=== PATIENT | female | born 1955 | race Caucasian/White ===

== ENCOUNTER 2019-11-06 05:40 | Day surgery (SDC) | payer MEDICARE ==
[2019-11-06] MEDS ORDERED: Midazolam 1 MG/ML 2 ML SDV IV ONE ×7 (05:41→06:53)
[2019-11-06] MEDS ORDERED: fentaNYL 100 MCG/2 ML SDV IV ONE ×3 (05:41→06:40)
[2019-11-06] MEDS ORDERED: Sodium Chloride 0.9% 10 ML Syringe FLUSH PRN (06:00)
[2019-11-06] MEDS ORDERED: fentaNYL 100 MCG/2 ML SDV ONE (06:15)
[2019-11-06] MEDS ORDERED: Midazolam 1 MG/ML 2 ML SDV ONE (06:15)
[2019-11-06] MEDS ORDERED: Dextrose 5%-0.45% NaCl 1,000 ML IV SCH (07:00)
--- NOTE | 2019-11-06 07:33 | OR ---
DATE: 11/06/2019 PROCEDURES: Total colonoscopy, narrow-band imaging, and cold snare polypectomy. INSTRUMENT USED: PCF-H190DL Olympus video colonoscope. PREMEDICATIONS: Fentanyl 100 mcg intravenous, Versed 4 mg intravenous, nasal O2 cannula. The procedure was done under pulse oximetry, BP recording, and radiographer cardiac catheterization. INDICATION: The patient with rectal bleeding. Colonoscopic examination is done for detection of any polypoid lesions and removal, endoscopic hemostasis therapy if needed. DESCRIPTION OF PROCEDURE: Initial rectal exam showed external hemorrhoidal tags. Rigid anoscopy showed small internal hemorrhoids without bleeding from them. The colonoscope was passed with ease. Numerous scattered diverticula were noted, more so in the distal left colon along with deformity. The scope was passed with ease up to the ileocecal area. Photographs were taken of the normal-appearing cecum, identified by landmarks of appendiceal orifice and double-bulged ileocecal folds. There was significant amount of fecal material that had to be aspirated, [place] scale 2 in all the areas. No stricture. No vascular ectasia. No large isolated ulcerations seen. No evidence of diffuse inflammatory bowel disease in the form of friability, contact bleeding, or ulcerations. Probing the proximal sides of folds and flexures using adequate distention and clearing up the stool material, withdrawal of the scope was made. In the mid descending colon, diminutive benign-appearing polyp was noted, NBI views were obtained, photographs were taken, cold snare polypectomy was done, the tissue was retrieved and sent for histopathology. No bleeding was noted from any of the visualized areas at the completion of examination. IMPRESSION: 1. External and internal hemorrhoids. 2. Diverticulosis. 3. Descending colon polyp. The patient tolerated the procedure well. [facility] /[id number]
== END 2019-11-06 09:12 | disposition home or self-care (01) ==
LOC: DL.ENDO 05:40 → EDSEX 06:30 → DL.ENDO 09:12
PROVIDERS: ATTEND Internal Medicine Gastroenterology
DX: D12.4 Benign neoplasm of descending colon (principal); K64.8 Other hemorrhoids; K64.4 Residual hemorrhoidal skin tags; K57.30 Diverticulosis of large intestine without perforation or abscess without bleeding; I10 Essential (primary) hypertension; E78.5 Hyperlipidemia, unspecified; E11.9 Type 2 diabetes mellitus without complications; F32.9 Major depressive disorder, single episode, unspecified; M54.5 Low back pain; M19.90 Unspecified osteoarthritis, unspecified site; E66.09 Other obesity due to excess calories; Z68.39 Body mass index [BMI] 39.0-39.9, adult; Z88.1 Allergy status to other antibiotic agents; Z88.6 Allergy status to analgesic agent; Z88.2 Allergy status to sulfonamides; Z88.8 Allergy status to other drugs, medicaments and biological substances; Z90.49 Acquired absence of other specified parts of digestive tract; Z90.710 Acquired absence of both cervix and uterus; Z98.890 Other specified postprocedural states
CPT/HCPCS: 45385; J2250; J3010; J7042

== ENCOUNTER 2019-12-26 13:50 | Inpatient (IN) | payer MEDICARE, OTHER ==
[2019-12-26 16:04] LABS: ANION GAP 13.9
--- NOTE | 2019-12-26 17:25 | EDM.PDOC ---
Scribed by Breana Castro 12/26/19 [id number] for Donna Iyer PA-C ED HPI GENERAL MEDICAL PROBLEM - General Chief Complaint: Trauma Stated Complaint: FEEL SATURDAY AND LAST NIGHT Time Seen by Provider: 12/26/19 15:41 Source of Information: Reports: Patient, Family, RN, RN Notes Reviewed History Limitations: Reports: No Limitations - History of Present Illness INITIAL COMMENTS - FREE TEXT/NARRATIVE: Patient presents to ER stating she had a fall at home x2. She laid on floor for 24 hours. She was assisted up by her son. She then fell again latera. She bent over her walker and went forward. No loss of consciousness. She hit her left forehead and unable to get up off the floor by self. She has had no meds for the last 36 hours. Her left lower leg is red and swollen but better than prior. She has left hip pain but has been bearing weight. She voided a large amount. No chest pain or shortness of breath. She has usual weakness. reports swelling to lower extremities, Redness to left though is better than prior to fall. States has fallen before, Lives alone , son comes to check on her, Does not have life line. Onset: Gradual Duration: Getting Worse Location: Reports: Generalized Quality: Reports: Ache Severity: Moderate Improves with: Reports: None Worsens with: Reports: None Associated Symptoms: Reports: No Other Symptoms - Related Data Allergies Allergy/AdvReac Type Severity Reaction Status Date / Time daptomycin Allergy Cannot Verified 12/26/19 15:24 Remember [id number] Reductase Allergy Cannot Verified 12/26/19 15:24 Inhibitor Remember Sulfa (Sulfonamide Allergy Cannot Verified 12/26/19 15:24 Antibiotics) Remember Home Meds: Home Meds Amitriptyline [Elavil] 50 mg PO BEDTIME 12/26/19 [History] Baclofen 10 mg PO TID 12/26/19 [History] Calcium Carbonate [Calcium] 500 mg PO DAILY 12/26/19 [History] Fish Oil/[place]-3 Fatty Acids [Fish Oil 1,000 MG] 1 cap PO DAILY 12/26/19 [ History] Gabapentin [Neurontin] 800 mg PO QID 12/26/19 [History] Ibuprofen 600 mg PO TID 12/26/19 [History] Loratadine [Claritin] 10 mg PO DAILY 12/26/19 [History] Losartan [Cozaar] 100 mg PO DAILY 12/26/19 [History] Magnesium Oxide [Magnesium] 400 mg PO DAILY 12/26/19 [History] Metoprolol Tartrate 100 mg PO DAILY 12/26/19 [History] Multivit,Calc,Mins/Iron/Folic [Thera-M] 1 tab TID 12/26/19 [History] Naproxen Na-Diphenhydramin HCl [Aleve Pm Caplet] 1 each PO BEDTIME 12/26/19 [ History] Omeprazole 20 mg PO ACBREAKFAST 12/26/19 [History] Vitamin E (dl, acetate) [Vitamin E] 400 units PO DAILY 12/26/19 [History] Past Medical History HEENT History: Reports: None, Impaired Vision Cardiovascular History: Reports: High Cholesterol, Hypertension Respiratory History: Reports: None Gastrointestinal History: Reports: GERD, Other (See Below) Other Gastrointestinal History: ESOPHAGITIS Genitourinary History: Reports: Chronic Renal Insuffiency 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: Musculoskeletal History: Reports: Arthritis, Back Pain, Chronic, Osteoporosis Neurological History: Reports: Neuropathy, Peripheral, Other (See Below) Other Neuro History: NEUROMUSCULAR DISORDER Psychiatric History: Reports: Depression Endocrine/Metabolic History: Reports: Diabetes, Type II Hematologic History: Reports: None Immunologic History: Reports: None Oncologic (Cancer) History: Reports: None Dermatologic History: Reports: None - Infectious Disease History Infectious Disease History: Reports: Chicken Pox, Measles, Mumps - Past Surgical History Head Surgeries/Procedures: Reports: None HEENT Surgical History: Reports: None Cardiovascular Surgical History: Reports: None Respiratory Surgical History: Reports: None GI Surgical History: Reports: Cholecystectomy, Colonoscopy Female Surgical History: Reports: Hysterectomy, Tubal Ligation, Other (See Below) Other Female Surgeries/Procedures: ME. LIGATE FALLOPIAN TUBE Musculoskeletal Surgical History: Reports: Arthroscopic Knee, Other (See Below) Other Musculoskeletal Surgeries/Procedures:: HX OF LUMBAR SURGERY. RIGHT KENEE ARTHROSCOPY Social & Family History - Family History Family Medical History: Noncontributory - Tobacco Use Smoking Status *Q: Never Smoker Second Hand Smoke Exposure: No - Caffeine Use Caffeine Use: Reports: Coffee, Soda, Tea Caffeine Use Comment: 12 oz daily - Recreational Drug Use Recreational Drug Use: No Review of Systems - Review of Systems Review Of Systems: Comprehensive ROS is negative, except as noted in HPI. ED EXAM, GENERAL - Physical Exam Exam: See Below Exam Limited By: No Limitations General Appearance: Alert, WD/WN, No Apparent Distress Eye Exam: Bilateral Eye: EOMI, PERRL Ears: Normal External Exam, Normal Canal, Hearing Grossly Normal, Normal TMs Nose: Normal Inspection, Normal Mucosa, No Blood. No: Nasal Drainage Throat/Mouth: Normal Inspection, Normal Lips, Normal Teeth, Normal Gums, Normal Oropharynx, Normal Voice, No Airway Compromise Head: Atraumatic, Normocephalic, Facial Swelling (left upper orbit, foerhead, cheek tender) Neck: Normal Inspection, Supple, Non-Tender, Full Range of Motion Respiratory/Chest: No Respiratory Distress, Lungs Clear, Normal Breath Sounds, No Accessory Muscle Use, Chest Non-Tender Cardiovascular: Normal Peripheral Pulses, Regular Rate, Rhythm, No Edema, No Gallop, No JVD, No Murmur, No Rub GI/Abdominal: Normal Bowel Sounds, Soft, Non-Tender, Other (normal bowel sounds x4. ) (Female) Exam: Deferred Rectal (Female) Exam: Deferred Back Exam: Normal Inspection Extremities: Normal Inspection, Normal Range of Motion, Non-Tender, Normal Capillary Refill, No Pedal Edema Neurological: Alert, Oriented, CN II-XII Intact, Normal Cognition, Normal Gait, Normal Reflexes, No Motor/Sensory Deficits Psychiatric: Normal Affect, Normal Mood Skin Exam: Warm, Dry, Other (bruise right and left upper arm. Bruise left upper elbow. Left ahumada open sores, red and warm. ) Course - Vital Signs Last Recorded V/S: Last Vital Signs Temp 97.7 F 12/26/19 15:27 Pulse 85 12/26/19 15:27 Resp 16 12/26/19 15:27 BP 107/91 H 12/26/19 15:27 Pulse Ox 98 12/26/19 15:27 - Orders/Labs/Meds Orders: Active Orders 24 hr Category Date Time Status Admission Diagnosis [ADT] Stat ADT 12/26/19 17:18 Ordered Admission Status [Patient Status] [ADT] Routine ADT 12/26/19 17:18 Ordered EKG 12 Lead [EKG Documentation Completion] [RC] URGENT Care 12/26/19 17:04 Active Head wo Cont [CT] Urgent Exams 12/26/19 15:32 Taken Max Facial Sinus w wo Cont [CT] Urgent Exams 12/26/19 15:35 Taken Pelvis wo Cont [MR] Urgent Exams 12/26/19 15:48 Ordered CULTURE BLOOD [BC] Stat Lab 12/26/19 16:33 Received UA RFX DEBORAH AND CULT IF INDIC [URIN] Urgent Lab 12/26/19 15:32 Ordered Blood Culture x2 Reflex Set [OM.PC] Stat Oth 12/26/19 16:04 Ordered Labs: Laboratory Tests 12/26/19 12/26/19 12/26/19 Range/Units 15:42 15:42 15:42 WBC 7.1 (5.0-10.0) 10^3/uL RBC 3.74 L (4.2-5.4) 10^6/uL Hgb 11.6 L (12.0-16.0) g/dL Hct 33.6 L (37.0-47.0) % MCV 89.8 (80-100) fL MCH 31.0 (27.0-34.0) pg MCHC 34.5 (33.0-35.0) g/dL Plt Count 146 L (150-450) 10^3/uL Neut % (Auto) 61.9 (42.2-75.2) % Lymph % (Auto) 21.4 (20.5-50.1) % Cameron % (Auto) 11.4 H (2-8) % Eos % (Auto) 4.9 H (1.0-3.0) % Baso % (Auto) 0.4 (0.0-1.0) % PT 10.9 (9.0-12.0) SEC INR 1.1 (0.9-1.2) Sodium 137 (135-145) mmol/L Potassium 3.9 (3.6-5.0) mmol/L Chloride 103 (101-111) mmol/L Carbon Dioxide 24.0 (21.0-31.0) mmol/L Anion Gap 13.9 BUN 43 H (7-18) mg/dL Creatinine 1.4 H (0.6-1.3) mg/dL Est Cr Clr Drug Dosing 37.49 mL/min Estimated GFR (MDRD) 38 BUN/Creatinine Ratio 30.71 Glucose 219 H (74-105) mg/dL Lactic Acid (0.5-2.0) mmol/L Calcium 9.0 (8.4-10.2) mg/dl Total Bilirubin 1.1 H (0.2-1.0) mg/dL AST 83 H (10-42) IU/L ALT 49 (10-60) IU/L Alkaline Phosphatase 121 (42-121) IU/L Creatine Kinase 1048 H (26-174) IU/L Troponin I (0.00-0.02) ng/ml B-Natriuretic Peptide (0-100) pg/ml Total Protein 7.8 (6.7-8.2) g/dl Albumin 3.4 (3.2-5.5) g/dl Globulin 4.4 Albumin/Globulin Ratio 0.77 Amylase 28 (28-100) U/L Lipase 26 (22-51) U/L 12/26/19 12/26/19 Range/Units 15:42 16:33 WBC (5.0-10.0) 10^3/uL RBC (4.2-5.4) 10^6/uL Hgb (12.0-16.0) g/dL Hct (37.0-47.0) % MCV (80-100) fL MCH (27.0-34.0) pg MCHC (33.0-35.0) g/dL Plt Count (150-450) 10^3/uL Neut % (Auto) (42.2-75.2) % Lymph % (Auto) (20.5-50.1) % Cameron % (Auto) (2-8) % Eos % (Auto) (1.0-3.0) % Baso % (Auto) (0.0-1.0) % PT (9.0-12.0) SEC INR (0.9-1.2) Sodium (135-145) mmol/L Potassium (3.6-5.0) mmol/L Chloride (101-111) mmol/L Carbon Dioxide (21.0-31.0) mmol/L Anion Gap BUN (7-18) mg/dL Creatinine (0.6-1.3) mg/dL Est Cr Clr Drug Dosing mL/min Estimated GFR (MDRD) BUN/Creatinine Ratio Glucose (74-105) mg/dL Lactic Acid 1.3 (0.5-2.0) mmol/L Calcium (8.4-10.2) mg/dl Total Bilirubin (0.2-1.0) mg/dL AST (10-42) IU/L ALT (10-60) IU/L Alkaline Phosphatase (42-121) IU/L Creatine Kinase (26-174) IU/L Troponin I < 0.02 (0.00-0.02) ng/ml B-Natriuretic Peptide 170 H (0-100) pg/ml Total Protein (6.7-8.2) g/dl Albumin (3.2-5.5) g/dl Globulin Albumin/Globulin Ratio Amylase (28-100) U/L Lipase (22-51) U/L - Radiology Interpretation Free Text/Narrative:: CT head: Soft tissue injury around the left orbit. No acute intracranial process. See rad report. CT maxillofacial sinuses: Soft tissue swelling without acute bony abnormality. See rad report. CT Pelvis: No acute abnormality. See rad report. - Re-Assessments/Exams Free Text/Narrative Re-Assessment/Exam: 12/26/19 17:22 Dr Johnson, accepting patient for Observation admission. Departure - Departure Time of Disposition: 17:23 Disposition: Refer to Observation Condition: Good Clinical Impression: Fall at home Qualifiers: Encounter type: initial encounter Qualified Code(s): W19.XXXA - Unspecified fall, initial encounter; Y92.009 - Unspecified place in unspecified non- institutional (private) residence as the place of occurrence of the external cause Facial contusion Qualifiers: Encounter type: initial encounter Qualified Code(s): S00.83XA - Contusion of other part of head, initial encounter Edema Qualifiers: Edema type: unspecified Qualified Code(s): R60.9 - Edema, unspecified Rhabdomyolysis Qualifiers: Rhabdomyolysis type: traumatic Encounter type: initial encounter Qualified Code (s): T79.6XXA - Traumatic ischemia of muscle, initial encounter - Discharge Information *PRESCRIPTION DRUG MONITORING PROGRAM REVIEWED*: No *COPY OF PRESCRIPTION DRUG MONITORING REPORT IN PATIENT SHARON: No Forms: ED Department Discharge Sepsis Event Note - Evaluation Sepsis Screening Result: No Definite Risk - Focused Exam Vital Signs: Vital Signs Temp Pulse Resp BP Pulse Ox 12/26/19 15:27 97.7 F 85 16 107/91 H 98 Date Exam was Performed: 12/26/19 Time Exam was Performed: 17:24 - My Orders Last 24 Hours: My Active Orders 12/26/19 15:32 Head wo Cont [CT] Urgent UA RFX DEBORAH AND CULT IF INDIC [URIN] Urgent 12/26/19 15:35 Max Facial Sinus w wo Cont [CT] Urgent 12/26/19 15:48 Pelvis wo Cont [MR] Urgent 12/26/19 16:04 Blood Culture x2 Reflex Set [OM.PC] Stat 12/26/19 16:33 CULTURE BLOOD [BC] Stat 12/26/19 17:04 EKG 12 Lead [EKG Documentation Completion] [RC] URGENT 12/26/19 17:18 Admission Diagnosis [ADT] Stat Admission Status [Patient Status] [ADT] Routine - Assessment/Plan Last 24 Hours: My Active Orders 12/26/19 15:32 Head wo Cont [CT] Urgent UA RFX DEBORAH AND CULT IF INDIC [URIN] Urgent 12/26/19 15:35 Max Facial Sinus w wo Cont [CT] Urgent 12/26/19 15:48 Pelvis wo Cont [MR] Urgent 12/26/19 16:04 Blood Culture x2 Reflex Set [OM.PC] Stat 12/26/19 16:33 CULTURE BLOOD [BC] Stat 12/26/19 17:04 EKG 12 Lead [EKG Documentation Completion] [RC] URGENT 12/26/19 17:18 Admission Diagnosis [ADT] Stat Admission Status [Patient Status] [ADT] Routine I have read and agree with the documentation that has been completed regarding this visit. By signing this record, I attest that the documentation was completed in my physical presence and is an accurate record of the encounter.
[2019-12-26] MEDS ORDERED: Ondansetron 4 MG/2 ML SDV IV PRN (18:48)
[2019-12-26] MEDS ORDERED: Acetaminophen 325 MG Tab PO PRN (18:48)
[2019-12-26] MEDS ORDERED: Sodium Chloride 0.9% 10 ML Syringe FLUSH PRN (18:49)
[2019-12-26] MEDS ORDERED: Baclofen 10 MG Tab PO PRN (18:52)
[2019-12-26] MEDS ORDERED: fentaNYL 100 MCG/2 ML SDV IVPUSH PRN (19:44)
[2019-12-26] MEDS: Sodium Chloride 0.9% 1,000 ML IV SCH (19:48)
--- NOTE | 2019-12-26 19:51 | PCM.HP ---
H&P History of Present Illness - General Date of Service: 12/26/19 Admit Problem/Dx: Admission Diagnosis/Problem Admission Diagnosis/Problem Rhabdomyolysis Source of Information: Patient History Limitations: Reports: No Limitations - History of Present Illness Initial Comments - Free Text/Narative: 64 yo with PMH of HTN, DM2 on insulin, chronic back pain s/p lumbar surgery with complications, ambulatory dysfunction, mostly wheelchair bound, GERD, osteomyelitis s/p treatment, HLD, obesity, CKD, hepatic steatosis (HUMPHRIES), who presents to the ED after a fall from her wheelchair. She lives alone at home but has family members who check on her regularly. She had lumbar surgery for sciatica in 2017 which was complicated with infection and she has had ambulatory dysfunction since, being bound to wheelchair. Wheelchair however is dysfunctional and tends to topple over and leave her on the floor. She is able to pick herself up sometime if she is near an object like an ottoman. However in the last two days, she has had two falls from the wheelchair and has been unable to get herself back up. She was on the floor for almost 24 hours the first time when her son was able to come in and help her up last night. She then was able to get dinner and slept overnight in her bed. She subsequently fell again during the day today and was on the floor again for some hours before the son came in and brought her to the ED. She had no LOC, no urinary or fecal incontinence, no chest pain, no SOB, no abd pain, no urinary symptoms. She does have a left ahumada redness, pain and swelling that started two days ago. There is seropurulent discharge from small wounds on the left ahumada. No fever, no chills, no rigors. She also has left eye swelling from the fall. In the ER, she was cleared by ER provider from a trauma standpoint. CT head negative for bleed, fracture. CPK was elevated > 1000. Admission requested by ED provider. left leg Pain Score (Numeric/FACES): 7 - Related Data Allergies/Adverse Reactions: Allergies Allergy/AdvReac Type Severity Reaction Status Date / Time daptomycin Allergy Cannot Verified 12/26/19 17:43 Remember Hddzvim-Xnx-Slj Reductase Allergy Cannot Verified 12/26/19 17:43 Inhibitor Remember Sulfa (Sulfonamide Allergy Cannot Verified 12/26/19 17:43 Antibiotics) Remember Home Medications: Home Meds Amitriptyline [Elavil] 50 mg PO BEDTIME 12/26/19 [History] Baclofen 10 mg PO TID 12/26/19 [History] Calcium Carbonate [Calcium] 500 mg PO DAILY 12/26/19 [History] Fish Oil/[place]-3 Fatty Acids [Fish Oil 1,000 MG] 1 cap PO DAILY 12/26/19 [ History] Gabapentin [Neurontin] 800 mg PO QID 12/26/19 [History] Ibuprofen 600 mg PO TID 12/26/19 [History] Insulin Degludec [Tresiba] 20 units SQ DAILY 12/26/19 [History] Loratadine [Claritin] 10 mg PO DAILY 12/26/19 [History] Losartan [Cozaar] 100 mg PO DAILY 12/26/19 [History] Magnesium Oxide [Magnesium] 400 mg PO DAILY 12/26/19 [History] Metoprolol Tartrate 100 mg PO DAILY 12/26/19 [History] Multivit,Calc,Mins/Iron/Folic [Thera-M] 1 tab TID 12/26/19 [History] Naproxen Na-Diphenhydramin HCl [Aleve Pm Caplet] 1 each PO BEDTIME 12/26/19 [ History] Omeprazole 20 mg PO ACBREAKFAST 12/26/19 [History] Vitamin E (dl, acetate) [Vitamin E] 400 units PO DAILY 12/26/19 [History] Past Medical History HEENT History: Reports: None, Impaired Vision Cardiovascular History: Reports: High Cholesterol, Hypertension Respiratory History: Reports: None Gastrointestinal History: Reports: GERD, Other (See Below) Other Gastrointestinal History: ESOPHAGITIS Genitourinary History: Reports: Chronic Renal Insuffiency DEVICE ENGINEER History: Reports: Musculoskeletal History: Reports: Arthritis, Back Pain, Chronic, Osteoporosis Neurological History: Reports: Neuropathy, Peripheral, Other (See Below) Other Neuro History: NEUROMUSCULAR DISORDER Psychiatric History: Reports: Depression Endocrine/Metabolic History: Reports: Diabetes, Type II Hematologic History: Reports: None Immunologic History: Reports: None Oncologic (Cancer) History: Reports: None Dermatologic History: Reports: None - Infectious Disease History Infectious Disease History: Reports: Chicken Pox, Measles, Mumps - Past Surgical History Head Surgeries/Procedures: Reports: None HEENT Surgical History: Reports: None Cardiovascular Surgical History: Reports: None Respiratory Surgical History: Reports: None GI Surgical History: Reports: Cholecystectomy, Colonoscopy Female Surgical History: Reports: Hysterectomy, Tubal Ligation, Other (See Below) Other Female Surgeries/Procedures: DE. LIGATE FALLOPIAN TUBE Musculoskeletal Surgical History: Reports: Arthroscopic Knee, Other (See Below) Other Musculoskeletal Surgeries/Procedures:: HX OF LUMBAR SURGERY. RIGHT KENEE ARTHROSCOPY Social & Family History - Family History Family Medical History: Noncontributory - Tobacco Use Smoking Status *Q: Never Smoker Second Hand Smoke Exposure: No - Caffeine Use Caffeine Use: Reports: Coffee, Soda, Tea Caffeine Use Comment: 12 oz daily - Recreational Drug Use Recreational Drug Use: No H&P Review of Systems - Review of Systems: Review Of Systems: See Below General: Denies: Fever, Chills HEENT: Reports: No Symptoms Pulmonary: Reports: No Symptoms Cardiovascular: Reports: No Symptoms Gastrointestinal: Reports: No Symptoms Genitourinary: Reports: No Symptoms Musculoskeletal: Reports: Other (Fall) Skin: Reports: Wound, Change in Color Psychiatric: Reports: No Symptoms Neurological: Reports: Gait Disturbance Exam - Exam Exam: See Below - Vital Signs Vital Signs: Last Vital Signs Temp 36.1 C 12/26/19 17:42 Pulse 88 12/26/19 17:42 Resp 20 12/26/19 17:42 BP 150/75 H 12/26/19 17:42 Pulse Ox 100 12/26/19 17:42 Weight: 109.225 kg - Exam General: Alert, Oriented HEENT: Conjunctiva Clear, EOMI, Hearing Intact Neck: Supple, Trachea Midline Lungs: Clear to Auscultation, Normal Respiratory Effort Cardiovascular: Regular Rate, Regular Rhythm GI/Abdominal Exam: Normal Bowel Sounds, Soft, Non-Tender Extremities: Pedal Edema (left leg swelling, tenderness, redness), Redness - Patient Data Lab Results Last 24 hrs: Laboratory Results - last 24 hr 12/26/19 12/26/19 12/26/19 Range/Units 15:42 15:42 15:42 WBC 7.1 (5.0-10.0) 10^3/uL RBC 3.74 L (4.2-5.4) 10^6/uL Hgb 11.6 L (12.0-16.0) g/dL Hct 33.6 L (37.0-47.0) % MCV 89.8 (80-100) fL MCH 31.0 (27.0-34.0) pg MCHC 34.5 (33.0-35.0) g/dL Plt Count 146 L (150-450) 10^3/uL Neut % (Auto) 61.9 (42.2-75.2) % Lymph % (Auto) 21.4 (20.5-50.1) % [place] % (Auto) 11.4 H (2-8) % Eos % (Auto) 4.9 H (1.0-3.0) % Baso % (Auto) 0.4 (0.0-1.0) % PT 10.9 (9.0-12.0) SEC INR 1.1 (0.9-1.2) Sodium 137 (135-145) mmol/L Potassium 3.9 (3.6-5.0) mmol/L Chloride 103 (101-111) mmol/L Carbon Dioxide 24.0 (21.0-31.0) mmol/L Anion Gap 13.9 BUN 43 H (7-18) mg/dL Creatinine 1.4 H (0.6-1.3) mg/dL Est Cr Clr Drug Dosing 37.49 mL/min Estimated GFR (MDRD) 38 BUN/Creatinine Ratio 30.71 Glucose 219 H (74-105) mg/dL Lactic Acid (0.5-2.0) mmol/L Calcium 9.0 (8.4-10.2) mg/dl Total Bilirubin 1.1 H (0.2-1.0) mg/dL AST 83 H (10-42) IU/L ALT 49 (10-60) IU/L Alkaline Phosphatase 121 (42-121) IU/L Creatine Kinase 1048 H (26-174) IU/L Troponin I (0.00-0.02) ng/ml B-Natriuretic Peptide (0-100) pg/ml Total Protein 7.8 (6.7-8.2) g/dl Albumin 3.4 (3.2-5.5) g/dl Globulin 4.4 Albumin/Globulin Ratio 0.77 Amylase 28 (28-100) U/L Lipase 26 (22-51) U/L 12/26/19 12/26/19 Range/Units 15:42 16:33 WBC (5.0-10.0) 10^3/uL RBC (4.2-5.4) 10^6/uL Hgb (12.0-16.0) g/dL Hct (37.0-47.0) % MCV (80-100) fL MCH (27.0-34.0) pg MCHC (33.0-35.0) g/dL Plt Count (150-450) 10^3/uL Neut % (Auto) (42.2-75.2) % Lymph % (Auto) (20.5-50.1) % [place] % (Auto) (2-8) % Eos % (Auto) (1.0-3.0) % Baso % (Auto) (0.0-1.0) % PT (9.0-12.0) SEC INR (0.9-1.2) Sodium (135-145) mmol/L Potassium (3.6-5.0) mmol/L Chloride (101-111) mmol/L Carbon Dioxide (21.0-31.0) mmol/L Anion Gap BUN (7-18) mg/dL Creatinine (0.6-1.3) mg/dL Est Cr Clr Drug Dosing mL/min Estimated GFR (MDRD) BUN/Creatinine Ratio Glucose (74-105) mg/dL Lactic Acid 1.3 (0.5-2.0) mmol/L Calcium (8.4-10.2) mg/dl Total Bilirubin (0.2-1.0) mg/dL AST (10-42) IU/L ALT (10-60) IU/L Alkaline Phosphatase (42-121) IU/L Creatine Kinase (26-174) IU/L Troponin I < 0.02 (0.00-0.02) ng/ml B-Natriuretic Peptide 170 H (0-100) pg/ml Total Protein (6.7-8.2) g/dl Albumin (3.2-5.5) g/dl Globulin Albumin/Globulin Ratio Amylase (28-100) U/L Lipase (22-51) U/L Result Diagrams: 12/26/19 15:42 12/26/19 15:42 Problem List Initiated/Reviewed/Updated: Yes Orders Last 24hrs: Active Orders 24 hr Category Date Time Status Admission Diagnosis [ADT] Stat ADT 12/26/19 17:18 Ordered Patient Status [ADT] Routine ADT 12/26/19 18:49 Active Accu Check [Blood Glucose Check, Bedside] [RC] Care 12/26/19 18:49 Active QIDACANDBED Ambulate [RC] ASDIRECTED Care 12/26/19 18:49 Active EKG 12 Lead [EKG Documentation Completion] [RC] URGENT Care 12/26/19 17:04 Active Height and Weight [RC] DAILY Care 12/26/19 18:49 Active Oxygen Therapy [RC] PRN Care 12/26/19 18:49 Active Peripheral IV Care [RC] . DIRECTED Care 12/26/19 18:49 Active Up With Assistance [RC] ASDIRECTED Care 12/26/19 18:49 Active VTE/DVT Education [RC] PER UNIT ROUTINE Care 12/26/19 18:49 Active Vital Signs [RC] Q4H Care 12/26/19 18:49 Active OT Evaluation and Treatment [CONS] Routine Cons 12/26/19 18:49 Active PT Evaluation and Treatment [CONS] Routine Cons 12/26/19 18:49 Active Regular Diet [DIET] Diet 12/26/19 Dinner Active Pelvis wo Cont [MR] Urgent Exams 12/26/19 15:48 Ordered BASIC METABOLIC PANEL,BMP [CHEM] AM Lab 12/27/19 05:11 Ordered BASIC METABOLIC PANEL,BMP [CHEM] AM Lab 12/28/19 05:11 Ordered BASIC METABOLIC PANEL,BMP [CHEM] AM Lab 12/29/19 05:11 Ordered CBC W/O DIFF,HEMOGRAM [HEME] AM Lab 12/27/19 05:11 Ordered CBC W/O DIFF,HEMOGRAM [HEME] AM Lab 12/28/19 05:11 Ordered CBC W/O DIFF,HEMOGRAM [HEME] AM Lab 12/29/19 05:11 Ordered CREATINE KINASE,CK [CHEM] AM Lab 12/27/19 05:11 Ordered CULTURE BLOOD [BC] Stat Lab 12/26/19 16:33 Received CULTURE WOUND [RM] Routine Lab 12/26/19 17:45 Received MAGNESIUM [CHEM] AM Lab 12/27/19 05:11 Ordered MAGNESIUM [CHEM] AM Lab 12/28/19 05:11 Ordered MAGNESIUM [CHEM] AM Lab 12/29/19 05:11 Ordered PHOSPHORUS [CHEM] AM Lab 12/27/19 05:11 Ordered PHOSPHORUS [CHEM] AM Lab 12/28/19 05:11 Ordered PHOSPHORUS [CHEM] AM Lab 12/29/19 05:11 Ordered UA RFX DEBORAH AND CULT IF INDIC [URIN] Urgent Lab 12/26/19 15:32 Ordered Acetaminophen [Tylenol] Med 12/26/19 18:48 Active 650 mg PO Q4H PRN Amitriptyline [Elavil] Med 12/26/19 21:00 Ordered 50 mg PO BEDTIME Baclofen [Lioresal] Med 12/26/19 18:52 Ordered 10 mg PO TID PRN Calcium Carbonate [Calcium] Med 12/27/19 09:00 Ordered 500 mg PO DAILY Fish Oil/[place]-3 Fatty Acids [Fish Oil 1,000 MG] Med 12/27/19 09:00 Ordered 1 cap PO DAILY Insulin Degludec [Tresiba] Med 12/27/19 09:00 Ordered 20 units SQ DAILY Insulin Lispro [HumaLOG] Med 12/26/19 21:00 Active See Protocol SUBCUT QIDACANDBED Losartan [Cozaar] Med 12/27/19 09:00 Ordered 100 mg PO DAILY Magnesium Oxide [Magnesium] Med 12/27/19 09:00 Ordered 400 mg PO DAILY Metoprolol Tartrate Med 12/27/19 09:00 Ordered 100 mg PO DAILY Multivit,Calc,Mins/Iron/Folic [Thera-M] Med 12/26/19 21:00 Ordered 1 tab PO TID Omeprazole Med 12/27/19 06:00 Ordered 20 mg PO ACBREAKFAST Ondansetron [Zofran] Med 12/26/19 18:48 Active 4 mg IV Q4H PRN Pharmacy to Dose - Vancomycin Med 12/26/19 19:45 Ordered 1 dose .XX ASDIRECTED Sodium Chloride 0.9% [Normal Saline] 1,000 ml Med 12/26/19 19:00 Active IV ASDIRECTED Sodium Chloride 0.9% [Saline Flush] Med 12/26/19 18:49 Active 10 ml FLUSH ASDIRECTED PRN Sodium Chloride 0.9% [Saline Flush] Med 12/26/19 18:49 Active 10 ml FLUSH ASDIRECTED PRN Vitamin E (dl, acetate) [Vitamin E] Med 12/27/19 09:00 Ordered 400 units PO DAILY fentaNYL [Sublimaze] Med 12/26/19 19:44 Ordered 25 mcg IVPUSH Q1H PRN oxyCODONE Med 12/26/19 19:43 Ordered 5 mg PO Q4H PRN Blood Culture x2 Reflex Set [OM.PC] Stat Oth 12/26/19 16:04 Ordered Peripheral IV Insertion Adult [OM.PC] Routine Oth 12/26/19 18:49 Ordered Saline Lock Insert [OM.PC] Routine Oth 12/26/19 18:49 Ordered Resuscitation Status Routine Resus Stat 12/26/19 18:49 Ordered Medication Orders Acetaminophen (Tylenol) 650 mg PO Q4H PRN PRN Reason: Pain/Fever Amitriptyline HCl (Elavil) 50 mg PO BEDTIME [facility] Baclofen (Lioresal) 10 mg PO TID PRN PRN Reason: Spasms Fentanyl (Sublimaze) 25 mcg IVPUSH Q1H PRN PRN Reason: Pain (severe 7-10) Sodium Chloride (Normal Saline) 1,000 mls @ 150 mls/hr IV ASDIRECTED [facility] Insulin Human Lispro (Humalog) 0 unit SUBCUT QIDACANDBED [facility]; Protocol Non-Formulary Medication (Multivit,Calc,Mins/Iron/Folic [Thera-M]) 1 tab PO TID [facility] Non-Formulary Medication (Calcium Carbonate [Calcium]) 500 mg PO DAILY [facility] Non-Formulary Medication (Fish Oil/[place]-3 Fatty Acids [Fish Oil 1,000 Mg]) 1 cap PO DAILY [facility] Non-Formulary Medication (Insulin Degludec [Tresiba]) 20 units SQ DAILY [facility] Non-Formulary Medication (Losartan [Cozaar]) 100 mg PO DAILY [facility] Non-Formulary Medication (Metoprolol Tartrate) 100 mg PO DAILY [facility] Non-Formulary Medication (Magnesium Oxide [Magnesium]) 400 mg PO DAILY [facility] Omeprazole (Omeprazole) 20 mg PO ACBREAKFAST [facility] Ondansetron HCl (Zofran) 4 mg IV Q4H PRN PRN Reason: Nausea/Vomiting Sodium Chloride (Saline Flush) 10 ml FLUSH ASDIRECTED PRN PRN Reason: Keep Vein Open Sodium Chloride (Saline Flush) 10 ml FLUSH ASDIRECTED PRN PRN Reason: Keep Vein Open Vitamin E (Vitamin E) 400 units PO DAILY [facility] Assessment/Plan Comment:: #Falls out of wheelchair No LOC/syncope Needs to get wheelchair changed Will reduce dose of gabapentin and make baclofen PRN in case these meds are making her loopy predisposing to the falls. PT/OT eval #Left lower ext cellulitis IV vanc f/u blood cx #Rhabdomyolysis IV fluid hydration recheck CPK tomorrow morning #DM2 Accuchecks, ISS resume home meds carb controlled diet #CKD stable renally dose meds #DVT ppx SC heparin #Code status FC
[2019-12-26] MEDS: oxyCODONE 5 MG Tab PO PRN (20:22)
[2019-12-26] MEDS ORDERED: Amitriptyline 25 MG Tab PO SCH (21:00)
[2019-12-26] MEDS: Multivitamins, Therapeutic with Minerals Tab PO SCH (21:06)
[2019-12-26] MEDS: AMITRIPTYLINE 50 MG PO SCH (21:39)
[2019-12-26] MEDS: Insulin Lispro 100 Units/ML 3 ML Vial SUBCUT SCH (21:47)
[2019-12-27] MEDS: oxyCODONE 5 MG Tab PO PRN ×3 (03:58→19:42)
[2019-12-27] MEDS: Sodium Chloride 0.9% 1,000 ML IV SCH ×3 (05:07→19:40)
[2019-12-27] MEDS: Omeprazole 20 MG Cap.CR PO SCH (05:40)
[2019-12-27 07:01] LABS: ANION GAP 13.4
[2019-12-27] MEDS: Calcium Carbonate 500 MG Tab.Chew PO SCH (08:04)
[2019-12-27] MEDS: Vitamin E (dl-alpha-tocopherol acetate) 400 Unit Cap PO SCH (08:05)
[2019-12-27] MEDS: Multivitamins, Therapeutic with Minerals Tab PO SCH ×4 (08:05→21:52)
[2019-12-27] MEDS: Insulin Lispro 100 Units/ML 3 ML Vial SUBCUT SCH ×4 (08:35→21:41)
[2019-12-27] MEDS: Insulin Glarg,Human.Rec.Analog 100 Unit/ML SUBCUT SCH (08:36)
[2019-12-27] MEDS ORDERED: Potassium Chloride 10 MEQ Tab.ER PO ONE (09:28)
[2019-12-27] MEDS: LOSARTAN 100 MG PO SCH (10:26)
[2019-12-27] MEDS: METOPROLOL TARTRATE 100 MG PO SCH (10:27)
[2019-12-27] MEDS: Enoxaparin 40 MG/0.4 ML Syringe SUBCUT SCH (10:29)
[2019-12-27] MEDS: Psyllium 0.52 GM Cap PO SCH (10:30)
[2019-12-27] MEDS: Polyethylene Glycol 3350 Powder 17 GM Packet PO SCH (10:31)
--- NOTE | 2019-12-27 10:47 | PCM.PN ---
- General Info Date of Service: 12/27/19 Admission Dx/Problem (Free Text): Admission Diagnosis/Problem Admission Diagnosis/Problem Rhabdomyolysis Subjective Update: Patient seen and examined Complains of left knee pain, moderate to severe, worse with movement. Left knee is warm, painful, swollen No chest pain, no SOB, no abd pain, no nausea/vomiting - Review of Systems General: Reports: No Symptoms HEENT: Reports: No Symptoms Pulmonary: Reports: No Symptoms Cardiovascular: Reports: No Symptoms Gastrointestinal: Reports: No Symptoms Genitourinary: Reports: No Symptoms Musculoskeletal: Reports: Back Pain, Joint Pain, Joint Swelling Neurological: Reports: No Symptoms Psychiatric: Reports: No Symptoms - Patient Data Vitals - Most Recent: Last Vital Signs Temp 37.4 C 12/27/19 07:40 Pulse 96 12/27/19 09:45 Resp 20 12/27/19 07:40 BP 116/62 12/27/19 09:45 Pulse Ox 96 12/27/19 07:40 Weight - Most Recent: 109.134 kg I&O - Last 24 Hours: Intake & Output 12/26/19 12/27/19 12/27/19 21:59 06:59 14:59 Intake Total 360 Output Total Balance 360 Lab Results Last 24 Hours: Laboratory Results - last 24 hr 12/26/19 12/26/19 12/26/19 Range/Units 15:42 15:42 15:42 WBC 7.1 (5.0-10.0) 10^3/uL RBC 3.74 L (4.2-5.4) 10^6/uL Hgb 11.6 L (12.0-16.0) g/dL Hct 33.6 L (37.0-47.0) % MCV 89.8 (80-100) fL MCH 31.0 (27.0-34.0) pg MCHC 34.5 (33.0-35.0) g/dL Plt Count 146 L (150-450) 10^3/uL Neut % (Auto) 61.9 (42.2-75.2) % Lymph % (Auto) 21.4 (20.5-50.1) % [place] % (Auto) 11.4 H (2-8) % Eos % (Auto) 4.9 H (1.0-3.0) % Baso % (Auto) 0.4 (0.0-1.0) % PT 10.9 (9.0-12.0) SEC INR 1.1 (0.9-1.2) Sodium 137 (135-145) mmol/L Potassium 3.9 (3.6-5.0) mmol/L Chloride 103 (101-111) mmol/L Carbon Dioxide 24.0 (21.0-31.0) mmol/L Anion Gap 13.9 BUN 43 H (7-18) mg/dL Creatinine 1.4 H (0.6-1.3) mg/dL Est Cr Clr Drug Dosing 37.49 mL/min Estimated GFR (MDRD) 38 BUN/Creatinine Ratio 30.71 Glucose 219 H (74-105) mg/dL POC Glucose (70-105) mg/dl Lactic Acid (0.5-2.0) mmol/L Calcium 9.0 (8.4-10.2) mg/dl Phosphorus (2.5-4.6) mg/dL Magnesium (1.8-2.5) mg/dL Total Bilirubin 1.1 H (0.2-1.0) mg/dL AST 83 H (10-42) IU/L ALT 49 (10-60) IU/L Alkaline Phosphatase 121 (42-121) IU/L Creatine Kinase 1048 H (26-174) IU/L Troponin I (0.00-0.02) ng/ml B-Natriuretic Peptide (0-100) pg/ml Total Protein 7.8 (6.7-8.2) g/dl Albumin 3.4 (3.2-5.5) g/dl Globulin 4.4 Albumin/Globulin Ratio 0.77 Amylase 28 (28-100) U/L Lipase 26 (22-51) U/L Urine Color (YELLOW) Urine Appearance (CLEAR) Urine pH (5.0-9.0) Ur Specific [place] (1.005-1.030) Urine Protein (NEGATIVE) Urine Glucose (UA) (NEGATIVE) Urine Ketones (NEGATIVE) Urine Occult Blood (NEGATIVE) Urine Nitrite (NEGATIVE) Urine Bilirubin (NEGATIVE) Urine Urobilinogen (0.2-1.0) mg/dL Ur Leukocyte Esterase (NEGATIVE) Urine RBC /HPF Urine WBC (0-5/HPF) /HPF Ur Epithelial Cells (NOT SEEN) /HPF Urine Bacteria (0-FEW/HPF) /HPF 12/26/19 12/26/19 12/26/19 Range/Units 15:42 16:33 20:44 WBC (5.0-10.0) 10^3/uL RBC (4.2-5.4) 10^6/uL Hgb (12.0-16.0) g/dL Hct (37.0-47.0) % MCV (80-100) fL MCH (27.0-34.0) pg MCHC (33.0-35.0) g/dL Plt Count (150-450) 10^3/uL Neut % (Auto) (42.2-75.2) % Lymph % (Auto) (20.5-50.1) % [place] % (Auto) (2-8) % Eos % (Auto) (1.0-3.0) % Baso % (Auto) (0.0-1.0) % PT (9.0-12.0) SEC INR (0.9-1.2) Sodium (135-145) mmol/L Potassium (3.6-5.0) mmol/L Chloride (101-111) mmol/L Carbon Dioxide (21.0-31.0) mmol/L Anion Gap BUN (7-18) mg/dL Creatinine (0.6-1.3) mg/dL Est Cr Clr Drug Dosing mL/min Estimated GFR (MDRD) BUN/Creatinine Ratio Glucose (74-105) mg/dL POC Glucose 238 H (70-105) mg/dl Lactic Acid 1.3 (0.5-2.0) mmol/L Calcium (8.4-10.2) mg/dl Phosphorus (2.5-4.6) mg/dL Magnesium (1.8-2.5) mg/dL Total Bilirubin (0.2-1.0) mg/dL AST (10-42) IU/L ALT (10-60) IU/L Alkaline Phosphatase (42-121) IU/L Creatine Kinase (26-174) IU/L Troponin I < 0.02 (0.00-0.02) ng/ml B-Natriuretic Peptide 170 H (0-100) pg/ml Total Protein (6.7-8.2) g/dl Albumin (3.2-5.5) g/dl Globulin Albumin/Globulin Ratio Amylase (28-100) U/L Lipase (22-51) U/L Urine Color (YELLOW) Urine Appearance (CLEAR) Urine pH (5.0-9.0) Ur Specific [place] (1.005-1.030) Urine Protein (NEGATIVE) Urine Glucose (UA) (NEGATIVE) Urine Ketones (NEGATIVE) Urine Occult Blood (NEGATIVE) Urine Nitrite (NEGATIVE) Urine Bilirubin (NEGATIVE) Urine Urobilinogen (0.2-1.0) mg/dL Ur Leukocyte Esterase (NEGATIVE) Urine RBC /HPF Urine WBC (0-5/HPF) /HPF Ur Epithelial Cells (NOT SEEN) /HPF Urine Bacteria (0-FEW/HPF) /HPF 12/27/19 12/27/19 12/27/19 Range/Units 05:15 06:00 06:00 WBC 5.7 (5.0-10.0) 10^3/uL RBC 3.52 L (4.2-5.4) 10^6/uL Hgb 10.9 L (12.0-16.0) g/dL Hct 31.2 L (37.0-47.0) % MCV 88.6 (80-100) fL MCH 31.0 (27.0-34.0) pg MCHC 34.9 (33.0-35.0) g/dL Plt Count 98 L (150-450) 10^3/uL Neut % (Auto) (42.2-75.2) % Lymph % (Auto) (20.5-50.1) % [place] % (Auto) (2-8) % Eos % (Auto) (1.0-3.0) % Baso % (Auto) (0.0-1.0) % PT (9.0-12.0) SEC INR (0.9-1.2) Sodium 139 (135-145) mmol/L Potassium 3.4 L (3.6-5.0) mmol/L Chloride 106 (101-111) mmol/L Carbon Dioxide 23.0 (21.0-31.0) mmol/L Anion Gap 13.4 BUN 27 H (7-18) mg/dL Creatinine 1.0 (0.6-1.3) mg/dL Est Cr Clr Drug Dosing 54.60 mL/min Estimated GFR (MDRD) 56 BUN/Creatinine Ratio Glucose 168 H (74-105) mg/dL POC Glucose (70-105) mg/dl Lactic Acid (0.5-2.0) mmol/L Calcium 7.9 L (8.4-10.2) mg/dl Phosphorus 2.6 (2.5-4.6) mg/dL Magnesium 1.7 L (1.8-2.5) mg/dL Total Bilirubin (0.2-1.0) mg/dL AST (10-42) IU/L ALT (10-60) IU/L Alkaline Phosphatase (42-121) IU/L Creatine Kinase 556 H (26-174) IU/L Troponin I (0.00-0.02) ng/ml B-Natriuretic Peptide (0-100) pg/ml Total Protein (6.7-8.2) g/dl Albumin (3.2-5.5) g/dl Globulin Albumin/Globulin Ratio Amylase (28-100) U/L Lipase (22-51) U/L Urine Color Yellow (YELLOW) Urine Appearance Slightly cloudy (CLEAR) Urine pH 5.0 (5.0-9.0) Ur Specific [place] 1.020 (1.005-1.030) Urine Protein Negative (NEGATIVE) Urine Glucose (UA) Negative (NEGATIVE) Urine Ketones Negative (NEGATIVE) Urine Occult Blood Negative (NEGATIVE) Urine Nitrite Negative (NEGATIVE) Urine Bilirubin Negative (NEGATIVE) Urine Urobilinogen 0.2 (0.2-1.0) mg/dL Ur Leukocyte Esterase Small H (NEGATIVE) Urine RBC 0-5 /HPF Urine WBC 10-20 H (0-5/HPF) /HPF Ur Epithelial Cells Few (NOT SEEN) /HPF Urine Bacteria Moderate H (0-FEW/HPF) /HPF 03/08/20 Range/Units 06:46 WBC (5.0-10.0) 10^3/uL RBC (4.2-5.4) 10^6/uL Hgb (12.0-16.0) g/dL Hct (37.0-47.0) % MCV (80-100) fL MCH (27.0-34.0) pg MCHC (33.0-35.0) g/dL Plt Count (150-450) 10^3/uL Neut % (Auto) (42.2-75.2) % Lymph % (Auto) (20.5-50.1) % [place] % (Auto) (2-8) % Eos % (Auto) (1.0-3.0) % Baso % (Auto) (0.0-1.0) % PT (9.0-12.0) SEC INR (0.9-1.2) Sodium (135-145) mmol/L Potassium (3.6-5.0) mmol/L Chloride (101-111) mmol/L Carbon Dioxide (21.0-31.0) mmol/L Anion Gap BUN (7-18) mg/dL Creatinine (0.6-1.3) mg/dL Est Cr Clr Drug Dosing mL/min Estimated GFR (MDRD) BUN/Creatinine Ratio Glucose (74-105) mg/dL POC Glucose 154 H (70-105) mg/dl Lactic Acid (0.5-2.0) mmol/L Calcium (8.4-10.2) mg/dl Phosphorus (2.5-4.6) mg/dL Magnesium (1.8-2.5) mg/dL Total Bilirubin (0.2-1.0) mg/dL AST (10-42) IU/L ALT (10-60) IU/L Alkaline Phosphatase (42-121) IU/L Creatine Kinase (26-174) IU/L Troponin I (0.00-0.02) ng/ml B-Natriuretic Peptide (0-100) pg/ml Total Protein (6.7-8.2) g/dl Albumin (3.2-5.5) g/dl Globulin Albumin/Globulin Ratio Amylase (28-100) U/L Lipase (22-51) U/L Urine Color (YELLOW) Urine Appearance (CLEAR) Urine pH (5.0-9.0) Ur Specific [place] (1.005-1.030) Urine Protein (NEGATIVE) Urine Glucose (UA) (NEGATIVE) Urine Ketones (NEGATIVE) Urine Occult Blood (NEGATIVE) Urine Nitrite (NEGATIVE) Urine Bilirubin (NEGATIVE) Urine Urobilinogen (0.2-1.0) mg/dL Ur Leukocyte Esterase (NEGATIVE) Urine RBC /HPF Urine WBC (0-5/HPF) /HPF Ur Epithelial Cells (NOT SEEN) /HPF Urine Bacteria (0-FEW/HPF) /HPF Med Orders - Current: Current Medications Acetaminophen (Tylenol) 650 mg PO Q4H PRN PRN Reason: Pain/Fever Baclofen (Lioresal) 10 mg PO TID PRN PRN Reason: Spasms Calcium Carbonate/Glycine (Tums) 500 mg PO DAILY [facility] Last Admin: 12/27/19 08:04 Dose: 500 mg Enoxaparin Sodium (Lovenox) 40 mg SUBCUT DAILY [facility] Last Admin: 12/27/19 10:29 Dose: 40 mg Fentanyl (Sublimaze) 25 mcg IVPUSH Q1H PRN PRN Reason: Pain (severe 7-10) Gabapentin (Neurontin) 300 mg PO TID [facility] Sodium Chloride (Normal Saline) 1,000 mls @ 150 mls/hr IV ASDIRECTED [facility] Last Admin: 12/27/19 05:07 Dose: 150 mls/hr Vancomycin HCl 1.25 gm/ Sodium (Chloride) 250 mls @ 166.667 mls/hr IV Q24H [facility] Last Admin: 12/26/19 20:18 Dose: 166.667 mls/hr Insulin Glargine (Lantus) 20 unit SUBCUT DAILY [facility] Last Admin: 12/27/19 08:36 Dose: 20 units Insulin Human Lispro (Humalog) 0 unit SUBCUT QIDACANDBED [facility]; Protocol Last Admin: 12/27/19 08:35 Dose: 2 units Magnesium Oxide (Magnesium Oxide) 500 mg PO DAILY [facility] Last Admin: 12/27/19 08:02 Dose: 500 mg Multivitamins/Minerals (Vitamins And Minerals) 1 tab PO TID [facility] Last Admin: 12/27/19 08:05 Dose: 1 tab Non-Formulary Medication (Fish Oil/[place]-3 Fatty Acids [Fish Oil 1,000 Mg]) 1 cap PO DAILY [facility] Losartan 100mg (Own Med ) 0 each PO DAILY [facility] Last Admin: 12/27/19 10:26 Dose: 1 each Metoprolol 100mg (Own Med ) 0 each PO DAILY [facility] Last Admin: 12/27/19 10:27 Dose: 1 each Amitriptyline 50mg (Tab Own Med ) 0 each PO BEDTIME [facility] Last Admin: 12/26/19 21:39 Dose: Not Given Omeprazole (Omeprazole) 20 mg PO ACBREAKFAST [facility] Last Admin: 12/27/19 05:40 Dose: 20 mg Ondansetron HCl (Zofran) 4 mg IV Q4H PRN PRN Reason: Nausea/Vomiting Oxycodone HCl (Oxycodone) 5 mg PO Q4H PRN PRN Reason: Pain (moderate 4-6) Last Admin: 12/27/19 10:31 Dose: 5 mg Polyethylene Glycol (Miralax) 17 gm PO DAILY [facility] Last Admin: 12/27/19 10:31 Dose: Not Given Psyllium Hydrophilic Mucilloid (Metamucil) 1.04 gm PO DAILY [facility] Last Admin: 12/27/19 10:30 Dose: 1.04 gm Senna/Docusate Sodium (Senna Plus) 1 tab PO BID [facility] Sodium Chloride (Saline Flush) 10 ml FLUSH ASDIRECTED PRN PRN Reason: Keep Vein Open Vancomycin HCl (Pharmacy To Dose - Vancomycin) 1 dose .XX ASDIRECTED [facility] Vitamin E (Vitamin E) 400 units PO DAILY [facility] Last Admin: 12/27/19 08:05 Dose: 400 units Discontinued Medications Amitriptyline HCl (Elavil) 50 mg PO BEDTIME [facility] Last Admin: 12/26/19 21:07 Dose: 50 mg Magnesium Sulfate/Dextrose 1 (gm/ Premix) 100 mls @ 100 mls/hr IV ONETIME ONE Stop: 12/27/19 10:27 Last Admin: 12/27/19 10:29 Dose: 100 mls/hr Potassium Chloride (Klor-Con 10) 40 meq PO ONETIME ONE Stop: 12/27/19 09:29 Last Admin: 12/27/19 10:28 Dose: 40 meq Sodium Chloride (Saline Flush) 10 ml FLUSH ASDIRECTED PRN PRN Reason: Keep Vein Open - Exam General: Alert, Oriented HEENT: Pupils Equal, Pupils Reactive Neck: Supple Lungs: Clear to Auscultation, Normal Respiratory Effort Cardiovascular: Regular Rate, Regular Rhythm GI/Abdominal Exam: Normal Bowel Sounds, Soft, Non-Tender Extremities: Pedal Edema Skin: Rash Sepsis Event Note - Evaluation Sepsis Screening Result: No Definite Risk - Focused Exam Vital Signs: Vital Signs Temp Pulse Resp BP Pulse Ox 12/27/19 09:45 96 116/62 12/27/19 07:40 37.4 C 83 20 84/49 L 96 12/26/19 23:51 36.9 C 96 20 116/60 97 Date Exam was Performed: 12/27/19 Time Exam was Performed: 10:42 - Problem List Review Problem List Initiated/Reviewed/Updated: Yes - My Orders Last 24 Hours: My Active Orders 12/26/19 18:48 Acetaminophen [Tylenol] 650 mg PO Q4H PRN Ondansetron [Zofran] 4 mg IV Q4H PRN 12/26/19 18:49 Patient Status [ADT] Routine Accu Check [Blood Glucose Check, Bedside] [RC] QIDACANDBED Ambulate [RC] ASDIRECTED Height and Weight [RC] 0600 Oxygen Therapy [RC] PRN Peripheral IV Care [RC] Up With Assistance [RC] ASDIRECTED VTE/DVT Education [RC] PER UNIT ROUTINE Vital Signs [RC] 04,08,12,16,20,00 OT Evaluation and Treatment [CONS] Routine PT Evaluation and Treatment [CONS] Routine Sodium Chloride 0.9% [Saline Flush] 10 ml FLUSH ASDIRECTED PRN Peripheral IV Insertion Adult [OM.PC] Routine Saline Lock Insert [OM.PC] Routine Resuscitation Status Routine 12/26/19 18:52 Baclofen [Lioresal] 10 mg PO TID PRN 12/26/19 19:00 Sodium Chloride 0.9% [Normal Saline] 1,000 ml IV ASDIRECTED 12/26/19 19:43 oxyCODONE 5 mg PO Q4H PRN 12/26/19 19:44 fentaNYL [Sublimaze] 25 mcg IVPUSH Q1H PRN 12/26/19 19:45 Pharmacy to Dose - Vancomycin 1 dose .XX ASDIRECTED 12/26/19 20:00 Vancomycin 1.25 gm Sodium Chloride 0.9% [Normal Saline (AdvBag)] 250 ml IV Q24H 12/26/19 21:00 Insulin Lispro [HumaLOG] See Protocol SUBCUT QIDACANDBED Multivitamins/Minerals [Vitamins and Minerals] 1 tab PO TID 12/26/19 21:30 Non-Formulary Medication [NF Drug] 0 each PO BEDTIME 12/26/19 Dinner Regular Diet [DIET] 12/27/19 06:00 Omeprazole 20 mg PO ACBREAKFAST 12/27/19 09:00 Calcium Carbonate [Tums] 500 mg PO DAILY Fish Oil/[place]-3 Fatty Acids [Fish Oil 1,000 MG] 1 cap PO DAILY Insulin Glarg,Human.Rec.Analog [LantUS] 20 unit SUBCUT DAILY Magnesium Oxide 500 mg PO DAILY Non-Formulary Medication [NF Drug] 0 each PO DAILY Non-Formulary Medication [NF Drug] 0 each PO DAILY Vitamin E (dl, acetate) [Vitamin E] 400 units PO DAILY 12/27/19 09:45 Enoxaparin [Lovenox] 40 mg SUBCUT DAILY Psyllium [Metamucil] 1.04 gm PO DAILY polyethylene glycoL 3350 [MiraLAX] 17 gm PO DAILY 12/27/19 10:19 Venous Doppler Lwr Ext Lt [US] Stat 12/27/19 10:20 Knee 3V Lt [CR] Routine 12/27/19 10:45 Docusate Sodium/Sennosides [Senna Plus] 1 tab PO BID 12/27/19 14:00 Gabapentin [Neurontin] 300 mg PO TID 12/28/19 05:11 BASIC METABOLIC PANEL,BMP [CHEM] AM CBC W/O DIFF,HEMOGRAM [HEME] AM MAGNESIUM [CHEM] AM PHOSPHORUS [CHEM] AM 12/29/19 05:11 BASIC METABOLIC PANEL,BMP [CHEM] AM CBC W/O DIFF,HEMOGRAM [HEME] AM MAGNESIUM [CHEM] AM PHOSPHORUS [CHEM] AM - Plan Plan:: #Left knee swelling, tenderness #Likely osteoarthritis Left knee XR Pain mgt #Falls out of wheelchair No LOC/syncope Needs to get wheelchair changed Will reduce dose of gabapentin and make baclofen PRN in case these meds are making her loopy predisposing to the falls. PT/OT eval #Left lower ext cellulitis IV vanc f/u blood cx check LE USS #Rhabdomyolysis IV fluid hydration CPK below 1000 this morning #DM2 Accuchecks, ISS resume home meds carb controlled diet #CKD stable renally dose meds #DVT ppx SC heparin #Code status
[2019-12-27] MEDS: Gabapentin 300 MG Cap PO SCH ×2 (15:06→21:40)
[2019-12-27] MEDS: AMITRIPTYLINE 50 MG PO SCH (21:51)
[2019-12-28] MEDS: Sodium Chloride 0.9% 1,000 ML IV SCH (03:48)
[2019-12-28] MEDS: Omeprazole 20 MG Cap.CR PO SCH (05:57)
[2019-12-28] MEDS: oxyCODONE 5 MG Tab PO PRN ×2 (06:25→21:23)
[2019-12-28 06:40] LABS: ANION GAP 11.5; CHLORIDE,CL 108 mmol/L (101-111); SODIUM,NA 139 mmol/L (135-145)
[2019-12-28] MEDS: Gabapentin 300 MG Cap PO SCH ×3 (08:13→20:31)
[2019-12-28] MEDS: Multivitamins, Therapeutic with Minerals Tab PO SCH (08:13)
[2019-12-28] MEDS: Vitamin E (dl-alpha-tocopherol acetate) 400 Unit Cap PO SCH (08:13)
[2019-12-28] MEDS: Calcium Carbonate 500 MG Tab.Chew PO SCH (08:14)
[2019-12-28] MEDS: Polyethylene Glycol 3350 Powder 17 GM Packet PO SCH (08:16)
[2019-12-28] MEDS: LOSARTAN 100 MG PO SCH (08:19)
[2019-12-28] MEDS: Enoxaparin 40 MG/0.4 ML Syringe SUBCUT SCH (08:20)
[2019-12-28] MEDS: Insulin Lispro 100 Units/ML 3 ML Vial SUBCUT SCH ×4 (08:23→21:27)
[2019-12-28] MEDS ORDERED: Potassium Chloride 10 MEQ Tab.ER PO ONE (09:00)
[2019-12-28] MEDS: Psyllium 0.52 GM Cap PO SCH (10:10)
[2019-12-28] MEDS: Insulin Glarg,Human.Rec.Analog 100 Unit/ML SUBCUT SCH (10:31)
--- NOTE | 2019-12-28 10:38 | PCM.PN ---
- General Info Date of Service: 12/28/19 Admission Dx/Problem (Free Text): Admission Diagnosis/Problem Admission Diagnosis/Problem Rhabdomyolysis Subjective Update: Patient seen and examined Left knee pain is improved today Left ahumada cellulitis is also improving No chest pain, no SOB, no abd pain, no nausea/vomiting Functional Status: Reports: Pain Controlled - Review of Systems General: Reports: No Symptoms HEENT: Reports: No Symptoms Pulmonary: Reports: No Symptoms Cardiovascular: Reports: No Symptoms Gastrointestinal: Reports: No Symptoms Genitourinary: Reports: No Symptoms Musculoskeletal: Reports: Joint Pain Skin: Reports: Rash Neurological: Reports: No Symptoms Psychiatric: Reports: No Symptoms - Patient Data Vitals - Most Recent: Last Vital Signs Temp 37.3 C 12/28/19 07:23 Pulse 90 12/28/19 07:23 Resp 18 12/28/19 07:23 BP 133/65 12/28/19 07:23 Pulse Ox 95 12/28/19 07:23 Weight - Most Recent: 113.398 kg I&O - Last 24 Hours: Intake & Output 12/27/19 12/28/19 12/28/19 22:59 06:59 14:59 Intake Total 2558 1539 Output Total 300 Balance 2558 1239 Lab Results Last 24 Hours: Laboratory Results - last 24 hr 12/27/19 12/27/19 12/27/19 Range/Units 12:02 16:37 20:32 WBC (5.0-10.0) 10^3/uL RBC (4.2-5.4) 10^6/uL Hgb (12.0-16.0) g/dL Hct (37.0-47.0) % MCV (80-100) fL MCH (27.0-34.0) pg MCHC (33.0-35.0) g/dL Plt Count (150-450) 10^3/uL Sodium (135-145) mmol/L Potassium (3.6-5.0) mmol/L Chloride (101-111) mmol/L Carbon Dioxide (21.0-31.0) mmol/L Anion Gap BUN (7-18) mg/dL Creatinine (0.6-1.3) mg/dL Est Cr Clr Drug Dosing mL/min Estimated GFR (MDRD) Glucose (74-105) mg/dL POC Glucose 252 H 214 H 163 H (70-105) mg/dl Calcium (8.4-10.2) mg/dl Phosphorus (2.5-4.6) mg/dL Magnesium (1.8-2.5) mg/dL 12/28/19 12/28/19 12/28/19 Range/Units 05:35 05:35 07:57 WBC 4.2 L (5.0-10.0) 10^3/uL RBC 3.34 L (4.2-5.4) 10^6/uL Hgb 10.4 L (12.0-16.0) g/dL Hct 29.9 L (37.0-47.0) % MCV 89.5 (80-100) fL MCH 31.1 (27.0-34.0) pg MCHC 34.8 (33.0-35.0) g/dL Plt Count 109 L (150-450) 10^3/uL Sodium 139 (135-145) mmol/L Potassium 3.5 L (3.6-5.0) mmol/L Chloride 108 (101-111) mmol/L Carbon Dioxide 23.0 (21.0-31.0) mmol/L Anion Gap 11.5 BUN 14 (7-18) mg/dL Creatinine 0.8 (0.6-1.3) mg/dL Est Cr Clr Drug Dosing 68.26 mL/min Estimated GFR (MDRD) > 60 Glucose 134 H (74-105) mg/dL POC Glucose 146 H (70-105) mg/dl Calcium 7.6 L (8.4-10.2) mg/dl Phosphorus 1.7 L (2.5-4.6) mg/dL Magnesium 1.6 L (1.8-2.5) mg/dL [place] Results Last 24 Hours: Microbiology 12/26/19 17:45 Wound Culture - Preliminary Leg, Unspecified 12/27/19 05:15 Urine Culture - Preliminary Urine, Clean Catch NO GROWTH AFTER 1 DAY 12/26/19 16:33 Aerobic Blood Culture - Preliminary Blood - Venous NO GROWTH AFTER 1 DAY Anaerobic Blood Culture - Preliminary NO GROWTH AFTER 1 DAY Med Orders - Current: Current Medications Acetaminophen (Tylenol) 650 mg PO Q4H PRN PRN Reason: Pain/Fever Baclofen (Lioresal) 10 mg PO TID PRN PRN Reason: Spasms Calcium Carbonate/Glycine (Tums) 500 mg PO DAILY [facility] Last Admin: 12/28/19 08:14 Dose: 500 mg Enoxaparin Sodium (Lovenox) 40 mg SUBCUT DAILY [facility] Last Admin: 12/28/19 08:20 Dose: Not Given Fentanyl (Sublimaze) 25 mcg IVPUSH Q1H PRN PRN Reason: Pain (severe 7-10) Gabapentin (Neurontin) 300 mg PO TID [facility] Last Admin: 12/28/19 08:13 Dose: 300 mg Sodium Chloride (Normal Saline) 1,000 mls @ 150 mls/hr IV ASDIRECTED [facility] Last Admin: 12/28/19 03:48 Dose: 150 mls/hr Vancomycin HCl 1.25 gm/ Sodium (Chloride) 250 mls @ 166.667 mls/hr IV Q24H [facility] Last Infusion: 12/27/19 21:26 Dose: Infused Insulin Human Lispro (Humalog) 0 unit SUBCUT QIDACANDBED [facility]; Protocol Last Admin: 12/28/19 08:23 Dose: Not Given Magnesium Oxide (Magnesium Oxide) 500 mg PO DAILY [facility] Last Admin: 12/28/19 08:13 Dose: 500 mg Multivitamins/Minerals (Vitamins And Minerals) 1 tab PO TID [facility] Last Admin: 12/28/19 08:13 Dose: 1 tab Non-Formulary Medication (Fish Oil/[place]-3 Fatty Acids [Fish Oil 1,000 Mg]) 1 cap PO DAILY [facility] Losartan 100mg (Own Med ) 0 each PO DAILY [facility] Last Admin: 12/28/19 08:19 Dose: 1 each Metoprolol Tartrate (100mg Own Med ) 0 each PO DAILY [facility] Last Admin: 12/27/19 10:27 Dose: 1 each Amitriptyline 50mg (Tab Own Med ) 0 each PO BEDTIME [facility] Last Admin: 12/27/19 21:51 Dose: 1 each Omeprazole (Omeprazole) 20 mg PO ACBREAKFAST [facility] Last Admin: 12/28/19 05:57 Dose: 20 mg Ondansetron HCl (Zofran) 4 mg IV Q4H PRN PRN Reason: Nausea/Vomiting Oxycodone HCl (Oxycodone) 5 mg PO Q4H PRN PRN Reason: Pain (moderate 4-6) Last Admin: 12/28/19 06:25 Dose: 5 mg Tresiba Felx Touch (100 Units/Ml) 0 each SUBCUT BEDTIME [facility] Polyethylene Glycol (Miralax) 17 gm PO DAILY [facility] Last Admin: 12/28/19 08:16 Dose: Not Given Psyllium Hydrophilic Mucilloid (Metamucil) 1.04 gm PO DAILY [facility] Last Admin: 12/28/19 10:10 Dose: Not Given Senna/Docusate Sodium (Senna Plus) 1 tab PO BID [facility] Last Admin: 12/28/19 08:13 Dose: 1 tab Sodium Chloride (Saline Flush) 10 ml FLUSH ASDIRECTED PRN PRN Reason: Keep Vein Open Vancomycin HCl (Pharmacy To Dose - Vancomycin) 1 dose .XX ASDIRECTED [facility] Vitamin E (Vitamin E) 400 units PO DAILY [facility] Last Admin: 12/28/19 08:13 Dose: 400 units Discontinued Medications Amitriptyline HCl (Elavil) 50 mg PO BEDTIME [facility] Last Admin: 12/26/19 21:07 Dose: 50 mg Magnesium Sulfate/Dextrose 1 (gm/ Premix) 100 mls @ 100 mls/hr IV ONETIME ONE Stop: 12/27/19 10:27 Last Admin: 12/27/19 10:29 Dose: 100 mls/hr Magnesium Sulfate/Dextrose 1 (gm/ Premix) 100 mls @ 100 mls/hr IV ONETIME ONE Stop: 12/28/19 09:59 Insulin Glargine (Lantus) 20 unit SUBCUT DAILY [facility] Last Admin: 12/28/19 10:31 Dose: Not Given Potassium Chloride (Klor-Con 10) 40 meq PO ONETIME ONE Stop: 12/27/19 09:29 Last Admin: 12/27/19 10:28 Dose: 40 meq Potassium Chloride (Klor-Con 10) 40 meq PO ONETIME ONE Stop: 12/28/19 09:01 Last Admin: 12/28/19 10:10 Dose: 40 meq Sodium Chloride (Saline Flush) 10 ml FLUSH ASDIRECTED PRN PRN Reason: Keep Vein Open - Exam General: Alert, Oriented HEENT: Pupils Equal, Pupils Reactive Neck: Supple Lungs: Clear to Auscultation, Normal Respiratory Effort Cardiovascular: Regular Rate, Regular Rhythm GI/Abdominal Exam: Normal Bowel Sounds, Soft, Non-Tender Extremities: Redness Skin: Rash Sepsis Event Note - Evaluation Sepsis Screening Result: No Definite Risk - Focused Exam Vital Signs: Vital Signs Temp Pulse Resp BP Pulse Ox 12/28/19 07:23 37.3 C 90 18 133/65 95 12/28/19 04:00 37.2 C 83 20 136/64 98 12/27/19 23:00 37.2 C 84 20 112/58 L 96 Date Exam was Performed: 12/28/19 Time Exam was Performed: 10:35 - Problem List Review Problem List Initiated/Reviewed/Updated: Yes - My Orders Last 24 Hours: My Active Orders 12/27/19 09:45 Enoxaparin [Lovenox] 40 mg SUBCUT DAILY Psyllium [Metamucil] 1.04 gm PO DAILY polyethylene glycoL 3350 [MiraLAX] 17 gm PO DAILY 12/27/19 10:19 Venous Doppler Lwr Ext Lt [US] Stat 12/27/19 10:20 Knee 1V or 2V Lt [CR] Routine 12/27/19 10:45 Docusate Sodium/Sennosides [Senna Plus] 1 tab PO BID 12/27/19 14:00 Gabapentin [Neurontin] 300 mg PO TID 12/28/19 21:00 Patient's Own Medication [Ptom] 0 each SUBCUT BEDTIME 12/29/19 05:11 BASIC METABOLIC PANEL,BMP [CHEM] AM CBC W/O DIFF,HEMOGRAM [HEME] AM MAGNESIUM [CHEM] AM PHOSPHORUS [CHEM] AM - Plan Plan:: #Left knee swelling, tenderness #Osteoarthritis Left knee XR: features in keeping with OA Pain mgt #Falls out of wheelchair No LOC/syncope Will reduce dose of gabapentin and make baclofen PRN in case these meds are making her loopy predisposing to the falls. PT/OT eval #Left lower ext cellulitis IV vanc f/u blood cx check LE USS: negative for DVT #Rhabdomyolysis, resolved Stop IV fluids #DM2 Accuchecks, ISS resume home meds carb controlled diet #CKD stable renally dose meds #DVT ppx SC heparin #Code status FC
[2019-12-28] MEDS: METOPROLOL TARTRATE 100 MG PO SCH (10:58)
[2019-12-28] MEDS: Sodium Chloride 0.9% 10 ML Syringe FLUSH PRN (10:59)
[2019-12-28] MEDS: Non-Formulary Medication 1 Each (Fish Oil/Omega-3 Fatty Acids [Fish Oil 1,000 Mg] 1 CAP) PO SCH (12:36)
[2019-12-28] MEDS: Ibuprofen 400 MG Tab PO PRN (13:48)
[2019-12-28] MEDS: AMITRIPTYLINE 50 MG PO SCH (20:31)
[2019-12-28] MEDS: INSULIN DEGLUDEC 100 UNIT/ML SUBCUT SCH (20:33)
[2019-12-29] MEDS: Ibuprofen 400 MG Tab PO PRN ×3 (00:22→19:06)
[2019-12-29] MEDS: Omeprazole 20 MG Cap.CR PO SCH (06:01)
[2019-12-29 06:55] LABS: ANION GAP 12.8 mEq/L (7-13)
[2019-12-29] MEDS: Insulin Lispro 100 Units/ML 3 ML Vial SUBCUT SCH ×4 (07:43→21:47)
[2019-12-29] MEDS: Sodium Chloride 0.9% 10 ML Syringe FLUSH PRN ×2 (08:38→20:08)
[2019-12-29] MEDS: Calcium Carbonate 500 MG Tab.Chew PO SCH (08:40)
[2019-12-29] MEDS: Vitamin E (dl-alpha-tocopherol acetate) 400 Unit Cap PO SCH (08:41)
[2019-12-29] MEDS: Multivitamins, Therapeutic with Minerals Tab PO SCH (08:41)
[2019-12-29] MEDS: Enoxaparin 40 MG/0.4 ML Syringe SUBCUT SCH (08:42)
[2019-12-29] MEDS: Gabapentin 300 MG Cap PO SCH ×3 (08:42→21:45)
[2019-12-29] MEDS: METOPROLOL TARTRATE 100 MG PO SCH (08:43)
[2019-12-29] MEDS: LOSARTAN 100 MG PO SCH (08:43)
[2019-12-29] MEDS: Polyethylene Glycol 3350 Powder 17 GM Packet PO SCH (08:44)
[2019-12-29] MEDS: Psyllium 0.52 GM Cap PO SCH (08:44)
--- NOTE | 2019-12-29 09:58 | PN ---
DATE: 12/29/2019 SUBJECTIVE: The patient is a 64-year-old lady with multiple medical problems including hypertension; type 2 diabetes mellitus, on insulin; chronic back pain; history of lumbar surgery; ambulatory dysfunction, mostly wheelchair-bound; gastroesophageal reflux; obesity. She was admitted after a fall from her wheelchair and was noted to have rhabdomyolysis and this was managed by IV fluids and CPK has been slowly improving and she is also currently being treated for left lower extremity cellulitis and currently on IV vancomycin. She had some left knee swelling with pain and x-ray showed osteoarthritis. The patient overall is doing fairly well. Still has the redness and swelling on the left leg, but she denies any fever, chills, chest pain, shortness of breath, nor any other complaints. OBJECTIVE: Vital Signs: Blood pressure is 128/70, pulse is 84, respirations of 18, temperature of 97.9, saturation is 96%. Heart: Regular rate and rhythm. Normal S1 and S2. No gallops. No rubs. Lungs: Equal bilaterally. No crackles. No wheezing. Abdomen: Obese, soft, nontender. Extremities: Remarkable for the swelling and erythema and some scabs on the left lower extremity. LABORATORY DATA: Lab workup today, WBC 6.7, hemoglobin is 11.6, hematocrit is 34.1. Chem-6; glucose is 151, calcium of 8. The rest of the panel unremarkable. Magnesium level is 1.7. MEDICATIONS: Reviewed. We will continue with her IV antibiotic that is vancomycin. We will continue with Lovenox for deep vein thrombosis prophylaxis. We will continue the rest of her management and continue with PT and OT. [facility] /[id number]
[2019-12-29] MEDS: oxyCODONE 5 MG Tab PO PRN (12:15)
[2019-12-29] MEDS: AMITRIPTYLINE 50 MG PO SCH (21:45)
[2019-12-29] MEDS: INSULIN DEGLUDEC 100 UNIT/ML SUBCUT SCH (21:48)
[2019-12-30] MEDS: oxyCODONE 5 MG Tab PO PRN (00:08)
[2019-12-30] MEDS: Ibuprofen 400 MG Tab PO PRN (05:44)
[2019-12-30] MEDS: Omeprazole 20 MG Cap.CR PO SCH (05:45)
[2019-12-30] MEDS: Insulin Lispro 100 Units/ML 3 ML Vial SUBCUT SCH (08:03)
[2019-12-30] MEDS: Multivitamins, Therapeutic with Minerals Tab PO SCH (09:10)
[2019-12-30] MEDS: Gabapentin 300 MG Cap PO SCH (09:10)
[2019-12-30] MEDS: Calcium Carbonate 500 MG Tab.Chew PO SCH (09:10)
[2019-12-30] MEDS: Enoxaparin 40 MG/0.4 ML Syringe SUBCUT SCH (09:10)
--- NOTE | 2019-12-30 09:10 | PN ---
DATE: 12/30/2019 SUBJECTIVE: The patient this morning is doing well. The patient denies any significant ongoing complaints. She denies any chest pain, fever, chills, shortness of breath, abdominal pain, or any other significant complaints. Left leg still has some mild redness but continues to improve. Official report of the wound culture showed Streptococcus agalactiae, which is susceptible to ampicillin. OBJECTIVE: Vital Signs: Blood pressure is 137/75, pulse of 95, respirations 20, saturation is 95% on room air, and temperature is 98.3. Heart: Regular rate and rhythm. Normal S1 and S2. No gallops. No rubs. Lungs: Equal bilaterally. No crackles. No wheezing. Abdomen: Obese, soft, nontender. Bowel sounds positive. Extremities: Remarkable for some mild swelling and redness and scabs on the left lower leg (improving). MEDICATIONS: Reviewed. PLAN: We will discharge the patient home today. We will have her follow up with Gordo Agustin in 7 to 10 days with a recheck of CBC, comp panel, and CPK. We will continue with the rest of her current regimen. [facility] /[id number]
[2019-12-30] MEDS: Psyllium 0.52 GM Cap PO SCH (09:11)
[2019-12-30] MEDS: Vitamin E (dl-alpha-tocopherol acetate) 400 Unit Cap PO SCH (09:11)
[2019-12-30] MEDS: Polyethylene Glycol 3350 Powder 17 GM Packet PO SCH (09:11)
[2019-12-30] MEDS: LOSARTAN 100 MG PO SCH (09:12)
[2019-12-30] MEDS: METOPROLOL TARTRATE 100 MG PO SCH (09:12)
--- NOTE | 2019-12-31 00:35 | DISCH ---
FINAL DIAGNOSES: 1. History of fall with rhabdomyolysis. 2. Left lower leg cellulitis. 3. Type 2 diabetes mellitus. 4. Chronic kidney disease. 5. Chronic low back pain, status post lumbar surgery. 6. Obesity. BRIEF HISTORY OF PRESENT ILLNESS: The patient is a 64-year-old lady with past medical history of hypertension, type 2 diabetes mellitus on insulin, chronic back pain status post lumbar surgery, ambulatory dysfunction, who was admitted after a fall from her wheelchair, and her CPK was elevated on admission and was treated for rhabdomyolysis with IV fluids, and her CPK subsequently was improving. Because of her left lower leg cellulitis, she was started on IV vancomycin. Cultures of the wound showed Streptococcus agalactiae and this was susceptible to amoxicillin. She was also complaining of left knee pain and x- ray of the left knee did not show any fracture and it showed osteoarthritis. She had a CAT scan of the pelvis which did not show acute abnormality. She had a CAT scan of the head on admission and this showed soft tissue injury around the left orbit, otherwise no acute intracranial processes. She also had an ultrasound of the left lower extremity and this did not show any DVT. The patient was seen with by PT and OT for evaluation and management. Hospital course was basically uncomplicated and she did well and she was subsequently discharged. CONDITION ON DISCHARGE: Improved. DISCHARGE INSTRUCTION: Written. Again, follow up with Gordo Agustin in 7 to 10 days at [facility]. [facility] /[id number]
== END 2019-12-30 11:15 | disposition home or self-care (01) | DRG 565 ==
LOC: DL.ED 13:50 → DL.MS 17:18 → DL.ED 17:35 → OBSVTOIN 12-28 11:44
PROVIDERS: ADMIT Hospitalist; ATTEND Internal Medicine
DX: T79.6XXA Traumatic ischemia of muscle, initial encounter (principal); M86.9 Osteomyelitis, unspecified; R60.9 Edema, unspecified; L03.116 Cellulitis of left lower limb; G89.29 Other chronic pain; Z91.81 History of falling; K21.9 Gastro-esophageal reflux disease without esophagitis; E78.5 Hyperlipidemia, unspecified; E66.9 Obesity, unspecified; I12.9 Hypertensive chronic kidney disease with stage 1 through stage 4 chronic kidney disease, or unspecified chronic kidney disease; E11.22 Type 2 diabetes mellitus with diabetic chronic kidney disease; H54.7 Unspecified visual loss; E11.40 Type 2 diabetes mellitus with diabetic neuropathy, unspecified; W05.0XXA Fall from non-moving wheelchair, initial encounter; S00.83XA Contusion of other part of head, initial encounter; E78.00 Pure hypercholesterolemia, unspecified; M19.90 Unspecified osteoarthritis, unspecified site; M17.12 Unilateral primary osteoarthritis, left knee; M54.9 Dorsalgia, unspecified; M81.0 Age-related osteoporosis without current pathological fracture; E11.42 Type 2 diabetes mellitus with diabetic polyneuropathy; M54.5 Low back pain; F32.9 Major depressive disorder, single episode, unspecified; Z88.1 Allergy status to other antibiotic agents; N18.9 Chronic kidney disease, unspecified; Z88.2 Allergy status to sulfonamides; Z88.8 Allergy status to other drugs, medicaments and biological substances; Z79.899 Other long term (current) drug therapy; Z90.49 Acquired absence of other specified parts of digestive tract; Z90.710 Acquired absence of both cervix and uterus; Z98.51 Tubal ligation status; Z98.890 Other specified postprocedural states; Y92.009 Unspecified place in unspecified non-institutional (private) residence as the place of occurrence of the external cause; Z79.4 Long term (current) use of insulin; Z99.3 Dependence on wheelchair; Y93.89 Activity, other specified; Z68.39 Body mass index [BMI] 39.0-39.9, adult
CPT/HCPCS: 36415 ×3; 70450; 70488; 73560; 80048 ×2; 80053; 81001; 82150; 82550 ×2; 82962 ×6; 83605; 83690; 83735 ×2; 83880; 84100 ×2; 84484; 85025; 85027 ×2; 85610; 87040; 87070; 87077 ×2; 87086; 87186 ×2; 93005; 93971; 99283; 99285; A9270 ×31; J1650; J1815 ×2; J3370 ×2; J3475 ×2; J7030 ×5; J7050 ×2; 96361; 96365; 96366; 96367; 96372; 96376; G0378

== ENCOUNTER 2020-09-19 12:55 | Emergency (ER) | payer MEDICARE ==
[~2020-09-19 12:55] MED LIST: HYDROmorphone 1 MG/ML Syringe IVPUSH ONE; methylPREDNISolone Sodium Succinate 125 MG/2 ML SDV IVPUSH ONE
--- NOTE | 2020-09-19 14:03 | CT ---
EXAMINATION: Lumbar Spine wo Cont SEX: Female AGE: 65 years CLINICAL HISTORY: 65 year-old 225 pound female with LOW BACK PAIN (significant past history of "failed back surgery" 2016, [place]). No recent trauma. No comparison exams immediately available. Scan technique: Volume acquisition of data unenhanced CT scan of the lumbar spine obtained with patient lying supine on the Siemens multislice scanner [place], [place]. All data archived in the PACS system for storage, reformatting axial/sagittal/coronal planes and study. Interpretation: Markedly ABNORMAL. 1. The adjacent endplates of L4 and L5 vertebral bodies are destroyed with absence of over 50% of the respective vertebra and approximately 8 mm diastases (diagonal, irregular adjacent sclerotic margins). 2. Some fragmentation and marginal spondylosis suggesting older "burst" fracture (clinical?) but, of more concern, is associated canal soft tissue swelling lower lumbar spine with apparent gas. Chronic infection? 3. Generalized osteopenia but no proximal lumbar fracture or spondylolisthesis. 4. No abnormal intervertebral disc space proximally or at the lowest L5-S1 interspace. 5. No sign of pathologic skeletal lesion during SI joints. Lower 2 thoracic vertebra unremarkable. Note: Strongly advise additional clinical information and obtaining previous images for comparison. Fever? WBC? ESR? Probable previous surgery. Possible chronic infection.
[2020-09-19 14:31] LABS: ANION GAP 13.6 mEq/L (7-13); CHLORIDE,CL 105 mmol/L (98-107); SODIUM,NA 140 mmol/L (136-145)
--- NOTE | 2020-09-19 15:16 | EDM.PDOC ---
ED HPI GENERAL MEDICAL PROBLEM - General Chief Complaint: Back Pain or Injury Stated Complaint: AMBULANCE Time Seen by Provider: 09/19/20 13:00 Source of Information: Reports: Patient History Limitations: Reports: No Limitations - History of Present Illness INITIAL COMMENTS - FREE TEXT/NARRATIVE: This 65 yo female patient reports to the ED with a 3 day history of increased lower back pain. The patient reports she did have back surgery in 2017 on L4-L5 due to low back pain. The patient reports she never felt normal since the surgery. The patient reports she also had a history of an infection in her lower back. The patient reports she did take an Oxycodone while at home (0600 today), but has had no symptom relief. EMS gave the patient 100 mcg of Fentanyl during transport. Upon arrival in the ED, the patient was still reporting pain at an 8- 9/10 with movement. Onset Date: 09/17/20 Duration: Constant, Getting Worse Location: Reports: Back (low) Quality: Reports: Ache, Sharp, Stabbing Severity: Severe Improves with: Reports: None Worsens with: Reports: None Context: Reports: Other Associated Symptoms: Reports: No Other Symptoms Lower Back Pain Score (Numeric/FACES): 9 - Related Data Allergies Allergy/AdvReac Type Severity Reaction Status Date / Time daptomycin Allergy Cannot Verified 12/26/19 17:43 Remember Vmicctz-Xgt-Ars Reductase Allergy Cannot Verified 12/26/19 17:43 Inhibitor Remember Sulfa (Sulfonamide Allergy Cannot Verified 12/26/19 17:43 Antibiotics) Remember Home Meds: Home Meds Amitriptyline [Elavil] 50 mg PO BEDTIME 12/26/19 [History] Baclofen 10 mg PO TID 12/26/19 [History] Calcium Carbonate [Calcium] 500 mg PO DAILY 12/26/19 [History] Dulaglutide [Trulicity] 1.5 mg SQ WEEKLY 12/26/19 [History] Famotidine 20 mg PO BID 12/26/19 [History] Ibuprofen 600 mg PO TID 12/26/19 [History] Insulin Degludec [Tresiba] 20 units SQ DAILY 12/26/19 [History] Loratadine [Claritin] 10 mg PO DAILY 12/26/19 [History] Losartan [Cozaar] 100 mg PO DAILY 12/26/19 [History] Magnesium Oxide [Magnesium] 250 mg PO DAILY 12/26/19 [History] Metoprolol Tartrate 100 mg PO DAILY 12/26/19 [History] Multivit,Calc,Mins/Iron/Folic [Thera-M] 1 tab PO DAILY 12/26/19 [History] Omeprazole 20 mg PO ACBREAKFAST 12/26/19 [History] Vitamin E (dl, acetate) [Vitamin E] 400 units PO DAILY 12/26/19 [History] amLODIPine Besylate [Norvasc] 10 mg PO DAILY 12/26/19 [History] oxyCODONE HCl [Oxycodone HCL] 5 mg PO BID 12/26/19 [History] Amoxicillin/Clavulanate K [Augmentin 875-125 MG] 1 tab PO BID 7 Days #14 tablet 12/30/19 [Rx] Gabapentin [Neurontin] 300 mg PO TID 30 Days #90 cap 12/30/19 [Rx] Past Medical History HEENT History: Reports: None, Impaired Vision Cardiovascular History: Reports: High Cholesterol, Hypertension Respiratory History: Reports: None Gastrointestinal History: Reports: GERD, Other (See Below) Other Gastrointestinal History: ESOPHAGITIS Genitourinary History: Reports: Chronic Renal Insuffiency PURSE SEINER History: Reports: Musculoskeletal History: Reports: Arthritis, Back Pain, Chronic, Osteoporosis Neurological History: Reports: Neuropathy, Peripheral, Other (See Below) Other Neuro History: NEUROMUSCULAR DISORDER Psychiatric History: Reports: Depression Endocrine/Metabolic History: Reports: Diabetes, Type II Hematologic History: Reports: None Immunologic History: Reports: None Oncologic (Cancer) History: Reports: None Dermatologic History: Reports: None - Infectious Disease History Infectious Disease History: Reports: Chicken Pox, Measles, Mumps - Past Surgical History Head Surgeries/Procedures: Reports: None HEENT Surgical History: Reports: None Cardiovascular Surgical History: Reports: None Respiratory Surgical History: Reports: None GI Surgical History: Reports: Cholecystectomy, Colonoscopy Female Surgical History: Reports: Hysterectomy, Tubal Ligation, Other (See Below) Other Female Surgeries/Procedures: DC. LIGATE FALLOPIAN TUBE Musculoskeletal Surgical History: Reports: Arthroscopic Knee, Other (See Below) Other Musculoskeletal Surgeries/Procedures:: HX OF LUMBAR SURGERY. RIGHT KENEE ARTHROSCOPY Social & Family History - Family History Family Medical History: No Pertinent Family History - Caffeine Use Caffeine Use: Reports: Coffee, Soda, Tea Caffeine Use Comment: 12 oz daily ED ROS GENERAL - Review of Systems Review Of Systems: Comprehensive ROS is negative, except as noted in HPI. ED EXAM,LOWER BACK PAIN/INJURY - Physical Exam Exam: See Below Exam Limited By: No Limitations General Appearance: Alert, WD/WN, Moderate Distress, Obese Eye Exam: Bilateral Eye: EOMI, Normal Inspection, PERRL Ears: Normal External Exam, Normal Canal, Hearing Grossly Normal, Normal TMs Nose: Normal Inspection, Normal Mucosa, No Blood Throat/Mouth: Normal Inspection, Normal Lips, Normal Teeth, Normal Gums, Normal Oropharynx, Normal Voice, No Airway Compromise Head: Atraumatic, Normocephalic Neck: Normal Inspection, Supple, Non-Tender, Full Range of Motion Respiratory/Chest: No Respiratory Distress, Lungs Clear, Normal Breath Sounds, No Accessory Muscle Use, Chest Non-Tender Cardiovascular: Normal Peripheral Pulses, Regular Rate, Rhythm, No Edema, No Gallop, No JVD, No Murmur, No Rub GI/Abdominal: Normal Bowel Sounds, Soft, Non-Tender, No Organomegaly, No Distention, No Abnormal Bruit, No Mass, Other (obese) (Female) Exam: Deferred Rectal (Female) Exam: Deferred Back Exam: Vertebral Tenderness Extremities: Normal Inspection, Normal Range of Motion, Non-Tender, No Pedal Edema, Normal Capillary Refill Neurological: Alert, Normal Mood/Affect, Normal Dorsiflexion, CN II-XII Intact, Normal Plantar Flexion, Normal Gait, Normal Reflexes, No Motor/Sensory Deficits, Oriented x 3 Psychiatric: Normal Affect, Normal Mood Skin Exam: Warm, Dry, Intact, Normal Color, No Rash Lymphatic: No Adenopathy Course - Vital Signs Last Recorded V/S: Last Vital Signs Temp 36.7 C 09/19/20 12:34 Pulse 77 09/19/20 12:34 Resp 18 09/19/20 12:34 BP 111/52 L 09/19/20 12:34 Pulse Ox 99 09/19/20 12:34 - Orders/Labs/Meds Orders: Active Orders 24 hr Category Date Time Status CORONAVIRUS COVID-19 HAZEL [MOLEC] Stat Lab 09/19/20 14:40 Ordered CULTURE BLOOD [BC] Stat Lab 09/19/20 13:57 Received CULTURE BLOOD [BC] Stat Lab 09/19/20 14:03 Results REFLEX LACTIC ACID YES OR NO [CHEM] Routine Lab 09/19/20 14:38 Received HYDROmorphone [Dilaudid] Med 09/19/20 15:55 Once 0.5 mg IVPUSH ONETIME ONE Piperacillin/Tazobactam [Zosyn] 3.375 gm Med 09/19/20 15:42 Ordered Sodium Chloride 0.9% [Normal Saline] 100 ml IV ONETIME Vancomycin 1.75 gm Med 09/19/20 15:42 Ordered Sodium Chloride 0.9% [Normal Saline] 500 ml IV ONETIME Blood Culture x2 Reflex Set [OM.PC] Stat Oth 09/19/20 13:45 Ordered Medication Orders Piperacillin Sod/Tazobactam (Sod 3.375 gm/ Sodium Chloride) 100 mls @ 200 mls/hr IV ONETIME ONE Stop: 09/19/20 16:11 Vancomycin HCl 1.75 gm/ Sodium (Chloride) 500 mls @ 334 mls/hr IV ONETIME ONE Stop: 09/19/20 17:11 Labs: Laboratory Tests 09/19/20 09/19/20 09/19/20 Range/Units 13:57 13:57 13:57 WBC 10.9 H (5.0-10.0) 10^3/uL RBC 3.59 L (4.2-5.4) 10^6/uL Hgb 11.4 L (12.0-16.0) g/dL Hct 32.5 L (37.0-47.0) % MCV 90.5 (80-100) fL MCH 31.8 (27.0-34.0) pg MCHC 35.1 H (33.0-35.0) g/dL Plt Count 69 L D (150-450) 10^3/uL Neut % (Auto) 76.3 H (42.2-75.2) % Lymph % (Auto) 10.4 L (20.5-50.1) % [place] % (Auto) 12.6 H (2-8) % Eos % (Auto) 0.5 L (1.0-3.0) % Baso % (Auto) 0.2 (0.0-1.0) % ESR 51 H (0-20) mm/hr Sodium 140 (136-145) mmol/L Potassium 4.6 (3.5-5.1) mmol/L Chloride 105 (98-107) mmol/L Carbon Dioxide 26 (21-32) mmol/L Anion Gap 13.6 H (7-13) mEq/L BUN 29 H (7-18) mg/dL Creatinine 1.87 H (0.55-1.02) mg/dL Est Cr Clr Drug Dosing TNP Estimated GFR (MDRD) 27 BUN/Creatinine Ratio 15.5 (No establ ref range) Glucose 177 H (74-99) mg/dL Lactic Acid 2.8 H* (0.4-2.0) mmol/L Calcium 9.0 (8.5-10.1) mg/dL Total Bilirubin 1.0 (0.2-1.0) mg/dL AST 40 H (15-37) U/L ALT 35 (14-59) U/L Alkaline Phosphatase 131 H (46-116) U/L Total Protein 6.6 (6.4-8.2) g/dL Albumin 2.9 L (3.4-5.0) g/dL Globulin 3.7 Albumin/Globulin Ratio 0.78 Meds: Medications Generic Name Dose Route Start Last Admin Trade Name Freq PRN Reason Stop Dose Admin Piperacillin Sod/Tazobactam 100 mls @ 200 mls/hr 09/19/20 15:42 Sod 3.375 gm/ Sodium Chloride IV 09/19/20 16:11 ONETIME ONE Vancomycin HCl 1.75 gm/ Sodium 500 mls @ 334 mls/hr 09/19/20 15:42 Chloride IV 09/19/20 17:11 ONETIME ONE Discontinued Medications Generic Name Dose Route Start Last Admin Trade Name Freq PRN Reason Stop Dose Admin Hydromorphone HCl 1 mg 09/19/20 12:42 09/19/20 13:40 Dilaudid IVPUSH 09/19/20 12:43 1 mg ONETIME ONE Administration Methylprednisolone Sodium Succinate 125 mg 09/19/20 12:42 09/19/20 13:41 Solu-Medrol IVPUSH 09/19/20 12:43 125 mg ONETIME ONE Administration - Re-Assessments/Exams Free Text/Narrative Re-Assessment/Exam: 09/19/20 15:56 The patient was advised of the transfer arrangements. After the arrangements were made, the patient reports she has not urinated in 2 days. The patient's bladder was scanned and a catheter was placed. Departure - Departure Time of Disposition: 15:57 Disposition: DC/Tfer to Acute Hospital 02 Condition: Poor Clinical Impression: Osteomyelitis Qualifiers: Osteomyelitis type: unspecified type Osteomyelitis location: unspecified site Qualified Code(s): M86.9 - Osteomyelitis, unspecified - Discharge Information *PRESCRIPTION DRUG MONITORING PROGRAM REVIEWED*: Not Applicable *COPY OF PRESCRIPTION DRUG MONITORING REPORT IN PATIENT SHARON: Not Applicable Care Plan Goals: Discussed the patient's history, examination, lab and CT results with Dr. Howard. Dr. Howard accepted the patient for continued evaluation and management as an inpatient at [facility] in [place]. The patient will be transpo rted by [facility]. Sepsis Event Note (ED) - Evaluation Sepsis Screening Result: No Definite Risk - Focused Exam Vital Signs: Vital Signs Temp Pulse Resp BP Pulse Ox 09/19/20 12:34 36.7 C 77 18 111/52 L 99 - My Orders Last 24 Hours: My Active Orders 09/19/20 13:45 Blood Culture x2 Reflex Set [OM.PC] Stat 09/19/20 13:57 CULTURE BLOOD [BC] Stat 09/19/20 14:03 CULTURE BLOOD [BC] Stat 09/19/20 14:38 REFLEX LACTIC ACID YES OR NO [CHEM] Routine 09/19/20 14:40 CORONAVIRUS COVID-19 HAZEL [MOLEC] Stat 09/19/20 15:42 Piperacillin/Tazobactam [Zosyn] 3.375 gm Sodium Chloride 0.9% [Normal Saline] 100 ml IV ONETIME Vancomycin 1.75 gm Sodium Chloride 0.9% [Normal Saline] 500 ml IV ONETIME 09/19/20 15:55 HYDROmorphone [Dilaudid] 0.5 mg IVPUSH ONETIME ONE - Assessment/Plan Last 24 Hours: My Active Orders 09/19/20 13:45 Blood Culture x2 Reflex Set [OM.PC] Stat 09/19/20 13:57 CULTURE BLOOD [BC] Stat 09/19/20 14:03 CULTURE BLOOD [BC] Stat 09/19/20 14:38 REFLEX LACTIC ACID YES OR NO [CHEM] Routine 09/19/20 14:40 CORONAVIRUS COVID-19 HAZEL [MOLEC] Stat 09/19/20 15:42 Piperacillin/Tazobactam [Zosyn] 3.375 gm Sodium Chloride 0.9% [Normal Saline] 100 ml IV ONETIME Vancomycin 1.75 gm Sodium Chloride 0.9% [Normal Saline] 500 ml IV ONETIME 09/19/20 15:55 HYDROmorphone [Dilaudid] 0.5 mg IVPUSH ONETIME ONE
[2020-09-19] MEDS ORDERED: Piperacillin/Tazobactam 3.375 GM in Sodium Chloride 0.9% 100 ML IV ONE (15:42)
[2020-09-19] MEDS ORDERED: Vancomycin 1.75 GM in Sodium Chloride 0.9% 500 ML IV ONE (15:42)
[2020-09-19] MEDS ORDERED: HYDROmorphone 0.5 MG/0.5 ML Syringe IVPUSH ONE (15:55)
== END 2020-09-19 16:40 ==
LOC: DL.ED 12:55
DX: M86.9 Osteomyelitis, unspecified (principal); K21.9 Gastro-esophageal reflux disease without esophagitis; I12.9 Hypertensive chronic kidney disease with stage 1 through stage 4 chronic kidney disease, or unspecified chronic kidney disease; E11.22 Type 2 diabetes mellitus with diabetic chronic kidney disease; N18.9 Chronic kidney disease, unspecified; E11.42 Type 2 diabetes mellitus with diabetic polyneuropathy; F32.9 Major depressive disorder, single episode, unspecified; E66.9 Obesity, unspecified; Z68.39 Body mass index [BMI] 39.0-39.9, adult; Z88.1 Allergy status to other antibiotic agents; Z88.2 Allergy status to sulfonamides; Z88.8 Allergy status to other drugs, medicaments and biological substances; Z79.4 Long term (current) use of insulin; Z79.899 Other long term (current) drug therapy; Z20.828 Contact with and (suspected) exposure to other viral communicable diseases
CPT/HCPCS: 36415; 51702; 72131; 80053; 83605; 85025; 85651; 87040; 87077; 87186; 96365; 96368; 96375; 96376; 99285; J1170; J2543; J2930; J3370; J7040; J7050; U0002; 99284

== ENCOUNTER 2020-09-28 11:19 | Inpatient (IN) | payer MEDICARE, OTHER ==
[2020-09-28] MEDS ORDERED: Ondansetron 4 MG Tab.DIS PO PRN (15:09)
--- NOTE | 2020-09-28 16:18 | CR ---
EXAMINATION: Chest 1V Frontal SEX: Female AGE: 65 years CLINICAL HISTORY: 65-year-old female for right upper extremity (RUE) PICC line placement. Interpretation: Long-arm PIC catheter follows the expected course of the veins, right upper extremity, medially, beneath the ipsilateral clavicle and down toward the mediastinum with tip located paratracheally on the right between the posterior fourth and fifth ribs (upright AP portable chest) presumably in the superior vena cava. Subtle asymmetric elevation right hemidiaphragm. No sign of pneumothorax or pleural effusion. Normal cardiac silhouette and mediastinal width. No lobar consolidation (infiltrate or atelectasis)
[2020-09-28] MEDS: Sodium Chloride 0.9% 10 ML Syringe FLUSH PRN (17:43)
[2020-09-28] MEDS: Naproxen 250 MG Tab PO SCH (17:44)
[2020-09-28] MEDS: Morphine 2 MG/ML SYRINGE IVPUSH PRN (19:23)
[2020-09-28] MEDS: Baclofen 10 MG Tab PO SCH (20:36)
[2020-09-28] MEDS: Famotidine 20 MG Tab PO SCH (20:36)
[2020-09-28] MEDS: Docusate Sodium 100 MG Cap PO SCH (20:40)
[2020-09-28] MEDS: Amitriptyline 25 MG Tab PO SCH (20:40)
[2020-09-28] MEDS: Gabapentin 300 MG Cap PO SCH (20:41)
[2020-09-28] MEDS: oxyCODONE 5 MG Tab PO SCH (20:42)
--- NOTE | 2020-09-28 21:07 | HP ---
HISTORY OF PRESENT ILLNESS: The patient is a 65-year-old female with a past medical history of hypertension, lumbar surgery in [place] in 2017, type 2 diabetes mellitus, gastroesophageal reflux, hyperlipidemia, history of lower GI bleeding, diverticulosis, depression, chronic pain syndrome, streptococcal cellulitis of the left leg with rhabdomyolysis, obesity, and chronic bilateral lower back pain, who presented in the emergency room in [facility] with a complaint of progressive worsening of low back pain that started on 09/17/2020, and was transferred to [facility] for further management, and she was found to have vertebral osteomyelitis. The patient's blood culture grew MRSA, and the patient had a TTE, which showed a mobile echodensity in the aortic valve, most likely representing aortic valve sclerosis and calcification, and there was no active vegetation seen. MRI of the LS spine showed a fluid collection within the disk space, endplates, and epidural space, facets of L4 and L5, with surrounding inflammatory changes, and the patient was evaluated by Neurosurgery, and she got an L4-L5 redo laminectomy with washout of epidural abscess and disk space. She was transferred to [facility] here for continued IV antibiotic and pain management and PT and OT. PAST MEDICAL HISTORY: As in HPI. FAMILY HISTORY: Noncontributory. SOCIAL HISTORY: The patient is a nonsmoker and non-alcohol drinker. MEDICATIONS ON DISCHARGE FROM [facility]: Ceftaroline 600 mg IV b.i.d. for 28 days, vancomycin 1 g IV every 18 hours for 28 days, Aleve 220 mg p.r.n., amitriptyline 50 mg q.h.s., baclofen 10 mg 3 times a day, docusate daily, dulaglutide 1.5 mg subcu weekly, famotidine 10 mg, fish oil, gabapentin 300 mg 3 times a day, Tresiba 20 units at h.s., Claritin p.r.n., magnesium, oxycodone 5 mg b.i.d., KCl 20 mEq daily, and vitamin E. REVIEW OF SYSTEMS: As in HPI. The patient denies any chest pain, headache, shortness of breath, fever, chills, or abdominal pain. PHYSICAL EXAMINATION: General: The patient is alert, oriented, and not in any acute distress. Vital Signs: Blood pressure is 144/72, pulse 79, respirations of 18, temperature of 98.7, and saturation is 97% on room air. SHEENT: Normocephalic. There are pink palpebral conjunctivae. Sclerae are anicteric. Neck: No JVD. No lymphadenopathy. Heart: Regular rate and rhythm. Normal S1 and S2. No gallops. No rubs. Lungs: Equal bilaterally. No crackles. No wheezing. Abdomen: Soft and nontender. Bowel sounds are positive. Extremities: Negative for any pedal edema. No calf tenderness. ADMITTING DIAGNOSES: 1. Vertebral osteomyelitis, is status post redo laminectomy with washout of epidural abscess and disk space. 2. Type 2 diabetes mellitus. 3. Hypertension. 4. Gastroesophageal reflux. 5. Obesity. TREATMENT PLAN: The patient is going to be admitted to swing bed. She will be continued on her IV antibiotics and pain medication, and PT and OT will be consulted, and we will continue with the rest of her other management. The patient is a DNI and DNR as per her wishes. [facility] /[id number]
[2020-09-29 07:01] LABS: ANION GAP 11.2 mEq/L (7-13)
[2020-09-29] MEDS ORDERED: Potassium Chloride 10 MEQ Tab.ER PO SCH (08:00)
[2020-09-29] MEDS: Sodium Chloride 0.9% 10 ML Syringe FLUSH PRN ×2 (09:13→12:36)
[2020-09-29] MEDS: Lactulose Soln 10 GM/15 ML 30 ML UD Cup PO SCH ×2 (09:15→21:13)
[2020-09-29] MEDS: Famotidine 20 MG Tab PO SCH ×2 (09:16→21:02)
[2020-09-29] MEDS: Baclofen 10 MG Tab PO SCH ×3 (09:17→21:03)
[2020-09-29] MEDS: oxyCODONE 5 MG Tab PO SCH ×2 (09:17→21:02)
[2020-09-29] MEDS: Gabapentin 300 MG Cap PO SCH ×3 (09:18→21:03)
[2020-09-29] MEDS: Naproxen 250 MG Tab PO SCH ×2 (09:18→17:29)
[2020-09-29] MEDS: Loratadine 10 MG Tab PO SCH (09:18)
[2020-09-29] MEDS: Docusate Sodium 100 MG Cap PO SCH ×2 (09:18→21:03)
[2020-09-29] MEDS: Multivitamins,Therapeutic Tab PO SCH (09:19)
[2020-09-29] MEDS: Vitamin E (dl-alpha-tocopherol acetate) 400 Unit Cap PO SCH (09:19)
[2020-09-29] MEDS: Calcium Carbonate 500 MG Tab.Chew PO SCH (09:19)
[2020-09-29] MEDS: Lidocaine 5% 700 MG Patch TOP SCH (09:20)
[2020-09-29] MEDS: DULAGLUTIDE 1.5 MG/0.5 ML SQ SCH (09:24)
[2020-09-29] MEDS: Morphine 2 MG/ML SYRINGE IVPUSH PRN (12:40)
[2020-09-29] MEDS ORDERED: Glucagon,Human Recombinant 1 MG Vial IM PRN (18:41)
[2020-09-29] MEDS ORDERED: 50% Dextrose in Water 50 ML Syringe IV PRN (18:41)
[2020-09-29] MEDS: Amitriptyline 25 MG Tab PO SCH (21:02)
[2020-09-29] MEDS: Insulin Lispro 100 Units/ML 3 ML Vial SUBCUT SCH (21:17)
[2020-09-30 07:08] LABS: ANION GAP 10.4 mEq/L (7-13)
[2020-09-30] MEDS: Insulin Lispro 100 Units/ML 3 ML Vial SUBCUT SCH ×4 (08:10→21:50)
[2020-09-30] MEDS: Lidocaine 5% 700 MG Patch TOP SCH (09:57)
[2020-09-30] MEDS: Lactulose Soln 10 GM/15 ML 30 ML UD Cup PO SCH ×2 (09:59→21:47)
[2020-09-30] MEDS: Loratadine 10 MG Tab PO SCH (10:00)
[2020-09-30] MEDS: Baclofen 10 MG Tab PO SCH ×3 (10:00→21:42)
[2020-09-30] MEDS: Naproxen 250 MG Tab PO SCH ×2 (10:00→17:26)
[2020-09-30] MEDS: oxyCODONE 5 MG Tab PO SCH ×3 (10:00→21:43)
[2020-09-30] MEDS: Famotidine 20 MG Tab PO SCH ×2 (10:00→21:43)
[2020-09-30] MEDS: Docusate Sodium 100 MG Cap PO SCH ×2 (10:00→21:44)
[2020-09-30] MEDS: Multivitamins,Therapeutic Tab PO SCH (10:00)
[2020-09-30] MEDS: Gabapentin 300 MG Cap PO SCH ×3 (10:02→21:43)
[2020-09-30] MEDS: Vitamin E (dl-alpha-tocopherol acetate) 400 Unit Cap PO SCH (10:02)
[2020-09-30] MEDS: Calcium Carbonate 500 MG Tab.Chew PO SCH (10:02)
[2020-09-30] MEDS: Morphine 2 MG/ML SYRINGE IVPUSH PRN (12:13)
[2020-09-30] MEDS ORDERED: Nystatin Topical Powder 30 GM Bottle TOP PRN (12:35)
[2020-09-30] MEDS: Amitriptyline 25 MG Tab PO SCH (21:42)
[2020-10-01] MEDS: Insulin Lispro 100 Units/ML 3 ML Vial SUBCUT SCH ×4 (09:10→20:37)
[2020-10-01] MEDS: Baclofen 10 MG Tab PO SCH ×3 (09:31→20:38)
[2020-10-01] MEDS: Naproxen 250 MG Tab PO SCH ×2 (09:31→18:03)
[2020-10-01] MEDS: Docusate Sodium 100 MG Cap PO SCH ×2 (09:31→20:37)
[2020-10-01] MEDS: Loratadine 10 MG Tab PO SCH (09:31)
[2020-10-01] MEDS: Famotidine 20 MG Tab PO SCH ×2 (09:31→20:39)
[2020-10-01] MEDS: Multivitamins,Therapeutic Tab PO SCH (09:31)
[2020-10-01] MEDS: Vitamin E (dl-alpha-tocopherol acetate) 400 Unit Cap PO SCH (09:31)
[2020-10-01] MEDS: oxyCODONE 5 MG Tab PO SCH ×3 (09:35→20:36)
[2020-10-01] MEDS: Gabapentin 300 MG Cap PO SCH ×3 (09:35→20:38)
[2020-10-01] MEDS: Calcium Carbonate 500 MG Tab.Chew PO SCH (09:36)
[2020-10-01] MEDS: Lidocaine 5% 700 MG Patch TOP SCH (09:36)
[2020-10-01] MEDS: Lactulose Soln 10 GM/15 ML 30 ML UD Cup PO SCH ×2 (09:36→20:36)
[2020-10-01] MEDS: Sodium Chloride 0.9% 10 ML Syringe FLUSH PRN (13:52)
[2020-10-01] MEDS: Amitriptyline 25 MG Tab PO SCH (20:37)
[2020-10-02] MEDS: Insulin Lispro 100 Units/ML 3 ML Vial SUBCUT SCH ×4 (09:53→20:49)
[2020-10-02] MEDS: oxyCODONE 5 MG Tab PO SCH ×3 (09:54→20:49)
[2020-10-02] MEDS: Gabapentin 300 MG Cap PO SCH ×3 (09:54→20:47)
[2020-10-02] MEDS: Multivitamins,Therapeutic Tab PO SCH (09:55)
[2020-10-02] MEDS: Loratadine 10 MG Tab PO SCH (09:55)
[2020-10-02] MEDS: Famotidine 20 MG Tab PO SCH ×2 (09:55→20:47)
[2020-10-02] MEDS: Vitamin E (dl-alpha-tocopherol acetate) 400 Unit Cap PO SCH (09:56)
[2020-10-02] MEDS: Baclofen 10 MG Tab PO SCH ×3 (09:56→20:49)
[2020-10-02] MEDS: Naproxen 250 MG Tab PO SCH ×2 (09:57→17:38)
[2020-10-02] MEDS: Calcium Carbonate 500 MG Tab.Chew PO SCH (09:57)
[2020-10-02] MEDS: Sodium Chloride 0.9% 10 ML Syringe FLUSH PRN ×3 (10:01→20:47)
[2020-10-02] MEDS: Lactulose Soln 10 GM/15 ML 30 ML UD Cup PO SCH ×2 (10:06→20:49)
[2020-10-02] MEDS: Lidocaine 5% 700 MG Patch TOP SCH (10:06)
[2020-10-02] MEDS: Docusate Sodium 100 MG Cap PO SCH ×2 (10:06→20:47)
[2020-10-02] MEDS: Amitriptyline 25 MG Tab PO SCH (20:49)
[2020-10-03] MEDS: Insulin Lispro 100 Units/ML 3 ML Vial SUBCUT SCH ×4 (08:00→21:23)
[2020-10-03] MEDS: Loratadine 10 MG Tab PO SCH (08:31)
[2020-10-03] MEDS: Famotidine 20 MG Tab PO SCH ×2 (08:31→21:24)
[2020-10-03] MEDS: Docusate Sodium 100 MG Cap PO SCH ×2 (08:31→21:22)
[2020-10-03] MEDS: Naproxen 250 MG Tab PO SCH ×2 (08:32→17:33)
[2020-10-03] MEDS: Vitamin E (dl-alpha-tocopherol acetate) 400 Unit Cap PO SCH (08:32)
[2020-10-03] MEDS: Calcium Carbonate 500 MG Tab.Chew PO SCH (08:32)
[2020-10-03] MEDS: Gabapentin 300 MG Cap PO SCH ×3 (08:32→21:24)
[2020-10-03] MEDS: oxyCODONE 5 MG Tab PO SCH ×3 (08:32→21:24)
[2020-10-03] MEDS: Baclofen 10 MG Tab PO SCH ×3 (08:32→21:23)
[2020-10-03] MEDS: Multivitamins,Therapeutic Tab PO SCH (08:32)
[2020-10-03] MEDS: Lactulose Soln 10 GM/15 ML 30 ML UD Cup PO SCH ×2 (08:36→21:21)
[2020-10-03] MEDS: Lidocaine 5% 700 MG Patch TOP SCH (08:36)
[2020-10-03] MEDS: Losartan 50 MG Tab PO SCH (11:01)
--- NOTE | 2020-10-03 13:11 | PN ---
DATE: 10/03/2020 SUBJECTIVE: The patient is doing fairly well, and she denies any significant low back pain, but she thinks she might have some urinary tract infection. She denies any chest pain, shortness of breath, fever, chills, nor any other complaints. OBJECTIVE: Vital Signs: Blood pressure is 157/71, pulse of 79, respiration 18, temperature of 98.2, saturation is 97%. Heart: Regular rate and rhythm. Normal S1 and S2. No gallops. No rubs. Lungs: Equal bilaterally. No crackles, no wheezing. Abdomen: Obese, soft, nontender. Bowel sounds positive. Extremities: Negative for any pedal edema. No calf tenderness. MEDICATIONS: Reviewed. PLAN: We will continue with her present management. I am going to check for urinalysis and we will also check her ammonia level as patient does not want to take anymore of the lactulose. I am also going to start her losartan 50 mg a day as her blood pressure is slowly creeping up, and we will continue with PT and OT. [facility] /[id number]
[2020-10-03] MEDS: Amitriptyline 25 MG Tab PO SCH (21:22)
[2020-10-03] MEDS: Sodium Chloride 0.9% 10 ML Syringe FLUSH PRN (21:33)
[2020-10-04 07:12] LABS: ANION GAP 12.3 mEq/L (7-13)
[2020-10-04] MEDS: Docusate Sodium 100 MG Cap PO SCH ×2 (08:53→22:58)
[2020-10-04] MEDS: Gabapentin 300 MG Cap PO SCH ×3 (08:54→23:00)
[2020-10-04] MEDS: Multivitamins,Therapeutic Tab PO SCH (08:54)
[2020-10-04] MEDS: Baclofen 10 MG Tab PO SCH ×3 (08:54→22:58)
[2020-10-04] MEDS: Calcium Carbonate 500 MG Tab.Chew PO SCH (08:54)
[2020-10-04] MEDS: Famotidine 20 MG Tab PO SCH ×2 (08:55→22:58)
[2020-10-04] MEDS: Loratadine 10 MG Tab PO SCH (08:55)
[2020-10-04] MEDS: Naproxen 250 MG Tab PO SCH ×2 (08:55→18:08)
[2020-10-04] MEDS: oxyCODONE 5 MG Tab PO SCH ×3 (08:56→23:00)
[2020-10-04] MEDS: Vitamin E (dl-alpha-tocopherol acetate) 400 Unit Cap PO SCH (08:56)
[2020-10-04] MEDS: Losartan 50 MG Tab PO SCH (08:56)
[2020-10-04] MEDS: Sodium Chloride 0.9% 10 ML Syringe FLUSH PRN ×6 (08:58→22:49)
[2020-10-04] MEDS: Lidocaine 5% 700 MG Patch TOP SCH (08:59)
[2020-10-04] MEDS: Insulin Lispro 100 Units/ML 3 ML Vial SUBCUT SCH ×4 (09:00→23:07)
[2020-10-04] MEDS: Lactulose Soln 10 GM/15 ML 30 ML UD Cup PO SCH ×2 (09:00→23:06)
[2020-10-04] MEDS: Amitriptyline 25 MG Tab PO SCH (23:00)
[2020-10-05] MEDS: Sodium Chloride 0.9% 10 ML Syringe FLUSH PRN ×2 (00:02→09:06)
[2020-10-05 07:19] LABS: ANION GAP 9.9 mEq/L (7-13)
[2020-10-05] MEDS: Gabapentin 300 MG Cap PO SCH ×3 (09:06→20:32)
[2020-10-05] MEDS: Vitamin E (dl-alpha-tocopherol acetate) 400 Unit Cap PO SCH (09:06)
[2020-10-05] MEDS: Lidocaine 5% 700 MG Patch TOP SCH (09:06)
[2020-10-05] MEDS: Calcium Carbonate 500 MG Tab.Chew PO SCH (09:06)
[2020-10-05] MEDS: Lactulose Soln 10 GM/15 ML 30 ML UD Cup PO SCH ×2 (09:06→20:34)
[2020-10-05] MEDS: Loratadine 10 MG Tab PO SCH (09:06)
[2020-10-05] MEDS: Docusate Sodium 100 MG Cap PO SCH ×2 (09:07→20:34)
[2020-10-05] MEDS: Naproxen 250 MG Tab PO SCH ×2 (09:07→18:06)
[2020-10-05] MEDS: Baclofen 10 MG Tab PO SCH ×3 (09:07→20:33)
[2020-10-05] MEDS: Multivitamins,Therapeutic Tab PO SCH (09:08)
[2020-10-05] MEDS: oxyCODONE 5 MG Tab PO SCH ×3 (09:08→20:33)
[2020-10-05] MEDS: Losartan 50 MG Tab PO SCH (09:08)
[2020-10-05] MEDS: Famotidine 20 MG Tab PO SCH ×2 (09:08→20:32)
[2020-10-05] MEDS: Insulin Lispro 100 Units/ML 3 ML Vial SUBCUT SCH ×4 (09:11→22:10)
[2020-10-05] MEDS: Amitriptyline 25 MG Tab PO SCH (20:32)
[2020-10-06] MEDS: DULAGLUTIDE 1.5 MG/0.5 ML SQ SCH (09:40)
[2020-10-06] MEDS: Lidocaine 5% 700 MG Patch TOP SCH (09:42)
[2020-10-06] MEDS: Losartan 50 MG Tab PO SCH (09:44)
[2020-10-06] MEDS: oxyCODONE 5 MG Tab PO SCH ×3 (09:45→20:48)
[2020-10-06] MEDS: Calcium Carbonate 500 MG Tab.Chew PO SCH (09:45)
[2020-10-06] MEDS: Gabapentin 300 MG Cap PO SCH ×3 (09:45→20:47)
[2020-10-06] MEDS: Naproxen 250 MG Tab PO SCH ×2 (09:46→17:30)
[2020-10-06] MEDS: Famotidine 20 MG Tab PO SCH ×2 (09:46→20:47)
[2020-10-06] MEDS: Multivitamins,Therapeutic Tab PO SCH (09:46)
[2020-10-06] MEDS: Baclofen 10 MG Tab PO SCH ×3 (09:47→20:49)
[2020-10-06] MEDS: Docusate Sodium 100 MG Cap PO SCH ×2 (09:47→20:48)
[2020-10-06] MEDS: Vitamin E (dl-alpha-tocopherol acetate) 400 Unit Cap PO SCH (09:47)
[2020-10-06] MEDS: Loratadine 10 MG Tab PO SCH (09:47)
[2020-10-06] MEDS: Insulin Lispro 100 Units/ML 3 ML Vial SUBCUT SCH ×4 (09:48→21:36)
[2020-10-06] MEDS: Lactulose Soln 10 GM/15 ML 30 ML UD Cup PO SCH ×2 (09:48→20:49)
[2020-10-06] MEDS: Sodium Chloride 0.9% 10 ML Syringe FLUSH PRN ×2 (10:18→15:01)
[2020-10-06] MEDS: Amitriptyline 25 MG Tab PO SCH (20:47)
[2020-10-07] MEDS: Insulin Lispro 100 Units/ML 3 ML Vial SUBCUT SCH ×4 (08:27→21:31)
[2020-10-07] MEDS: Lidocaine 5% 700 MG Patch TOP SCH (08:41)
[2020-10-07] MEDS: oxyCODONE 5 MG Tab PO SCH ×3 (08:42→21:29)
[2020-10-07] MEDS: Calcium Carbonate 500 MG Tab.Chew PO SCH (08:42)
[2020-10-07] MEDS: Famotidine 20 MG Tab PO SCH ×2 (08:42→21:30)
[2020-10-07] MEDS: Baclofen 10 MG Tab PO SCH ×3 (08:44→21:27)
[2020-10-07] MEDS: Losartan 50 MG Tab PO SCH (08:44)
[2020-10-07] MEDS: Naproxen 250 MG Tab PO SCH ×2 (08:44→17:23)
[2020-10-07] MEDS: Gabapentin 300 MG Cap PO SCH ×3 (08:44→21:27)
[2020-10-07] MEDS: Loratadine 10 MG Tab PO SCH (08:44)
[2020-10-07] MEDS: Docusate Sodium 100 MG Cap PO SCH ×2 (08:44→21:27)
[2020-10-07] MEDS: Vitamin E (dl-alpha-tocopherol acetate) 400 Unit Cap PO SCH (08:45)
[2020-10-07] MEDS: Multivitamins,Therapeutic Tab PO SCH (08:45)
[2020-10-07] MEDS: Lactulose Soln 10 GM/15 ML 30 ML UD Cup PO SCH ×2 (08:46→21:21)
[2020-10-07] MEDS: Sodium Chloride 0.9% 10 ML Syringe FLUSH PRN ×2 (08:46→21:34)
--- NOTE | 2020-10-07 16:38 | CT ---
PROCEDURE INFORMATION: Exam: CT Head Without Contrast Exam date and time: 10/07/2020 3:57 PM Age: 65 years old Clinical indication: Altered mental status/memory loss TECHNIQUE: Imaging protocol: Computed tomography of the head without contrast. Radiation optimization: All CT scans at this facility use at least one of these dose optimization techniques: automated exposure control; mA and/or kV adjustment per patient size (includes targeted exams where dose is matched to clinical indication); or iterative reconstruction. COMPARISON: CT Head wo Cont 12/26/2019 3:52 PM FINDINGS: Brain: No mass effect or midline shift. No abnormal densities are seen intracranially; no sign of acute intracranial hemorrhage or cerebral edema. Cerebral ventricles: No ventriculomegaly. Bones/joints: Skull base and overlying calvarium are intact. No lytic or osteosclerotic lesions. Paranasal sinuses: Small amount of fluid layering in the right maxillary sinus. Mastoid air cells: Visualized mastoid air cells are well aerated. Soft tissues: Unremarkable. IMPRESSION: 1. No acute intracranial abnormality. 2. Small amount of fluid layering in the right maxillary sinus. This could indicate either retained secretions or acute sinusitis. 3. Appearance of the brain not changed significantly.
[2020-10-07] MEDS: Amitriptyline 25 MG Tab PO SCH (21:29)
[2020-10-08] MEDS: oxyCODONE 5 MG Tab PO SCH ×4 (03:05→21:16)
[2020-10-08 06:59] LABS: ANION GAP 14.2 mEq/L (7-13)
[2020-10-08] MEDS: Insulin Lispro 100 Units/ML 3 ML Vial SUBCUT SCH ×4 (08:20→21:17)
[2020-10-08] MEDS: Calcium Carbonate 500 MG Tab.Chew PO SCH (08:35)
[2020-10-08] MEDS: Losartan 50 MG Tab PO SCH (08:36)
[2020-10-08] MEDS: Famotidine 20 MG Tab PO SCH ×2 (08:36→21:19)
[2020-10-08] MEDS: Docusate Sodium 100 MG Cap PO SCH ×2 (08:36→21:16)
[2020-10-08] MEDS: Naproxen 250 MG Tab PO SCH (08:37)
[2020-10-08] MEDS: Vitamin E (dl-alpha-tocopherol acetate) 400 Unit Cap PO SCH (08:37)
[2020-10-08] MEDS: Gabapentin 300 MG Cap PO SCH (08:37)
[2020-10-08] MEDS: Baclofen 10 MG Tab PO SCH ×3 (08:37→21:19)
[2020-10-08] MEDS: Lactulose Soln 10 GM/15 ML 30 ML UD Cup PO SCH ×2 (08:38→21:16)
[2020-10-08] MEDS: Multivitamins,Therapeutic Tab PO SCH (08:38)
[2020-10-08] MEDS: Loratadine 10 MG Tab PO SCH (08:38)
[2020-10-08] MEDS: Lidocaine 5% 700 MG Patch TOP SCH (08:38)
[2020-10-08] MEDS: Sodium Chloride 0.9% 1,000 ML IV SCH ×2 (11:05→23:55)
--- NOTE | 2020-10-08 11:05 | PCM.PN ---
- General Info Date of Service: 10/08/20 Subjective Update: Patient has been intermittently disoriented She has been unsteady on her feet. Has been having intermittent tremors Renal function worsened the patient became pancytopenic. - Review of Systems General: Reports: Weakness, Fatigue HEENT: Reports: No Symptoms Pulmonary: Reports: No Symptoms Cardiovascular: Reports: No Symptoms Gastrointestinal: Reports: No Symptoms Skin: Reports: No Symptoms - Patient Data Vitals - Most Recent: Last Vital Signs Temp 36.9 C 10/08/20 08:00 Pulse 95 10/08/20 08:00 Resp 16 10/08/20 08:00 BP 160/99 H 10/08/20 08:36 Pulse Ox 98 10/08/20 08:00 Weight - Most Recent: 110.268 kg I&O - Last 24 Hours: Intake & Output 10/07/20 10/08/20 10/08/20 22:59 06:59 14:59 Intake Total 790 100 Output Total 1000 Balance -210 100 Lab Results Last 24 Hours: Laboratory Results - last 24 hr 10/06/20 10/07/20 10/07/20 Range/Units 06:35 12:05 16:48 WBC (5.0-10.0) 10^3/uL RBC (4.2-5.4) 10^6/uL Hgb (12.0-16.0) g/dL Hct (37.0-47.0) % MCV (80-100) fL MCH (27.0-34.0) pg MCHC (33.0-35.0) g/dL Plt Count (150-450) 10^3/uL Sodium (136-145) mmol/L Potassium (3.5-5.1) mmol/L Chloride (98-107) mmol/L Carbon Dioxide (21-32) mmol/L Anion Gap (7-13) mEq/L BUN (7-18) mg/dL Creatinine (0.55-1.02) mg/dL Est Cr Clr Drug Dosing mL/min Estimated GFR (MDRD) Glucose (74-99) mg/dL POC Glucose 173 H 98 (70-105) mg/dl Calcium (8.5-10.1) mg/dL Creatine Kinase (16-191) U/L Ur Eosinophil Smear Eos absent (Eos Absent) % EOS 1210/08/20 10/08/20 Range/Units 21:00 06:25 06:25 WBC 2.0 L (5.0-10.0) 10^3/uL RBC 2.53 L (4.2-5.4) 10^6/uL Hgb 7.9 L (12.0-16.0) g/dL Hct 23.4 L (37.0-47.0) % MCV 92.5 (80-100) fL MCH 31.2 (27.0-34.0) pg MCHC 33.8 (33.0-35.0) g/dL Plt Count 109 L (150-450) 10^3/uL Sodium 140 (136-145) mmol/L Potassium 4.2 (3.5-5.1) mmol/L Chloride 104 (98-107) mmol/L Carbon Dioxide 26 (21-32) mmol/L Anion Gap 14.2 H (7-13) mEq/L BUN 40 H (7-18) mg/dL Creatinine 2.60 H (0.55-1.02) mg/dL Est Cr Clr Drug Dosing 20.73 mL/min Estimated GFR (MDRD) 19 Glucose 119 H (74-99) mg/dL POC Glucose 201 H (70-105) mg/dl Calcium 8.6 (8.5-10.1) mg/dL Creatine Kinase (16-191) U/L Ur Eosinophil Smear (Eos Absent) % EOS 10/08/20 10/08/20 Range/Units 06:25 08:06 WBC (5.0-10.0) 10^3/uL RBC (4.2-5.4) 10^6/uL Hgb (12.0-16.0) g/dL Hct (37.0-47.0) % MCV (80-100) fL MCH (27.0-34.0) pg MCHC (33.0-35.0) g/dL Plt Count (150-450) 10^3/uL Sodium (136-145) mmol/L Potassium (3.5-5.1) mmol/L Chloride (98-107) mmol/L Carbon Dioxide (21-32) mmol/L Anion Gap (7-13) mEq/L BUN (7-18) mg/dL Creatinine (0.55-1.02) mg/dL Est Cr Clr Drug Dosing mL/min Estimated GFR (MDRD) Glucose (74-99) mg/dL POC Glucose 105 (70-105) mg/dl Calcium (8.5-10.1) mg/dL Creatine Kinase 168 (16-191) U/L Ur Eosinophil Smear (Eos Absent) % EOS Med Orders - Current: Current Medications Acetaminophen (Tylenol) 650 mg PO Q4H PRN PRN Reason: Pain (Mild 1-3)/fever Amitriptyline HCl (Elavil) 50 mg PO BEDTIME [facility] Last Admin: 10/07/20 21:29 Dose: 50 mg Documented by: Baclofen (Lioresal) 10 mg PO TID [facility] Last Admin: 10/08/20 08:37 Dose: 10 mg Documented by: Calcium Carbonate/Glycine (Tums) 500 mg PO DAILY [facility] Last Admin: 10/08/20 08:35 Dose: 500 mg Documented by: Dextrose/Water (Dextrose 50% In Water) 50 ml IV ASDIRECTED PRN PRN Reason: Hypoglycemia Docusate Sodium (Colace) 100 mg PO BID [facility] Last Admin: 10/08/20 08:36 Dose: 100 mg Documented by: Famotidine (Pepcid) 10 mg PO BID [facility] Last Admin: 10/08/20 08:36 Dose: 10 mg Documented by: Gabapentin (Neurontin) 100 mg PO TID [facility] Glucagon (Glucagen) 1 mg IM ASDIRECTED PRN PRN Reason: Hypoglycemia Sodium Chloride (Normal Saline) 1,000 mls @ 125 mls/hr IV ASDIRECTED [facility] Ceftaroline Fosamil 600 mg/ (Sodium Chloride) 100 mls @ 100 mls/hr IV Q12HR [facility] Insulin Human Lispro (Humalog) 0 unit SUBCUT WITHMEALSANDBED [facility]; Protocol Last Admin: 10/08/20 08:20 Dose: Not Given Documented by: Lactulose (Cephulac) 20 gm PO BID [facility] Last Admin: 10/08/20 08:38 Dose: 20 gm Documented by: Lidocaine (Lidoderm 5%) 700 mg TOP DAILY [facility] Last Admin: 10/08/20 08:38 Dose: 700 mg Documented by: Loratadine (Claritin) 10 mg PO DAILY [facility] Last Admin: 10/08/20 08:38 Dose: 10 mg Documented by: Magnesium Oxide (Magnesium Oxide) 250 mg PO DAILY [facility] Last Admin: 12/19/20 08:38 Dose: 250 mg Documented by: Miscellaneous Information (Remove Patch) 1 ea TRDERM BEDTIME [facility] Last Admin: 10/07/20 21:37 Dose: 1 ea Documented by: Morphine Sulfate (Morphine) 2 mg IVPUSH Q2H PRN PRN Reason: Pain (severe 7-10) Last Admin: 09/30/20 12:13 Dose: 2 mg Documented by: Multivitamins (Thera) 1 each PO DAILY [facility] Last Admin: 10/08/20 08:38 Dose: 1 each Documented by: Dulaglutide [ Trulicity] 1.5 Mg/0. 5 Ml Inj *Own Med* 1.5 mg SQ Th@0900 [facility] Last Admin: 10/06/20 09:40 Dose: 1.5 mg Documented by: Insulin Degludec [ Tresiba] 100 Units/Ml Pen *Own Med* 20 units SQ BEDTIME [facility] Last Admin: 10/07/20 21:56 Dose: 20 units Documented by: Nystatin (Nystop) 0 gm TOP BID PRN PRN Reason: Rash Ondansetron HCl (Zofran Odt) 4 mg PO Q4H PRN PRN Reason: nausea, able to take PO Oxycodone HCl (Oxycodone) 5 mg PO TID [facility] Last Admin: 10/08/20 08:37 Dose: 5 mg Documented by: Sodium Chloride (Saline Flush) 10 ml FLUSH ASDIRECTED PRN PRN Reason: Keep Vein Open Last Admin: 10/07/20 21:34 Dose: 10 ml Documented by: Vancomycin HCl (Pharmacy To Dose - Vancomycin) 0 dose .XX ASDIRECTED [facility] Vitamin E (Vitamin E) 400 units PO DAILY [facility] Last Admin: 10/08/20 08:37 Dose: 400 units Documented by: Discontinued Medications Gabapentin (Neurontin) 300 mg PO TID [facility] Last Admin: 10/08/20 08:37 Dose: 300 mg Documented by: Vancomycin HCl 1 gm/ Sodium (Chloride) 250 mls @ 167 mls/hr IV Q18H [facility] Last Admin: 09/30/20 07:29 Dose: Not Given Documented by: Ceftaroline Fosamil 600 mg/ (Sodium Chloride) 250 mls @ 250 mls/hr IV Q12HR [facility] Stop: 09/28/20 21:59 Last Admin: 09/28/20 20:34 Dose: 250 mls/hr Documented by: Ceftaroline Fosamil 600 mg/ (Sodium Chloride) 250 mls @ 250 mls/hr IV Q12HR [facility] Last Admin: 10/03/20 09:27 Dose: 250 mls/hr Documented by: Ceftaroline Fosamil 600 mg/ (Sodium Chloride) 250 mls @ 250 mls/hr IV Q12HR [facility] Stop: 09/29/20 21:59 Last Admin: 09/29/20 21:05 Dose: 250 mls/hr Documented by: Vancomycin HCl 1 gm/ Sodium (Chloride) 250 mls @ 167 mls/hr IV Q24H [facility] Last Admin: 10/03/20 13:50 Dose: Not Given Documented by: Ceftaroline Fosamil 300 mg/ (Sodium Chloride) 250 mls @ 250 mls/hr IV Q12HR [facility] Last Admin: 10/06/20 10:19 Dose: 250 mls/hr Documented by: Vancomycin HCl 1 gm/ Sodium (Chloride) 250 mls @ 166.667 mls/hr IV ONETIME ONE Stop: 10/04/20 16:29 Last Admin: 10/04/20 14:37 Dose: 166.667 mls/hr Documented by: Vancomycin HCl 1 gm/ Sodium (Chloride) 250 mls @ 166.667 mls/hr IV Q48H [facility] Last Admin: 10/06/20 15:01 Dose: 166.667 mls/hr Documented by: Losartan Potassium (Cozaar) 50 mg PO DAILY [facility] Last Admin: 10/08/20 08:36 Dose: 50 mg Documented by: Naproxen (Naprosyn) 250 mg PO BIDMEALS [facility] Last Admin: 10/08/20 08:37 Dose: 250 mg Documented by: Oxycodone HCl (Oxycodone) 5 mg PO BID [facility] Last Admin: 09/30/20 10:00 Dose: 5 mg Documented by: Potassium Chloride (Klor-Con 10) 20 meq PO DAILY@0800 [facility] - Exam General: Alert, Oriented, Cooperative Neck: Supple Lungs: Clear to Auscultation, Normal Respiratory Effort Cardiovascular: Regular Rate, Regular Rhythm GI/Abdominal Exam: Normal Bowel Sounds, Soft, Non-Tender, No Organomegaly, No Distention, No Abnormal Bruit, No Mass, Pelvis Stable Extremities: Normal Inspection, Normal Range of Motion, Non-Tender, No Pedal Edema, Normal Capillary Refill Sepsis Event Note - Evaluation Sepsis Screening Result: No Definite Risk - Focused Exam Vital Signs: Vital Signs Temp Pulse Resp BP BP Pulse Ox 10/08/20 08:36 160/99 H 10/08/20 08:00 36.9 C 95 16 160/99 H 98 - Problem List Review Problem List Initiated/Reviewed/Updated: Yes - My Orders Last 24 Hours: My Active Orders 10/08/20 09:15 Sodium Chloride 0.9% [Normal Saline] 1,000 ml IV ASDIRECTED 10/08/20 09:16 CREATININE,URINE RAND [URCHEM] Urgent SODIUM,URINE RANDOM [URCHEM] Urgent 10/08/20 09:34 Retroperitoneal Comp [US] Routine 10/08/20 14:00 Gabapentin [Neurontin] 100 mg PO TID 10/08/20 21:00 Ceftaroline Fosamil [Teflaro] 600 mg Sodium Chloride 0.9% [Normal Saline] 100 ml IV Q12HR 10/09/20 05:11 BASIC METABOLIC PANEL,BMP [CHEM] AM CBC W/O DIFF,HEMOGRAM [HEME] AM - Plan Plan:: #. Acute kidney injury This is probably due to acute tubular necrosis Patient has been on vancomycin. Has also been on scheduled naproxen and losartan. #. Pancytopenia Likely due to medicationmay be vancomycin- #. 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 Pancytopenia Probably due to medications #. Osteomyelitis of the lumbar spine, patient underwent L4-L5 redo laminectomy with washout of epidural abscess. #. Unsteady gait/tremors Likely due to toxicity from gabapentin in the face of acute kidney injury. Plan: Start patient on intravenous normal saline I consulted with infectious disease Discontinue vancomycin. Start patient on ceftaroline Reduce gabapentin to 100 mg 3 times a day. Obtain ultrasound of the kidneys to rule out obstructive uropathy Obtain repeat complete blood count. Discussed with Dr. Ray
--- NOTE | 2020-10-08 13:41 | US ---
PROCEDURE INFORMATION: Exam: US Retroperitoneal Limited, Kidneys Exam date and time: 10/08/2020 12:40 PM Age: 65 years old Clinical indication: Abnormal findings; Abnormal lab test; Abnormal kidney function lab tests; Additional info: Luke TECHNIQUE: Imaging protocol: Real-time ultrasound of the retroperitoneum with image documentation. Examination was focused on the kidneys. COMPARISON: No relevant prior studies available. FINDINGS: Right kidney: Limited imaging due to body habitus. Right kidney measures 10.57 x 6.19 by 5.63 cm. No hydronephrosis or nephrolithiasis. Left kidney: No stones. No hydronephrosis. Left kidney measures 8.66 x 6.16 x 5.25 . No obstructing calculi. Limited imaged due to body habitus. cm. IMPRESSION: Limited study due to body habitus. No definite sonographic abnormalities identified.
[2020-10-08] MEDS: Gabapentin 100 MG Cap PO SCH ×2 (13:47→21:16)
[2020-10-08] MEDS ORDERED: SODIUM CHLORIDE 0.9% IV SCH (21:00)
[2020-10-08] MEDS ORDERED: CEFTAROLINE FOSAMIL IV SCH (21:00)
[2020-10-08] MEDS: Amitriptyline 25 MG Tab PO SCH (21:18)
[2020-10-08] MEDS: amLODIPine 5 MG Tab PO SCH (21:18)
[2020-10-08] MEDS: CEFTAROLINE FOSAMIL IV SCH (21:42)
[2020-10-08] MEDS: SODIUM CHLORIDE 0.9% IV SCH (21:42)
[2020-10-09 06:56] LABS: ANION GAP 11.1 mEq/L (7-13)
[2020-10-09] MEDS: Insulin Lispro 100 Units/ML 3 ML Vial SUBCUT SCH ×4 (08:00→21:15)
[2020-10-09] MEDS: Famotidine 20 MG Tab PO SCH ×2 (09:12→21:00)
[2020-10-09] MEDS: Multivitamins,Therapeutic Tab PO SCH (09:12)
[2020-10-09] MEDS: oxyCODONE 5 MG Tab PO SCH ×3 (09:12→21:02)
[2020-10-09] MEDS: amLODIPine 5 MG Tab PO SCH (09:13)
[2020-10-09] MEDS: Gabapentin 100 MG Cap PO SCH ×3 (09:13→21:00)
[2020-10-09] MEDS: Calcium Carbonate 500 MG Tab.Chew PO SCH (09:13)
[2020-10-09] MEDS: Vitamin E (dl-alpha-tocopherol acetate) 400 Unit Cap PO SCH (09:13)
[2020-10-09] MEDS: Loratadine 10 MG Tab PO SCH (09:13)
[2020-10-09] MEDS: Docusate Sodium 100 MG Cap PO SCH ×2 (09:14→21:00)
[2020-10-09] MEDS: Baclofen 10 MG Tab PO SCH ×3 (09:14→21:00)
[2020-10-09] MEDS: Lidocaine 5% 700 MG Patch TOP SCH (09:17)
[2020-10-09] MEDS: Lactulose Soln 10 GM/15 ML 30 ML UD Cup PO SCH ×2 (09:17→21:05)
[2020-10-09] MEDS: Sodium Chloride 0.9% 1,000 ML IV SCH ×2 (09:18→17:29)
[2020-10-09] MEDS: SODIUM CHLORIDE 0.9% IV SCH ×2 (09:19→20:56)
[2020-10-09] MEDS: CEFTAROLINE FOSAMIL IV SCH ×2 (09:19→20:56)
[2020-10-09] MEDS: Carvedilol 6.25 MG Tab PO SCH ×2 (09:51→17:05)
[2020-10-09] MEDS: Amitriptyline 25 MG Tab PO SCH (21:00)
[2020-10-10] MEDS: Sodium Chloride 0.9% 1,000 ML IV SCH ×2 (02:02→19:39)
[2020-10-10] MEDS: Baclofen 10 MG Tab PO SCH ×3 (09:17→21:57)
[2020-10-10] MEDS: Loratadine 10 MG Tab PO SCH (09:17)
[2020-10-10] MEDS: Calcium Carbonate 500 MG Tab.Chew PO SCH (09:17)
[2020-10-10] MEDS: Docusate Sodium 100 MG Cap PO SCH ×2 (09:18→21:57)
[2020-10-10] MEDS: Famotidine 20 MG Tab PO SCH ×2 (09:18→22:10)
[2020-10-10] MEDS: Vitamin E (dl-alpha-tocopherol acetate) 400 Unit Cap PO SCH (09:18)
[2020-10-10] MEDS: Multivitamins,Therapeutic Tab PO SCH (09:19)
[2020-10-10] MEDS: Carvedilol 6.25 MG Tab PO SCH ×2 (09:19→17:31)
[2020-10-10] MEDS: oxyCODONE 5 MG Tab PO PRN ×3 (09:20→22:36)
[2020-10-10] MEDS: Lactulose Soln 10 GM/15 ML 30 ML UD Cup PO SCH ×2 (09:20→21:57)
[2020-10-10] MEDS: amLODIPine 5 MG Tab PO SCH (09:20)
[2020-10-10] MEDS: Insulin Lispro 100 Units/ML 3 ML Vial SUBCUT SCH ×3 (09:21→22:21)
[2020-10-10] MEDS: Lidocaine 5% 700 MG Patch TOP SCH (09:23)
--- NOTE | 2020-10-10 10:29 | PCM.PN ---
- General Info Date of Service: 10/10/20 Subjective Update: Patient still feeling weak. Stated intermittently disoriented. Her PICC line got dislodged. No fever no chills No nausea no vomiting. Does not complain of severe back pain. - Review of Systems General: Reports: No Symptoms Pulmonary: Reports: No Symptoms Cardiovascular: Reports: No Symptoms Gastrointestinal: Reports: No Symptoms Musculoskeletal: Reports: No Symptoms - Patient Data Vitals - Most Recent: Last Vital Signs Temp 36.5 C 10/10/20 09:00 Pulse 72 10/10/20 09:19 Resp 20 10/10/20 09:00 BP 168/72 H 10/10/20 09:20 Pulse Ox 95 10/10/20 09:00 Weight - Most Recent: 110.268 kg I&O - Last 24 Hours: Intake & Output 10/09/20 10/10/20 10/10/20 22:59 06:59 14:59 Intake Total 940 1000 Output Total 8268 310 1895 Balance -560 450 -1500 Lab Results Last 24 Hours: Laboratory Results - last 24 hr 10/09/20 10/09/20 10/09/20 Range/Units 11:47 16:45 21:11 WBC (5.0-10.0) 10^3/uL RBC (4.2-5.4) 10^6/uL Hgb (12.0-16.0) g/dL Hct (37.0-47.0) % MCV (80-100) fL MCH (27.0-34.0) pg MCHC (33.0-35.0) g/dL Plt Count (150-450) 10^3/uL ESR (0-20) mm/hr Sodium (136-145) mmol/L Potassium (3.5-5.1) mmol/L Chloride (98-107) mmol/L Carbon Dioxide (21-32) mmol/L Anion Gap (7-13) mEq/L BUN (7-18) mg/dL Creatinine (0.55-1.02) mg/dL Est Cr Clr Drug Dosing mL/min Estimated GFR (MDRD) BUN/Creatinine Ratio (No establ ref range) Glucose (74-99) mg/dL POC Glucose 147 H 180 H 163 H (70-105) mg/dl Calcium (8.5-10.1) mg/dL Total Bilirubin (0.2-1.0) mg/dL AST (15-37) U/L ALT (14-59) U/L Alkaline Phosphatase (46-116) U/L C-Reactive Protein (0.0-0.9) mg/dL Total Protein (6.4-8.2) g/dL Albumin (3.4-5.0) g/dL Globulin Albumin/Globulin Ratio 10/10/20 10/10/20 10/10/20 Range/Units 06:21 06:21 06:21 WBC (5.0-10.0) 10^3/uL RBC (4.2-5.4) 10^6/uL Hgb (12.0-16.0) g/dL Hct (37.0-47.0) % MCV (80-100) fL MCH (27.0-34.0) pg MCHC (33.0-35.0) g/dL Plt Count (150-450) 10^3/uL ESR 113 H (0-20) mm/hr Sodium 137 (136-145) mmol/L Potassium 4.0 (3.5-5.1) mmol/L Chloride 104 (98-107) mmol/L Carbon Dioxide 25 (21-32) mmol/L Anion Gap 12.0 (7-13) mEq/L BUN 32 H (7-18) mg/dL Creatinine 2.23 H (0.55-1.02) mg/dL Est Cr Clr Drug Dosing 24.17 mL/min Estimated GFR (MDRD) 22 BUN/Creatinine Ratio 14.3 (No establ ref range) Glucose 118 H (74-99) mg/dL POC Glucose (70-105) mg/dl Calcium 8.6 (8.5-10.1) mg/dL Total Bilirubin 0.5 (0.2-1.0) mg/dL AST 37 (15-37) U/L ALT 22 (14-59) U/L Alkaline Phosphatase 157 H (46-116) U/L C-Reactive Protein 5.8 H (0.0-0.9) mg/dL Total Protein 8.7 H (6.4-8.2) g/dL Albumin 2.2 L (3.4-5.0) g/dL Globulin 6.5 Albumin/Globulin Ratio 0.34 10/10/20 10/10/20 Range/Units 06:21 07:51 WBC 2.6 L (5.0-10.0) 10^3/uL RBC 2.75 L (4.2-5.4) 10^6/uL Hgb 8.5 L (12.0-16.0) g/dL Hct 25.2 L (37.0-47.0) % MCV 91.6 (80-100) fL MCH 30.9 (27.0-34.0) pg MCHC 33.7 (33.0-35.0) g/dL Plt Count 114 L (150-450) 10^3/uL ESR (0-20) mm/hr Sodium (136-145) mmol/L Potassium (3.5-5.1) mmol/L Chloride (98-107) mmol/L Carbon Dioxide (21-32) mmol/L Anion Gap (7-13) mEq/L BUN (7-18) mg/dL Creatinine (0.55-1.02) mg/dL Est Cr Clr Drug Dosing mL/min Estimated GFR (MDRD) BUN/Creatinine Ratio (No establ ref range) Glucose (74-99) mg/dL POC Glucose 110 H (70-105) mg/dl Calcium (8.5-10.1) mg/dL Total Bilirubin (0.2-1.0) mg/dL AST (15-37) U/L ALT (14-59) U/L Alkaline Phosphatase (46-116) U/L C-Reactive Protein (0.0-0.9) mg/dL Total Protein (6.4-8.2) g/dL Albumin (3.4-5.0) g/dL Globulin Albumin/Globulin Ratio Med Orders - Current: Current Medications Acetaminophen (Tylenol) 650 mg PO Q4H PRN PRN Reason: Pain (Mild 1-3)/fever Amitriptyline HCl (Elavil) 50 mg PO BEDTIME [facility] Last Admin: 10/09/20 21:00 Dose: 50 mg Documented by: Amlodipine Besylate (Norvasc) 5 mg PO DAILY [facility] Last Admin: 10/10/20 09:20 Dose: 5 mg Documented by: Baclofen (Lioresal) 10 mg PO TID [facility] Last Admin: 10/10/20 09:17 Dose: 10 mg Documented by: Calcium Carbonate/Glycine (Tums) 500 mg PO DAILY [facility] Last Admin: 10/10/20 09:17 Dose: 500 mg Documented by: Carvedilol (Coreg) 6.25 mg PO BIDMEALS [facility] Last Admin: 10/10/20 09:19 Dose: 6.25 mg Documented by: Dextrose/Water (Dextrose 50% In Water) 50 ml IV ASDIRECTED PRN PRN Reason: Hypoglycemia Docusate Sodium (Colace) 100 mg PO BID [facility] Last Admin: 10/10/20 09:18 Dose: 100 mg Documented by: Famotidine (Pepcid) 10 mg PO BID [facility] Last Admin: 10/10/20 09:18 Dose: 10 mg Documented by: Glucagon (Glucagen) 1 mg IM ASDIRECTED PRN PRN Reason: Hypoglycemia Sodium Chloride (Normal Saline) 1,000 mls @ 125 mls/hr IV ASDIRECTED [facility] Last Admin: 10/10/20 02:02 Dose: 125 mls/hr Documented by: Ceftaroline Fosamil 300 mg/ (Sodium Chloride) 100 mls @ 100 mls/hr IV Q12HR [facility] Last Admin: 10/09/20 20:56 Dose: 100 mls/hr Documented by: Insulin Human Lispro (Humalog) 0 unit SUBCUT WITHMEALSANDBED [facility]; Protocol Last Admin: 10/10/20 09:21 Dose: Not Given Documented by: Lactulose (Cephulac) 20 gm PO BID [facility] Last Admin: 10/10/20 09:20 Dose: 20 gm Documented by: Lidocaine (Lidoderm 5%) 700 mg TOP DAILY [facility] Last Admin: 10/10/20 09:23 Dose: 700 mg Documented by: Loratadine (Claritin) 10 mg PO DAILY [facility] Last Admin: 10/10/20 09:17 Dose: 10 mg Documented by: Magnesium Oxide (Magnesium Oxide) 250 mg PO DAILY [facility] Last Admin: 10/10/20 09:17 Dose: 250 mg Documented by: Miscellaneous Information (Remove Patch) 1 ea TRDERM BEDTIME [facility] Last Admin: 10/09/20 21:06 Dose: 1 ea Documented by: Multivitamins (Thera) 1 each PO DAILY [facility] Last Admin: 10/10/20 09:19 Dose: 1 each Documented by: Dulaglutide [ Trulicity] 1.5 Mg/0. 5 Ml Inj *Own Med* 1.5 mg SQ Th@0900 [facility] Last Admin: 10/06/20 09:40 Dose: 1.5 mg Documented by: Insulin Degludec [ Tresiba] 100 Units/Ml Pen *Own Med* 20 units SQ BEDTIME [facility] Last Admin: 10/09/20 21:16 Dose: 20 units Documented by: Nystatin (Nystop) 0 gm TOP BID PRN PRN Reason: Rash Ondansetron HCl (Zofran Odt) 4 mg PO Q4H PRN PRN Reason: nausea, able to take PO Oxycodone HCl (Oxycodone) 5 mg PO TID PRN PRN Reason: back pain Last Admin: 10/10/20 09:20 Dose: 5 mg Documented by: Sodium Chloride (Saline Flush) 10 ml FLUSH ASDIRECTED PRN PRN Reason: Keep Vein Open Last Admin: 10/07/20 21:34 Dose: 10 ml Documented by: Vitamin E (Vitamin E) 400 units PO DAILY [facility] Last Admin: 10/10/20 09:18 Dose: 400 units Documented by: Discontinued Medications Gabapentin (Neurontin) 300 mg PO TID [facility] Last Admin: 10/08/20 08:37 Dose: 300 mg Documented by: Gabapentin (Neurontin) 100 mg PO TID [facility] Last Admin: 10/09/20 21:00 Dose: 100 mg Documented by: Vancomycin HCl 1 gm/ Sodium (Chloride) 250 mls @ 167 mls/hr IV Q18H [facility] Last Admin: 09/30/20 07:29 Dose: Not Given Documented by: Ceftaroline Fosamil 600 mg/ (Sodium Chloride) 250 mls @ 250 mls/hr IV Q12HR [facility] Stop: 09/28/20 21:59 Last Admin: 09/28/20 20:34 Dose: 250 mls/hr Documented by: Ceftaroline Fosamil 600 mg/ (Sodium Chloride) 250 mls @ 250 mls/hr IV Q12HR [facility] Last Admin: 10/03/20 09:27 Dose: 250 mls/hr Documented by: Ceftaroline Fosamil 600 mg/ (Sodium Chloride) 250 mls @ 250 mls/hr IV Q12HR [facility] Stop: 09/29/20 21:59 Last Admin: 09/29/20 21:05 Dose: 250 mls/hr Documented by: Vancomycin HCl 1 gm/ Sodium (Chloride) 250 mls @ 167 mls/hr IV Q24H [facility] Last Admin: 10/03/20 13:50 Dose: Not Given Documented by: Ceftaroline Fosamil 300 mg/ (Sodium Chloride) 250 mls @ 250 mls/hr IV Q12HR [facility] Last Admin: 10/06/20 10:19 Dose: 250 mls/hr Documented by: Vancomycin HCl 1 gm/ Sodium (Chloride) 250 mls @ 166.667 mls/hr IV ONETIME ONE Stop: 10/04/20 16:29 Last Admin: 10/04/20 14:37 Dose: 166.667 mls/hr Documented by: Vancomycin HCl 1 gm/ Sodium (Chloride) 250 mls @ 166.667 mls/hr IV Q48H [facility] Last Admin: 10/06/20 15:01 Dose: 166.667 mls/hr Documented by: Ceftaroline Fosamil 600 mg/ (Sodium Chloride) 100 mls @ 100 mls/hr IV Q12HR [facility] Losartan Potassium (Cozaar) 50 mg PO DAILY [facility] Last Admin: 10/08/20 08:36 Dose: 50 mg Documented by: Morphine Sulfate (Morphine) 2 mg IVPUSH Q2H PRN PRN Reason: Pain (severe 7-10) Last Admin: 09/30/20 12:13 Dose: 2 mg Documented by: Naproxen (Naprosyn) 250 mg PO BIDMEALS [facility] Last Admin: 10/08/20 08:37 Dose: 250 mg Documented by: Oxycodone HCl (Oxycodone) 5 mg PO BID [facility] Last Admin: 09/30/20 10:00 Dose: 5 mg Documented by: Oxycodone HCl (Oxycodone) 5 mg PO TID [facility] Last Admin: 10/09/20 21:02 Dose: 5 mg Documented by: Potassium Chloride (Klor-Con 10) 20 meq PO DAILY@0800 [facility] Vancomycin HCl (Pharmacy To Dose - Vancomycin) 0 dose .XX ASDIRECTED [facility] - Exam General: Alert, Oriented, Cooperative HEENT: Pupils Equal, Pupils Reactive, EOMI, Mucous Membr. Moist/[place] Neck: Supple Lungs: Clear to Auscultation, Normal Respiratory Effort Cardiovascular: Regular Rate, Regular Rhythm Extremities: Normal Inspection, Normal Range of Motion, Non-Tender, No Pedal Edema, Normal Capillary Refill Sepsis Event Note - Evaluation Sepsis Screening Result: No Definite Risk - Focused Exam Vital Signs: Vital Signs Temp Pulse Pulse Resp BP BP Pulse Ox 10/10/20 09:20 168/72 H 10/10/20 09:19 72 168/79 H 10/10/20 09:00 36.5 C 91 20 162/84 H 95 - Problem List Review Problem List Initiated/Reviewed/Updated: Yes - My Orders Last 24 Hours: My Active Orders 10/10/20 08:50 oxyCODONE 5 mg PO TID PRN 10/10/20 09:13 Chest 1V Frontal [CR] Routine - Plan Plan:: #. Acute kidney injury This is probably due to acute tubular necrosis Patient was on vancomycin. Has also been on scheduled naproxen and losartan. These were discontinued because of acute kidney injury #. Pancytopenia Likely due to medicationmay be vancomycin- #. 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 Pancytopenia Probably due to medications #. Osteomyelitis of the lumbar spine, patient underwent L4-L5 redo laminectomy with washout of epidural abscess. #. Unsteady gait/tremors Likely due to toxicity from gabapentin in the face of acute kidney injury. Plan: Replace PICC line Continue ceftaroline Discontinue gabapentin Continue physical and occupational therapy
--- NOTE | 2020-10-10 10:54 | CR ---
PROCEDURE INFORMATION: Exam: XR Chest, 1 View Exam date and time: 10/10/2020 10:38 AM Age: 65 years old Clinical indication: Device placement; Patient HX: Patient pulled on picc line. ; Additional info: Picc placement TECHNIQUE: Imaging protocol: XR of the chest Views: 1 view. COMPARISON: CR Chest 1V Frontal 09/28/2020 4:03 PM FINDINGS: Tubes, catheters and devices: Right long arm PICC catheter has been withdrawn from the superior vena cava. The tip is localized at the lateral chest wall next to right lateral 2nd rib. Lungs: There are no acute infiltrates. Pleural space: Unremarkable. No pleural effusion. No pneumothorax. Heart/Mediastinum: Unremarkable. No cardiomegaly. Bones/joints: Unremarkable. IMPRESSION: 1. Right PICC catheter withdrawn from the superior vena cava. Catheter tip lateral to the chest wall. 2. No acute cardiac or pulmonary findings.
--- NOTE | 2020-10-10 11:50 | PCM.CONSN ---
- General Info Date of Service: 10/10/20 Functional Status: Reports: Pain Controlled - Review of Systems General: Reports: Fatigue (Consulted for PICC assessment. Upon entering room, pt is awake, calm and pleasant. Doesn't appear in any distress. PICC line is in right brachial area/vein, covered with multiple tegaderms. CXRay indicates PICC no longer in SVC. Goal is to convert it to a Midline. Tegaderm was removed. Area was thoroughly cleaned using chlorhexidine. PICC was pulled out to approximately 20. Unsure if tip was cut on insertion. Appears intact. Flushes without difficulty and excellent blood return. Covered with tegaderm x2 and tip was taped up. Report from nurse states pt was confused and pulled on tegaderm and possibly cath. Pt appears alert but fell asleep several times during this procedure. Pt was snoring. Goal is to obtain another xray and d etermine location. Will use catheter as a midline for antibiotics. Nursing staff is aware. Will continue to monitor the line and assess as necessary.) - Patient Data Vitals - Most Recent: Last Vital Signs Temp 36.5 C 10/10/20 09:00 Pulse 72 10/10/20 09:19 Resp 20 10/10/20 09:00 BP 168/72 H 10/10/20 09:20 Pulse Ox 95 10/10/20 09:00 Weight - Most Recent: 110.268 kg I&O - Last 24 Hours: Intake & Output 10/09/20 10/10/20 10/10/20 22:59 06:59 14:59 Intake Total 940 1000 Output Total 3947 009 9672 Balance -560 450 -1500 Lab Results Last 24 Hours: Laboratory Results - last 24 hr 10/09/20 10/09/20 10/09/20 Range/Units 11:47 16:45 21:11 WBC (5.0-10.0) 10^3/uL RBC (4.2-5.4) 10^6/uL Hgb (12.0-16.0) g/dL Hct (37.0-47.0) % MCV (80-100) fL MCH (27.0-34.0) pg MCHC (33.0-35.0) g/dL Plt Count (150-450) 10^3/uL ESR (0-20) mm/hr Sodium (136-145) mmol/L Potassium (3.5-5.1) mmol/L Chloride (98-107) mmol/L Carbon Dioxide (21-32) mmol/L Anion Gap (7-13) mEq/L BUN (7-18) mg/dL Creatinine (0.55-1.02) mg/dL Est Cr Clr Drug Dosing mL/min Estimated GFR (MDRD) BUN/Creatinine Ratio (No establ ref range) Glucose (74-99) mg/dL POC Glucose 147 H 180 H 163 H (70-105) mg/dl Calcium (8.5-10.1) mg/dL Total Bilirubin (0.2-1.0) mg/dL AST (15-37) U/L ALT (14-59) U/L Alkaline Phosphatase (46-116) U/L C-Reactive Protein (0.0-0.9) mg/dL Total Protein (6.4-8.2) g/dL Albumin (3.4-5.0) g/dL Globulin Albumin/Globulin Ratio 10/10/20 10/10/20 10/10/20 Range/Units 06:21 06:21 06:21 WBC (5.0-10.0) 10^3/uL RBC (4.2-5.4) 10^6/uL Hgb (12.0-16.0) g/dL Hct (37.0-47.0) % MCV (80-100) fL MCH (27.0-34.0) pg MCHC (33.0-35.0) g/dL Plt Count (150-450) 10^3/uL ESR 113 H (0-20) mm/hr Sodium 137 (136-145) mmol/L Potassium 4.0 (3.5-5.1) mmol/L Chloride 104 (98-107) mmol/L Carbon Dioxide 25 (21-32) mmol/L Anion Gap 12.0 (7-13) mEq/L BUN 32 H (7-18) mg/dL Creatinine 2.23 H (0.55-1.02) mg/dL Est Cr Clr Drug Dosing 24.17 mL/min Estimated GFR (MDRD) 22 BUN/Creatinine Ratio 14.3 (No establ ref range) Glucose 118 H (74-99) mg/dL POC Glucose (70-105) mg/dl Calcium 8.6 (8.5-10.1) mg/dL Total Bilirubin 0.5 (0.2-1.0) mg/dL AST 37 (15-37) U/L ALT 22 (14-59) U/L Alkaline Phosphatase 157 H (46-116) U/L C-Reactive Protein 5.8 H (0.0-0.9) mg/dL Total Protein 8.7 H (6.4-8.2) g/dL Albumin 2.2 L (3.4-5.0) g/dL Globulin 6.5 Albumin/Globulin Ratio 0.34 10/10/20 10/10/20 10/10/20 Range/Units 06:21 07:51 11:37 WBC 2.6 L (5.0-10.0) 10^3/uL RBC 2.75 L (4.2-5.4) 10^6/uL Hgb 8.5 L (12.0-16.0) g/dL Hct 25.2 L (37.0-47.0) % MCV 91.6 (80-100) fL MCH 30.9 (27.0-34.0) pg MCHC 33.7 (33.0-35.0) g/dL Plt Count 114 L (150-450) 10^3/uL ESR (0-20) mm/hr Sodium (136-145) mmol/L Potassium (3.5-5.1) mmol/L Chloride (98-107) mmol/L Carbon Dioxide (21-32) mmol/L Anion Gap (7-13) mEq/L BUN (7-18) mg/dL Creatinine (0.55-1.02) mg/dL Est Cr Clr Drug Dosing mL/min Estimated GFR (MDRD) BUN/Creatinine Ratio (No establ ref range) Glucose (74-99) mg/dL POC Glucose 110 H 151 H (70-105) mg/dl Calcium (8.5-10.1) mg/dL Total Bilirubin (0.2-1.0) mg/dL AST (15-37) U/L ALT (14-59) U/L Alkaline Phosphatase (46-116) U/L C-Reactive Protein (0.0-0.9) mg/dL Total Protein (6.4-8.2) g/dL Albumin (3.4-5.0) g/dL Globulin Albumin/Globulin Ratio Med Orders - Current: Current Medications Acetaminophen (Tylenol) 650 mg PO Q4H PRN PRN Reason: Pain (Mild 1-3)/fever Amitriptyline HCl (Elavil) 50 mg PO BEDTIME [facility] Last Admin: 10/09/20 21:00 Dose: 50 mg Documented by: Amlodipine Besylate (Norvasc) 5 mg PO DAILY [facility] Last Admin: 10/10/20 09:20 Dose: 5 mg Documented by: Baclofen (Lioresal) 10 mg PO TID [facility] Last Admin: 10/10/20 09:17 Dose: 10 mg Documented by: Calcium Carbonate/Glycine (Tums) 500 mg PO DAILY [facility] Last Admin: 10/10/20 09:17 Dose: 500 mg Documented by: Carvedilol (Coreg) 6.25 mg PO BIDMEALS [facility] Last Admin: 10/10/20 09:19 Dose: 6.25 mg Documented by: Dextrose/Water (Dextrose 50% In Water) 50 ml IV ASDIRECTED PRN PRN Reason: Hypoglycemia Docusate Sodium (Colace) 100 mg PO BID [facility] Last Admin: 10/10/20 09:18 Dose: 100 mg Documented by: Famotidine (Pepcid) 10 mg PO BID [facility] Last Admin: 10/10/20 09:18 Dose: 10 mg Documented by: Glucagon (Glucagen) 1 mg IM ASDIRECTED PRN PRN Reason: Hypoglycemia Sodium Chloride (Normal Saline) 1,000 mls @ 125 mls/hr IV ASDIRECTED [facility] Last Admin: 10/10/20 02:02 Dose: 125 mls/hr Documented by: Ceftaroline Fosamil 300 mg/ (Sodium Chloride) 100 mls @ 100 mls/hr IV Q12HR [facility] Last Admin: 10/09/20 20:56 Dose: 100 mls/hr Documented by: Insulin Human Lispro (Humalog) 0 unit SUBCUT WITHMEALSANDBED [facility]; Protocol Last Admin: 10/10/20 09:21 Dose: Not Given Documented by: Lactulose (Cephulac) 20 gm PO BID [facility] Last Admin: 10/10/20 09:20 Dose: 20 gm Documented by: Lidocaine (Lidoderm 5%) 700 mg TOP DAILY [facility] Last Admin: 10/10/20 09:23 Dose: 700 mg Documented by: Loratadine (Claritin) 10 mg PO DAILY [facility] Last Admin: 10/10/20 09:17 Dose: 10 mg Documented by: Magnesium Oxide (Magnesium Oxide) 250 mg PO DAILY [facility] Last Admin: 10/10/20 09:17 Dose: 250 mg Documented by: Miscellaneous Information (Remove Patch) 1 ea TRDERM BEDTIME [facility] Last Admin: 10/09/20 21:06 Dose: 1 ea Documented by: Multivitamins (Thera) 1 each PO DAILY [facility] Last Admin: 10/10/20 09:19 Dose: 1 each Documented by: Dulaglutide [ Trulicity] 1.5 Mg/0. 5 Ml Inj *Own Med* 1.5 mg SQ Th@0900 [facility] Last Admin: 10/06/20 09:40 Dose: 1.5 mg Documented by: Insulin Degludec [ Tresiba] 100 Units/Ml Pen *Own Med* 20 units SQ BEDTIME [facility] Last Admin: 10/09/20 21:16 Dose: 20 units Documented by: Nystatin (Nystop) 0 gm TOP BID PRN PRN Reason: Rash Ondansetron HCl (Zofran Odt) 4 mg PO Q4H PRN PRN Reason: nausea, able to take PO Oxycodone HCl (Oxycodone) 5 mg PO TID PRN PRN Reason: back pain Last Admin: 10/10/20 09:20 Dose: 5 mg Documented by: Sodium Chloride (Saline Flush) 10 ml FLUSH ASDIRECTED PRN PRN Reason: Keep Vein Open Last Admin: 10/07/20 21:34 Dose: 10 ml Documented by: Vitamin E (Vitamin E) 400 units PO DAILY [facility] Last Admin: 10/10/20 09:18 Dose: 400 units Documented by: Discontinued Medications Gabapentin (Neurontin) 300 mg PO TID [facility] Last Admin: 10/08/20 08:37 Dose: 300 mg Documented by: Gabapentin (Neurontin) 100 mg PO TID [facility] Last Admin: 10/09/20 21:00 Dose: 100 mg Documented by: Vancomycin HCl 1 gm/ Sodium (Chloride) 250 mls @ 167 mls/hr IV Q18H [facility] Last Admin: 09/30/20 07:29 Dose: Not Given Documented by: Ceftaroline Fosamil 600 mg/ (Sodium Chloride) 250 mls @ 250 mls/hr IV Q12HR [facility] Stop: 09/28/20 21:59 Last Admin: 09/28/20 20:34 Dose: 250 mls/hr Documented by: Ceftaroline Fosamil 600 mg/ (Sodium Chloride) 250 mls @ 250 mls/hr IV Q12HR [facility] Last Admin: 10/03/20 09:27 Dose: 250 mls/hr Documented by: Ceftaroline Fosamil 600 mg/ (Sodium Chloride) 250 mls @ 250 mls/hr IV Q12HR [facility] Stop: 09/29/20 21:59 Last Admin: 09/29/20 21:05 Dose: 250 mls/hr Documented by: Vancomycin HCl 1 gm/ Sodium (Chloride) 250 mls @ 167 mls/hr IV Q24H [facility] Last Admin: 10/03/20 13:50 Dose: Not Given Documented by: Ceftaroline Fosamil 300 mg/ (Sodium Chloride) 250 mls @ 250 mls/hr IV Q12HR [facility] Last Admin: 10/06/20 10:19 Dose: 250 mls/hr Documented by: Vancomycin HCl 1 gm/ Sodium (Chloride) 250 mls @ 166.667 mls/hr IV ONETIME ONE Stop: 10/04/20 16:29 Last Admin: 10/04/20 14:37 Dose: 166.667 mls/hr Documented by: Vancomycin HCl 1 gm/ Sodium (Chloride) 250 mls @ 166.667 mls/hr IV Q48H [facility] Last Admin: 10/06/20 15:01 Dose: 166.667 mls/hr Documented by: Ceftaroline Fosamil 600 mg/ (Sodium Chloride) 100 mls @ 100 mls/hr IV Q12HR [facility] Losartan Potassium (Cozaar) 50 mg PO DAILY [facility] Last Admin: 10/08/20 08:36 Dose: 50 mg Documented by: Morphine Sulfate (Morphine) 2 mg IVPUSH Q2H PRN PRN Reason: Pain (severe 7-10) Last Admin: 09/30/20 12:13 Dose: 2 mg Documented by: Naproxen (Naprosyn) 250 mg PO BIDMEALS [facility] Last Admin: 10/08/20 08:37 Dose: 250 mg Documented by: Oxycodone HCl (Oxycodone) 5 mg PO BID [facility] Last Admin: 09/30/20 10:00 Dose: 5 mg Documented by: Oxycodone HCl (Oxycodone) 5 mg PO TID [facility] Last Admin: 10/09/20 21:02 Dose: 5 mg Documented by: Potassium Chloride (Klor-Con 10) 20 meq PO DAILY@0800 [facility] Vancomycin HCl (Pharmacy To Dose - Vancomycin) 0 dose .XX ASDIRECTED [facility] Sepsis Event Note - Evaluation Sepsis Screening Result: No Definite Risk - Focused Exam Vital Signs: Vital Signs Temp Pulse Pulse Resp BP BP Pulse Ox 10/10/20 09:20 168/72 H 10/10/20 09:19 72 168/79 H 10/10/20 09:00 36.5 C 91 20 162/84 H 95 Consult PN Assessment/Plan Procedures: Procedures ASSAY OF AMYLASE (12/28/19) ASSAY OF CK (CPK) (12/28/19) ASSAY OF LACTIC ACID (09/19/20) ASSAY OF LIPASE (12/28/19) ASSAY OF MAGNESIUM (12/28/19) ASSAY OF NATRIURETIC PEPTIDE (12/28/19) ASSAY OF PHOSPHORUS (12/28/19) ASSAY OF TROPONIN QUANT (12/28/19) BLOOD CULTURE FOR BACTERIA (09/19/20) COLONOSCOPY W/LESION REMOVAL (11/06/19) COMPLETE CBC AUTOMATED (12/28/19) COMPLETE CBC W/AUTO DIFF WBC (09/19/20) COMPREHEN METABOLIC PANEL (09/19/20) CT HEAD/BRAIN W/O DYE (12/28/19) CT LUMBAR SPINE W/O DYE (09/19/20) CT MAXILLOFACIAL W/O & W/DYE (12/28/19) CULTURE AEROBIC IDENTIFY (09/19/20) CULTURE OTHR SPECIMN AEROBIC (12/28/19) ELECTROCARDIOGRAM TRACING (12/28/19) EMERGENCY DEPT VISIT (09/19/20) EMERGENCY DEPT VISIT (09/19/20) EMERGENCY DEPT VISIT (12/28/19) EMERGENCY DEPT VISIT (12/28/19) EXTREMITY STUDY (12/28/19) GLUCOSE BLOOD TEST (12/28/19) HYDRATE IV INFUSION ADD-ON (12/28/19) INITIAL OBSERVATION CARE (12/28/19) INSERT TEMP BLADDER CATH (09/19/20) METABOLIC PANEL TOTAL CA (12/28/19) MICROBE SUSCEPTIBLE DEBORAH (09/19/20) PROTHROMBIN TIME (12/28/19) RBC SED RATE NONAUTOMATED (09/19/20) ROUTINE VENIPUNCTURE (09/19/20) SUBSEQUENT OBSERVATION CARE (12/28/19) THER/DIAG CONCURRENT INF (09/19/20) THER/PROPH/DIAG INJ SC/IM (12/28/19) THER/PROPH/DIAG IV INF ADDON (12/28/19) THER/PROPH/DIAG IV INF INIT (09/19/20) TX/PRO/DX INJ NEW DRUG ADDON (09/19/20) TX/PRO/DX INJ SAME DRUG [employer] (09/19/20) TX/PROPH/DG ADDL SEQ IV INF (12/28/19) URINALYSIS AUTO W/SCOPE (12/28/19) URINE CULTURE/COLONY COUNT (12/28/19) X-RAY EXAM OF KNEE 1 OR 2 (12/28/19) Line assPICCessment Problem List Initiated/Reviewed/Updated: No My Orders Last 24 Hours: see note Plan: see note
[2020-10-10] MEDS: CEFTAROLINE FOSAMIL IV SCH ×3 (12:17→21:54)
[2020-10-10] MEDS: SODIUM CHLORIDE 0.9% IV SCH ×3 (12:17→21:54)
--- NOTE | 2020-10-10 13:43 | CR ---
EXAMINATION: Chest 1V Frontal SEX: Female AGE: 65 years CLINICAL HISTORY: 55-year-old female evaluated for Central (PICC) Line placement. INTERPRETATION: 1. Tip of the long-arm right central venous line identified axillary vein (right shoulder). 2. Normal cardiac silhouette and mediastinal width. 3. No pneumothorax or pneumomediastinum. Normal midline tracheal bronchial airway. 4. No new signs of heart failure, lung mass or focal lobar consolidation (compared to earlier film, 1038hr).
[2020-10-10] MEDS: Amitriptyline 25 MG Tab PO SCH (22:09)
[2020-10-11] MEDS: Acetaminophen 325 MG Tab PO PRN (01:05)
[2020-10-11] MEDS: Sodium Chloride 0.9% 1,000 ML IV SCH (05:27)
[2020-10-11 06:09] LABS: ANION GAP 12.5 mEq/L (7-13)
[2020-10-11] MEDS: Insulin Lispro 100 Units/ML 3 ML Vial SUBCUT SCH ×5 (08:55→20:38)
[2020-10-11] MEDS: Calcium Carbonate 500 MG Tab.Chew PO SCH (08:56)
[2020-10-11] MEDS: Vitamin E (dl-alpha-tocopherol acetate) 400 Unit Cap PO SCH (08:57)
[2020-10-11] MEDS: Famotidine 20 MG Tab PO SCH ×2 (08:57→20:28)
[2020-10-11] MEDS: Carvedilol 6.25 MG Tab PO SCH ×2 (08:58→17:24)
[2020-10-11] MEDS: Loratadine 10 MG Tab PO SCH (08:58)
[2020-10-11] MEDS: amLODIPine 5 MG Tab PO SCH (08:58)
[2020-10-11] MEDS: Multivitamins,Therapeutic Tab PO SCH (08:59)
[2020-10-11] MEDS: Baclofen 10 MG Tab PO SCH ×3 (08:59→20:27)
[2020-10-11] MEDS: Lactulose Soln 10 GM/15 ML 30 ML UD Cup PO SCH (08:59)
[2020-10-11] MEDS: Docusate Sodium 100 MG Cap PO SCH ×2 (08:59→20:27)
[2020-10-11] MEDS: Lidocaine 5% 700 MG Patch TOP SCH (09:00)
[2020-10-11] MEDS: SODIUM CHLORIDE 0.9% IV SCH ×2 (09:01→20:21)
[2020-10-11] MEDS: CEFTAROLINE FOSAMIL IV SCH ×2 (09:01→20:21)
[2020-10-11] MEDS: oxyCODONE 5 MG Tab PO PRN ×2 (10:42→16:26)
[2020-10-11] MEDS: Sodium Chloride 0.9% 10 ML Syringe FLUSH PRN (20:20)
[2020-10-11] MEDS: Amitriptyline 25 MG Tab PO SCH (20:27)
[2020-10-12] MEDS: Acetaminophen 325 MG Tab PO PRN ×2 (04:48→12:50)
[2020-10-12 06:52] LABS: ANION GAP 13.4 mEq/L (7-13)
[2020-10-12] MEDS: Baclofen 10 MG Tab PO SCH ×3 (08:32→21:06)
[2020-10-12] MEDS: Lidocaine 5% 700 MG Patch TOP SCH (08:32)
[2020-10-12] MEDS: Famotidine 20 MG Tab PO SCH ×2 (08:32→21:14)
[2020-10-12] MEDS: Loratadine 10 MG Tab PO SCH (08:32)
[2020-10-12] MEDS: Docusate Sodium 100 MG Cap PO SCH ×2 (08:33→21:13)
[2020-10-12] MEDS: amLODIPine 5 MG Tab PO SCH (08:33)
[2020-10-12] MEDS: Vitamin E (dl-alpha-tocopherol acetate) 400 Unit Cap PO SCH (08:33)
[2020-10-12] MEDS: Carvedilol 6.25 MG Tab PO SCH ×2 (08:33→17:42)
[2020-10-12] MEDS: oxyCODONE 5 MG Tab PO PRN ×2 (08:34→14:38)
[2020-10-12] MEDS: Multivitamins,Therapeutic Tab PO SCH (08:35)
[2020-10-12] MEDS: Calcium Carbonate 500 MG Tab.Chew PO SCH (08:35)
[2020-10-12] MEDS: Insulin Lispro 100 Units/ML 3 ML Vial SUBCUT SCH ×4 (08:39→21:22)
[2020-10-12] MEDS: Lactulose Soln 10 GM/15 ML 30 ML UD Cup PO SCH (08:40)
[2020-10-12] MEDS ORDERED: CEFTAROLINE FOSAMIL IV SCH (10:00)
[2020-10-12] MEDS ORDERED: SODIUM CHLORIDE 0.9% IV SCH (10:00)
[2020-10-12] MEDS ORDERED: Water For Injection, Sterile 20 ML ONE (16:01)
[2020-10-12] MEDS: SODIUM CHLORIDE 0.9% IV SCH ×2 (16:08→22:29)
[2020-10-12] MEDS: CEFTAROLINE FOSAMIL IV SCH ×2 (16:08→22:29)
[2020-10-12] MEDS: Amitriptyline 25 MG Tab PO SCH (21:12)
[2020-10-12] MEDS: Gabapentin 100 MG Cap PO SCH (21:16)
[2020-10-13] MEDS ORDERED: Water For Injection, Sterile 20 ML ONE (05:49)
[2020-10-13] MEDS: CEFTAROLINE FOSAMIL IV SCH ×3 (06:05→21:10)
[2020-10-13] MEDS: SODIUM CHLORIDE 0.9% IV SCH ×3 (06:05→21:10)
[2020-10-13] MEDS: oxyCODONE 5 MG Tab PO PRN ×3 (06:09→17:50)
[2020-10-13] MEDS: Sodium Chloride 0.9% 10 ML Syringe FLUSH PRN (07:25)
[2020-10-13] MEDS: Insulin Lispro 100 Units/ML 3 ML Vial SUBCUT SCH ×4 (08:44→20:48)
[2020-10-13] MEDS: DULAGLUTIDE 1.5 MG/0.5 ML SQ SCH (09:19)
[2020-10-13] MEDS: Lactulose Soln 10 GM/15 ML 30 ML UD Cup PO SCH (09:22)
[2020-10-13] MEDS: Calcium Carbonate 500 MG Tab.Chew PO SCH (09:22)
[2020-10-13] MEDS: Gabapentin 100 MG Cap PO SCH ×3 (09:23→20:47)
[2020-10-13] MEDS: Carvedilol 6.25 MG Tab PO SCH ×2 (09:23→17:50)
[2020-10-13] MEDS: Multivitamins,Therapeutic Tab PO SCH (09:24)
[2020-10-13] MEDS: Loratadine 10 MG Tab PO SCH (09:24)
[2020-10-13] MEDS: amLODIPine 5 MG Tab PO SCH (09:24)
[2020-10-13] MEDS: Lidocaine 5% 700 MG Patch TOP SCH (09:25)
[2020-10-13] MEDS: Baclofen 10 MG Tab PO SCH ×3 (09:25→20:48)
[2020-10-13] MEDS: Docusate Sodium 100 MG Cap PO SCH ×2 (09:25→20:47)
[2020-10-13] MEDS: Vitamin E (dl-alpha-tocopherol acetate) 400 Unit Cap PO SCH (09:26)
[2020-10-13] MEDS: Famotidine 20 MG Tab PO SCH ×2 (09:26→20:47)
[2020-10-13] MEDS: Acetaminophen 325 MG Tab PO PRN (16:35)
[2020-10-13] MEDS: Amitriptyline 25 MG Tab PO SCH (20:48)
[2020-10-14] MEDS: oxyCODONE 5 MG Tab PO PRN ×3 (01:30→13:37)
[2020-10-14] MEDS: Sodium Chloride 0.9% 10 ML Syringe FLUSH PRN ×2 (05:46→21:48)
[2020-10-14] MEDS: SODIUM CHLORIDE 0.9% IV SCH ×3 (05:46→21:47)
[2020-10-14] MEDS: CEFTAROLINE FOSAMIL IV SCH ×3 (05:46→21:47)
[2020-10-14] MEDS: Loratadine 10 MG Tab PO SCH (08:28)
[2020-10-14] MEDS: Docusate Sodium 100 MG Cap PO SCH ×2 (08:28→20:52)
[2020-10-14] MEDS: Vitamin E (dl-alpha-tocopherol acetate) 400 Unit Cap PO SCH (08:28)
[2020-10-14] MEDS: Gabapentin 100 MG Cap PO SCH ×3 (08:28→20:52)
[2020-10-14] MEDS: Baclofen 10 MG Tab PO SCH ×3 (08:28→20:52)
[2020-10-14] MEDS: Carvedilol 6.25 MG Tab PO SCH ×2 (08:29→17:03)
[2020-10-14] MEDS: Multivitamins,Therapeutic Tab PO SCH (08:29)
[2020-10-14] MEDS: Acetaminophen 325 MG Tab PO PRN ×2 (08:30→20:53)
[2020-10-14] MEDS: amLODIPine 5 MG Tab PO SCH (08:30)
[2020-10-14] MEDS: Famotidine 20 MG Tab PO SCH ×2 (08:32→20:52)
[2020-10-14] MEDS: Calcium Carbonate 500 MG Tab.Chew PO SCH (08:33)
[2020-10-14] MEDS: Lidocaine 5% 700 MG Patch TOP SCH (08:34)
[2020-10-14] MEDS: Insulin Lispro 100 Units/ML 3 ML Vial SUBCUT SCH ×4 (08:34→21:01)
[2020-10-14] MEDS: Lactulose Soln 10 GM/15 ML 30 ML UD Cup PO SCH (08:35)
[2020-10-14] MEDS: Amitriptyline 25 MG Tab PO SCH (20:52)
[2020-10-15] MEDS: oxyCODONE 5 MG Tab PO PRN ×3 (02:31→20:18)
[2020-10-15] MEDS: SODIUM CHLORIDE 0.9% IV SCH ×3 (05:11→22:11)
[2020-10-15] MEDS: CEFTAROLINE FOSAMIL IV SCH ×3 (05:11→22:11)
[2020-10-15] MEDS: Lidocaine 5% 700 MG Patch TOP SCH (08:35)
[2020-10-15] MEDS: Multivitamins,Therapeutic Tab PO SCH (08:35)
[2020-10-15] MEDS: Gabapentin 100 MG Cap PO SCH ×3 (08:35→20:18)
[2020-10-15] MEDS: Carvedilol 6.25 MG Tab PO SCH ×2 (08:35→17:02)
[2020-10-15] MEDS: Docusate Sodium 100 MG Cap PO SCH ×2 (08:35→20:17)
[2020-10-15] MEDS: Baclofen 10 MG Tab PO SCH ×3 (08:35→20:18)
[2020-10-15] MEDS: Calcium Carbonate 500 MG Tab.Chew PO SCH (08:36)
[2020-10-15] MEDS: amLODIPine 5 MG Tab PO SCH (08:36)
[2020-10-15] MEDS: Acetaminophen 325 MG Tab PO PRN ×3 (08:37→18:06)
[2020-10-15] MEDS: Loratadine 10 MG Tab PO SCH (08:37)
[2020-10-15] MEDS: Famotidine 20 MG Tab PO SCH ×2 (08:37→20:17)
[2020-10-15] MEDS: Insulin Lispro 100 Units/ML 3 ML Vial SUBCUT SCH ×4 (08:38→21:13)
[2020-10-15] MEDS: Lactulose Soln 10 GM/15 ML 30 ML UD Cup PO SCH (08:38)
[2020-10-15] MEDS: Vitamin E (dl-alpha-tocopherol acetate) 400 Unit Cap PO SCH (08:38)
[2020-10-15] MEDS: Sodium Chloride 0.9% 10 ML Syringe FLUSH PRN ×2 (08:41→13:29)
[2020-10-15] MEDS: Amitriptyline 25 MG Tab PO SCH (20:18)
[2020-10-16] MEDS: SODIUM CHLORIDE 0.9% IV SCH ×3 (05:02→21:36)
[2020-10-16] MEDS: CEFTAROLINE FOSAMIL IV SCH ×3 (05:02→21:36)
[2020-10-16] MEDS: oxyCODONE 5 MG Tab PO PRN ×2 (05:59→16:58)
[2020-10-16] MEDS: Insulin Lispro 100 Units/ML 3 ML Vial SUBCUT SCH ×4 (07:54→21:08)
[2020-10-16] MEDS: Baclofen 10 MG Tab PO SCH ×3 (08:31→21:11)
[2020-10-16] MEDS: Docusate Sodium 100 MG Cap PO SCH ×2 (08:31→21:11)
[2020-10-16] MEDS: Famotidine 20 MG Tab PO SCH ×2 (08:31→21:12)
[2020-10-16] MEDS: amLODIPine 5 MG Tab PO SCH (08:32)
[2020-10-16] MEDS: Vitamin E (dl-alpha-tocopherol acetate) 400 Unit Cap PO SCH (08:32)
[2020-10-16] MEDS: Multivitamins,Therapeutic Tab PO SCH (08:33)
[2020-10-16] MEDS: Carvedilol 6.25 MG Tab PO SCH ×2 (08:33→17:54)
[2020-10-16] MEDS: Loratadine 10 MG Tab PO SCH (08:33)
[2020-10-16] MEDS: Gabapentin 100 MG Cap PO SCH ×3 (08:33→21:11)
[2020-10-16] MEDS: Lidocaine 5% 700 MG Patch TOP SCH (08:36)
[2020-10-16] MEDS: Calcium Carbonate 500 MG Tab.Chew PO SCH (08:40)
[2020-10-16] MEDS: Lactulose Soln 10 GM/15 ML 30 ML UD Cup PO SCH (09:44)
[2020-10-16] MEDS: Acetaminophen 325 MG Tab PO PRN (13:13)
[2020-10-16] MEDS ORDERED: oxyCODONE 5 MG Tab PO PRN (18:28)
[2020-10-16] MEDS: Amitriptyline 25 MG Tab PO SCH (21:11)
[2020-10-16] MEDS: Sodium Chloride 0.9% 10 ML Syringe FLUSH PRN (21:36)
[2020-10-17] MEDS: Sodium Chloride 0.9% 10 ML Syringe FLUSH PRN ×4 (05:34→21:25)
[2020-10-17] MEDS: SODIUM CHLORIDE 0.9% IV SCH ×3 (05:35→21:25)
[2020-10-17] MEDS: CEFTAROLINE FOSAMIL IV SCH ×3 (05:35→21:25)
[2020-10-17 06:24] LABS: ANION GAP 12.6 mEq/L (7-13)
[2020-10-17] MEDS: Insulin Lispro 100 Units/ML 3 ML Vial SUBCUT SCH ×4 (07:37→21:15)
[2020-10-17] MEDS: Lidocaine 5% 700 MG Patch TOP SCH (08:14)
[2020-10-17] MEDS: Calcium Carbonate 500 MG Tab.Chew PO SCH (08:15)
[2020-10-17] MEDS: Multivitamins,Therapeutic Tab PO SCH (08:16)
[2020-10-17] MEDS: Loratadine 10 MG Tab PO SCH (08:16)
[2020-10-17] MEDS: Docusate Sodium 100 MG Cap PO SCH ×2 (08:16→21:14)
[2020-10-17] MEDS: Gabapentin 100 MG Cap PO SCH ×3 (08:17→21:14)
[2020-10-17] MEDS: Carvedilol 6.25 MG Tab PO SCH ×2 (08:17→18:03)
[2020-10-17] MEDS: Acetaminophen 325 MG Tab PO PRN ×2 (08:20→15:41)
[2020-10-17] MEDS: Famotidine 20 MG Tab PO SCH ×2 (08:21→21:15)
[2020-10-17] MEDS: amLODIPine 5 MG Tab PO SCH (08:21)
[2020-10-17] MEDS: Vitamin E (dl-alpha-tocopherol acetate) 400 Unit Cap PO SCH (08:21)
[2020-10-17] MEDS: Baclofen 10 MG Tab PO SCH ×3 (08:22→21:15)
[2020-10-17] MEDS: Lactulose Soln 10 GM/15 ML 30 ML UD Cup PO SCH (08:22)
[2020-10-17] MEDS: oxyCODONE 5 MG Tab PO PRN ×3 (08:54→23:48)
--- NOTE | 2020-10-17 18:29 | PCM.PN ---
- General Info Date of Service: 10/17/20 Subjective Update: Patient still feeling weak but working well with physical and occupational therapy, getting stronger. The intermittent disorientation has much improved, resolved. Pain management is better with re-institution of pain medications. no associated fever or chills. Today she had a clinic appointment with neurosurgery. No new recommendations. Functional Status: Reports: Pain Controlled, Tolerating Diet - Review of Systems General: Denies: Fever Pulmonary: Denies: Shortness of Breath Cardiovascular: Denies: Chest Pain, Edema Gastrointestinal: Denies: Abdominal Pain Genitourinary: Denies: Dysuria Musculoskeletal: Reports: Back Pain - Patient Data Vitals - Most Recent: Last Vital Signs Temp 98.8 F 10/17/20 17:29 Pulse 68 10/17/20 18:03 Resp 20 10/17/20 17:29 BP 143/68 H 10/17/20 18:03 Pulse Ox 95 10/17/20 17:29 Weight - Most Recent: 227 lb I&O - Last 24 Hours: Intake & Output 10/17/20 10/17/20 10/17/20 06:59 14:59 22:59 Intake Total 200 400 660 Balance 200 400 660 Lab Results Last 24 Hours: Laboratory Results - last 24 hr 10/16/20 10/17/20 10/17/20 Range/Units 20:56 05:30 05:30 WBC 2.8 L (5.0-10.0) 10^3/uL RBC 2.73 L (4.2-5.4) 10^6/uL Hgb 8.4 L (12.0-16.0) g/dL Hct 24.8 L (37.0-47.0) % MCV 90.8 (80-100) fL MCH 30.8 (27.0-34.0) pg MCHC 33.9 (33.0-35.0) g/dL Plt Count 125 L (150-450) 10^3/uL Neut % (Auto) 47.9 (42.2-75.2) % Lymph % (Auto) 31.3 (20.5-50.1) % Rooks % (Auto) 15.5 H (2-8) % Eos % (Auto) 4.6 H (1.0-3.0) % Baso % (Auto) 0.7 (0.0-1.0) % ESR 113 H (0-20) mm/hr Sodium 135 L (136-145) mmol/L Potassium 3.6 (3.5-5.1) mmol/L Chloride 100 (98-107) mmol/L Carbon Dioxide 26 (21-32) mmol/L Anion Gap 12.6 (7-13) mEq/L BUN 26 H (7-18) mg/dL Creatinine 1.87 H (0.55-1.02) mg/dL Est Cr Clr Drug Dosing 28.83 mL/min Estimated GFR (MDRD) 27 BUN/Creatinine Ratio 13.9 (No establ ref range) Glucose 100 H (74-99) mg/dL POC Glucose 171 H (70-105) mg/dl Calcium 8.3 L (8.5-10.1) mg/dL Total Bilirubin 0.4 (0.2-1.0) mg/dL AST 35 (15-37) U/L ALT 17 (14-59) U/L Alkaline Phosphatase 143 H (46-116) U/L C-Reactive Protein 3.6 H (0.0-0.9) mg/dL Total Protein 8.7 H (6.4-8.2) g/dL Albumin 2.0 L (3.4-5.0) g/dL Globulin 6.7 Albumin/Globulin Ratio 0.30 10/17/20 10/17/20 Range/Units 07:31 16:51 WBC (5.0-10.0) 10^3/uL RBC (4.2-5.4) 10^6/uL Hgb (12.0-16.0) g/dL Hct (37.0-47.0) % MCV (80-100) fL MCH (27.0-34.0) pg MCHC (33.0-35.0) g/dL Plt Count (150-450) 10^3/uL Neut % (Auto) (42.2-75.2) % Lymph % (Auto) (20.5-50.1) % Rooks % (Auto) (2-8) % Eos % (Auto) (1.0-3.0) % Baso % (Auto) (0.0-1.0) % ESR (0-20) mm/hr Sodium (136-145) mmol/L Potassium (3.5-5.1) mmol/L Chloride (98-107) mmol/L Carbon Dioxide (21-32) mmol/L Anion Gap (7-13) mEq/L BUN (7-18) mg/dL Creatinine (0.55-1.02) mg/dL Est Cr Clr Drug Dosing mL/min Estimated GFR (MDRD) BUN/Creatinine Ratio (No establ ref range) Glucose (74-99) mg/dL POC Glucose 99 205 H (70-105) mg/dl Calcium (8.5-10.1) mg/dL Total Bilirubin (0.2-1.0) mg/dL AST (15-37) U/L ALT (14-59) U/L Alkaline Phosphatase (46-116) U/L C-Reactive Protein (0.0-0.9) mg/dL Total Protein (6.4-8.2) g/dL Albumin (3.4-5.0) g/dL Globulin Albumin/Globulin Ratio Med Orders - Current: Current Medications Acetaminophen (Tylenol) 650 mg PO Q4H PRN PRN Reason: Pain (Mild 1-3)/fever Last Admin: 10/17/20 15:41 Dose: 650 mg Documented by: Amitriptyline HCl (Elavil) 50 mg PO BEDTIME COUNTS INCLUDE 234 BEDS AT THE [facility] Last Admin: 10/16/20 21:11 Dose: 50 mg Documented by: Amlodipine Besylate (Norvasc) 5 mg PO DAILY COUNTS INCLUDE 234 BEDS AT THE [facility] Last Admin: 10/17/20 08:21 Dose: 5 mg Documented by: Baclofen (Lioresal) 10 mg PO TID COUNTS INCLUDE 234 BEDS AT THE [facility] Last Admin: 10/17/20 15:42 Dose: 10 mg Documented by: Calcium Carbonate/Glycine (Tums) 500 mg PO DAILY COUNTS INCLUDE 234 BEDS AT THE [facility] Last Admin: 10/17/20 08:15 Dose: 500 mg Documented by: Carvedilol (Coreg) 6.25 mg PO BIDMEALS COUNTS INCLUDE 234 BEDS AT THE [facility] Last Admin: 10/17/20 18:03 Dose: 6.25 mg Documented by: Dextrose/Water (Dextrose 50% In Water) 50 ml IV ASDIRECTED PRN PRN Reason: Hypoglycemia Docusate Sodium (Colace) 100 mg PO BID COUNTS INCLUDE 234 BEDS AT THE [facility] Last Admin: 10/17/20 08:16 Dose: 100 mg Documented by: Famotidine (Pepcid) 10 mg PO BID COUNTS INCLUDE 234 BEDS AT [facility] Last Admin: 10/17/20 08:21 Dose: 10 mg Documented by: Gabapentin (Neurontin) 100 mg PO TID COUNTS INCLUDE 234 BEDS AT [facility] Last Admin: 10/17/20 15:42 Dose: 100 mg Documented by: Glucagon (Glucagen) 1 mg IM ASDIRECTED PRN PRN Reason: Hypoglycemia Ceftaroline Fosamil 300 mg/ (Sodium Chloride) 100 mls @ 100 mls/hr IV Q8HR COUNTS INCLUDE 234 BEDS AT THE [facility] Last Admin: 10/17/20 15:42 Dose: 100 mls/hr Documented by: Insulin Human Lispro (Humalog) 0 unit SUBCUT WITHMEALSANDBED COUNTS INCLUDE 234 BEDS AT THE [facility]; Protocol Last Admin: 10/17/20 17:16 Dose: Not Given Documented by: Lactulose (Cephulac) 20 gm PO DAILY COUNTS INCLUDE 234 BEDS AT THE [facility] Last Admin: 10/17/20 08:22 Dose: Not Given Documented by: Lidocaine (Lidoderm 5%) 700 mg TOP DAILY COUNTS INCLUDE 234 BEDS AT THE [facility] Last Admin: 10/17/20 08:14 Dose: 700 mg Documented by: Loratadine (Claritin) 10 mg PO DAILY COUNTS INCLUDE 234 BEDS AT [facility] Last Admin: 10/17/20 08:16 Dose: 10 mg Documented by: Magnesium Oxide (Magnesium Oxide) 250 mg PO DAILY COUNTS INCLUDE 234 BEDS AT [facility] Last Admin: 10/17/20 08:20 Dose: 250 mg Documented by: Miscellaneous Information (Remove Patch) 1 ea TRDERM BEDTIME COUNTS INCLUDE 234 BEDS AT THE [facility] Last Admin: 10/16/20 21:12 Dose: 1 ea Documented by: Multivitamins (Thera) 1 each PO DAILY COUNTS INCLUDE 234 BEDS AT [facility] Last Admin: 10/17/20 08:16 Dose: 1 each Documented by: Dulaglutide [ Trulicity] 1.5 Mg/0. 5 Ml Inj *Own Med* 1.5 mg SQ Th@0900 COUNTS INCLUDE 234 BEDS AT THE [facility] Last Admin: 10/13/20 09:19 Dose: 1.5 mg Documented by: Insulin Degludec [ Tresiba] 100 Units/Ml Pen *Own Med* 20 units SQ BEDTIME COUNTS INCLUDE 234 BEDS AT THE [facility] Last Admin: 10/16/20 21:09 Dose: 20 units Documented by: Nystatin (Nystop) 0 gm TOP BID PRN PRN Reason: Rash Ondansetron HCl (Zofran Odt) 4 mg PO Q4H PRN PRN Reason: nausea, able to take PO Oxycodone HCl (Oxycodone) 5 mg PO QID PRN PRN Reason: back pain Last Admin: 10/17/20 18:03 Dose: 5 mg Documented by: Sodium Chloride (Saline Flush) 10 ml FLUSH ASDIRECTED PRN PRN Reason: Keep Vein Open Last Admin: 10/17/20 15:42 Dose: 10 ml Documented by: Vitamin E (Vitamin E) 400 units PO DAILY COUNTS INCLUDE 234 BEDS AT THE [facility] Last Admin: 10/17/20 08:21 Dose: 400 units Documented by: Discontinued Medications Gabapentin (Neurontin) 300 mg PO TID COUNTS INCLUDE 234 BEDS AT [facility] Last Admin: 10/08/20 08:37 Dose: 300 mg Documented by: Gabapentin (Neurontin) 100 mg PO TID COUNTS INCLUDE 234 BEDS AT [facility] Last Admin: 10/09/20 21:00 Dose: 100 mg Documented by: Vancomycin HCl 1 gm/ Sodium (Chloride) 250 mls @ 167 mls/hr IV Q18H COUNTS INCLUDE 234 BEDS AT THE [facility] Last Admin: 09/30/20 07:29 Dose: Not Given Documented by: Ceftaroline Fosamil 600 mg/ (Sodium Chloride) 250 mls @ 250 mls/hr IV Q12HR COUNTS INCLUDE 234 BEDS AT THE [facility] Stop: 09/28/20 21:59 Last Admin: 09/28/20 20:34 Dose: 250 mls/hr Documented by: Ceftaroline Fosamil 600 mg/ (Sodium Chloride) 250 mls @ 250 mls/hr IV Q12HR COUNTS INCLUDE 234 BEDS AT THE [facility] Last Admin: 10/03/20 09:27 Dose: 250 mls/hr Documented by: Ceftaroline Fosamil 600 mg/ (Sodium Chloride) 250 mls @ 250 mls/hr IV Q12HR COUNTS INCLUDE 234 BEDS AT THE [facility] Stop: 09/29/20 21:59 Last Admin: 09/29/20 21:05 Dose: 250 mls/hr Documented by: Vancomycin HCl 1 gm/ Sodium (Chloride) 250 mls @ 167 mls/hr IV Q24H COUNTS INCLUDE 234 BEDS AT THE [facility] Last Admin: 10/03/20 13:50 Dose: Not Given Documented by: Ceftaroline Fosamil 300 mg/ (Sodium Chloride) 250 mls @ 250 mls/hr IV Q12HR COUNTS INCLUDE 234 BEDS AT THE [facility] Last Admin: 10/06/20 10:19 Dose: 250 mls/hr Documented by: Vancomycin HCl 1 gm/ Sodium (Chloride) 250 mls @ 166.667 mls/hr IV ONETIME ONE Stop: 10/04/20 16:29 Last Admin: 10/04/20 14:37 Dose: 166.667 mls/hr Documented by: Vancomycin HCl 1 gm/ Sodium (Chloride) 250 mls @ 166.667 mls/hr IV Q48H COUNTS INCLUDE 234 BEDS AT THE [facility] Last Admin: 10/06/20 15:01 Dose: 166.667 mls/hr Documented by: Sodium Chloride (Normal Saline) 1,000 mls @ 125 mls/hr IV ASDIRECTED COUNTS INCLUDE 234 BEDS AT THE [facility] Last Admin: 10/11/20 05:27 Dose: 125 mls/hr Documented by: Ceftaroline Fosamil 600 mg/ (Sodium Chloride) 100 mls @ 100 mls/hr IV Q12HR CHANTE Ceftaroline Fosamil 300 mg/ (Sodium Chloride) 100 mls @ 100 mls/hr IV Q12HR COUNTS INCLUDE 234 BEDS AT THE [facility] Last Admin: 10/11/20 20:21 Dose: 100 mls/hr Documented by: Ceftaroline Fosamil 300 mg/ (Sodium Chloride) 100 mls @ 100 mls/hr IV Q12HR COUNTS INCLUDE 234 BEDS AT THE [facility] Last Admin: 10/12/20 09:58 Dose: 100 mls/hr Documented by: Sterile Water (Sterile Water For Injection) Confirm Administered Dose 20 mls @ as directed .ROUTE .STK-MED ONE Stop: 10/12/20 16:02 Last Admin: 10/12/20 17:44 Dose: 1 mls/hr Documented by: Sterile Water (Sterile Water For Injection) Confirm Administered Dose 20 mls @ as directed .ROUTE .STK-MED ONE Stop: 10/13/20 05:50 Last Admin: 10/13/20 06:21 Dose: Not Given Documented by: Lactulose (Cephulac) 20 gm PO BID COUNTS INCLUDE 234 BEDS AT [facility] Last Admin: 10/11/20 08:59 Dose: 20 gm Documented by: Losartan Potassium (Cozaar) 50 mg PO DAILY COUNTS INCLUDE 234 BEDS AT THE [facility] Last Admin: 10/08/20 08:36 Dose: 50 mg Documented by: Morphine Sulfate (Morphine) 2 mg IVPUSH Q2H PRN PRN Reason: Pain (severe 7-10) Last Admin: 09/30/20 12:13 Dose: 2 mg Documented by: Naproxen (Naprosyn) 250 mg PO BIDMEALS COUNTS INCLUDE 234 BEDS AT THE [facility] Last Admin: 10/08/20 08:37 Dose: 250 mg Documented by: Oxycodone HCl (Oxycodone) 5 mg PO BID COUNTS INCLUDE 234 BEDS AT [facility] Last Admin: 09/30/20 10:00 Dose: 5 mg Documented by: Oxycodone HCl (Oxycodone) 5 mg PO TID COUNTS INCLUDE 234 BEDS AT THE [facility] Last Admin: 10/09/20 21:02 Dose: 5 mg Documented by: Oxycodone HCl (Oxycodone) 5 mg PO TID PRN PRN Reason: back pain Last Admin: 10/16/20 16:58 Dose: 5 mg Documented by: Oxycodone HCl (Oxycodone) 5 mg PO QID PRN PRN Reason: back pain Last Admin: 10/16/20 23:00 Dose: 5 mg Documented by: Potassium Chloride (Klor-Con 10) 20 meq PO DAILY@0800 COUNTS INCLUDE 234 BEDS AT THE [facility] Vancomycin HCl (Pharmacy To Dose - Vancomycin) 0 dose .XX ASDIRECTED COUNTS INCLUDE 234 BEDS AT THE [facility] - Exam Quality Assessment: No: Supplemental Oxygen General: Alert, Oriented Neck: Supple Lungs: Clear to Auscultation, Normal Respiratory Effort Cardiovascular: Regular Rate, Regular Rhythm, No Murmurs GI/Abdominal Exam: Normal Bowel Sounds, Soft, Non-Tender, Other (obese) Extremities: No Pedal Edema Psy/Mental Status: Alert, Normal Affect, Normal Mood Sepsis Event Note - Evaluation Sepsis Screening Result: No Definite Risk - Focused Exam Vital Signs: Vital Signs Temp Pulse Pulse Resp BP BP Pulse Ox 10/17/20 18:03 68 143/68 H 10/17/20 17:29 98.8 F 68 20 143/68 H 95 10/17/20 08:26 98.7 F 73 20 163/61 H 96 10/17/20 08:21 163/61 H 10/17/20 08:17 73 163/61 H - Problem List & Annotations (1) Hypertension SNOMED Code(s): 82463384 Code(s): I10 - ESSENTIAL (PRIMARY) HYPERTENSION Status: Acute Current Visit: Yes (2) Back pain SNOMED Code(s): 350069072 Code(s): M54.9 - DORSALGIA, UNSPECIFIED Status: Acute Current Visit: Yes (3) STEPHAN (acute kidney injury) SNOMED Code(s): 03169412, 89098074 Code(s): N17.9 - ACUTE KIDNEY FAILURE, UNSPECIFIED Status: Acute Current Visit: Yes (4) Osteomyelitis SNOMED Code(s): 45877087 Code(s): M86.9 - OSTEOMYELITIS, UNSPECIFIED Status: Acute Current Visit: No Qualifiers: Osteomyelitis type: unspecified type Osteomyelitis location: unspecified site Qualified Code(s): M86.9 - Osteomyelitis, unspecified - Problem List Review Problem List Initiated/Reviewed/Updated: Yes - My Orders Last 24 Hours: My Active Orders 10/17/20 08:46 oxyCODONE 5 mg PO QID PRN - Plan Plan:: #. Acute kidney injury This is probably due to acute tubular necrosis Patient was on vancomycin. Has also been on scheduled naproxen and losartan. These were discontinued because of acute kidney injury creatinine has improved and now stable. #. 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 Pancytopenia Probably due to medications blood counts are stable We'll monitor #. Osteomyelitis of the lumbar spine, patient underwent L4-L5 redo laminectomy with washout of epidural abscess. last evaluation by neurosurgery was done today #. Unsteady gait/tremors Likely due to toxicity from gabapentin in the face of acute kidney injury. resolved Continue physical and occupational therapy #. hypertension treat with Norvasc, Coreg #.Pain control Appears to have a good balance between pain and confusion Continue oxycodone as needed, baclofen #. DVT prophylaxis With mobilization
[2020-10-17] MEDS: Amitriptyline 25 MG Tab PO SCH (21:14)
[2020-10-18] MEDS: SODIUM CHLORIDE 0.9% IV SCH ×3 (05:29→21:00)
[2020-10-18] MEDS: CEFTAROLINE FOSAMIL IV SCH ×3 (05:29→21:00)
[2020-10-18] MEDS: Sodium Chloride 0.9% 10 ML Syringe FLUSH PRN (05:29)
[2020-10-18] MEDS: oxyCODONE 5 MG Tab PO PRN ×4 (05:50→23:57)
[2020-10-18] MEDS: Carvedilol 6.25 MG Tab PO SCH ×2 (07:56→17:57)
[2020-10-18] MEDS: Famotidine 20 MG Tab PO SCH ×2 (07:59→20:37)
[2020-10-18] MEDS: Multivitamins,Therapeutic Tab PO SCH (07:59)
[2020-10-18] MEDS: amLODIPine 5 MG Tab PO SCH (07:59)
[2020-10-18] MEDS: Vitamin E (dl-alpha-tocopherol acetate) 400 Unit Cap PO SCH (08:00)
[2020-10-18] MEDS: Baclofen 10 MG Tab PO SCH ×3 (08:00→20:37)
[2020-10-18] MEDS: Docusate Sodium 100 MG Cap PO SCH ×2 (08:00→20:35)
[2020-10-18] MEDS: Gabapentin 100 MG Cap PO SCH ×3 (08:00→20:37)
[2020-10-18] MEDS: Calcium Carbonate 500 MG Tab.Chew PO SCH (08:01)
[2020-10-18] MEDS: Loratadine 10 MG Tab PO SCH (08:02)
[2020-10-18] MEDS: Insulin Lispro 100 Units/ML 3 ML Vial SUBCUT SCH ×4 (09:50→20:36)
[2020-10-18] MEDS: Lactulose Soln 10 GM/15 ML 30 ML UD Cup PO SCH (09:51)
[2020-10-18] MEDS: Lidocaine 5% 700 MG Patch TOP SCH (10:38)
[2020-10-18] MEDS: Amitriptyline 25 MG Tab PO SCH (20:36)
[2020-10-18] MEDS: Acetaminophen 325 MG Tab PO PRN (20:55)
[2020-10-19] MEDS: SODIUM CHLORIDE 0.9% IV SCH ×3 (05:49→21:05)
[2020-10-19] MEDS: CEFTAROLINE FOSAMIL IV SCH ×3 (05:49→21:05)
[2020-10-19] MEDS: oxyCODONE 5 MG Tab PO PRN ×4 (05:50→23:59)
[2020-10-19] MEDS: Docusate Sodium 100 MG Cap PO SCH ×2 (08:15→21:04)
[2020-10-19] MEDS: Multivitamins,Therapeutic Tab PO SCH (08:16)
[2020-10-19] MEDS: Baclofen 10 MG Tab PO SCH ×3 (08:16→21:04)
[2020-10-19] MEDS: Famotidine 20 MG Tab PO SCH ×2 (08:16→21:04)
[2020-10-19] MEDS: Calcium Carbonate 500 MG Tab.Chew PO SCH (08:16)
[2020-10-19] MEDS: amLODIPine 5 MG Tab PO SCH (08:16)
[2020-10-19] MEDS: Gabapentin 100 MG Cap PO SCH ×3 (08:16→21:04)
[2020-10-19] MEDS: Insulin Lispro 100 Units/ML 3 ML Vial SUBCUT SCH ×4 (08:17→21:04)
[2020-10-19] MEDS: Carvedilol 6.25 MG Tab PO SCH ×2 (08:17→17:51)
[2020-10-19] MEDS: Vitamin E (dl-alpha-tocopherol acetate) 400 Unit Cap PO SCH (08:17)
[2020-10-19] MEDS: Loratadine 10 MG Tab PO SCH (08:17)
[2020-10-19] MEDS: Lidocaine 5% 700 MG Patch TOP SCH (08:21)
[2020-10-19] MEDS: Lactulose Soln 10 GM/15 ML 30 ML UD Cup PO SCH (10:39)
[2020-10-19] MEDS: Sodium Chloride 0.9% 10 ML Syringe FLUSH PRN ×2 (14:52→15:48)
[2020-10-19] MEDS: Amitriptyline 25 MG Tab PO SCH (21:04)
[2020-10-20] MEDS: CEFTAROLINE FOSAMIL IV SCH ×3 (05:21→22:31)
[2020-10-20] MEDS: SODIUM CHLORIDE 0.9% IV SCH ×3 (05:21→22:31)
[2020-10-20] MEDS: oxyCODONE 5 MG Tab PO PRN ×3 (05:58→19:34)
[2020-10-20 07:55] LABS: ANION GAP 10.9 mEq/L (7-13)
[2020-10-20] MEDS: Famotidine 20 MG Tab PO SCH ×2 (08:28→22:26)
[2020-10-20] MEDS: Docusate Sodium 100 MG Cap PO SCH ×2 (08:28→22:25)
[2020-10-20] MEDS: Gabapentin 100 MG Cap PO SCH (08:28)
[2020-10-20] MEDS: Vitamin E (dl-alpha-tocopherol acetate) 400 Unit Cap PO SCH (08:28)
[2020-10-20] MEDS: Multivitamins,Therapeutic Tab PO SCH (08:28)
[2020-10-20] MEDS: Loratadine 10 MG Tab PO SCH (08:28)
[2020-10-20] MEDS: Baclofen 10 MG Tab PO SCH ×3 (08:29→22:26)
[2020-10-20] MEDS: Calcium Carbonate 500 MG Tab.Chew PO SCH (08:29)
[2020-10-20] MEDS: Carvedilol 6.25 MG Tab PO SCH ×2 (08:30→17:15)
[2020-10-20] MEDS: amLODIPine 5 MG Tab PO SCH (08:30)
[2020-10-20] MEDS: Lidocaine 5% 700 MG Patch TOP SCH (08:32)
[2020-10-20] MEDS: Insulin Lispro 100 Units/ML 3 ML Vial SUBCUT SCH ×4 (08:32→22:30)
[2020-10-20] MEDS: DULAGLUTIDE 1.5 MG/0.5 ML SQ SCH (08:35)
[2020-10-20] MEDS: Lactulose Soln 10 GM/15 ML 30 ML UD Cup PO SCH (10:08)
[2020-10-20] MEDS: Gabapentin 300 MG Cap PO SCH ×2 (14:24→22:26)
[2020-10-20] MEDS: Amitriptyline 25 MG Tab PO SCH (22:25)
[2020-10-20] MEDS: Sodium Chloride 0.9% 10 ML Syringe FLUSH PRN (22:31)
[2020-10-21] MEDS: oxyCODONE 5 MG Tab PO PRN ×4 (00:48→19:57)
[2020-10-21] MEDS: CEFTAROLINE FOSAMIL IV SCH ×3 (05:24→22:21)
[2020-10-21] MEDS: SODIUM CHLORIDE 0.9% IV SCH ×3 (05:24→22:21)
[2020-10-21] MEDS: Sodium Chloride 0.9% 10 ML Syringe FLUSH PRN ×2 (05:24→22:21)
[2020-10-21] MEDS: Baclofen 10 MG Tab PO SCH ×3 (09:17→22:15)
[2020-10-21] MEDS: Docusate Sodium 100 MG Cap PO SCH ×2 (09:17→22:16)
[2020-10-21] MEDS: Vitamin E (dl-alpha-tocopherol acetate) 400 Unit Cap PO SCH (09:17)
[2020-10-21] MEDS: Calcium Carbonate 500 MG Tab.Chew PO SCH (09:18)
[2020-10-21] MEDS: Famotidine 20 MG Tab PO SCH ×2 (09:18→22:16)
[2020-10-21] MEDS: amLODIPine 5 MG Tab PO SCH (09:19)
[2020-10-21] MEDS: Lactulose Soln 10 GM/15 ML 30 ML UD Cup PO SCH (09:19)
[2020-10-21] MEDS: Loratadine 10 MG Tab PO SCH (09:19)
[2020-10-21] MEDS: Multivitamins,Therapeutic Tab PO SCH (09:19)
[2020-10-21] MEDS: Gabapentin 300 MG Cap PO SCH ×3 (09:20→22:15)
[2020-10-21] MEDS: Carvedilol 6.25 MG Tab PO SCH ×2 (09:20→18:00)
[2020-10-21] MEDS: Insulin Lispro 100 Units/ML 3 ML Vial SUBCUT SCH ×4 (09:21→22:16)
[2020-10-21] MEDS: Lidocaine 5% 700 MG Patch TOP SCH (09:21)
[2020-10-21] MEDS: Amitriptyline 25 MG Tab PO SCH (22:15)
[2020-10-22] MEDS: oxyCODONE 5 MG Tab PO PRN ×4 (01:17→19:20)
[2020-10-22] MEDS: Sodium Chloride 0.9% 10 ML Syringe FLUSH PRN (05:21)
[2020-10-22] MEDS: SODIUM CHLORIDE 0.9% IV SCH ×3 (05:21→21:32)
[2020-10-22] MEDS: CEFTAROLINE FOSAMIL IV SCH ×3 (05:21→21:32)
[2020-10-22] MEDS: Insulin Lispro 100 Units/ML 3 ML Vial SUBCUT SCH ×4 (07:52→21:35)
[2020-10-22] MEDS: Famotidine 20 MG Tab PO SCH ×2 (08:01→21:35)
[2020-10-22] MEDS: Loratadine 10 MG Tab PO SCH (08:01)
[2020-10-22] MEDS: amLODIPine 5 MG Tab PO SCH (08:01)
[2020-10-22] MEDS: Baclofen 10 MG Tab PO SCH ×3 (08:01→21:35)
[2020-10-22] MEDS: Multivitamins,Therapeutic Tab PO SCH (08:01)
[2020-10-22] MEDS: Calcium Carbonate 500 MG Tab.Chew PO SCH (08:01)
[2020-10-22] MEDS: Docusate Sodium 100 MG Cap PO SCH ×2 (08:01→21:35)
[2020-10-22] MEDS: Lidocaine 5% 700 MG Patch TOP SCH (08:01)
[2020-10-22] MEDS: Carvedilol 6.25 MG Tab PO SCH ×2 (08:02→18:11)
[2020-10-22] MEDS: Gabapentin 300 MG Cap PO SCH ×3 (08:02→21:35)
[2020-10-22] MEDS: Vitamin E (dl-alpha-tocopherol acetate) 400 Unit Cap PO SCH (08:02)
[2020-10-22] MEDS: Lactulose Soln 10 GM/15 ML 30 ML UD Cup PO SCH (08:02)
[2020-10-22] MEDS: Amitriptyline 25 MG Tab PO SCH (21:34)
[2020-10-23] MEDS: oxyCODONE 5 MG Tab PO PRN ×4 (01:35→20:11)
[2020-10-23] MEDS: CEFTAROLINE FOSAMIL IV SCH ×3 (06:05→22:29)
[2020-10-23] MEDS: SODIUM CHLORIDE 0.9% IV SCH ×3 (06:05→22:29)
[2020-10-23] MEDS: Sodium Chloride 0.9% 10 ML Syringe FLUSH PRN ×3 (06:06→23:38)
[2020-10-23] MEDS: Lactulose Soln 10 GM/15 ML 30 ML UD Cup PO SCH (08:05)
[2020-10-23] MEDS: Docusate Sodium 100 MG Cap PO SCH ×2 (08:06→20:09)
[2020-10-23] MEDS: Lidocaine 5% 700 MG Patch TOP SCH (08:06)
[2020-10-23] MEDS: Baclofen 10 MG Tab PO SCH ×3 (08:06→20:10)
[2020-10-23] MEDS: Loratadine 10 MG Tab PO SCH (08:06)
[2020-10-23] MEDS: Gabapentin 300 MG Cap PO SCH ×3 (08:07→20:09)
[2020-10-23] MEDS: Famotidine 20 MG Tab PO SCH ×2 (08:08→20:10)
[2020-10-23] MEDS: Multivitamins,Therapeutic Tab PO SCH (08:09)
[2020-10-23] MEDS: Calcium Carbonate 500 MG Tab.Chew PO SCH (08:09)
[2020-10-23] MEDS: Vitamin E (dl-alpha-tocopherol acetate) 400 Unit Cap PO SCH (08:09)
[2020-10-23] MEDS: amLODIPine 5 MG Tab PO SCH (08:13)
[2020-10-23] MEDS: Carvedilol 6.25 MG Tab PO SCH ×2 (08:13→17:09)
[2020-10-23] MEDS: Insulin Lispro 100 Units/ML 3 ML Vial SUBCUT SCH ×4 (08:14→20:21)
[2020-10-23] MEDS: Amitriptyline 25 MG Tab PO SCH (20:09)
[2020-10-24] MEDS: oxyCODONE 5 MG Tab PO PRN ×4 (01:43→21:18)
[2020-10-24] MEDS: Sodium Chloride 0.9% 10 ML Syringe FLUSH PRN ×2 (06:22→22:15)
[2020-10-24] MEDS: CEFTAROLINE FOSAMIL IV SCH ×3 (06:23→22:16)
[2020-10-24] MEDS: SODIUM CHLORIDE 0.9% IV SCH ×3 (06:23→22:16)
[2020-10-24] MEDS: Carvedilol 6.25 MG Tab PO SCH ×2 (07:57→18:14)
[2020-10-24] MEDS: Insulin Lispro 100 Units/ML 3 ML Vial SUBCUT SCH ×4 (07:57→21:03)
[2020-10-24] MEDS: Gabapentin 300 MG Cap PO SCH ×3 (08:00→21:00)
[2020-10-24] MEDS: Docusate Sodium 100 MG Cap PO SCH ×2 (08:00→21:00)
[2020-10-24] MEDS: Loratadine 10 MG Tab PO SCH (08:00)
[2020-10-24] MEDS: Baclofen 10 MG Tab PO SCH ×3 (08:00→21:00)
[2020-10-24] MEDS: amLODIPine 5 MG Tab PO SCH (08:00)
[2020-10-24] MEDS: Vitamin E (dl-alpha-tocopherol acetate) 400 Unit Cap PO SCH (08:01)
[2020-10-24] MEDS: Multivitamins,Therapeutic Tab PO SCH (08:01)
[2020-10-24] MEDS: Calcium Carbonate 500 MG Tab.Chew PO SCH (08:01)
[2020-10-24] MEDS: Famotidine 20 MG Tab PO SCH ×2 (08:01→21:00)
[2020-10-24] MEDS: Lactulose Soln 10 GM/15 ML 30 ML UD Cup PO SCH (08:04)
[2020-10-24] MEDS: Lidocaine 5% 700 MG Patch TOP SCH (08:05)
--- NOTE | 2020-10-24 12:32 | PN ---
DATE: 10/24/2020 SUBJECTIVE: The patient continues to do well and denies any fever, chills, chest pain, or shortness of breath. LABORATORY DATA: Lab workup this morning, CBC; WBC 3.6, hemoglobin is 9.3, hematocrit is 27.9, platelet is 127. Comp panel; BUN is 32, creatinine is 1.6, glucose is 105. C-reactive protein is 2.6, alkaline phosphatase is 165, albumin is 2.3. The rest of the panel unremarkable. OBJECTIVE: Vital Signs: Blood pressure is 125/74, pulse 71, respirations 20, temperature of 98.4, saturation is 98% on room air. Heart: Regular rate and rhythm. Normal S1 and S2. No gallops. No rubs. Lungs: Equal bilaterally. No crackles. No wheezing. Abdomen is soft, nontender. Bowel sounds positive. Extremities: Negative for any significant pedal edema. No calf tenderness. MEDICATIONS: Reviewed. PLAN: We will continue with her present management. She also has a followup appointment with Neurosurgery as well as with Infectious Disease. [facility] /[id number]
[2020-10-24] MEDS: Acetaminophen 325 MG Tab PO PRN (12:41)
[2020-10-24] MEDS: Amitriptyline 25 MG Tab PO SCH (21:00)
[2020-10-25] MEDS: oxyCODONE 5 MG Tab PO PRN ×4 (01:54→21:10)
[2020-10-25] MEDS: CEFTAROLINE FOSAMIL IV SCH ×3 (05:27→22:37)
[2020-10-25] MEDS: Sodium Chloride 0.9% 10 ML Syringe FLUSH PRN (05:27)
[2020-10-25] MEDS: SODIUM CHLORIDE 0.9% IV SCH ×3 (05:27→22:37)
[2020-10-25] MEDS: Carvedilol 6.25 MG Tab PO SCH ×2 (08:44→18:22)
[2020-10-25] MEDS: Lactulose Soln 10 GM/15 ML 30 ML UD Cup PO SCH (08:45)
[2020-10-25] MEDS: Insulin Lispro 100 Units/ML 3 ML Vial SUBCUT SCH ×4 (08:45→21:13)
[2020-10-25] MEDS: Loratadine 10 MG Tab PO SCH (08:45)
[2020-10-25] MEDS: Lidocaine 5% 700 MG Patch TOP SCH ×2 (08:46→19:01)
[2020-10-25] MEDS: Baclofen 10 MG Tab PO SCH ×3 (08:46→21:10)
[2020-10-25] MEDS: Docusate Sodium 100 MG Cap PO SCH ×2 (08:46→21:10)
[2020-10-25] MEDS: Gabapentin 300 MG Cap PO SCH ×3 (08:47→21:10)
[2020-10-25] MEDS: Famotidine 20 MG Tab PO SCH ×2 (08:47→21:12)
[2020-10-25] MEDS: Vitamin E (dl-alpha-tocopherol acetate) 400 Unit Cap PO SCH (08:48)
[2020-10-25] MEDS: Calcium Carbonate 500 MG Tab.Chew PO SCH (08:48)
[2020-10-25] MEDS: Multivitamins,Therapeutic Tab PO SCH (08:48)
[2020-10-25] MEDS: amLODIPine 5 MG Tab PO SCH (08:52)
[2020-10-25] MEDS: Amitriptyline 25 MG Tab PO SCH (21:10)
[2020-10-26] MEDS: oxyCODONE 5 MG Tab PO PRN ×4 (03:17→20:57)
[2020-10-26] MEDS: SODIUM CHLORIDE 0.9% IV SCH ×3 (05:21→21:58)
[2020-10-26] MEDS: CEFTAROLINE FOSAMIL IV SCH ×3 (05:21→21:58)
[2020-10-26] MEDS ORDERED: Sodium Chloride 0.9% 500 ML IV SCH ×2 (06:45→09:00)
[2020-10-26] MEDS: Insulin Lispro 100 Units/ML 3 ML Vial SUBCUT SCH ×4 (07:34→21:03)
[2020-10-26] MEDS: Famotidine 20 MG Tab PO SCH ×2 (09:00→20:58)
[2020-10-26] MEDS: Baclofen 10 MG Tab PO SCH ×3 (09:00→20:57)
[2020-10-26] MEDS: Loratadine 10 MG Tab PO SCH (09:00)
[2020-10-26] MEDS: Docusate Sodium 100 MG Cap PO SCH ×2 (09:00→20:57)
[2020-10-26] MEDS: Carvedilol 6.25 MG Tab PO SCH ×2 (09:01→18:06)
[2020-10-26] MEDS: Vitamin E (dl-alpha-tocopherol acetate) 400 Unit Cap PO SCH (09:02)
[2020-10-26] MEDS: Lidocaine 5% 700 MG Patch TOP SCH (09:02)
[2020-10-26] MEDS: amLODIPine 5 MG Tab PO SCH (09:02)
[2020-10-26] MEDS: Lactulose Soln 10 GM/15 ML 30 ML UD Cup PO SCH (09:02)
[2020-10-26] MEDS: Multivitamins,Therapeutic Tab PO SCH (09:02)
[2020-10-26] MEDS: Gabapentin 300 MG Cap PO SCH ×3 (09:02→20:57)
[2020-10-26] MEDS: Calcium Carbonate 500 MG Tab.Chew PO SCH (09:02)
--- NOTE | 2020-10-26 09:28 | MR ---
PROCEDURE INFORMATION: Exam: MR Lumbar Spine Without Contrast. Exam date and time: 10/26/2020 8:13 AM Age: 65 years old Clinical indication: Low back pain; Prior surgery; Surgery date: 6+ months; Patient HX: Failed 2016; Additional info: Acute osteomyelitis. Gfr 33 TECHNIQUE: Imaging protocol: Multiplanar magnetic resonance images of the lumbar spine without intravenous contrast. COMPARISON: No relevant prior studies available. FINDINGS: Vertebrae: See L4-L5. Spinal cord: Conus terminates at L1 and appears normal in signal intensity without intrinsic or extrinsic lesion. L1-L2: There is no significant disc bulge. There is mild facet degeneration. There is no significant spinal stenosis. There is no significant neural foraminal narrowing. L2-L3: There is mild disc bulge. There is mild facet degeneration. There is no significant spinal stenosis. There is no significant neural foraminal narrowing. L3-L4: There is [id number] disc bulge. There is mild thickening of ligamentum flavum and [id number] facet degeneration. There is no significant spinal stenosis. There is slight medial bilateral neural foraminal narrowing. L4-L5: There is L4-L5 discitis and osteomyelitis. There is extensive endplate erosion with loss L4 and L5 vertebral height. There is fluid collection tracking from the facet regions bilaterally through the L4 and L5 vertebral bodies consistent with abscess. There is retrolisthesis of L4 relative to L5. There is associated abnormal vertebral body marrow signal diffusely and this extends into pedicles and facet regions. There is fluid signal in left facet joint. There is extensive paravertebral phlegmon around the vertebral bodies, adjacent to facet joints, and in paraspinal region with paraspinal edema. This phlegmon involves the spinal canal with severe and high-grade spinal stenosis and essentially obliterated thecal sac. This also extends into bilateral L4 neural foramen completely effacing the foraminal fat. There is small amount of extension into left greater than right superior L5 neural foramen. There is postoperative change in the dorsal soft tissues. L5-S1: There is mild disc bulge. There is moderate facet degeneration. There is no significant spinal stenosis. There is no significant degenerative neural foraminal narrowing. Soft tissues: Unremarkable. IMPRESSION: Findings consistent with discitis and osteomyelitis at L4-L5 with abscess as well as extensive phlegmon causing high-grade spinal stenosis and involving neural foramen as described.
--- NOTE | 2020-10-26 09:29 | MR ---
PROCEDURE INFORMATION: Exam: MR Pelvis Without Contrast, Musculoskeletal Exam date and time: 10/26/2020 7:54 AM Age: 65 years old Clinical indication: Pelvic pain; Additional info: Acute osteomyelitis now with left hip pain. Grf 33 TECHNIQUE: Imaging protocol: Magnetic resonance images of the pelvis without intravenous contrast. Exam focused on the musculoskeletal system. COMPARISON: CT - (Topogram 0.6 T20f, PELVIS, PELVIS BONE) 12/26/2019 4:22:33 PM FINDINGS: Bowel: Multiple colonic diverticula are present without evidence of diverticulitis. Bones/joints: There is limited assessment of possible osteomyelitis and discitis involving L4-L5 where the L5 vertebral body appears fractured. Please see dedicated lumbar spine MRI for more detailed assessment. There is a linear focus of edema involving the lateral left hip acetabulum measuring 0.9 x 0.4 cm (series 501/image 13). The linear focus of abnormal signal rapidly transitions to normal bone marrow signal, making the appearance not typical for an acute fracture. A healing fracture or unusually elongated focus of degenerative subchondral edema is in the differential diagnosis. Mild primary osteoarthritis involves the bilateral hips. Soft tissues: There is global moderate atrophy of the pelvic musculature. Severe edema involves the paraspinous musculature. Moderate edema involves the right iliacus muscle, which is presumed to be inflammatory. IMPRESSION: 1. Possible discitis/osteomyelitis at L4-L5 incompletely imaged. See dedicated lumbar spine MRI report. 2. Linear focus of edema in the lateral left acetabulum with rapid transition to normal bone marrow signal suggestive of a subacute nondisplaced fracture versus unusually elongated focus of degenerative subchondral edema. 3. 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
[2020-10-26] MEDS: Amitriptyline 25 MG Tab PO SCH (20:57)
[2020-10-26] MEDS: Sodium Chloride 0.9% 10 ML Syringe FLUSH PRN (21:58)
[2020-10-27] MEDS ORDERED: Water For Injection, Sterile 20 ML ONE (02:31)
[2020-10-27] MEDS: oxyCODONE 5 MG Tab PO PRN ×4 (03:48→21:48)
[2020-10-27] MEDS: CEFTAROLINE FOSAMIL IV SCH ×3 (05:38→21:54)
[2020-10-27] MEDS: SODIUM CHLORIDE 0.9% IV SCH ×3 (05:38→21:54)
[2020-10-27 06:45] LABS: ANION GAP 11.8 mEq/L (7-13)
[2020-10-27] MEDS: Calcium Carbonate 500 MG Tab.Chew PO SCH (09:46)
[2020-10-27] MEDS: Gabapentin 300 MG Cap PO SCH ×3 (09:46→21:49)
[2020-10-27] MEDS: Docusate Sodium 100 MG Cap PO SCH ×2 (09:47→21:50)
[2020-10-27] MEDS: Loratadine 10 MG Tab PO SCH (09:48)
[2020-10-27] MEDS: amLODIPine 5 MG Tab PO SCH (09:48)
[2020-10-27] MEDS: Famotidine 20 MG Tab PO SCH ×2 (09:49→21:49)
[2020-10-27] MEDS: Carvedilol 6.25 MG Tab PO SCH ×2 (09:49→18:05)
[2020-10-27] MEDS: Multivitamins,Therapeutic Tab PO SCH (09:50)
[2020-10-27] MEDS: Vitamin E (dl-alpha-tocopherol acetate) 400 Unit Cap PO SCH (09:50)
[2020-10-27] MEDS: Baclofen 10 MG Tab PO SCH ×3 (09:50→21:50)
[2020-10-27] MEDS: Lidocaine 5% 700 MG Patch TOP SCH (09:52)
[2020-10-27] MEDS: Lactulose Soln 10 GM/15 ML 30 ML UD Cup PO SCH (09:53)
[2020-10-27] MEDS: Insulin Lispro 100 Units/ML 3 ML Vial SUBCUT SCH ×4 (09:53→21:50)
[2020-10-27] MEDS: DULAGLUTIDE 1.5 MG/0.5 ML SQ SCH (09:54)
[2020-10-27] MEDS: Amitriptyline 25 MG Tab PO SCH (21:50)
[2020-10-28] MEDS: oxyCODONE 5 MG Tab PO PRN ×4 (04:29→22:34)
[2020-10-28] MEDS: CEFTAROLINE FOSAMIL IV SCH ×3 (05:22→22:21)
[2020-10-28] MEDS: SODIUM CHLORIDE 0.9% IV SCH ×3 (05:22→22:21)
[2020-10-28] MEDS: Sodium Chloride 0.9% 10 ML Syringe FLUSH PRN ×3 (05:23→23:59)
[2020-10-28] MEDS: Lidocaine 5% 700 MG Patch TOP SCH (09:11)
[2020-10-28] MEDS: Carvedilol 6.25 MG Tab PO SCH ×2 (09:13→17:23)
[2020-10-28] MEDS: Lactulose Soln 10 GM/15 ML 30 ML UD Cup PO SCH (09:14)
[2020-10-28] MEDS: Insulin Lispro 100 Units/ML 3 ML Vial SUBCUT SCH ×4 (09:14→21:15)
[2020-10-28] MEDS: Docusate Sodium 100 MG Cap PO SCH ×2 (09:15→21:06)
[2020-10-28] MEDS: Baclofen 10 MG Tab PO SCH ×3 (09:15→21:06)
[2020-10-28] MEDS: Loratadine 10 MG Tab PO SCH (09:15)
[2020-10-28] MEDS: Famotidine 20 MG Tab PO SCH ×2 (09:16→21:06)
[2020-10-28] MEDS: amLODIPine 5 MG Tab PO SCH (09:16)
[2020-10-28] MEDS: Gabapentin 300 MG Cap PO SCH ×3 (09:16→21:06)
[2020-10-28] MEDS: Multivitamins,Therapeutic Tab PO SCH (09:17)
[2020-10-28] MEDS: Calcium Carbonate 500 MG Tab.Chew PO SCH (09:17)
[2020-10-28] MEDS: Vitamin E (dl-alpha-tocopherol acetate) 400 Unit Cap PO SCH (09:17)
[2020-10-28] MEDS: Amitriptyline 25 MG Tab PO SCH (21:07)
[2020-10-29] MEDS: oxyCODONE 5 MG Tab PO PRN ×3 (05:16→18:47)
[2020-10-29] MEDS: SODIUM CHLORIDE 0.9% IV SCH ×3 (05:17→22:01)
[2020-10-29] MEDS: CEFTAROLINE FOSAMIL IV SCH ×3 (05:17→22:01)
[2020-10-29] MEDS: Insulin Lispro 100 Units/ML 3 ML Vial SUBCUT SCH ×4 (08:04→20:23)
[2020-10-29] MEDS: Lidocaine 5% 700 MG Patch TOP SCH (09:36)
[2020-10-29] MEDS: Loratadine 10 MG Tab PO SCH (09:37)
[2020-10-29] MEDS: Gabapentin 300 MG Cap PO SCH ×3 (09:37→20:24)
[2020-10-29] MEDS: Vitamin E (dl-alpha-tocopherol acetate) 400 Unit Cap PO SCH (09:37)
[2020-10-29] MEDS: Multivitamins,Therapeutic Tab PO SCH (09:37)
[2020-10-29] MEDS: Docusate Sodium 100 MG Cap PO SCH ×2 (09:38→20:25)
[2020-10-29] MEDS: Baclofen 10 MG Tab PO SCH ×3 (09:38→20:24)
[2020-10-29] MEDS: Famotidine 20 MG Tab PO SCH ×2 (09:38→20:24)
[2020-10-29] MEDS: amLODIPine 5 MG Tab PO SCH (09:38)
[2020-10-29] MEDS: Calcium Carbonate 500 MG Tab.Chew PO SCH (09:40)
[2020-10-29] MEDS: Carvedilol 6.25 MG Tab PO SCH ×2 (09:40→18:48)
[2020-10-29] MEDS: Lactulose Soln 10 GM/15 ML 30 ML UD Cup PO SCH (09:46)
[2020-10-29] MEDS: Amitriptyline 25 MG Tab PO SCH (20:25)
[2020-10-30] MEDS: oxyCODONE 5 MG Tab PO PRN ×4 (01:50→21:59)
[2020-10-30] MEDS: SODIUM CHLORIDE 0.9% IV SCH ×3 (05:29→21:42)
[2020-10-30] MEDS: CEFTAROLINE FOSAMIL IV SCH ×3 (05:29→21:42)
[2020-10-30] MEDS: Acetaminophen 325 MG Tab PO PRN (06:20)
[2020-10-30] MEDS: Vitamin E (dl-alpha-tocopherol acetate) 400 Unit Cap PO SCH (08:19)
[2020-10-30] MEDS: Docusate Sodium 100 MG Cap PO SCH ×2 (08:19→21:51)
[2020-10-30] MEDS: amLODIPine 5 MG Tab PO SCH (08:20)
[2020-10-30] MEDS: Multivitamins,Therapeutic Tab PO SCH (08:20)
[2020-10-30] MEDS: Famotidine 20 MG Tab PO SCH ×2 (08:20→21:51)
[2020-10-30] MEDS: Loratadine 10 MG Tab PO SCH (08:21)
[2020-10-30] MEDS: Baclofen 10 MG Tab PO SCH ×3 (08:21→21:50)
[2020-10-30] MEDS: Gabapentin 300 MG Cap PO SCH ×3 (08:21→21:50)
[2020-10-30] MEDS: Calcium Carbonate 500 MG Tab.Chew PO SCH (08:22)
[2020-10-30] MEDS: Lidocaine 5% 700 MG Patch TOP SCH (08:23)
[2020-10-30] MEDS: Carvedilol 6.25 MG Tab PO SCH ×2 (08:25→17:33)
[2020-10-30] MEDS: Insulin Lispro 100 Units/ML 3 ML Vial SUBCUT SCH ×4 (08:25→21:18)
[2020-10-30] MEDS: Lactulose Soln 10 GM/15 ML 30 ML UD Cup PO SCH (08:50)
[2020-10-30] MEDS: Amitriptyline 25 MG Tab PO SCH (21:50)
[2020-10-31] MEDS: oxyCODONE 5 MG Tab PO PRN ×2 (04:01→11:30)
[2020-10-31] MEDS: CEFTAROLINE FOSAMIL IV SCH (05:43)
[2020-10-31] MEDS: SODIUM CHLORIDE 0.9% IV SCH (05:43)
[2020-10-31] MEDS: Insulin Lispro 100 Units/ML 3 ML Vial SUBCUT SCH ×2 (07:51→11:37)
[2020-10-31] MEDS: Famotidine 20 MG Tab PO SCH (08:08)
[2020-10-31] MEDS: Vitamin E (dl-alpha-tocopherol acetate) 400 Unit Cap PO SCH (08:08)
[2020-10-31] MEDS: Gabapentin 300 MG Cap PO SCH ×2 (08:08→13:33)
[2020-10-31] MEDS: Baclofen 10 MG Tab PO SCH ×2 (08:08→13:33)
[2020-10-31] MEDS: Loratadine 10 MG Tab PO SCH (08:08)
[2020-10-31] MEDS: Docusate Sodium 100 MG Cap PO SCH (08:08)
[2020-10-31] MEDS: amLODIPine 5 MG Tab PO SCH (08:08)
[2020-10-31] MEDS: Carvedilol 6.25 MG Tab PO SCH (08:09)
[2020-10-31] MEDS: Calcium Carbonate 500 MG Tab.Chew PO SCH (08:09)
[2020-10-31] MEDS: Multivitamins,Therapeutic Tab PO SCH (08:09)
[2020-10-31] MEDS: Lidocaine 5% 700 MG Patch TOP SCH (08:09)
[2020-10-31] MEDS: Lactulose Soln 10 GM/15 ML 30 ML UD Cup PO SCH (08:14)
--- NOTE | 2020-10-31 10:10 | PCM.DCSUM1 ---
Discharge Summary - Hospital Course Free Text/Narrative:: Anna is 65 y/o female admitted to our swing bed for IV antibiotic therapy for vertebral osteomyelitis status post redo laminectomy with washout of epidural abscess in this patient. Her stay has been uncomplicated. She did follow-up with ID who advised patient to be discharged home and continue with IV antibiotic. She was safely discharged home with plan to follow-up with PCP and ID. Her midline was leaking so was removed. She will follow-up at [facility] for placement of new PICC line. Diagnosis: Stroke: No - Discharge Data Discharge Date: 10/31/20 Discharge Disposition: Home, Self-Care 01 Condition: Good - Referral to Home Health Primary Care Physician: Gordo Agustin PHARMACEUTICAL SALESPERSON - Patient Summary/Data Consults: Consultations 09/28/20 14:36 Consult to Physical Therapy [PT Evaluation and Treatment] [CONS] Routine 09/28/20 14:37 Consult to Occupational Therapy [OT Evaluation and Treatment] [CONS] Routine - Patient Instructions Diet: Diabetic Diet Activity: As Tolerated Driving: May Drive Today Showering/Bathing: May Shower Notify Provider of: Fever, Increased Pain, Swelling and Redness, Nausea and/or Vomiting - Discharge Plan *PRESCRIPTION DRUG MONITORING PROGRAM REVIEWED*: Not Applicable *COPY OF PRESCRIPTION DRUG MONITORING REPORT IN PATIENT SHARON: Not Applicable Prescriptions/Med Rec: carvediloL [Coreg] 6.25 mg PO BIDMEALS 1 Days #60 tablet amLODIPine [Norvasc] 5 mg PO DAILY #30 tablet Ceftaroline Fosamil [Teflaro] 300 mg IV Q8HR #90 vial Home Medications: Home Meds Baclofen 10 mg PO TID 12/26/19 [History] Dulaglutide [Trulicity] 1.5 mg SQ WEEKLY 12/26/19 [History] Insulin Degludec [Tresiba] 20 units SQ BEDTIME 12/26/19 [History] Loratadine [Claritin] 10 mg PO DAILY 12/26/19 [History] Multivit,Calc,Mins/Iron/Folic [Thera-M] 1 tab PO DAILY 12/26/19 [History] Vitamin E (dl, acetate) [Vitamin E] 400 units PO DAILY 12/26/19 [History] Gabapentin [Neurontin] 300 mg PO TID 30 Days #90 cap 12/30/19 [Rx] Amitriptyline [Elavil] 50 mg PO BEDTIME 09/28/20 [History] Calcium Carbonate [Calcium] 600 mg PO DAILY 09/28/20 [History] Docusate Sodium [Colace] 100 mg PO BID PRN 09/28/20 [History] Famotidine 10 mg PO BID 09/28/20 [History] Lactulose [Cephulac] 30 ml PO BID 09/28/20 [History] Lidocaine [Lidoderm] 1 patch TOP DAILY 09/28/20 [History] Magnesium Oxide [Magnesium] 400 mg PO DAILY 09/28/20 [History] Naproxen Sodium [Aleve] 220 mg PO BID 09/28/20 [History] Potassium Chloride 20 meq PO DAILY 09/28/20 [History] Remove Patch 1 patch TOP BEDTIME 09/28/20 [History] oxyCODONE 5 mg PO BID 09/28/20 [History] Ceftaroline Fosamil [Teflaro] 300 mg IV Q8HR #90 vial 10/31/20 [Rx] amLODIPine [Norvasc] 5 mg PO DAILY #30 tablet 10/31/20 [Rx] carvediloL [Coreg] 6.25 mg PO BIDMEALS 1 Days #60 tablet 10/31/20 [Rx] Patient Handouts: Osteomyelitis, Adult, PICC Insertion, Care After, PICC Home Care Guide, Central Line, Adult, [id number] Referrals: Gordo Agustin, PHARMACEUTICAL SALESPERSON [Primary Care Provider] - - Discharge Summary/Plan Comment DC Time >30 min.: Yes - General Info Date of Service: 10/31/20 Functional Status: Reports: Pain Controlled - Review of Systems General: Reports: No Symptoms HEENT: Reports: No Symptoms Pulmonary: Reports: No Symptoms Cardiovascular: Reports: No Symptoms Gastrointestinal: Reports: No Symptoms Genitourinary: Reports: No Symptoms Musculoskeletal: Reports: No Symptoms Skin: Reports: No Symptoms Neurological: Reports: No Symptoms Psychiatric: Reports: No Symptoms - Patient Data Vitals - Most Recent: Last Vital Signs Temp 97.1 F 10/31/20 08:00 Pulse 72 10/31/20 08:09 Resp 20 10/31/20 08:00 BP 116/59 L 10/31/20 08:09 Pulse Ox 95 10/31/20 08:00 Weight - Most Recent: 217 lb I&O - Last 24 hours: Intake & Output 10/30/20 10/31/20 10/31/20 22:59 06:59 14:59 Intake Total 240 115 Balance 240 115 Lab Results - Last 24 hrs: Laboratory Results - last 24 hr 10/30/20 10/30/20 10/30/20 Range/Units 11:46 16:33 20:39 WBC (5.0-10.0) 10^3/uL RBC (4.2-5.4) 10^6/uL Hgb (12.0-16.0) g/dL Hct (37.0-47.0) % MCV (80-100) fL MCH (27.0-34.0) pg MCHC (33.0-35.0) g/dL Plt Count (150-450) 10^3/uL Neut % (Auto) (42.2-75.2) % Lymph % (Auto) (20.5-50.1) % [place] % (Auto) (2-8) % Eos % (Auto) (1.0-3.0) % Baso % (Auto) (0.0-1.0) % Sodium (136-145) mmol/L Potassium (3.5-5.1) mmol/L Chloride (98-107) mmol/L Carbon Dioxide (21-32) mmol/L Anion Gap (7-13) mEq/L BUN (7-18) mg/dL Creatinine (0.55-1.02) mg/dL Est Cr Clr Drug Dosing mL/min Estimated GFR (MDRD) Glucose (74-99) mg/dL POC Glucose 158 H 131 H 152 H (70-105) mg/dl Calcium (8.5-10.1) mg/dL 10/31/20 10/31/20 10/31/20 Range/Units 06:16 06:16 07:50 WBC 3.1 L (5.0-10.0) 10^3/uL RBC 3.18 L (4.2-5.4) 10^6/uL Hgb 9.6 L (12.0-16.0) g/dL Hct 28.4 L (37.0-47.0) % MCV 89.3 (80-100) fL MCH 30.2 (27.0-34.0) pg MCHC 33.8 (33.0-35.0) g/dL Plt Count 117 L (150-450) 10^3/uL Neut % (Auto) 52.4 (42.2-75.2) % Lymph % (Auto) 28.4 (20.5-50.1) % [place] % (Auto) 14.7 H (2-8) % Eos % (Auto) 4.2 H (1.0-3.0) % Baso % (Auto) 0.3 (0.0-1.0) % Sodium 136 (136-145) mmol/L Potassium 4.0 (3.5-5.1) mmol/L Chloride 100 (98-107) mmol/L Carbon Dioxide 28 (21-32) mmol/L Anion Gap 12.0 (7-13) mEq/L BUN 29 H (7-18) mg/dL Creatinine 1.46 H (0.55-1.02) mg/dL Est Cr Clr Drug Dosing 36.92 mL/min Estimated GFR (MDRD) 36 Glucose 129 H (74-99) mg/dL POC Glucose 115 H (70-105) mg/dl Calcium 8.9 (8.5-10.1) mg/dL Med Orders - Current: Current Medications Acetaminophen (Tylenol) 650 mg PO Q4H PRN PRN Reason: Pain (Mild 1-3)/fever Last Admin: 10/30/20 06:20 Dose: 650 mg Documented by: Amitriptyline HCl (Elavil) 50 mg PO BEDTIME [facility] Last Admin: 10/30/20 21:50 Dose: 50 mg Documented by: Amlodipine Besylate (Norvasc) 5 mg PO DAILY [facility] Last Admin: 10/31/20 08:08 Dose: 5 mg Documented by: Baclofen (Lioresal) 10 mg PO TID [facility] Last Admin: 10/31/20 08:08 Dose: 10 mg Documented by: Calcium Carbonate/Glycine (Tums) 500 mg PO DAILY [facility] Last Admin: 10/31/20 08:09 Dose: 500 mg Documented by: Carvedilol (Coreg) 6.25 mg PO BIDMEALS [facility] Last Admin: 10/31/20 08:09 Dose: 6.25 mg Documented by: Dextrose/Water (Dextrose 50% In Water) 50 ml IV ASDIRECTED PRN PRN Reason: Hypoglycemia Docusate Sodium (Colace) 100 mg PO BID [facility] Last Admin: 10/31/20 08:08 Dose: 100 mg Documented by: Famotidine (Pepcid) 10 mg PO BID [facility] Last Admin: 10/31/20 08:08 Dose: 10 mg Documented by: Gabapentin (Neurontin) 300 mg PO TID [facility] Last Admin: 10/31/20 08:08 Dose: 300 mg Documented by: Glucagon (Glucagen) 1 mg IM ASDIRECTED PRN PRN Reason: Hypoglycemia Ceftaroline Fosamil 300 mg/ (Sodium Chloride) 100 mls @ 100 mls/hr IV ONETIME ONE Stop: 10/31/20 12:59 Insulin Human Lispro (Humalog) 0 unit SUBCUT WITHMEALSANDBED [facility]; Protocol Last Admin: 10/31/20 07:51 Dose: Not Given Documented by: Lactulose (Cephulac) 20 gm PO DAILY [facility] Last Admin: 10/31/20 08:14 Dose: Not Given Documented by: Lidocaine (Lidoderm 5%) 700 mg TOP DAILY [facility] Last Admin: 10/31/20 08:09 Dose: 700 mg Documented by: Loratadine (Claritin) 10 mg PO DAILY [facility] Last Admin: 10/31/20 08:08 Dose: 10 mg Documented by: Magnesium Oxide (Magnesium Oxide) 250 mg PO DAILY [facility] Last Admin: 10/31/20 08:08 Dose: 250 mg Documented by: Miscellaneous Information (Remove Patch) 1 ea TRDERM BEDTIME [facility] Last Admin: 10/30/20 21:53 Dose: 1 ea Documented by: Multivitamins (Thera) 1 each PO DAILY [facility] Last Admin: 10/31/20 08:09 Dose: 1 each Documented by: Dulaglutide [ Trulicity] 1.5 Mg/0. 5 Ml Inj *Own Med* 1.5 mg SQ Th@0900 [facility] Last Admin: 10/27/20 09:54 Dose: 1.5 mg Documented by: Insulin Degludec [ Tresiba] 100 Units/Ml Pen *Own Med* 20 units SQ BEDTIME [facility] Last Admin: 10/30/20 21:36 Dose: 20 units Documented by: Nystatin (Nystop) 0 gm TOP BID PRN PRN Reason: Rash Ondansetron HCl (Zofran Odt) 4 mg PO Q4H PRN PRN Reason: nausea, able to take PO Oxycodone HCl (Oxycodone) 5 mg PO QID PRN PRN Reason: back pain Last Admin: 10/31/20 04:01 Dose: 5 mg Documented by: Sodium Chloride (Saline Flush) 10 ml FLUSH ASDIRECTED PRN PRN Reason: Keep Vein Open Last Admin: 10/28/20 23:59 Dose: 10 ml Documented by: Vitamin E (Vitamin E) 400 units PO DAILY [facility] Last Admin: 10/31/20 08:08 Dose: 400 units Documented by: Discontinued Medications Gabapentin (Neurontin) 300 mg PO TID [facility] Last Admin: 10/08/20 08:37 Dose: 300 mg Documented by: Gabapentin (Neurontin) 100 mg PO TID [facility] Last Admin: 10/09/20 21:00 Dose: 100 mg Documented by: Gabapentin (Neurontin) 100 mg PO TID [facility] Last Admin: 10/20/20 08:28 Dose: 100 mg Documented by: Vancomycin HCl 1 gm/ Sodium (Chloride) 250 mls @ 167 mls/hr IV Q18H [facility] Last Admin: 09/30/20 07:29 Dose: Not Given Documented by: Ceftaroline Fosamil 600 mg/ (Sodium Chloride) 250 mls @ 250 mls/hr IV Q12HR [facility] Stop: 09/28/20 21:59 Last Admin: 09/28/20 20:34 Dose: 250 mls/hr Documented by: Ceftaroline Fosamil 600 mg/ (Sodium Chloride) 250 mls @ 250 mls/hr IV Q12HR [facility] Last Admin: 10/03/20 09:27 Dose: 250 mls/hr Documented by: Ceftaroline Fosamil 600 mg/ (Sodium Chloride) 250 mls @ 250 mls/hr IV Q12HR [facility] Stop: 09/29/20 21:59 Last Admin: 09/29/20 21:05 Dose: 250 mls/hr Documented by: Vancomycin HCl 1 gm/ Sodium (Chloride) 250 mls @ 167 mls/hr IV Q24H [facility] Last Admin: 10/03/20 13:50 Dose: Not Given Documented by: Ceftaroline Fosamil 300 mg/ (Sodium Chloride) 250 mls @ 250 mls/hr IV Q12HR [facility] Last Admin: 10/06/20 10:19 Dose: 250 mls/hr Documented by: Vancomycin HCl 1 gm/ Sodium (Chloride) 250 mls @ 166.667 mls/hr IV ONETIME ONE Stop: 10/04/20 16:29 Last Admin: 10/04/20 14:37 Dose: 166.667 mls/hr Documented by: Vancomycin HCl 1 gm/ Sodium (Chloride) 250 mls @ 166.667 mls/hr IV Q48H [facility] Last Admin: 10/06/20 15:01 Dose: 166.667 mls/hr Documented by: Sodium Chloride (Normal Saline) 1,000 mls @ 125 mls/hr IV ASDIRECTED [facility] Last Admin: 10/11/20 05:27 Dose: 125 mls/hr Documented by: Ceftaroline Fosamil 600 mg/ (Sodium Chloride) 100 mls @ 100 mls/hr IV Q12HR [facility] Ceftaroline Fosamil 300 mg/ (Sodium Chloride) 100 mls @ 100 mls/hr IV Q12HR [facility] Last Admin: 10/11/20 20:21 Dose: 100 mls/hr Documented by: Ceftaroline Fosamil 300 mg/ (Sodium Chloride) 100 mls @ 100 mls/hr IV Q12HR [facility] Last Admin: 10/12/20 09:58 Dose: 100 mls/hr Documented by: Ceftaroline Fosamil 300 mg/ (Sodium Chloride) 100 mls @ 100 mls/hr IV Q8HR [facility] Last Admin: 10/28/20 05:22 Dose: 100 mls/hr Documented by: Sterile Water (Sterile Water For Injection) Confirm Administered Dose 20 mls @ as directed .ROUTE .STK-MED ONE Stop: 10/12/20 16:02 Last Admin: 10/12/20 17:44 Dose: 1 mls/hr Documented by: Sterile Water (Sterile Water For Injection) Confirm Administered Dose 20 mls @ as directed .ROUTE .STK-MED ONE Stop: 10/13/20 05:50 Last Admin: 10/13/20 06:21 Dose: Not Given Documented by: Sodium Chloride (Normal Saline) 500 mls @ 999 mls/hr IV .BOLUS [facility] Stop: 10/26/20 07:45 Last Infusion: 10/26/20 07:44 Dose: Infused Documented by: Sodium Chloride (Normal Saline) 500 mls @ 999 mls/hr IV .BOLUS [facility] Stop: 10/26/20 10:00 Last Infusion: 10/26/20 09:53 Dose: Infused Documented by: Sterile Water (Sterile Water For Injection) Confirm Administered Dose 20 mls @ as directed .ROUTE .STK-MED ONE Stop: 10/27/20 02:32 Last Admin: 10/27/20 02:48 Dose: Not Given Documented by: Ceftaroline Fosamil 300 mg/ (Sodium Chloride) 100 mls @ 100 mls/hr IV Q8HR [facility] Last Admin: 10/31/20 05:43 Dose: 100 mls/hr Documented by: Lactulose (Cephulac) 20 gm PO BID [facility] Last Admin: 10/11/20 08:59 Dose: 20 gm Documented by: Losartan Potassium (Cozaar) 50 mg PO DAILY [facility] Last Admin: 10/08/20 08:36 Dose: 50 mg Documented by: Morphine Sulfate (Morphine) 2 mg IVPUSH Q2H PRN PRN Reason: Pain (severe 7-10) Last Admin: 09/30/20 12:13 Dose: 2 mg Documented by: Naproxen (Naprosyn) 250 mg PO BIDMEALS [facility] Last Admin: 10/08/20 08:37 Dose: 250 mg Documented by: Oxycodone HCl (Oxycodone) 5 mg PO BID [facility] Last Admin: 09/30/20 10:00 Dose: 5 mg Documented by: Oxycodone HCl (Oxycodone) 5 mg PO TID [facility] Last Admin: 10/09/20 21:02 Dose: 5 mg Documented by: Oxycodone HCl (Oxycodone) 5 mg PO TID PRN PRN Reason: back pain Last Admin: 10/16/20 16:58 Dose: 5 mg Documented by: Oxycodone HCl (Oxycodone) 5 mg PO QID PRN PRN Reason: back pain Last Admin: 10/16/20 23:00 Dose: 5 mg Documented by: Potassium Chloride (Klor-Con 10) 20 meq PO DAILY@0800 [facility] Vancomycin HCl (Pharmacy To Dose - Vancomycin) 0 dose .XX ASDIRECTED [facility] - Exam Quality Assessment: Reports: DVT Prophylaxis General: Reports: Alert, Oriented HEENT: Reports: Pupils Equal, Pupils Reactive, EOMI, Mucous Membr. Moist/[place] Neck: Reports: Supple Lungs: Reports: Clear to Auscultation, Normal Respiratory Effort Cardiovascular: Reports: Regular Rate, Regular Rhythm GI/Abdominal Exam: Normal Bowel Sounds, Soft, Non-Tender, No Organomegaly, No Distention, No Abnormal Bruit, No Mass, Pelvis Stable (Female) Exam: Normal External Exam, Normal Speculum Exam, Normal Bimanual Exam Rectal (Female) Exam: Normal Exam, Normal Rectal Tone Back Exam: Reports: Normal Inspection, Full Range of Motion Extremities: Normal Inspection, Normal Range of Motion, Non-Tender, No Pedal Edema, Normal Capillary Refill Skin: Reports: Warm, Dry, Intact Wound/Incisions: Reports: Healing Well Neurological: Reports: No New Focal Deficit Psy/Mental Status: Reports: Alert, Normal Affect, Normal Mood
[2020-10-31] MEDS: Sodium Chloride 0.9% 10 ML Syringe FLUSH PRN (11:32)
[2020-10-31] MEDS ORDERED: SODIUM CHLORIDE 0.9% IV ONE (12:00)
[2020-10-31] MEDS ORDERED: CEFTAROLINE FOSAMIL IV ONE (12:00)
== END 2020-10-31 13:50 | disposition home or self-care (01) | DRG 638 ==
LOC: DL.MS 14:25 → UNDOADMIN 14:25 → DL.MS 15:09 → EEVIPCON 15:09
PROVIDERS: ADMIT Internal Medicine; ATTEND Student in an Organized Health Care Education/Training Program
DX: E11.69 Type 2 diabetes mellitus with other specified complication (principal); M46.20 Osteomyelitis of vertebra, site unspecified; D61.818 Other pancytopenia; N17.9 Acute kidney failure, unspecified; I10 Essential (primary) hypertension; K21.9 Gastro-esophageal reflux disease without esophagitis; E66.9 Obesity, unspecified; E78.5 Hyperlipidemia, unspecified; K57.90 Diverticulosis of intestine, part unspecified, without perforation or abscess without bleeding; F32.9 Major depressive disorder, single episode, unspecified; G89.4 Chronic pain syndrome; M54.5 Low back pain; R26.81 Unsteadiness on feet; Z68.35 Body mass index [BMI] 35.0-35.9, adult; Z79.4 Long term (current) use of insulin; Z79.899 Other long term (current) drug therapy
CPT/HCPCS: 36415; 70450; 71045; 72148; 72195; 76775; 80048; 80053; 80202; 81001; 82140; 82272; 82550; 82565; 82570; 82607; 82746; 82962; 83540; 83550; 84300; 85018; 85025; 85027; 85651; 85999; 86140; 97110-GO; 97110-GP; 97116-GP; 97162-GP; 97166-GO; 97530-GO; 97530-GP; 97535-GO; 99304; 99307; 99309; 99316; A9270-GY; J0712; J2270; J3370; J7030; J7040; J7050

== ENCOUNTER 2020-11-09 22:24 | Observation (INO) | payer MEDICARE, SELFPAY ==
[2020-11-09 22:36] LABS: ANION GAP 10.3 mEq/L (7-13)
--- NOTE | 2020-11-09 22:52 | EDM.PDOC ---
ED HPI GENERAL MEDICAL PROBLEM - General Chief Complaint: General Stated Complaint: GENERAL Time Seen by Provider: 11/09/20 22:25 Source of Information: Reports: Patient, RN History Limitations: Reports: Altered Mental Status - History of Present Illness INITIAL COMMENTS - FREE TEXT/NARRATIVE: ED er w/c with altered mentation. Patient receiving outpatient antibiotic therapy for vertebral osteomyelitis. Tonight seemed more lethargic and disoriented . Reported increased dose of oxycodone yesterday to 5mg every 4 hours. Patient reported her last pain medication was this am. Reported 2 pills today, then 2 pills next admitting unsure how many taken. C/o spasms. States similar when on higher dose of gabapentin but spasms stopped when dose lowered. Denied, fever, chills or cough. No urinary sx. Appetite good. .RX reported BS earlier before snack 120 and 180 after. Patient lives at home alone with family stopping to check on her and bring to appointment. - Related Data Allergies Allergy/AdvReac Type Severity Reaction Status Date / Time daptomycin Allergy Cannot Verified 11/09/20 22:05 Remember [id number]-Vbf Reductase Allergy Cannot Verified 11/09/20 22:05 Inhibitor Remember Sulfa (Sulfonamide Allergy Cannot Verified 11/09/20 22:05 Antibiotics) Remember Home Meds: Home Meds Baclofen 10 mg PO TID 12/26/19 [History] Dulaglutide [Trulicity] 1.5 mg SQ WEEKLY 12/26/19 [History] Insulin Degludec [Tresiba] 20 units SQ BEDTIME 12/26/19 [History] Loratadine [Claritin] 10 mg PO DAILY 12/26/19 [History] Multivit,Calc,Mins/Iron/Folic [Thera-M] 1 tab PO DAILY 12/26/19 [History] Vitamin E (dl, acetate) [Vitamin E] 400 units PO DAILY 12/26/19 [History] Gabapentin [Neurontin] 300 mg PO TID 30 Days #90 cap 12/30/19 [Rx] Amitriptyline [Elavil] 50 mg PO BEDTIME 09/28/20 [History] Calcium Carbonate [Calcium] 600 mg PO DAILY 09/28/20 [History] Docusate Sodium [Colace] 100 mg PO BID PRN 09/28/20 [History] Famotidine 10 mg PO BID 09/28/20 [History] Lactulose [Cephulac] 30 ml PO BID 09/28/20 [History] Lidocaine [Lidoderm] 1 patch TOP DAILY 09/28/20 [History] Magnesium Oxide [Magnesium] 400 mg PO DAILY 09/28/20 [History] Naproxen Sodium [Aleve] 220 mg PO BIDMEALS 09/28/20 [History] Potassium Chloride 20 meq PO DAILY 09/28/20 [History] Remove Patch 1 patch TOP BEDTIME 09/28/20 [History] oxyCODONE 5 mg PO Q4H PRN 09/28/20 [History] amLODIPine [Norvasc] 5 mg PO DAILY #30 tablet 10/31/20 [Rx] carvediloL [Coreg] 6.25 mg PO BIDMEALS 1 Days #60 tablet 10/31/20 [Rx] Ceftaroline Fosamil [Teflaro] 300 mg IV BID 11/09/20 [History] Past Medical History HEENT History: Reports: None, Impaired Vision Cardiovascular History: Reports: High Cholesterol, Hypertension Respiratory History: Reports: Asthma Other Respiratory History: Allergy Gastrointestinal History: Reports: GERD, Other (See Below) Other Gastrointestinal History: ESOPHAGITIS Genitourinary History: Reports: Chronic Renal Insuffiency [employer] History: Reports: Musculoskeletal History: Reports: Arthritis, Back Pain, Chronic, Osteoporosis Neurological History: Reports: Neuropathy, Peripheral, Other (See Below) Other Neuro History: NEUROMUSCULAR DISORDER Psychiatric History: Reports: Depression Endocrine/Metabolic History: Reports: Diabetes, Type II, Obesity/BMI 30+ Hematologic History: Reports: Blood Transfusion(s) Immunologic History: Reports: None Oncologic (Cancer) History: Reports: None Dermatologic History: Reports: Cellulitis - Infectious Disease History Infectious Disease History: Reports: Chicken Pox, Measles, MRSA, Mumps, Rubella - Past Surgical History Head Surgeries/Procedures: Reports: None HEENT Surgical History: Reports: None Cardiovascular Surgical History: Reports: None Respiratory Surgical History: Reports: None GI Surgical History: Reports: Cholecystectomy, Colonoscopy Female Surgical History: Reports: Hysterectomy, Tubal Ligation, Other (See Below) Other Female Surgeries/Procedures: SD. LIGATE FALLOPIAN TUBE Endocrine Surgical History: Reports: None Musculoskeletal Surgical History: Reports: Arthroscopic Knee, Other (See Below) Other Musculoskeletal Surgeries/Procedures:: HX OF LUMBAR SURGERY. Left KNEE ARTHROSCOPY Social & Family History - Family History Family Medical History: No Pertinent Family History - Tobacco Use Tobacco Use Status *Q: Never Tobacco User Second Hand Smoke Exposure: No - Caffeine Use Caffeine Use: Reports: Coffee Caffeine Use Comment: 12 oz daily - Recreational Drug Use Recreational Drug Use: No ED ROS GENERAL - Review of Systems Review Of Systems: Comprehensive ROS is negative, except as noted in HPI. ED EXAM, GENERAL - Physical Exam Exam: See Below Exam Limited By: No Limitations General Appearance: Alert, Mild Distress Eye Exam: Bilateral Eye: EOMI, PERRL Ears: Normal External Exam Nose: Normal Inspection Throat/Mouth: Normal Inspection, Normal Voice, No Airway Compromise Head: Atraumatic, Normocephalic Neck: Normal Inspection Respiratory/Chest: No Respiratory Distress, Lungs Clear, Normal Breath Sounds Cardiovascular: Normal Peripheral Pulses, Regular Rate, Rhythm, No Rub Back Exam: Muscle Spasm, Paraspinal Tenderness, Vertebral Tenderness Neurological: Alert, Slow to Respond, Other (twitching /spasm upper and lower extremities bilateral greater left). No: Disoriented Psychiatric: Normal Affect Skin Exam: Warm, Dry, Intact, Pallor Course - Vital Signs Last Recorded V/S: Last Vital Signs Temp 97.8 F 11/09/20 22:20 Pulse 81 11/09/20 22:20 Resp 18 11/09/20 22:20 BP 170/76 H 11/09/20 22:20 Pulse Ox 95 11/09/20 22:20 - Orders/Labs/Meds Orders: Active Orders 24 hr Category Date Time Status Blood Glucose Check, Bedside [RC] ONETIME Care 11/09/20 21:43 Active CULTURE BLOOD [BC] Stat Lab 11/09/20 21:56 Results CULTURE BLOOD [BC] Stat Lab 11/09/20 22:06 Results CULTURE URINE [RM] Stat Lab 11/09/20 22:25 Received Blood Culture x2 Reflex Set [OM.PC] Stat Oth 11/09/20 21:40 Ordered Labs: Laboratory Tests 11/09/20 11/09/20 11/09/20 Range/Units 21:56 22:00 22:06 WBC 2.2 L (5.0-10.0) 10^3/uL RBC 3.12 L (4.2-5.4) 10^6/uL Hgb 9.3 L (12.0-16.0) g/dL Hct 28.1 L (37.0-47.0) % MCV 90.1 (80-100) fL MCH 29.8 (27.0-34.0) pg MCHC 33.1 (33.0-35.0) g/dL Plt Count 99 L (150-450) 10^3/uL Neut % (Auto) 39.1 L (42.2-75.2) % Lymph % (Auto) 37.4 (20.5-50.1) % [place] % (Auto) 18.9 H (2-8) % Eos % (Auto) 4.1 H (1.0-3.0) % Baso % (Auto) 0.5 (0.0-1.0) % Sodium (136-145) mmol/L Potassium (3.5-5.1) mmol/L Chloride (98-107) mmol/L Carbon Dioxide (21-32) mmol/L Anion Gap (7-13) mEq/L BUN (7-18) mg/dL Creatinine (0.55-1.02) mg/dL Est Cr Clr Drug Dosing mL/min Estimated GFR (MDRD) BUN/Creatinine Ratio (No establ ref range) Glucose (74-99) mg/dL Lactic Acid (0.4-2.0) mmol/L Calcium (8.5-10.1) mg/dL Magnesium (1.8-2.4) mg/dL Total Bilirubin (0.2-1.0) mg/dL AST (15-37) U/L ALT (14-59) U/L Alkaline Phosphatase (46-116) U/L Ammonia 30 (11-32) umol/L Total Protein (6.4-8.2) g/dL Albumin (3.4-5.0) g/dL Globulin Albumin/Globulin Ratio Urine Color (YELLOW) Urine Appearance (CLEAR) Urine pH (5.0-9.0) Ur Specific [place] (1.005-1.030) Urine Protein (NEGATIVE) Urine Glucose (UA) (NEGATIVE) Urine Ketones (NEGATIVE) Urine Occult Blood (NEGATIVE) Urine Nitrite (NEGATIVE) Urine Bilirubin (NEGATIVE) Urine Urobilinogen (0.2-1.0) mg/dL Ur Leukocyte Esterase (NEGATIVE) Urine RBC /HPF Urine WBC (0-5/HPF) /HPF Ur Epithelial Cells (NOT SEEN) /HPF Amorphous Sediment (NOT SEEN) /HPF Urine Bacteria (0-FEW/HPF) /HPF Urine Mucus (NOT SEEN) /LPF Influenza Type A RNA Negative (NEGATIVE) Influenza Type B RNA Negative (NEGATIVE) SARS-CoV-2 RNA (HAZEL) Negative (NEGATIVE) 11/09/20 11/09/20 11/09/20 Range/Units 22:06 22:06 22:25 WBC (5.0-10.0) 10^3/uL RBC (4.2-5.4) 10^6/uL Hgb (12.0-16.0) g/dL Hct (37.0-47.0) % MCV (80-100) fL MCH (27.0-34.0) pg MCHC (33.0-35.0) g/dL Plt Count (150-450) 10^3/uL Neut % (Auto) (42.2-75.2) % Lymph % (Auto) (20.5-50.1) % [place] % (Auto) (2-8) % Eos % (Auto) (1.0-3.0) % Baso % (Auto) (0.0-1.0) % Sodium 136 (136-145) mmol/L Potassium 4.3 (3.5-5.1) mmol/L Chloride 102 (98-107) mmol/L Carbon Dioxide 28 (21-32) mmol/L Anion Gap 10.3 (7-13) mEq/L BUN 22 H (7-18) mg/dL Creatinine 1.68 H (0.55-1.02) mg/dL Est Cr Clr Drug Dosing 32.09 mL/min Estimated GFR (MDRD) 31 BUN/Creatinine Ratio 13.1 (No establ ref range) Glucose 190 H (74-99) mg/dL Lactic Acid 1.3 (0.4-2.0) mmol/L Calcium 8.9 (8.5-10.1) mg/dL Magnesium 1.8 (1.8-2.4) mg/dL Total Bilirubin 0.3 (0.2-1.0) mg/dL AST 49 H (15-37) U/L ALT 34 (14-59) U/L Alkaline Phosphatase 149 H (46-116) U/L Ammonia (11-32) umol/L Total Protein 8.2 (6.4-8.2) g/dL Albumin 2.5 L (3.4-5.0) g/dL Globulin 5.7 Albumin/Globulin Ratio 0.44 Urine Color Yellow (YELLOW) Urine Appearance Clear (CLEAR) Urine pH 7.0 (5.0-9.0) Ur Specific [place] 1.020 (1.005-1.030) Urine Protein Negative (NEGATIVE) Urine Glucose (UA) Negative (NEGATIVE) Urine Ketones Negative (NEGATIVE) Urine Occult Blood Negative (NEGATIVE) Urine Nitrite Negative (NEGATIVE) Urine Bilirubin Negative (NEGATIVE) Urine Urobilinogen 0.2 (0.2-1.0) mg/dL Ur Leukocyte Esterase Trace H (NEGATIVE) Urine RBC Not seen /HPF Urine WBC 5-10 H (0-5/HPF) /HPF Ur Epithelial Cells Few (NOT SEEN) /HPF Amorphous Sediment Rare (NOT SEEN) /HPF Urine Bacteria Rare (0-FEW/HPF) /HPF Urine Mucus Rare (NOT SEEN) /LPF Influenza Type A RNA (NEGATIVE) Influenza Type B RNA (NEGATIVE) SARS-CoV-2 RNA (HAZEL) (NEGATIVE) - Re-Assessments/Exams Free Text/Narrative Re-Assessment/Exam: 11/09/20 23:35 Patient reports son's girlfriend tested positive for COVID yesterday. Son transporting patient to and from OP therapy. TC Dr Tavarez. Patient admit to observation. 11/09/20 23:36 11/09/20 23:43 TC to son Clay with update. Reports COVID exposure date Saturday. Patient usual intake pain medication 2 per day and yesterday 6 or 7 doses. Departure - Departure Time of Disposition: 23:37 Disposition: Refer to Observation Condition: Fair Clinical Impression: Altered mental status, unspecified Qualifiers: Altered mental status type: unspecified Qualified Code(s): R41.82 - Altered mental status, unspecified Chronic pain Qualifiers: Chronic pain type: chronic pain syndrome Qualified Code(s): G89.4 - Chronic pain syndrome Osteomyelitis Qualifiers: Osteomyelitis type: unspecified type Osteomyelitis location: unspecified site Qualified Code(s): M86.9 - Osteomyelitis, unspecified - Discharge Information *PRESCRIPTION DRUG MONITORING PROGRAM REVIEWED*: No *COPY OF PRESCRIPTION DRUG MONITORING REPORT IN PATIENT SHARON: No Sepsis Event Note (ED) - Evaluation Sepsis Screening Result: No Definite Risk - Focused Exam Vital Signs: Vital Signs Temp Pulse Resp BP Pulse Ox 11/09/20 22:20 97.8 F 81 18 170/76 H 95 - My Orders Last 24 Hours: My Active Orders 11/09/20 21:40 Blood Culture x2 Reflex Set [OM.PC] Stat 11/09/20 21:43 Blood Glucose Check, Bedside [RC] ONETIME 11/09/20 21:56 CULTURE BLOOD [BC] Stat 11/09/20 22:06 CULTURE BLOOD [BC] Stat 11/09/20 22:25 CULTURE URINE [RM] Stat - Assessment/Plan Last 24 Hours: My Active Orders 11/09/20 21:40 Blood Culture x2 Reflex Set [OM.PC] Stat 11/09/20 21:43 Blood Glucose Check, Bedside [RC] ONETIME 11/09/20 21:56 CULTURE BLOOD [BC] Stat 11/09/20 22:06 CULTURE BLOOD [BC] Stat 11/09/20 22:25 CULTURE URINE [RM] Stat
--- NOTE | 2020-11-09 23:10 | CT ---
PROCEDURE INFORMATION: Exam: CT Head Without Contrast Exam date and time: 11/09/2020 10:47 PM Age: 65 years old Clinical indication: Altered mental status. TECHNIQUE: Imaging protocol: Computed tomography of the head without contrast. Radiation optimization: All CT scans at this facility use at least one of these dose optimization techniques: automated exposure control; mA and/or kV adjustment per patient size (includes targeted exams where dose is matched to clinical indication); or iterative reconstruction. COMPARISON: CT Head wo Cont 10/07/2020 3:57 PM FINDINGS: Brain: Age-related involutional changes and chronic microvascular ischemic disease. No evidence for acute transcortical infarct. No mass effect or midline shift. No extra-axial collection. No acute intracranial hemorrhage. Basal cisterns are patent. Cerebral ventricles: No ventriculomegaly. Bones/joints: Unremarkable. No acute fracture. Paranasal sinuses: Visualized sinuses are unremarkable. No fluid levels. Mastoid air cells: Visualized mastoid air cells are well aerated. Soft tissues: Unremarkable. IMPRESSION: No evidence for acute transcortical infarct, acute intracranial hemorrhage, or mass effect.
[2020-11-09 23:13] LABS: CORONAVIRUS COVID-19 NAA NEGATIVE (NEGATIVE)
[2020-11-10] MEDS ORDERED: Sodium Chloride 0.9% 10 ML Syringe FLUSH PRN (00:01)
[2020-11-10] MEDS ORDERED: Docusate Sodium 100 MG Cap PO PRN (00:06)
[2020-11-10] MEDS ORDERED: Naproxen 500 MG Tab PO ONE (03:31)
--- NOTE | 2020-11-10 04:20 | HP ---
CHIEF COMPLAINT: Altered mental status. HISTORY OF PRESENT ILLNESS: The patient is a 65-year-old female who was admitted through the emergency room because the patient while receiving outpatient antibiotic therapy for vertebral osteomyelitis seemed to be more lethargic and disoriented. It was reported that her dose of oxycodone was recently increased yesterday to 5 mg every 4 hours. Together with this oxycodone, she is also taking gabapentin. She was evaluated in the emergency room. She had some lab workup done and also a CAT scan of the head and basically lab workup was stable and unchanged from previous and CAT scan of the head is unremarkable. Because of the altered mental state, the patient was admitted for observation. REVIEW OF SYSTEMS: The patient denies any headache, chest pain, shortness of breath, abdominal pain, nausea, vomiting, fever, or chills. PAST MEDICAL HISTORY: Remarkable for this vertebral osteomyelitis and currently undergoing IV antibiotic therapy as an outpatient. She has also history of hypertension, dyslipidemia, asthma, chronic renal insufficiency, diabetes mellitus, obesity. HOME MEDICATIONS: Baclofen, Trulicity, Tresiba, loratadine, multivitamins, vitamin E, gabapentin, amitriptyline, calcium carbonate, famotidine, lactulose, lidocaine/Lidoderm patch, magnesium oxide, naproxen, potassium chloride, oxycodone, amlodipine, Coreg, and ceftaroline IV. FAMILY HISTORY: Noncontributory. SOCIAL HISTORY: The patient lives by herself. Nonsmoker, nonalcohol drinker. PHYSICAL EXAMINATION: General: The patient is alert, not in any acute distress. Vital Signs: Blood pressure is 170/76, pulse of 81, respirations of 18, temperature of 97.8, saturation is 95% on room air. SHEENT: Normocephalic. There are pink palpebral conjunctivae. Sclerae anicteric. Neck: No JVD. No lymphadenopathy. Heart: Regular rate and rhythm. Normal S1 and S2. No gallops. No rubs. Lungs: Equal bilaterally. No crackles. No wheezing. Abdomen: Soft, nontender. Bowel sounds positive. Extremities: Negative for any significant pedal edema. No calf tenderness. Neurologic: The patient is alert, but little bit slow to respond with occasional twitching spasm of the upper and lower extremities, but there are no lateralizing signs. LABORATORY WORKUP: CBC: WBC is 2.2, hemoglobin is 9.3, hematocrit is 28.1, platelets are 99 (stable). Comp panel: Creatinine is 1.68, glucose is 190, AST is 49, alkaline phosphatase is 149, albumin is 2.5. The rest of the panel unremarkable. Urinalysis: 5-10 wbc, otherwise unremarkable. CAT scan of the head is negative for any acute transcortical infarct or acute intracranial hemorrhage or mass effect. ADMITTING DIAGNOSES: 1. Altered mental status most likely secondary to the recent increased dose of oxycodone. 2. Vertebral osteomyelitis. 3. Chronic pain. 4. Type 2 diabetes mellitus. 5. Obesity. 6. Hypertension. PLAN OF TREATMENT: The patient is going to be admitted to observation. I am going to hold her oxycodone for now and we will resume her home medication and the rest of the management as necessary. [facility] /[id number]
[2020-11-10] MEDS: Acetaminophen 325 MG Tab PO PRN ×2 (05:09→08:50)
[2020-11-10] MEDS ORDERED: oxyCODONE 5 MG Tab PO ONE ×2 (06:02→12:45)
[2020-11-10] MEDS ORDERED: Naproxen 250 MG Tab PO SCH (08:00)
[2020-11-10] MEDS ORDERED: Carvedilol 6.25 MG Tab PO SCH (08:00)
[2020-11-10] MEDS: Baclofen 10 MG Tab PO SCH ×2 (08:21→13:52)
[2020-11-10] MEDS: Gabapentin 300 MG Cap PO SCH ×2 (08:22→13:52)
[2020-11-10] MEDS ORDERED: Lidocaine 5% 700 MG Patch TOP SCH (09:00)
[2020-11-10] MEDS ORDERED: Loratadine 10 MG Tab PO SCH (09:00)
[2020-11-10] MEDS ORDERED: amLODIPine 5 MG Tab PO SCH (09:00)
[2020-11-10] MEDS ORDERED: Multivitamins,Therapeutic Tab PO SCH (09:00)
[2020-11-10] MEDS ORDERED: Potassium Chloride 10 MEQ Tab.ER PO SCH (09:00)
[2020-11-10] MEDS ORDERED: Famotidine 20 MG Tab PO SCH (09:00)
[2020-11-10] MEDS ORDERED: Vitamin E (dl-alpha-tocopherol acetate) 400 Unit Cap PO SCH (09:00)
--- NOTE | 2020-11-10 10:33 | PN ---
DATE: 11/10/2020 SUBJECTIVE: The patient is a 65-year-old lady, who was admitted because of altered mental status secondary to overdosage of oxycodone. The patient did well overnight after we held her oxycodone except that she started again complaining of her chronic pain from her hips and low back, but she is much more alert. We did start her on oxycodone together with her gabapentin and baclofen last night, and this morning, she is doing well and she is back to her baseline. She denies any chest pain, shortness of breath, abdominal pain, nor any other complaints. OBJECTIVE: Vital Signs: Blood pressure is 129/95, pulse 76, respirations of 18, temperature of 98.2, saturation is 98% on room air. Heart: Regular rate and rhythm. Normal S1 and S2. No gallops. No rubs. Lungs: Equal bilaterally. No crackles. No wheezing. Abdomen: Moderately obese, soft, nontender. Bowel sounds positive. Extremities: Negative for any pedal edema. No calf tenderness. PLAN: We will discharge the patient home today after she gets her IV ceftaroline, and I am going to have her follow up with Manuel Dukes next week. The patient was also advised that I am going to cut down her oxycodone to 5 mg 4 times a day, the maximum dose for her right now. [facility] /[id number]
[2020-11-10] MEDS: oxyCODONE 5 MG Tab PO ONE ×2 (12:18→12:35)
[2020-11-10] MEDS ORDERED: Acetaminophen/HYDROcodone 325-5 MG Tab PO ONE (12:20)
--- NOTE | 2020-11-10 12:41 | DISCH ---
FINAL DIAGNOSES: 1. Altered mental status secondary to overdosage of oxycodone. 2. Vertebral osteomyelitis. 3. Chronic pain. 4. Type 2 diabetes mellitus. 5. Obesity. 6. Hypertension. BRIEF HISTORY OF PRESENT ILLNESS: The patient is a 65-year-old female who was admitted because of altered mental status secondary to overdosage of her oxycodone. PERTINENT LAB, X-RAY, AND OTHER TESTS: On admission, CBC; WBC is 2.2, hemoglobin is 19.3, hematocrit is 28.1, platelet is 99. Comp panel remarkable for creatinine 1.68, glucose of 190, AST of 49, alkaline phosphatase of 149, albumin is 2.5. Urinalysis has 5 to 10 wbc's, otherwise unremarkable. CAT scan of the head was unremarkable. HOSPITAL COURSE: The patient was admitted to observation. The patient's oxycodone was held during her stay and she was resumed on her home medication and the patient did well. She was feeling much better and much more alert, but she started complaining again of her chronic pain on her low back as well as her hips, so she was given 1 dose of oxycodone 5 mg x1, which helped with the pain but did not affect her mental status. Because of the above, the rest of the hospital course was unremarkable and she was subsequently discharged. She is going to follow up with Manuel Dukes next week and she was resumed on all of her home medication except that we are going to cut down her oxycodone to 5 mg 4 times a day, the maximum dose. [facility] /[id number]
== END 2020-11-10 14:30 | disposition home or self-care (01) ==
LOC: DL.ED 22:24 → DL.MS 23:27
PROVIDERS: ADMIT Internal Medicine; ATTEND Internal Medicine
DX: R41.82 Altered mental status, unspecified (principal); T40.2X1A Poisoning by other opioids, accidental (unintentional), initial encounter; M46.20 Osteomyelitis of vertebra, site unspecified; I12.9 Hypertensive chronic kidney disease with stage 1 through stage 4 chronic kidney disease, or unspecified chronic kidney disease; E11.22 Type 2 diabetes mellitus with diabetic chronic kidney disease; N18.9 Chronic kidney disease, unspecified; E11.42 Type 2 diabetes mellitus with diabetic polyneuropathy; E66.9 Obesity, unspecified; E78.00 Pure hypercholesterolemia, unspecified; J45.909 Unspecified asthma, uncomplicated; Z79.899 Other long term (current) drug therapy; G89.29 Other chronic pain; Z88.8 Allergy status to other drugs, medicaments and biological substances; Z88.2 Allergy status to sulfonamides; Z90.49 Acquired absence of other specified parts of digestive tract; Z20.822 Contact with and (suspected) exposure to COVID-19; Z20.828 Contact with and (suspected) exposure to other viral communicable diseases
CPT/HCPCS: 0240U; 36415; 70450; 80053; 81001; 82140; 82962; 83605; 83735; 85025; 87040; 87086; 87088; 87186; 96374; 99235; 99284; 99285; A9270; G0378; J0712; J7050; 99218

== ENCOUNTER 2021-04-04 08:45 | Inpatient (IN) | payer MEDICARE, OTHER ==
[2021-04-04] MEDS ORDERED: Ondansetron 4 MG Tab.DIS PO PRN (16:01)
[2021-04-04] MEDS ORDERED: 50% Dextrose in Water 50 ML Syringe IVPUSH PRN (16:04)
[2021-04-04] MEDS ORDERED: Glucagon,Human Recombinant 1 MG Vial IM PRN (16:04)
--- NOTE | 2021-04-04 16:10 | PCM.HP ---
H&P History of Present Illness - General Date of Service: 04/04/21 Admit Problem/Dx: Admission Diagnosis/Problem Admission Diagnosis/Problem Weakness Source of Information: Patient - History of Present Illness Initial Comments - Free Text/Narative: The patient is a 66-year-old female who is being admitted to swing bed status on this day of 12/03/2020 after being transferred from [facility] after undergoing L5-S1 anterior lumbar interbody fusion on March 27, 2021 for preoperative diagnosis of: Chronic bilateral low back pain without sciatica Spinal stenosis, lumbar region, with neurogenic claudication Spondylolisthesis of lumbar region Status post lumbar microdiscectomy At the present time the patient complains of 2 out of 10 back pain and 8 out of 10 left hip pain. She complains of paresthesias of bilateral lower extremities. She denies fever, rigors, nausea, vomiting, cough, wheeze, abdominal pain, diarrhea. She states that her last bowel movement was approximately 40 hours pr ior to hospitalization. She states that she has been tolerating p.o. well. She has been participating with physical therapy and Occupational Therapy at outside hospital. She presents for further evaluation - Related Data Allergies/Adverse Reactions: Allergies Allergy/AdvReac Type Severity Reaction Status Date / Time daptomycin Allergy Cannot Verified 04/04/21 12:26 Remember Zktpstj-Vfo-Sep Reductase Allergy Cannot Verified 04/04/21 12:26 Inhibitor Remember Sulfa (Sulfonamide Allergy Cannot Verified 04/04/21 12:26 Antibiotics) Remember vancomycin Allergy Other Verified 04/04/21 12:26 Home Medications: Home Meds Baclofen 10 mg PO TID 12/26/19 [History] Dulaglutide [Trulicity] 1.5 mg SQ WEEKLY 12/26/19 [History] Insulin Degludec [Tresiba] 20 units SQ BEDTIME 12/26/19 [History] Loratadine [Claritin] 10 mg PO DAILY 12/26/19 [History] Multivit,Calc,Mins/Iron/Folic [Thera-M] 1 tab PO DAILY 12/26/19 [History] Vitamin E (dl, acetate) [Vitamin E] 400 units PO DAILY 12/26/19 [History] Gabapentin [Neurontin] 300 mg PO TID 30 Days #90 cap 12/30/19 [Rx] Amitriptyline [Elavil] 50 mg PO BEDTIME 09/28/20 [History] Docusate Sodium [Colace] 100 mg PO BID PRN 09/28/20 [History] Famotidine 10 mg PO BID 09/28/20 [History] Magnesium Oxide [Magnesium] 400 mg PO DAILY 09/28/20 [History] Potassium Chloride 20 meq PO DAILY 09/28/20 [History] amLODIPine [Norvasc] 5 mg PO DAILY #30 tablet 10/31/20 [Rx] carvediloL [Coreg] 6.25 mg PO BIDMEALS 1 Days #60 tablet 10/31/20 [Rx] oxyCODONE 20 mg PO Q4H 11/15/20 [History] Acetaminophen [Tylenol] 650 mg PO Q6HR PRN 04/04/21 [History] Calcium Carbonate/Vitamin D3 [Calcium 600-Vit D3 200 Tablet] 1 tab PO DAILY 04/04/21 [History] Doxycycline [Vibra-Tabs] 100 mg PO BID 04/04/21 [History] diazePAM [Valium] 2 mg PO BID 04/04/21 [History] Past Medical History HEENT History: Reports: None, Impaired Vision Cardiovascular History: Reports: High Cholesterol, Hypertension Respiratory History: Reports: Asthma Other Respiratory History: Allergy Gastrointestinal History: Reports: GERD, Other (See Below) Other Gastrointestinal History: ESOPHAGITIS Genitourinary History: Reports: Chronic Renal Insuffiency FIELD SPECIALIST History: Reports: Musculoskeletal History: Reports: Arthritis, Back Pain, Chronic, Osteoporosis Neurological History: Reports: Neuropathy, Peripheral, Other (See Below) Other Neuro History: NEUROMUSCULAR DISORDER Psychiatric History: Reports: Depression Endocrine/Metabolic History: Reports: Diabetes, Type II, Obesity/BMI 30+ Hematologic History: Reports: Blood Transfusion(s) Immunologic History: Reports: None Oncologic (Cancer) History: Reports: None Dermatologic History: Reports: Cellulitis - Infectious Disease History Infectious Disease History: Reports: Chicken Pox, Measles, MRSA, Mumps, Rubella - Past Surgical History Head Surgeries/Procedures: Reports: None HEENT Surgical History: Reports: None Cardiovascular Surgical History: Reports: None Respiratory Surgical History: Reports: None GI Surgical History: Reports: Cholecystectomy, Colonoscopy Female Surgical History: Reports: Hysterectomy, Tubal Ligation, Other (See Below) Other Female Surgeries/Procedures: DE. LIGATE FALLOPIAN TUBE Endocrine Surgical History: Reports: None Musculoskeletal Surgical History: Reports: Arthroscopic Knee, Other (See Below) Other Musculoskeletal Surgeries/Procedures:: HX OF LUMBAR SURGERY. Left KNEE ARTHROSCOPY Social & Family History - Family History Family Medical History: No Pertinent Family History - Tobacco Use Tobacco Use Status *Q: Former Tobacco User Used Tobacco, but Quit: Yes Month/Year Tobacco Last Used: 2010 Second Hand Smoke Exposure: No - Caffeine Use Caffeine Use: Reports: Coffee, Soda Caffeine Use Comment: 12 oz daily - Recreational Drug Use Recreational Drug Use: No H&P Review of Systems - Review of Systems: Review Of Systems: See Below General: Reports: No Symptoms HEENT: Reports: No Symptoms Pulmonary: Reports: No Symptoms Cardiovascular: Reports: No Symptoms Gastrointestinal: Reports: No Symptoms Genitourinary: Reports: No Symptoms Musculoskeletal: Reports: Back Pain Skin: Reports: No Symptoms Psychiatric: Reports: No Symptoms Neurological: Reports: No Symptoms Hematologic/Lymphatic: Reports: No Symptoms Immunologic: Reports: No Symptoms Exam - Exam Exam: See Below - Vital Signs Vital Signs: Last Vital Signs Temp 97.2 F 04/04/21 15:50 Pulse 92 04/04/21 15:50 Resp 18 04/04/21 15:50 BP 109/89 04/04/21 15:50 Pulse Ox 93 L 04/04/21 15:50 Weight: 228 lb 9.6 oz - Exam General: Alert, Oriented, 4 HEENT: PERRLA, Hearing Intact, Mucosa Moist & Tensed, Nares Patent, Normal Nasal Septum, Posterior Pharynx Clear, Conjunctiva Clear, EOMI, EACs Clear, TMs Clear Neck: Supple, Trachea Midline, 2 Lungs: Clear to Auscultation, Normal Respiratory Effort Cardiovascular: Regular Rate, Regular Rhythm GI/Abdominal Exam: Normal Bowel Sounds, Soft, Non-Tender, No Organomegaly, No Distention, No Abnormal Bruit, No Mass, Pelvis Stable Extremities: Normal Inspection, Normal Range of Motion, Non-Tender, No Pedal Edema, Normal Capillary Refill Skin: Warm, Dry, Intact Neurological: Cranial Nerves Intact, Reflexes Equal Bilateral Neuro Extensive - Mental Status: Alert, Oriented x3, Normal Mood/Affect, Normal Cognition Neuro Extensive - Motor, Sensory, Reflexes: CN II-XII Intact, Normal Gait, Normal Reflexes Psychiatric: Alert (Patient complaining of back pain and left hip pain), Normal Affect, Normal Mood Problem List Initiated/Reviewed/Updated: Yes Orders Last 24hrs: Active Orders 24 hr Category Date Time Status Patient Status [ADT] Routine ADT 04/04/21 16:01 Ordered Antiembolic Devices [RC] PER UNIT ROUTINE Care 04/04/21 16:03 Ordered Blood Glucose Check, Bedside [RC] WITHMEALSANDBED Care 04/04/21 16:01 Ordered Oxygen Therapy [RC] PRN Care 04/04/21 16:01 Ordered Up With Assistance [RC] ASDIRECTED Care 04/04/21 16:01 Ordered Vital Signs [RC] QSHIFT Care 04/04/21 16:01 Ordered OT Evaluation and Treatment [CONS] Routine Cons 04/04/21 16:01 Ordered PT Evaluation and Treatment [CONS] Routine Cons 04/04/21 16:01 Ordered Consistent Carbohydrate Diet [DIET] Diet 04/04/21 Lunch Ordered CBC WITH AUTO DIFF [HEME] Routine Lab 04/04/21 16:03 Ordered CMP [COMPREHENSIVE METABOLIC PN,CMP] [CHEM] Routine Lab 04/04/21 16:03 Ordered INR,PT,PROTHROMBIN TIME [COAG] Routine Lab 04/04/21 16:04 Ordered PTT,PARTIAL THROMBOPLSTIN TIME [COAG] Routine Lab 04/04/21 16:04 Ordered Acetaminophen [TylenoL] Med 04/04/21 16:01 Ordered 650 mg PO Q4H PRN Amitriptyline [Elavil] Med 04/04/21 21:00 Ordered 50 mg PO BEDTIME Baclofen [Lioresal] Med 04/04/21 21:00 Ordered 10 mg PO TID Dextrose 50% in Water Med 04/04/21 16:04 Ordered 50 ml IVPUSH Q15M PRN Docusate Sodium [Colace] Med 04/04/21 15:53 Ordered 100 mg PO BID PRN Doxycycline Med 04/04/21 21:00 Ordered 100 mg PO BID Dulaglutide [Trulicity] Med 04/04/21 16:00 Ordered 1.5 mg SQ WEEKLY Famotidine [Famotidine] Med 04/04/21 21:00 Ordered 10 mg PO BID Gabapentin [Neurontin] Med 04/04/21 21:00 Ordered 300 mg PO TID Glucagon,Human Recombinant [GlucaGen] Med 04/04/21 16:04 Ordered 1 mg IM Q15M PRN Insulin Degludec [Tresiba] Med 04/04/21 21:00 Ordered 20 units SQ BEDTIME Insulin Lispro [HumaLOG] Med 04/04/21 18:00 Ordered See Protocol SUBCUT WITHMEALSANDBED Loratadine [Claritin] Med 04/05/21 09:00 Ordered 10 mg PO DAILY Magnesium Oxide [Magnesium] Med 04/05/21 09:00 Ordered 400 mg PO DAILY Multivitamins/Min/Ca/FA/Iron Med 04/05/21 09:00 Ordered 1 tab PO DAILY Ondansetron [Zofran ODT] Med 04/04/21 16:01 Ordered 4 mg PO Q4H PRN Potassium Chloride [Potassium Chloride] Med 04/05/21 09:00 Ordered 20 meq PO DAILY Vitamin E (dl, acetate) [Vitamin E] Med 04/05/21 09:00 Ordered 400 units PO DAILY amLODIPine [Norvasc] Med 04/05/21 09:00 Ordered 5 mg PO DAILY carvediloL [Coreg] Med 04/04/21 18:00 Ordered 6.25 mg PO BIDMEALS diazePAM [Valium] Med 04/04/21 16:00 Ordered 2 mg PO BID oxyCODONE Med 04/04/21 16:00 Ordered 20 mg PO Q4H Sequential Compression Device [OM.PC] Per Unit Routine Oth 04/04/21 16:02 Ordered Resuscitation Status Routine Resus Stat 04/04/21 16:01 Ordered Medication Orders Acetaminophen (Acetaminophen 325 Mg Tab) 650 mg PO Q4H PRN PRN Reason: Pain (Mild 1-3)/fever Amitriptyline HCl (Amitriptyline 50 Mg Tab) 50 mg PO BEDTIME [facility] Amlodipine Besylate (Amlodipine 5 Mg Tab) 5 mg PO DAILY [facility] Baclofen (Baclofen 10 Mg Tab) 10 mg PO TID [facility] Carvedilol (Carvedilol 6.25 Mg Tab) 6.25 mg PO BIDMEALS [facility] Diazepam (Diazepam 2 Mg Tab) 2 mg PO BID [facility] Docusate Sodium (Docusate Sodium 100 Mg Cap) 100 mg PO BID PRN PRN Reason: Constipation Gabapentin (Gabapentin 300 Mg Cap) 300 mg PO TID [facility] Loratadine (Loratadine 10 Mg Tab) 10 mg PO DAILY [facility] Non-Formulary Medication (Insulin Degludec [Tresiba]) 20 units SQ BEDTIME [facility] Non-Formulary Medication (Magnesium Oxide [Magnesium]) 400 mg PO DAILY [facility] Non-Formulary Medication (Multivitamins/Min/Ca/Fa/Iron) 1 tab PO DAILY [facility] Non-Formulary Medication (Potassium Chloride [Potassium Chloride]) 20 meq PO DAILY [facility] Non-Formulary Medication (Doxycycline) 100 mg PO BID [facility] Non-Formulary Medication (Dulaglutide [Trulicity]) 1.5 mg SQ WEEKLY [facility] Non-Formulary Medication (Famotidine [Famotidine]) 10 mg PO BID [facility] Ondansetron HCl (Ondansetron 4 Mg Tab.Dis) 4 mg PO Q4H PRN PRN Reason: nausea, able to take PO Oxycodone HCl (Oxycodone 5 Mg Tab) 20 mg PO Q4H [facility] Vitamin E (Vitamin E (Qa-Hfxpi-Oefpupbbwz Acetate) 400 Unit Cap) 400 units PO DAILY [facility] Assessment/Plan Comment:: The patient is a 66-year-old female who is being admitted to swing bed status on this day of 12/03/2020 after being transferred from [facility] after undergoing L5-S1 anterior lumbar interbody fusion on March 27, 2021 for preoperative diagnosis of: Chronic bilateral low back pain without sciatica Spinal stenosis, lumbar region, with neurogenic claudication Spondylolisthesis of lumbar region Status post lumbar microdiscectomy Physical therapy. Occupational Therapy. Oxycodone 20 mg p.o. every 4 hours. Doxycycline 1 mg p.o. twice daily with MD to be procured Narcotic dependence. Will monitor the patient closely Seasonal allergies. Claritin 10 mg p.o. daily Neuropathy. Amitriptyline 50 mg p.o. nightly plus gabapentin 300 mg p.o. 3 times daily Muscle spasm. Baclofen 10 mg p.o. 3 times daily Anxiety. Valium 2 mg p.o. twice daily Asthma Chronic pain. Oxycodone 20 mg p.o. every 4 hours History of iron deficiency Diabetes. Will check fasting glucose before every meal and at bedtime and provide insulin sign scale plus Trulicity 1.5 mg subcutaneously weekly plus Tresiba 20 units subcutaneously nightly GERD. Pepcid 10 mg p.o. twice daily Hyperlipidemia Hypertension. Norvasc 5 mg p.o. daily plus Coreg 6.25 mg p.o. twice daily Obesity. Patient be counseled regarding lifestyle agitation History of endocarditis Depression. Amitriptyline 50 mg p.o. nightly Hepatic steatosis Cirrhosis Constipation. Colace 100 mg p.o. twice daily Osteoarthritis Diverticulosis Osteoporosis Degenerative joint disease DVT prophylaxis. Bilateral SCD
[2021-04-04 16:46] LABS: ANION GAP 10.1 mEq/L (7-13)
[2021-04-04] MEDS: oxyCODONE 5 MG Tab PO SCH ×2 (16:49→19:53)
[2021-04-04] MEDS: Insulin Lispro 100 Units/ML 3 ML Vial SUBCUT SCH ×2 (17:18→21:11)
[2021-04-04] MEDS: Carvedilol 6.25 MG Tab PO SCH (18:34)
[2021-04-04] MEDS ORDERED: Insulin Glarg,Human.Rec.Analog 100 Unit/ML SUBCUT SCH (21:00)
[2021-04-04] MEDS: Famotidine 20 MG Tab PO SCH (21:08)
[2021-04-04] MEDS: Gabapentin 300 MG Cap PO SCH (21:08)
[2021-04-04] MEDS: Docusate Sodium 100 MG Cap PO PRN (21:08)
[2021-04-04] MEDS: Doxycycline Monohydrate 100 MG Cap PO SCH (21:08)
[2021-04-04] MEDS: Baclofen 10 MG Tab PO SCH (21:08)
[2021-04-04] MEDS: Acetaminophen 325 MG Tab PO PRN (21:34)
[2021-04-04] MEDS ORDERED: Amitriptyline 25 MG Tab ONE (22:06)
[2021-04-04] MEDS: Amitriptyline 25 MG Tab PO SCH (22:11)
[2021-04-05] MEDS: oxyCODONE 5 MG Tab PO SCH ×6 (00:02→20:56)
[2021-04-05] MEDS ORDERED: Acetaminophen 325 MG Tab PO ONE ×2 (02:05→06:05)
[2021-04-05] MEDS ORDERED: oxyCODONE 5 MG Tab PO ONE (04:00)
[2021-04-05] MEDS: Potassium Chloride 10 MEQ Tab.ER PO SCH (09:02)
[2021-04-05] MEDS: Famotidine 20 MG Tab PO SCH ×2 (09:02→21:03)
[2021-04-05] MEDS: Carvedilol 6.25 MG Tab PO SCH ×3 (09:03→18:09)
[2021-04-05] MEDS: Vitamin E (dl-alpha-tocopherol acetate) 400 Unit Cap PO SCH (09:03)
[2021-04-05] MEDS: Gabapentin 300 MG Cap PO SCH ×3 (09:03→21:02)
[2021-04-05] MEDS: Loratadine 10 MG Tab PO SCH (09:03)
[2021-04-05] MEDS: Multivitamins, Therapeutic with Minerals Tab PO SCH (09:03)
[2021-04-05] MEDS: Baclofen 10 MG Tab PO SCH ×3 (09:03→21:03)
[2021-04-05] MEDS: amLODIPine 5 MG Tab PO SCH (09:05)
[2021-04-05] MEDS: Doxycycline Monohydrate 100 MG Cap PO SCH ×2 (09:05→21:02)
[2021-04-05] MEDS: Insulin Lispro 100 Units/ML 3 ML Vial SUBCUT SCH ×4 (09:08→20:58)
[2021-04-05] MEDS: Diazepam 2 MG Tab PO SCH ×5 (09:31→21:03)
[2021-04-05] MEDS: Acetaminophen 325 MG Tab PO PRN ×4 (10:48→22:07)
[2021-04-05] MEDS: Docusate Sodium 100 MG Cap PO PRN ×2 (16:17→21:02)
[2021-04-05] MEDS: INSULIN DEGLUDEC 100 UNIT/ML SUBCUT SCH (21:00)
[2021-04-05] MEDS: Amitriptyline 25 MG Tab PO SCH (21:03)
[2021-04-06] MEDS: oxyCODONE 5 MG Tab PO SCH ×6 (00:17→20:31)
[2021-04-06] MEDS: Acetaminophen 325 MG Tab PO PRN ×2 (06:47→12:09)
[2021-04-06] MEDS: Doxycycline Monohydrate 100 MG Cap PO SCH ×2 (08:32→20:29)
[2021-04-06] MEDS: amLODIPine 5 MG Tab PO SCH (08:32)
[2021-04-06] MEDS: Multivitamins, Therapeutic with Minerals Tab PO SCH (08:32)
[2021-04-06] MEDS: Potassium Chloride 10 MEQ Tab.ER PO SCH (08:33)
[2021-04-06] MEDS: Diazepam 2 MG Tab PO SCH ×2 (08:33→20:29)
[2021-04-06] MEDS: Loratadine 10 MG Tab PO SCH (08:33)
[2021-04-06] MEDS: Vitamin E (dl-alpha-tocopherol acetate) 400 Unit Cap PO SCH (08:33)
[2021-04-06] MEDS: Baclofen 10 MG Tab PO SCH ×3 (08:34→20:31)
[2021-04-06] MEDS: Famotidine 20 MG Tab PO SCH ×2 (08:34→20:30)
[2021-04-06] MEDS: Gabapentin 300 MG Cap PO SCH ×3 (08:35→20:29)
[2021-04-06] MEDS: Carvedilol 6.25 MG Tab PO SCH ×2 (08:37→17:28)
[2021-04-06] MEDS: Insulin Lispro 100 Units/ML 3 ML Vial SUBCUT SCH ×4 (08:53→20:41)
[2021-04-06] MEDS: Docusate Sodium 100 MG Cap PO PRN ×2 (12:33→20:30)
[2021-04-06] MEDS: Amitriptyline 25 MG Tab PO SCH (20:30)
[2021-04-06] MEDS: INSULIN DEGLUDEC 100 UNIT/ML SUBCUT SCH (20:36)
[2021-04-07] MEDS: oxyCODONE 5 MG Tab PO SCH ×6 (00:05→21:53)
[2021-04-07] MEDS: Insulin Lispro 100 Units/ML 3 ML Vial SUBCUT SCH ×4 (08:30→22:07)
[2021-04-07] MEDS: Docusate Sodium 100 MG Cap PO PRN (08:50)
[2021-04-07] MEDS: Vitamin E (dl-alpha-tocopherol acetate) 400 Unit Cap PO SCH (08:51)
[2021-04-07] MEDS: amLODIPine 5 MG Tab PO SCH (08:51)
[2021-04-07] MEDS: Gabapentin 300 MG Cap PO SCH ×3 (08:51→21:50)
[2021-04-07] MEDS: Baclofen 10 MG Tab PO SCH ×3 (08:51→21:53)
[2021-04-07] MEDS: Loratadine 10 MG Tab PO SCH (08:51)
[2021-04-07] MEDS: Multivitamins, Therapeutic with Minerals Tab PO SCH (08:51)
[2021-04-07] MEDS: Diazepam 2 MG Tab PO SCH ×2 (08:52→21:53)
[2021-04-07] MEDS: Doxycycline Monohydrate 100 MG Cap PO SCH ×2 (08:52→21:50)
[2021-04-07] MEDS: Carvedilol 6.25 MG Tab PO SCH ×2 (08:52→18:32)
[2021-04-07] MEDS: Famotidine 20 MG Tab PO SCH ×2 (08:52→21:51)
[2021-04-07] MEDS: Potassium Chloride 10 MEQ Tab.ER PO SCH (08:52)
[2021-04-07] MEDS: Acetaminophen 325 MG Tab PO PRN (10:37)
[2021-04-07] MEDS: Amitriptyline 25 MG Tab PO SCH (21:51)
[2021-04-07] MEDS: INSULIN DEGLUDEC 100 UNIT/ML SUBCUT SCH (22:09)
[2021-04-08] MEDS: oxyCODONE 5 MG Tab PO SCH ×6 (00:55→20:36)
[2021-04-08] MEDS ORDERED: DULAGLUTIDE 1.5 MG/0.5 ML SUBCUT SCH (09:00)
[2021-04-08] MEDS: Baclofen 10 MG Tab PO SCH ×3 (09:09→20:34)
[2021-04-08] MEDS: Doxycycline Monohydrate 100 MG Cap PO SCH ×2 (09:09→20:34)
[2021-04-08] MEDS: Potassium Chloride 10 MEQ Tab.ER PO SCH (09:09)
[2021-04-08] MEDS: Vitamin E (dl-alpha-tocopherol acetate) 400 Unit Cap PO SCH (09:09)
[2021-04-08] MEDS: Multivitamins, Therapeutic with Minerals Tab PO SCH (09:09)
[2021-04-08] MEDS: Loratadine 10 MG Tab PO SCH (09:10)
[2021-04-08] MEDS: Famotidine 20 MG Tab PO SCH ×2 (09:10→20:35)
[2021-04-08] MEDS: Gabapentin 300 MG Cap PO SCH ×3 (09:11→20:35)
[2021-04-08] MEDS: Diazepam 2 MG Tab PO SCH ×2 (09:11→20:35)
[2021-04-08] MEDS: amLODIPine 5 MG Tab PO SCH (09:12)
[2021-04-08] MEDS: Carvedilol 6.25 MG Tab PO SCH ×2 (09:13→17:36)
[2021-04-08] MEDS: Insulin Lispro 100 Units/ML 3 ML Vial SUBCUT SCH ×4 (09:16→21:03)
[2021-04-08] MEDS: Acetaminophen 325 MG Tab PO PRN (11:44)
[2021-04-08] MEDS: Amitriptyline 25 MG Tab PO SCH (20:35)
[2021-04-08] MEDS: INSULIN DEGLUDEC 100 UNIT/ML SUBCUT SCH (21:05)
[2021-04-09] MEDS: oxyCODONE 5 MG Tab PO SCH ×6 (00:24→20:42)
[2021-04-09] MEDS: Acetaminophen 325 MG Tab PO PRN ×2 (07:52→13:45)
[2021-04-09] MEDS: Insulin Lispro 100 Units/ML 3 ML Vial SUBCUT SCH ×4 (08:07→21:01)
[2021-04-09] MEDS: Potassium Chloride 10 MEQ Tab.ER PO SCH (08:58)
[2021-04-09] MEDS: Vitamin E (dl-alpha-tocopherol acetate) 400 Unit Cap PO SCH (08:58)
[2021-04-09] MEDS: Doxycycline Monohydrate 100 MG Cap PO SCH ×2 (08:59→20:45)
[2021-04-09] MEDS: Loratadine 10 MG Tab PO SCH (08:59)
[2021-04-09] MEDS: Multivitamins, Therapeutic with Minerals Tab PO SCH (08:59)
[2021-04-09] MEDS: Baclofen 10 MG Tab PO SCH ×3 (08:59→20:45)
[2021-04-09] MEDS: Famotidine 20 MG Tab PO SCH ×2 (08:59→20:46)
[2021-04-09] MEDS: Gabapentin 300 MG Cap PO SCH ×3 (09:00→20:45)
[2021-04-09] MEDS: amLODIPine 5 MG Tab PO SCH (09:01)
[2021-04-09] MEDS: Carvedilol 6.25 MG Tab PO SCH ×2 (09:01→17:15)
[2021-04-09] MEDS: Diazepam 2 MG Tab PO SCH ×2 (09:01→20:45)
[2021-04-09] MEDS: Amitriptyline 25 MG Tab PO SCH (20:45)
[2021-04-09] MEDS: INSULIN DEGLUDEC 100 UNIT/ML SUBCUT SCH (21:03)
[2021-04-10] MEDS: oxyCODONE 5 MG Tab PO SCH ×3 (01:09→08:12)
[2021-04-10] MEDS: Insulin Lispro 100 Units/ML 3 ML Vial SUBCUT SCH ×2 (07:58→12:20)
[2021-04-10] MEDS: Potassium Chloride 10 MEQ Tab.ER PO SCH (08:09)
[2021-04-10] MEDS: Diazepam 2 MG Tab PO SCH (08:11)
[2021-04-10] MEDS: Vitamin E (dl-alpha-tocopherol acetate) 400 Unit Cap PO SCH (08:11)
[2021-04-10] MEDS: Loratadine 10 MG Tab PO SCH (08:11)
[2021-04-10] MEDS: amLODIPine 5 MG Tab PO SCH (08:11)
[2021-04-10] MEDS: Gabapentin 300 MG Cap PO SCH ×2 (08:11→14:22)
[2021-04-10] MEDS: Famotidine 20 MG Tab PO SCH (08:11)
[2021-04-10] MEDS: Doxycycline Monohydrate 100 MG Cap PO SCH (08:11)
[2021-04-10] MEDS: Baclofen 10 MG Tab PO SCH ×2 (08:11→14:22)
[2021-04-10] MEDS: Multivitamins, Therapeutic with Minerals Tab PO SCH (08:11)
[2021-04-10] MEDS: Carvedilol 6.25 MG Tab PO SCH (08:12)
--- NOTE | 2021-04-10 08:18 | PCM.PN ---
- General Info Date of Service: 04/10/21 Subjective Update: The patient complains of constipation. She indicates her last bowel movement was approximately 5 days prior to my encounter with her today. She states that she has been eating well. She indicates that she has been working with physical therapy/occupational therapy and is satisfied with her progression. She denies fever, although one was documented overnight. She denies rigors, vomiting, although she admits to an episode of nausea overnight. She denies abdominal pain, chest pain, dyspnea. I explained to the patient her current medical condition and plan of care and I have answered all of her questions - Review of Systems General: Reports: No Symptoms HEENT: Reports: No Symptoms Pulmonary: Reports: No Symptoms Cardiovascular: Reports: No Symptoms Gastrointestinal: Reports: No Symptoms Genitourinary: Reports: No Symptoms Musculoskeletal: Reports: No Symptoms Skin: Reports: No Symptoms Neurological: Reports: No Symptoms Psychiatric: Reports: No Symptoms - Patient Data Vitals - Most Recent: Last Vital Signs Temp 100.2 F 04/10/21 08:00 Pulse 55 L 04/10/21 08:12 Resp 20 04/10/21 08:00 BP 116/44 L 04/10/21 08:12 Pulse Ox 94 L 04/10/21 08:00 Weight - Most Recent: 228 lb 9.6 oz I&O - Last 24 Hours: Intake & Output 04/09/21 04/10/21 04/10/21 22:59 06:59 14:59 Intake Total 440 Balance 440 Lab Results Last 24 Hours: Laboratory Results - last 24 hr 04/09/21 04/09/21 04/09/21 Range/Units 11:40 16:31 20:54 POC Glucose 159 H 182 H 194 H (70-99) mg/dL Med Orders - Current: Current Medications Acetaminophen (Acetaminophen 325 Mg Tab) 650 mg PO Q4H PRN PRN Reason: Pain (Mild 1-3)/fever Last Admin: 04/09/21 13:45 Dose: 650 mg Documented by: Amitriptyline HCl (Amitriptyline 25 Mg Tab) 50 mg PO BEDTIME [facility] Last Admin: 04/09/21 20:45 Dose: 50 mg Documented by: Amlodipine Besylate (Amlodipine 5 Mg Tab) 5 mg PO DAILY [facility] Last Admin: 04/10/21 08:11 Dose: 5 mg Documented by: Baclofen (Baclofen 10 Mg Tab) 10 mg PO TID [facility] Last Admin: 04/10/21 08:11 Dose: 10 mg Documented by: Carvedilol (Carvedilol 6.25 Mg Tab) 6.25 mg PO BIDMEALS [facility] Last Admin: 04/10/21 08:12 Dose: 6.25 mg Documented by: Diazepam (Diazepam 2 Mg Tab) 2 mg PO BID [facility] Stop: 04/17/21 21:01 Last Admin: 04/10/21 08:11 Dose: 2 mg Documented by: Doxycycline Monohydrate (Doxycycline Monohydrate 100 Mg Cap) 100 mg PO BID [facility] Last Admin: 04/10/21 08:11 Dose: 100 mg Documented by: Famotidine (Famotidine 20 Mg Tab) 10 mg PO BID [facility] Last Admin: 04/10/21 08:11 Dose: 10 mg Documented by: Gabapentin (Gabapentin 300 Mg Cap) 300 mg PO TID [facility] Last Admin: 04/10/21 08:11 Dose: 300 mg Documented by: Glucagon (Glucagon,Human Recombinant 1 Mg Vial) 1 mg IM Q15M PRN PRN Reason: Hypoglycemia Insulin Human Lispro (Insulin Lispro 100 Units/Ml 3 Ml Vial) 0 unit SUBCUT WI THMEALSANDBED [facility]; Protocol Last Admin: 04/10/21 07:58 Dose: Not Given Documented by: Loratadine (Loratadine 10 Mg Tab) 10 mg PO DAILY [facility] Last Admin: 04/10/21 08:11 Dose: 10 mg Documented by: Magnesium Oxide (Magnesium Oxide 250 Mg Tab) 500 mg PO DAILY [facility] Last Admin: 04/10/21 08:09 Dose: 500 mg Documented by: Multivitamins/Minerals (Multivitamins, Therapeutic With Minerals Tab) 1 tab PO DAILY [facility] Last Admin: 04/10/21 08:11 Dose: 1 tab Documented by: Ondansetron HCl (Ondansetron 4 Mg Tab.Dis) 4 mg PO Q4H PRN PRN Reason: nausea, able to take PO Oxycodone HCl (Oxycodone 5 Mg Tab) 20 mg PO Q4H [facility] Last Admin: 04/10/21 08:12 Dose: 20 mg Documented by: Dulaglutide [ Trulicity] 1.5 Mg/0. 5 Ml Inj *Own Med* 0 each SUBCUT Sa@0900 [facility] Last Admin: 04/08/21 10:23 Dose: 1 each Documented by: Insulin Degludec [ Tresiba] 100 Units/Ml Inj *Own Med* 0 each SUBCUT BEDTIME [facility] Last Admin: 04/09/21 21:03 Dose: 1 each Documented by: Potassium Chloride (Potassium Chloride 10 Meq Tab.Er) 20 meq PO DAILY [facility] Last Admin: 04/10/21 08:09 Dose: 20 meq Documented by: Senna/Docusate Sodium (Docusate Sodium/Sennosides 50-8.6 Mg Tab) 2 tab PO BID [facility] Last Admin: 04/10/21 08:12 Dose: 2 tab Documented by: Vitamin E (Vitamin E (Xe-Ynxbk-Pllutwdjym Acetate) 400 Unit Cap) 400 units PO DAILY [facility] Last Admin: 04/10/21 08:11 Dose: 400 units Documented by: Discontinued Medications Acetaminophen (Acetaminophen 325 Mg Tab) 650 mg PO .STK-MED ONE Stop: 04/05/21 02:06 Acetaminophen (Acetaminophen 325 Mg Tab) 650 mg PO .STK-MED ONE Stop: 04/05/21 06:06 Amitriptyline HCl (Amitriptyline 50 Mg Tab) 50 mg PO BEDTIME [facility] Last Admin: 04/04/21 21:13 Dose: Not Given Documented by: Amitriptyline HCl (Amitriptyline 25 Mg Tab) Confirm Administered Dose 50 mg .ROUTE .STK-MED ONE Stop: 04/04/21 22:07 Last Admin: 04/04/21 23:15 Dose: Not Given Documented by: Dextrose/Water (50% Dextrose In Water 50 Ml Syringe) 50 ml IVPUSH Q15M PRN PRN Reason: Hypoglycemia Docusate Sodium (Docusate Sodium 100 Mg Cap) 100 mg PO BID PRN PRN Reason: Constipation Last Admin: 04/07/21 08:50 Dose: 100 mg Documented by: Insulin Glargine (Insulin Glarg,Human.Rec.Analog 100 Unit/Ml) 20 unit SUBCUT BEDTIME [facility] Last Admin: 04/04/21 21:10 Dose: 20 units Documented by: Oxycodone HCl (Oxycodone 5 Mg Tab) 20 mg PO .STK-MED ONE Stop: 04/05/21 04:01 - Exam General: Alert, Oriented HEENT: Pupils Equal, Pupils Reactive, EOMI, Mucous Membr. Moist/[place] Neck: Supple Lungs: Clear to Auscultation, Normal Respiratory Effort Cardiovascular: Regular Rate, Regular Rhythm GI/Abdominal Exam: Normal Bowel Sounds, Soft, Non-Tender, No Organomegaly, No Distention, No Abnormal Bruit, No Mass, Pelvis Stable Extremities: Normal Inspection, Normal Range of Motion, Non-Tender, No Pedal Edema, Normal Capillary Refill Skin: Warm, Dry, Intact Wound/Incisions: Healing Well Neurological: No New Focal Deficit Psy/Mental Status: Alert, Normal Affect, Normal Mood - Patient Data Lab Results Last 24 hrs: Laboratory Results - last 24 hr 04/09/21 04/09/21 04/09/21 Range/Units 11:40 16:31 20:54 POC Glucose 159 H 182 H 194 H (70-99) mg/dL Result Diagrams: 04/04/21 16:20 04/04/21 16:20 Sepsis Event Note - Evaluation Sepsis Screening Result: No Definite Risk - Focused Exam Vital Signs: Vital Signs Temp Pulse Pulse Resp BP BP Pulse Ox 04/10/21 08:12 55 L 116/44 L 04/10/21 08:11 116/44 L 04/10/21 08:00 100.2 F 52 L 20 116/44 L 94 L 04/09/21 22:19 98.6 F 82 20 118/61 93 L - Problem List Review Problem List Initiated/Reviewed/Updated: Yes - My Orders Last 24 Hours: My Active Orders 04/10/21 08:15 URINALYSIS W/MICROSCOPIC [UA W/MICROSCOPIC] [URIN] Routine 04/10/21 09:00 Magnesium Hydroxide [Milk of Magnesia] 30 ml PO BID - Plan Plan:: The patient is a 66-year-old female who is being admitted to swing bed status on this day of 12/03/2020 after being transferred from [facility] after undergoing L5-S1 anterior lumbar interbody fusion on March 27, 2021 for preoperative diagnosis of: Chronic bilateral low back pain without sciatica Spinal stenosis, lumbar region, with neurogenic claudication Spondylolisthesis of lumbar region Status post lumbar microdiscectomy Physical therapy. Occupational Therapy. Oxycodone 20 mg p.o. every 4 hours. Doxycycline 1 mg p.o. twice daily with MD to be procured Narcotic seeking behavior Narcotic dependence. Will monitor the patient closely Seasonal allergies. Claritin 10 mg p.o. daily Chronic kidney disease Pancytopenia with borderline iron deficiency. Outpatient follow-up with hematology/oncology upon discharge Neuropathy. Amitriptyline 50 mg p.o. nightly plus gabapentin 300 mg p.o. 3 times daily Muscle spasm. Baclofen 10 mg p.o. 3 times daily Anxiety. Valium 2 mg p.o. twice daily Asthma Chronic pain. Oxycodone 20 mg p.o. every 4 hours History of iron deficiency Diabetes. Will check fasting glucose before every meal and at bedtime and provide insulin sign scale plus Trulicity 1.5 mg subcutaneously weekly plus Tresiba 20 units subcutaneously nightly GERD. Pepcid 10 mg p.o. twice daily Hyperlipidemia Hypertension. Norvasc 5 mg p.o. daily plus Coreg 6.25 mg p.o. twice daily Obesity. Patient be counseled regarding lifestyle agitation History of endocarditis Depression. Amitriptyline 50 mg p.o. nightly Hepatic steatosis Cirrhosis Constipation. Colace/senna: 2 tabs p.o. twice daily plus milk of magnesia 30 mL p.o. twice daily Osteoarthritis Diverticulosis Osteoporosis Degenerative joint disease DVT prophylaxis. Bilateral SCD
[2021-04-10] MEDS ORDERED: Magnesium Hydroxide 400 MG/5 ML Susp 30 ML Cup PO PRN (08:23)
[2021-04-10] MEDS ORDERED: Magnesium Hydroxide 400 MG/5 ML Susp 30 ML Cup PO SCH (09:00)
[2021-04-10] MEDS ORDERED: Piperacillin/Tazobactam 3.375 GM in Sodium Chloride 0.9% 100 ML IV SCH (09:45)
[2021-04-10] MEDS: Acetaminophen 325 MG Tab PO PRN ×2 (10:39→15:44)
[2021-04-10] MEDS ORDERED: Meropenem 1 GM in Sodium Chloride 0.9% 100 ML IV SCH (11:00)
--- NOTE | 2021-04-10 11:55 | CT ---
PROCEDURE INFORMATION: Exam: CT Lumbar Spine Without Contrast Exam date and time: 04/10/2021 10:28 AM Age: 66 years old Clinical indication: Low back pain; Prior surgery TECHNIQUE: Imaging protocol: Computed tomography images of the lumbar spine without contrast. Radiation optimization: All CT scans at this facility use at least one of these dose optimization techniques: automated exposure control; mA and/or kV adjustment per patient size (includes targeted exams where dose is matched to clinical indication); or iterative reconstruction. COMPARISON: MR Lumbar Spine Comp w wo Cont 11/29/2020 11:04 AM FINDINGS: Vertebrae: Since the MRI of 11/29/2020 there is new bone grafting and metallic fixation at the L5-S1 interspace and new posterior adrienne and pedicle screw fixation with bone grafting of L3 through S1. The pedicle screws are bilaterally at L3 and S1 but absent from L4 and L5. There is marked lucency about the right L3 pedicle screw. The left L3 pedicle screw projects through the anterior superior endplate of L3. The bilateral S1 pedicle screws appear in good position without surrounding lucency. Again seen are marked destructive changes about the L4-L5 interspace. Allowing for differences in technique, this appears similar to the MRI of 11/29/2020. There are new laminectomies at L4 and L5. Screw tract in the left superior L4 vertebral body. L1-L2: No significant disc protrusion. No severe spinal canal stenosis. No significant neural foraminal narrowing. L2-L3: Generalized disc bulge. No severe spinal canal stenosis. No significant neural foraminal narrowing. L3-L4: Metallic artifact obscures detail. Tiny pocket of gas projects in the region of the lateral recess on the right. The central canal is difficult to evaluate due to metallic artifact. The neural foramen appear grossly patent. L4-L5: Severe destructive changes about the L4-L5 interspace. Small fragments of ossification project along the posterior aspect of the spinal canal. Evaluation of spinal canal patency is limited due to metallic artifact. There is at least moderate bilateral foraminal narrowing.. L5-S1: New postoperative changes of discectomy with intervertebral bone grafting. Metallic artifact significantly obscures detail.. Gallbladder and bile ducts: Cholecystectomy. Soft tissues: Metallic artifact obscures detail. Fluid in the laminectomy bed and in the subcutaneous fat adjacent to the surgical staple line. IMPRESSION: 1. New postoperative changes of laminectomies L4-L5 and posterior adrienne and pedicle screw fusion L3 through S1 and of L5-S1 discectomy with bone grafting and metallic fixation of L5-S1 2. Marked lucency about the right L3 pedicle screw suspicious for loosening 3. Fluid in the laminectomy bed and extending into the subcutaneous fat adjacent to the surgical skin nidia. 4. Metallic artifact significantly obscures detail 5. Evaluation of patency of the central canal at L3-L4 through L5-S1 is severely limited by metallic artifact
[2021-04-10] MEDS ORDERED: Levofloxacin/Dextrose 5%-Water 500 MG in Premix Bag 1 BAG IV SCH (12:00)
--- NOTE | 2021-04-10 13:31 | PCM.DCSUM1 ---
Discharge Summary - Hospital Course Free Text/Narrative:: START OF DOCTOR MICHELINEMILj DISCHARGE SUMMARY Date of Admission: April 04, 2021 Date of transfer: [facility] 5 PM on April 10, 2021 Primary Diagnosis: Patient status post admission on April 04, 2021 to [facility] bed for rehabilitation after being transferred from [facility] in [place], [place] after undergoing L5-S1 anterior lumbar interbody fusion on March 27, 2021 for postoperative diagnosis of: -Chronic bilateral low back pain without sciatica -Spondylolisthesis of lumbar region -Status post lumbar microdiscectomy The patient is being transferred back to [facility] at [facility] care of Dr. Jacobson, hospitalist for incision site erythema/cellulitis with CT demonstrating the following pertinent findings: -Marked lucency about the right L3 pedicle screw suspicious for loosening -Fluid in the laminectomy bed and extending into the subcutaneous fat adjacent to the surgical skin nidia Secondary Diagnosis: Narcotic dependence Narcotic seeking behavior Chronic pain Seasonal allergies Neuropathy Muscle spasm Anxiety Asthma Diabetes GERD Hyperlipidemia Hypertension Obesity History of endocarditis Depression Hepatic steatosis Cirrhosis Constipation Osteoarthritis Diverticulosis Osteoporosis Chronic kidney disease Pancytopenia with borderline iron deficiency Degenerative joint disease Consultations: None Condition on transfer: Fair the patient will be transferred to [place] Disposition: [facility] in [facility] care of , hospitalist. I discussed the patient with neurosurgery at this facility and it is recommended that they evaluate this patient upon transfer Upon discharge, the patient will require evaluation by hematology/oncology for pancytopenia with borderline iron deficiency Upon discharge, the patient will require referral to rehabilitation for narcotic dependence/narcotic seeking behavior Upon discharge, the patient should be referred to a pain management doctor for her chronic pain Transfer medications: Meropenem 1 g IV every 12 hours started on April 10, 2021 due to concern for lumbar incision site infection Levaquin 500 grams IV daily started on April 10, 2021 due to concern for lumbar site infection Vitamin E 400 units p.o. daily K-Dur 20 M EQ p.o. daily Oxycodone 5 mg p.o. every 6 hours which will need to be tapered Multivitamin 1 tab p.o. daily Magnesium oxide 400 mg p.o. daily Claritin 10 mg p.o. daily Insulin lispro subcutaneously before every meal and at bedtime per sliding scale Tresiba 20 units subcutaneously nightly Gabapentin 300 g p.o. 3 times daily Famotidine 10 mg p.o. twice daily Trulicity 1.5 mg subcutaneously q. Saturday Senna plus: 2 tabs p.o. twice daily Valium 2 mg p.o. twice daily Coreg 6.25 mg p.o. twice daily Baclofen 10 mg p.o. 3 times daily Norvasc 5 mg p.o. daily Amitriptyline 50 mg p.o. nightly Tylenol 650 mg p.o. every 4 hours as needed pain Calcium/vitamin D: 600 mg / 200 IU p.o. daily END OF DOCTOR EMAMIS DISCHARGE SUMMARY - Discharge Data Discharge Date: 04/10/21 Discharge Disposition: DC/Tfer to Acute Hospital 02 Condition: Fair - Referral to Home Health Primary Care Physician: Gordo Agustin NP - Patient Summary/Data Consults: Consultations 04/04/21 16:01 OT Evaluation and Treatment [CONS] Routine PT Evaluation and Treatment [CONS] Routine - Patient Instructions Diet: Heart Healthy Diet, Low Sodium, Diabetic Diet, Renal Diet Activity: Bedrest - Discharge Plan Home Medications: Home Meds Baclofen 10 mg PO TID 12/26/19 [History] Dulaglutide [Trulicity] 1.5 mg SQ SA 12/26/19 [History] Insulin Degludec [Tresiba] 20 units SQ BEDTIME 12/26/19 [History] Loratadine [Claritin] 10 mg PO DAILY 12/26/19 [History] Multivit,Calc,Mins/Iron/Folic [Thera-M] 1 tab PO DAILY 12/26/19 [History] Vitamin E (dl, acetate) [Vitamin E] 400 units PO DAILY 12/26/19 [History] Gabapentin [Neurontin] 300 mg PO TID 30 Days #90 cap 12/30/19 [Rx] Amitriptyline [Elavil] 50 mg PO BEDTIME 09/28/20 [History] Famotidine 10 mg PO BID 09/28/20 [History] Magnesium Oxide [Magnesium] 400 mg PO DAILY 09/28/20 [History] Potassium Chloride 20 meq PO DAILY 09/28/20 [History] amLODIPine [Norvasc] 5 mg PO DAILY #30 tablet 10/31/20 [Rx] carvediloL [Coreg] 6.25 mg PO BIDMEALS 1 Days #60 tablet 10/31/20 [Rx] Calcium Carbonate/Vitamin D3 [Calcium 600-Vit D3 200 Tablet] 1 tab PO DAILY 04/04/21 [History] diazePAM [Valium] 2 mg PO BID 04/04/21 [History] Acetaminophen [Tylenol] 650 mg PO Q4H PRN tablet 04/10/21 [Rx] Docusate Sodium/Sennosides [Senna Plus] 2 tab PO BID tablet 04/10/21 [Rx] Insulin Lispro [HumaLOG] 0 unit SUBCUT WITHMEALSANDBED vial 04/10/21 [Rx] Levofloxacin/Dextrose 5%-Water [Levaquin in D5W 500 MG/100 ML] 500 mg IV Q24H bag 04/10/21 [Rx] Meropenem [Merrem] 1 gm IV Q12HR sdv 04/10/21 [Rx] oxyCODONE 20 mg PO Q6H tablet 04/10/21 [Rx] Referrals: Gordo Agustin NP [Primary Care Provider] - - Discharge Summary/Plan Comment DC Time >30 min.: No - General Info Date of Service: 04/10/21 Functional Status: Reports: Pain Controlled - Review of Systems General: Reports: No Symptoms HEENT: Reports: No Symptoms Pulmonary: Reports: No Symptoms Cardiovascular: Reports: No Symptoms Gastrointestinal: Reports: No Symptoms Genitourinary: Reports: No Symptoms Musculoskeletal: Reports: Back Pain Skin: Reports: Other (Erythema of the lumbar incision site) Neurological: Reports: No Symptoms Psychiatric: Reports: No Symptoms - Patient Data Vitals - Most Recent: Last Vital Signs Temp 100.0 F 04/10/21 12:11 Pulse 55 L 04/10/21 08:12 Resp 20 04/10/21 08:00 BP 116/44 L 04/10/21 08:12 Pulse Ox 94 L 04/10/21 08:00 Weight - Most Recent: 228 lb 9.6 oz I&O - Last 24 hours: Intake & Output 04/09/21 04/10/21 04/10/21 22:59 06:59 14:59 Intake Total 440 240 Output Total 600 Balance 440 -360 Lab Results - Last 24 hrs: Laboratory Results - last 24 hr 04/09/21 04/09/21 04/10/21 Range/Units 16:31 20:54 09:30 WBC (5.0-10.0) 10^3/uL RBC (4.2-5.4) 10^6/uL Hgb (12.0-16.0) g/dL Hct (37.0-47.0) % MCV (80-100) fL MCH (27.0-34.0) pg MCHC (33.0-35.0) g/dL Plt Count (150-450) 10^3/uL Neut % (Auto) (42.2-75.2) % Lymph % (Auto) (20.5-50.1) % [place] % (Auto) (2-8) % Eos % (Auto) (1.0-3.0) % Baso % (Auto) (0.0-1.0) % POC Glucose 182 H 194 H (70-99) mg/dL Urine Color Yellow (YELLOW) Urine Appearance Cloudy (CLEAR) Urine pH 8.5 (5.0-9.0) Ur Specific [place] 1.020 (1.005-1.030) Urine Protein 30 H (NEGATIVE) Urine Glucose (UA) Negative (NEGATIVE) Urine Ketones Negative (NEGATIVE) Urine Occult Blood Small H (NEGATIVE) Urine Nitrite Positive H (NEGATIVE) Urine Bilirubin Negative (NEGATIVE) Urine Urobilinogen 0.2 (0.2-1.0) mg/dL Ur Leukocyte Esterase Large H (NEGATIVE) Urine RBC 0-5 /HPF Urine WBC 10-20 H (0-5/HPF) /HPF Ur Epithelial Cells Rare (NOT SEEN) /HPF Urine Bacteria Many H (0-FEW/HPF) /HPF Urine Mucus Not seen (NOT SEEN) /LPF 04/10/21 04/10/21 Range/Units 10:36 11:32 WBC 10.9 H (5.0-10.0) 10^3/uL RBC 3.39 L (4.2-5.4) 10^6/uL Hgb 10.5 L D (12.0-16.0) g/dL Hct 32.3 L (37.0-47.0) % MCV 95.3 (80-100) fL MCH 31.0 (27.0-34.0) pg MCHC 32.5 L (33.0-35.0) g/dL Plt Count 176 (150-450) 10^3/uL Neut % (Auto) 84.0 H (42.2-75.2) % Lymph % (Auto) 7.0 L (20.5-50.1) % [place] % (Auto) 7.4 (2-8) % Eos % (Auto) 1.3 (1.0-3.0) % Baso % (Auto) 0.3 (0.0-1.0) % POC Glucose 172 H (70-99) mg/dL Urine Color (YELLOW) Urine Appearance (CLEAR) Urine pH (5.0-9.0) Ur Specific [place] (1.005-1.030) Urine Protein (NEGATIVE) Urine Glucose (UA) (NEGATIVE) Urine Ketones (NEGATIVE) Urine Occult Blood (NEGATIVE) Urine Nitrite (NEGATIVE) Urine Bilirubin (NEGATIVE) Urine Urobilinogen (0.2-1.0) mg/dL Ur Leukocyte Esterase (NEGATIVE) Urine RBC /HPF Urine WBC (0-5/HPF) /HPF Ur Epithelial Cells (NOT SEEN) /HPF Urine Bacteria (0-FEW/HPF) /HPF Urine Mucus (NOT SEEN) /LPF DEBORAH Results - Last 24 hrs: Microbiology 04/10/21 10:36 Anaerobic Blood Culture - Final Blood - Arm, Left Med Orders - Current: Current Medications Acetaminophen (Acetaminophen 325 Mg Tab) 650 mg PO Q4H PRN PRN Reason: Pain (Mild 1-3)/fever Last Admin: 04/10/21 10:39 Dose: 650 mg Documented by: Amitriptyline HCl (Amitriptyline 25 Mg Tab) 50 mg PO BEDTIME [facility] Last Admin: 04/09/21 20:45 Dose: 50 mg Documented by: Amlodipine Besylate (Amlodipine 5 Mg Tab) 5 mg PO DAILY [facility] Last Admin: 04/10/21 08:11 Dose: 5 mg Documented by: Baclofen (Baclofen 10 Mg Tab) 10 mg PO TID [facility] Last Admin: 04/10/21 08:11 Dose: 10 mg Documented by: Carvedilol (Carvedilol 6.25 Mg Tab) 6.25 mg PO BIDMEALS [facility] Last Admin: 04/10/21 08:12 Dose: 6.25 mg Documented by: Diazepam (Diazepam 2 Mg Tab) 2 mg PO BID [facility] Stop: 04/17/21 21:01 Last Admin: 04/10/21 08:11 Dose: 2 mg Documented by: Doxycycline Monohydrate (Doxycycline Monohydrate 100 Mg Cap) 100 mg PO BID [facility] Last Admin: 04/10/21 08:11 Dose: 100 mg Documented by: Famotidine (Famotidine 20 Mg Tab) 10 mg PO BID [facility] Last Admin: 04/10/21 08:11 Dose: 10 mg Documented by: Gabapentin (Gabapentin 300 Mg Cap) 300 mg PO TID [facility] Last Admin: 04/10/21 08:11 Dose: 300 mg Documented by: Glucagon (Glucagon,Human Recombinant 1 Mg Vial) 1 mg IM Q15M PRN PRN Reason: Hypoglycemia Meropenem 1 gm/ Sodium (Chloride) 100 mls @ 200 mls/hr IV Q12HR [facility] Last Admin: 04/10/21 10:57 Dose: 200 mls/hr Documented by: Levofloxacin/Dextrose 500 mg/ (Premix) 100 mls @ 100 mls/hr IV Q24H [facility] Last Admin: 04/10/21 12:18 Dose: 100 mls/hr Documented by: Insulin Human Lispro (Insulin Lispro 100 Units/Ml 3 Ml Vial) 0 unit SUBCUT WITHMEALSANDBED [facility]; Protocol Last Admin: 04/10/21 12:20 Dose: 1 unit Documented by: Loratadine (Loratadine 10 Mg Tab) 10 mg PO DAILY [facility] Last Admin: 04/10/21 08:11 Dose: 10 mg Documented by: Magnesium Hydroxide (Magnesium Hydroxide 400 Mg/5 Ml Susp 30 Ml Cup) 30 ml PO Q12H PRN PRN Reason: Constipation Magnesium Oxide (Magnesium Oxide 250 Mg Tab) 500 mg PO DAILY [facility] Last Admin: 04/10/21 08:09 Dose: 500 mg Documented by: Multivitamins/Minerals (Multivitamins, Therapeutic With Minerals Tab) 1 tab PO DAILY [facility] Last Admin: 04/10/21 08:11 Dose: 1 tab Documented by: Ondansetron HCl (Ondansetron 4 Mg Tab.Dis) 4 mg PO Q4H PRN PRN Reason: nausea, able to take PO Oxycodone HCl (Oxycodone 5 Mg Tab) 20 mg PO Q6H [facility] Dulaglutide [ Trulicity] 1.5 Mg/0. 5 Ml Inj *Own Med* 0 each SUBCUT Sa@0900 [facility] Last Admin: 04/08/21 10:23 Dose: 1 each Documented by: Insulin Degludec [ Tresiba] 100 Units/Ml Inj *Own Med* 0 each SUBCUT BEDTIME [facility] Last Admin: 04/09/21 21:03 Dose: 1 each Documented by: Potassium Chloride (Potassium Chloride 10 Meq Tab.Er) 20 meq PO DAILY [facility] Last Admin: 04/10/21 08:09 Dose: 20 meq Documented by: Senna/Docusate Sodium (Docusate Sodium/Sennosides 50-8.6 Mg Tab) 2 tab PO BID [facility] Last Admin: 04/10/21 08:12 Dose: 2 tab Documented by: Vitamin E (Vitamin E (Sb-Gyshw-Hhigysnmqo Acetate) 400 Unit Cap) 400 units PO DAILY [facility] Last Admin: 04/10/21 08:11 Dose: 400 units Documented by: Discontinued Medications Acetaminophen (Acetaminophen 325 Mg Tab) 650 mg PO .STK-MED ONE Stop: 04/05/21 02:06 Acetaminophen (Acetaminophen 325 Mg Tab) 650 mg PO .STK-MED ONE Stop: 04/05/21 06:06 Amitriptyline HCl (Amitriptyline 50 Mg Tab) 50 mg PO BEDTIME [facility] Last Admin: 04/04/21 21:13 Dose: Not Given Documented by: Amitriptyline HCl (Amitriptyline 25 Mg Tab) Confirm Administered Dose 50 mg .ROUTE .STK-MED ONE Stop: 04/04/21 22:07 Last Admin: 04/04/21 23:15 Dose: Not Given Documented by: Dextrose/Water (50% Dextrose In Water 50 Ml Syringe) 50 ml IVPUSH Q15M PRN PRN Reason: Hypoglycemia Docusate Sodium (Docusate Sodium 100 Mg Cap) 100 mg PO BID PRN PRN Reason: Constipation Last Admin: 04/07/21 08:50 Dose: 100 mg Documented by: Insulin Glargine (Insulin Glarg,Human.Rec.Analog 100 Unit/Ml) 20 unit SUBCUT BEDTIME [facility] Last Admin: 04/04/21 21:10 Dose: 20 units Documented by: Magnesium Hydroxide (Magnesium Hydroxide 400 Mg/5 Ml Susp 30 Ml Cup) 30 ml PO BID [facility] Oxycodone HCl (Oxycodone 5 Mg Tab) 20 mg PO Q4H [facility] Last Admin: 04/10/21 08:12 Dose: 20 mg Documented by: Oxycodone HCl (Oxycodone 5 Mg Tab) 20 mg PO .STK-MED ONE Stop: 04/05/21 04:01 - Exam General: Reports: Alert, Oriented HEENT: Reports: Pupils Equal, Pupils Reactive, EOMI, Mucous Membr. Moist/[place] Neck: Reports: Supple Lungs: Reports: Clear to Auscultation, Normal Respiratory Effort Cardiovascular: Reports: Regular Rate, Regular Rhythm GI/Abdominal Exam: Normal Bowel Sounds, Soft, Non-Tender, No Organomegaly, No Distention, No Abnormal Bruit, No Mass, Pelvis Stable Back Exam: Reports: Muscle Spasm, Vertebral Tenderness Extremities: Normal Inspection, Normal Range of Motion, Non-Tender, No Pedal Edema, Normal Capillary Refill Skin: Reports: Rash Wound/Incisions: Reports: Erythema Neurological: Reports: No New Focal Deficit Psy/Mental Status: Reports: Alert, Normal Affect, Normal Mood
[2021-04-10] MEDS ORDERED: oxyCODONE 5 MG Tab PO SCH (14:00)
== END 2021-04-10 17:00 | DRG 948 ==
LOC: EEVIPCON 15:15 → DL.MS 15:15
PROVIDERS: ADMIT Internal Medicine; ATTEND Internal Medicine
DX: R53.1 Weakness (principal); D61.818 Other pancytopenia; M54.5 Low back pain; M43.16 Spondylolisthesis, lumbar region; G89.29 Other chronic pain; F41.9 Anxiety disorder, unspecified; J45.909 Unspecified asthma, uncomplicated; K21.9 Gastro-esophageal reflux disease without esophagitis; E78.5 Hyperlipidemia, unspecified; I10 Essential (primary) hypertension; E66.9 Obesity, unspecified; F32.9 Major depressive disorder, single episode, unspecified; K76.0 Fatty (change of) liver, not elsewhere classified; K74.60 Unspecified cirrhosis of liver; K59.00 Constipation, unspecified; M19.90 Unspecified osteoarthritis, unspecified site; M81.0 Age-related osteoporosis without current pathological fracture; K57.90 Diverticulosis of intestine, part unspecified, without perforation or abscess without bleeding; N18.9 Chronic kidney disease, unspecified; D50.9 Iron deficiency anemia, unspecified; H54.7 Unspecified visual loss; E78.00 Pure hypercholesterolemia, unspecified; Z98.51 Tubal ligation status; Z88.1 Allergy status to other antibiotic agents; Z88.2 Allergy status to sulfonamides; Z98.1 Arthrodesis status; Z88.8 Allergy status to other drugs, medicaments and biological substances; Z79.4 Long term (current) use of insulin; Z79.899 Other long term (current) drug therapy; Z90.49 Acquired absence of other specified parts of digestive tract; Z87.891 Personal history of nicotine dependence; Z76.5 Malingerer [conscious simulation]; Z68.36 Body mass index [BMI] 36.0-36.9, adult
CPT/HCPCS: 36415; 72131; 80053; 81001; 82728; 82947; 83540; 83550; 85025; 85610; 85730; 87040; 87086; 87088; 87186; 97110-GP; 97116-GP; 97161-GP; 97166-GO; 97530-GO; 97535-GO; 99305; 99315; A9270-GY; J1815-GY; J1956; J2185

== ENCOUNTER 2021-05-31 16:35 | Observation (INO) | payer MEDICARE, OTHER ==
[2021-05-31] MEDS ORDERED: Sodium Chloride 0.9% 10 ML Syringe FLUSH PRN ×2 (16:47→20:23)
[2021-05-31 17:34] LABS: ANION GAP 10.8 mEq/L (7-13); CHLORIDE,CL 105 mmol/L (98-107); SODIUM,NA 144 mmol/L (136-145)
[2021-05-31 17:43] LABS: ACETAMINOPHEN 0 ug/mL (10-30 (Therapeutic))
[2021-05-31 17:44] LABS: AMPHETAMINES,URINE NEGATIVE (NEGATIVE); BARBITURATES,URINE NEGATIVE (NEGATIVE); BENZODIAZEPINE,URINE POSITIVE (NEGATIVE); MDMA (ECSTASY), URINE NEGATIVE (NEGATIVE); METHADONE,URINE NEGATIVE (NEGATIVE); METHAMPHETAMINES,URINE NEGATIVE (NEGATIVE); OPIATES,URINE NEGATIVE (NEGATIVE); OXYCODONE,URINE POSITIVE (NEGATIVE); PHENCYCLIDINE,URINE NEGATIVE (NEGATIVE); TCA,URINE POSITIVE (NEGATIVE)
--- NOTE | 2021-05-31 17:49 | CT ---
PROCEDURE INFORMATION: Exam: CT Head Without Contrast Exam date and time: 05/31/2021 5:40 PM Age: 66 years old Clinical indication: Altered mental status/memory loss; Confusion or disorientation TECHNIQUE: Imaging protocol: Computed tomography of the head without contrast. Radiation optimization: All CT scans at this facility use at least one of these dose optimization techniques: automated exposure control; mA and/or kV adjustment per patient size (includes targeted exams where dose is matched to clinical indication); or iterative reconstruction. COMPARISON: CT Head wo Cont 11/09/2020 10:47 PM FINDINGS: Brain: No hemorrhage. Unremarkable white matter. No mass effect. Cerebral ventricles: No ventriculomegaly. Paranasal sinuses: Visualized sinuses are unremarkable. No fluid levels. Mastoid air cells: Unremarkable. Bones/joints: Frontal hyperostosis. No acute fracture. Soft tissues: Unremarkable. IMPRESSION: No acute intracranial abnormality.
--- NOTE | 2021-05-31 19:04 | EDM.PDOC ---
Scribed by Breana Castro 05/31/21 [id number] for Duc Coulter MD ED HPI GENERAL MEDICAL PROBLEM - General Chief Complaint: Neuro Symptoms/Deficits Stated Complaint: AMBULANCE Time Seen by Provider: 05/31/21 16:40 Source of Information: Reports: Patient, EMS, Old Records, RN, RN Notes Reviewed History Limitations: Reports: No Limitations - History of Present Illness INITIAL COMMENTS - FREE TEXT/NARRATIVE: 66 y/o F found to be ams by neighbors. Pt was reportedly in her yard sitting in her wheelchair and slumped out of her chair. Her neighbors came and picked her up and put her back in her chair. Pt is diabetic and her neighbors checked her sugar and it was normal. Per EMS neighbors noticed that pt was not acting right and would not hold a conversation and appeared to have episodes where she would stare off into space. Neighbors called 911. 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 Pt is on OxyContin, amitriptyline, Gabapentin and others. Unknown if over use of medications is occurring. Pt denies over use of meds. Denies fever, cough, chills, drugs, etoh, cp, regan, db, abd pn, pelvic pn, diff voiding, extremity pain. Onset: Today Duration: Hour(s): Location: Reports: Generalized Worsens with: Reports: None - Related Data Allergies Allergy/AdvReac Type Severity Reaction Status Date / Time daptomycin Allergy Cannot Verified 04/04/21 12:26 Remember Lbmbwjg-[id number]-Kkq Reductase Allergy Cannot Verified 04/04/21 12:26 Inhibitor Remember Sulfa (Sulfonamide Allergy Cannot Verified 04/04/21 12:26 Antibiotics) Remember vancomycin Allergy Other Verified 04/04/21 12:26 Home Meds: Home Meds Baclofen 10 mg PO TID 12/26/19 [History] Dulaglutide [Trulicity] 1.5 mg SQ SA 12/26/19 [History] Insulin Degludec [Tresiba] 20 units SQ BEDTIME 12/26/19 [History] Loratadine [Claritin] 10 mg PO DAILY 12/26/19 [History] Multivit,Calc,Mins/Iron/Folic [Thera-M] 1 tab PO DAILY 12/26/19 [History] Vitamin E (dl, acetate) [Vitamin E] 400 units PO DAILY 12/26/19 [History] Gabapentin [Neurontin] 300 mg PO TID 30 Days #90 cap 12/30/19 [Rx] Amitriptyline [Elavil] 50 mg PO BEDTIME 09/28/20 [History] Famotidine 10 mg PO BID 09/28/20 [History] Magnesium Oxide [Magnesium] 400 mg PO DAILY 09/28/20 [History] Potassium Chloride 20 meq PO DAILY 09/28/20 [History] amLODIPine [Norvasc] 5 mg PO DAILY #30 tablet 10/31/20 [Rx] carvediloL [Coreg] 6.25 mg PO BIDMEALS 1 Days #60 tablet 10/31/20 [Rx] Calcium Carbonate/Vitamin D3 [Calcium 600-Vit D3 200 Tablet] 1 tab PO DAILY 04/04/21 [History] diazePAM [Valium] 2 mg PO BID 04/04/21 [History] Acetaminophen [Tylenol] 650 mg PO Q4H PRN tablet 04/10/21 [Rx] Docusate Sodium/Sennosides [Senna Plus] 2 tab PO BID tablet 04/10/21 [Rx] Insulin Lispro [HumaLOG] 0 unit SUBCUT WITHMEALSANDBED vial 04/10/21 [Rx] Levofloxacin/Dextrose 5%-Water [Levaquin in D5W 500 MG/100 ML] 500 mg IV Q24H bag 04/10/21 [Rx] Meropenem [Merrem] 1 gm IV Q12HR sdv 04/10/21 [Rx] oxyCODONE 20 mg PO Q6H tablet 04/10/21 [Rx] Past Medical History HEENT History: Reports: None, Impaired Vision Cardiovascular History: Reports: High Cholesterol, Hypertension Respiratory History: Reports: Asthma Other Respiratory History: Allergy Gastrointestinal History: Reports: GERD, Other (See Below) Other Gastrointestinal History: ESOPHAGITIS Genitourinary History: Reports: Chronic Renal Insuffiency 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: Musculoskeletal History: Reports: Arthritis, Back Pain, Chronic, Osteoporosis Neurological History: Reports: Neuropathy, Peripheral, Other (See Below) Other Neuro History: NEUROMUSCULAR DISORDER Psychiatric History: Reports: Depression Endocrine/Metabolic History: Reports: Diabetes, Type II, Obesity/BMI 30+ Hematologic History: Reports: Blood Transfusion(s) Immunologic History: Reports: None Oncologic (Cancer) History: Reports: None Dermatologic History: Reports: Cellulitis - Infectious Disease History Infectious Disease History: Reports: Chicken Pox, Measles, MRSA, Mumps, Rubella - Past Surgical History Head Surgeries/Procedures: Reports: None HEENT Surgical History: Reports: None Cardiovascular Surgical History: Reports: None Respiratory Surgical History: Reports: None GI Surgical History: Reports: Cholecystectomy, Colonoscopy Female Surgical History: Reports: Hysterectomy, Tubal Ligation, Other (See Below) Other Female Surgeries/Procedures: MT. LIGATE FALLOPIAN TUBE Endocrine Surgical History: Reports: None Musculoskeletal Surgical History: Reports: Arthroscopic Knee, Other (See Below) Other Musculoskeletal Surgeries/Procedures:: HX OF LUMBAR SURGERY. Left KNEE ARTHROSCOPY Social & Family History - Family History Family Medical History: No Pertinent Family History - Caffeine Use Caffeine Use: Reports: Coffee, Soda Caffeine Use Comment: 12 oz daily - Living Situation & Occupation Living situation: Reports: Alone ED ROS GENERAL - Review of Systems Review Of Systems: Comprehensive ROS is negative, except as noted in HPI. ED EXAM, NEURO - Physical Exam Exam: See Below Exam Limited By: Altered Mental Status General Appearance: Lethargic, Obese Eye Exam: Bilateral Eye: PERRL Ears: Normal External Exam, Normal Canal, Hearing Grossly Normal, Normal TMs Nose: Normal Inspection Throat/Mouth: Normal Inspection, Normal Lips, Normal Teeth, Normal Oropharynx Head Exam: Atraumatic, Normocephalic Neck: Normal Inspection, Supple, Non-Tender Respiratory/Chest: No Respiratory Distress, Lungs Clear Cardiovascular: Normal Peripheral Pulses, Regular Rate, Rhythm GI/Abdominal: Soft, Non-Tender (Female) Exam: Deferred Rectal (Female) Exam: Deferred Neurological: Other (Pt has episodes where she stares off into space but answers questions. Abnormal ahifting of the hips and reaching out with arms as well as abnormal leg movements.) Back Exam: Normal Inspection, Full Range of Motion Extremities: Normal Inspection Skin Exam: Warm, Dry, Intact #1 Interpretation EKG Date: 05/31/21 Time: 16:44 Rhythm: Other (SR) Rate (Beats/Min): 100 Crowley: Normal P-Wave: Present QRS: Normal ST-T: Normal QT: Normal Comparison: NA - No Prior EKG Course - Vital Signs Last Recorded V/S: Last Vital Signs Temp Pulse 104 H 05/31/21 16:45 Resp 18 05/31/21 16:45 BP 130/73 05/31/21 16:45 Pulse Ox 98 05/31/21 16:45 - Orders/Labs/Meds Orders: Active Orders 24 hr Category Date Time Status Blood Glucose Check, Bedside [RC] ONETIME Care 05/31/21 16:45 Active EKG 12 Lead [EKG Documentation Completion] [RC] STAT Care 05/31/21 16:46 Active Peripheral IV Care [RC] . DIRECTED Care 05/31/21 16:48 Active COVID-19/FLU A+B [MOLEC] Stat Lab 05/31/21 18:51 Ordered CULTURE BLOOD [BC] Stat Lab 05/31/21 16:55 Received Sodium Chloride 0.9% [Saline Flush] Med 05/31/21 16:47 Active 10 ml FLUSH ASDIRECTED PRN Blood Culture x2 Reflex Set [OM.PC] Stat Oth 05/31/21 16:47 Ordered Peripheral IV Insertion Adult [OM.PC] Routine Oth 05/31/21 16:46 Ordered Medication Orders Sodium Chloride (Sodium Chloride 0.9% 10 Ml Syringe) 10 ml FLUSH ASDIRECTED PRN PRN Reason: Keep Vein Open Labs: Laboratory Tests 05/31/21 05/31/21 05/31/21 Range/Units 16:43 16:55 16:55 WBC 3.3 L (5.0-10.0) 10^3/uL RBC 3.59 L (4.2-5.4) 10^6/uL Hgb 11.2 L (12.0-16.0) g/dL Hct 33.3 L (37.0-47.0) % MCV 92.8 (80-100) fL MCH 31.2 (27.0-34.0) pg MCHC 33.6 (33.0-35.0) g/dL Plt Count 85 L D (150-450) 10^3/uL Neut % (Auto) 62.5 (42.2-75.2) % Lymph % (Auto) 23.0 (20.5-50.1) % Montgomery % (Auto) 13.3 H (2-8) % Eos % (Auto) 0.9 L (1.0-3.0) % Baso % (Auto) 0.3 (0.0-1.0) % PT (9.0-12.0) SEC INR (0.9-1.2) APTT (22.0-34.0) SEC Sodium 144 (136-145) mmol/L Potassium 3.8 (3.5-5.1) mmol/L Chloride 105 (98-107) mmol/L Carbon Dioxide 32 (21-32) mmol/L Anion Gap 10.8 (7-13) mEq/L BUN 23 H (7-18) mg/dL Creatinine 1.25 H (0.55-1.02) mg/dL Est Cr Clr Drug Dosing TNP Estimated GFR (MDRD) 43 BUN/Creatinine Ratio 18.4 (No establ ref range) Glucose 116 H (70-99) mg/dL POC Glucose 112 H (70-99) mg/dL Lactic Acid (0.4-2.0) mmol/L Calcium 9.4 (8.5-10.1) mg/dL Magnesium 1.9 (1.8-2.4) mg/dL Total Bilirubin 0.5 (0.2-1.0) mg/dL AST 52 H (15-37) U/L ALT 36 (14-59) U/L Alkaline Phosphatase 223 H (46-116) U/L Ammonia (11-32) umol/L Troponin I High Sens 20 (<=51) pg/mL C-Reactive Protein 1.4 H (0.0-0.9) mg/dL Total Protein 7.3 (6.4-8.2) g/dL Albumin 2.8 L (3.4-5.0) g/dL Globulin 4.5 Albumin/Globulin Ratio 0.62 TSH, Ultra Sensitive 2.98 (0.36-3.74) uIU/mL Urine Color (YELLOW) Urine Appearance (CLEAR) Urine pH (5.0-9.0) Ur Specific [place] (1.005-1.030) Urine Protein (NEGATIVE) Urine Glucose (UA) (NEGATIVE) Urine Ketones (NEGATIVE) Urine Occult Blood (NEGATIVE) Urine Nitrite (NEGATIVE) Urine Bilirubin (NEGATIVE) Urine Urobilinogen (0.2-1.0) mg/dL Ur Leukocyte Esterase (NEGATIVE) Salicylates (2.8-20(Therapeutic)) mg/dL Urine Opiates Screen (NEGATIVE) Ur Oxycodone Screen (NEGATIVE) Urine Methadone Screen (NEGATIVE) Acetaminophen 0 L (10-30 (Therapeutic)) ug/mL Ur Barbiturates Screen (NEGATIVE) U Tricyclic Antidepress (NEGATIVE) Ur Phencyclidine Scrn (NEGATIVE) Ur Amphetamine Screen (NEGATIVE) U Methamphetamines Scrn (NEGATIVE) Urine MDMA Screen (NEGATIVE) U Benzodiazepines Scrn (NEGATIVE) Urine Cocaine Screen (NEGATIVE) U Marijuana (THC) Screen (NEGATIVE) Ethyl Alcohol < 3 (0) mg/dL 05/31/21 05/31/21 05/31/21 Range/Units 16:55 16:55 16:55 WBC (5.0-10.0) 10^3/uL RBC (4.2-5.4) 10^6/uL Hgb (12.0-16.0) g/dL Hct (37.0-47.0) % MCV (80-100) fL MCH (27.0-34.0) pg MCHC (33.0-35.0) g/dL Plt Count (150-450) 10^3/uL Neut % (Auto) (42.2-75.2) % Lymph % (Auto) (20.5-50.1) % Montgomery % (Auto) (2-8) % Eos % (Auto) (1.0-3.0) % Baso % (Auto) (0.0-1.0) % PT 12.6 H (9.0-12.0) SEC INR 1.3 H (0.9-1.2) APTT 26.0 (22.0-34.0) SEC Sodium (136-145) mmol/L Potassium (3.5-5.1) mmol/L Chloride (98-107) mmol/L Carbon Dioxide (21-32) mmol/L Anion Gap (7-13) mEq/L BUN (7-18) mg/dL Creatinine (0.55-1.02) mg/dL Est Cr Clr Drug Dosing Estimated GFR (MDRD) BUN/Creatinine Ratio (No establ ref range) Glucose (70-99) mg/dL POC Glucose (70-99) mg/dL Lactic Acid 1.4 (0.4-2.0) mmol/L Calcium (8.5-10.1) mg/dL Magnesium (1.8-2.4) mg/dL Total Bilirubin (0.2-1.0) mg/dL AST (15-37) U/L ALT (14-59) U/L Alkaline Phosphatase (46-116) U/L Ammonia 17 (11-32) umol/L Troponin I High Sens (<=51) pg/mL C-Reactive Protein (0.0-0.9) mg/dL Total Protein (6.4-8.2) g/dL Albumin (3.4-5.0) g/dL Globulin Albumin/Globulin Ratio TSH, Ultra Sensitive (0.36-3.74) uIU/mL Urine Color (YELLOW) Urine Appearance (CLEAR) Urine pH (5.0-9.0) Ur Specific [place] (1.005-1.030) Urine Protein (NEGATIVE) Urine Glucose (UA) (NEGATIVE) Urine Ketones (NEGATIVE) Urine Occult Blood (NEGATIVE) Urine Nitrite (NEGATIVE) Urine Bilirubin (NEGATIVE) Urine Urobilinogen (0.2-1.0) mg/dL Ur Leukocyte Esterase (NEGATIVE) Salicylates (2.8-20(Therapeutic)) mg/dL Urine Opiates Screen (NEGATIVE) Ur Oxycodone Screen (NEGATIVE) Urine Methadone Screen (NEGATIVE) Acetaminophen (10-30 (Therapeutic)) ug/mL Ur Barbiturates Screen (NEGATIVE) U Tricyclic Antidepress (NEGATIVE) Ur Phencyclidine Scrn (NEGATIVE) Ur Amphetamine Screen (NEGATIVE) U Methamphetamines Scrn (NEGATIVE) Urine MDMA Screen (NEGATIVE) U Benzodiazepines Scrn (NEGATIVE) Urine Cocaine Screen (NEGATIVE) U Marijuana (THC) Screen (NEGATIVE) Ethyl Alcohol (0) mg/dL 05/31/21 05/31/21 05/31/21 Range/Units 16:55 17:05 17:05 WBC (5.0-10.0) 10^3/uL RBC (4.2-5.4) 10^6/uL Hgb (12.0-16.0) g/dL Hct (37.0-47.0) % MCV (80-100) fL MCH (27.0-34.0) pg MCHC (33.0-35.0) g/dL Plt Count (150-450) 10^3/uL Neut % (Auto) (42.2-75.2) % Lymph % (Auto) (20.5-50.1) % Montgomery % (Auto) (2-8) % Eos % (Auto) (1.0-3.0) % Baso % (Auto) (0.0-1.0) % PT (9.0-12.0) SEC INR (0.9-1.2) APTT (22.0-34.0) SEC Sodium (136-145) mmol/L Potassium (3.5-5.1) mmol/L Chloride (98-107) mmol/L Carbon Dioxide (21-32) mmol/L Anion Gap (7-13) mEq/L BUN (7-18) mg/dL Creatinine (0.55-1.02) mg/dL Est Cr Clr Drug Dosing Estimated GFR (MDRD) BUN/Creatinine Ratio (No establ ref range) Glucose (70-99) mg/dL POC Glucose (70-99) mg/dL Lactic Acid (0.4-2.0) mmol/L Calcium (8.5-10.1) mg/dL Magnesium (1.8-2.4) mg/dL Total Bilirubin (0.2-1.0) mg/dL AST (15-37) U/L ALT (14-59) U/L Alkaline Phosphatase (46-116) U/L Ammonia (11-32) umol/L Troponin I High Sens (<=51) pg/mL C-Reactive Protein (0.0-0.9) mg/dL Total Protein (6.4-8.2) g/dL Albumin (3.4-5.0) g/dL Globulin Albumin/Globulin Ratio TSH, Ultra Sensitive (0.36-3.74) uIU/mL Urine Color Yellow (YELLOW) Urine Appearance Slightly cloudy (CLEAR) Urine pH 7.5 (5.0-9.0) Ur Specific [place] 1.020 (1.005-1.030) Urine Protein Negative (NEGATIVE) Urine Glucose (UA) Negative (NEGATIVE) Urine Ketones Negative (NEGATIVE) Urine Occult Blood Negative (NEGATIVE) Urine Nitrite Negative (NEGATIVE) Urine Bilirubin Negative (NEGATIVE) Urine Urobilinogen 0.2 (0.2-1.0) mg/dL Ur Leukocyte Esterase Negative (NEGATIVE) Salicylates < 2.8 L (2.8-20(Therapeutic)) mg/dL Urine Opiates Screen Negative (NEGATIVE) Ur Oxycodone Screen Positive H (NEGATIVE) Urine Methadone Screen Negative (NEGATIVE) Acetaminophen (10-30 (Therapeutic)) ug/mL Ur Barbiturates Screen Negative (NEGATIVE) U Tricyclic Antidepress Positive H (NEGATIVE) Ur Phencyclidine Scrn Negative (NEGATIVE) Ur Amphetamine Screen Negative (NEGATIVE) U Methamphetamines Scrn Negative (NEGATIVE) Urine MDMA Screen Negative (NEGATIVE) U Benzodiazepines Scrn Positive H (NEGATIVE) Urine Cocaine Screen Negative (NEGATIVE) U Marijuana (THC) Screen Negative (NEGATIVE) Ethyl Alcohol (0) mg/dL Meds: Medications Generic Name Dose Route Start Last Admin Trade Name Freq PRN Reason Stop Dose Admin Sodium Chloride 10 ml 05/31/21 16:47 Sodium Chloride 0.9% 10 Ml Syringe FLUSH ASDIRECTED PRN Keep Vein Open - Radiology Interpretation Free Text/Narrative:: [facility] Final Radiology Report Call: [phone] assistance Online chat: [email or web address] Name: SENG FLOWERS Age: 66Years F Date: 05/31/2021 SSN: -- : [id number] Study: CT HEAD WO CONT Requesting Physician: DUC COULTER Images: 141 Addl Studies: Provided Clinical History: Altered mental status Contrast: Without Contrast Medium: Contrast Amount: Contrast Method: CONFIDENTIALITY STATEMENT This report is intended only for use by the referring physician, and only in accordance with law. If you received this in error, call [phone]. Page 1 of 1 PROCEDURE INFORMATION: Exam: CT Head Without Contrast Exam date and time: 05/31/2021 5:40 PM Age: 66 years old Clinical indication: Altered mental status/memory loss; Confusion or disorientation TECHNIQUE: Imaging protocol: Computed tomography of the head without contrast. Radiation optimization: All CT scans at this facility use at least one of these dose optimization techniques: automated exposure control; mA and/or kV adjustment per patient size (includes targeted exams where dose is matched to clinical indication); or iterative reconstruction. COMPARISON: CT Head wo Cont 11/09/2020 10:47 PM FINDINGS: Brain: No hemorrhage. Unremarkable white matter. No mass effect. Cerebral ventricles: No ventriculomegaly. Paranasal sinuses: Visualized sinuses are unremarkable. No fluid levels. Mastoid air cells: Unremarkable. Bones/joints: Frontal hyperostosis. No acute fracture. Soft tissues: Unremarkable. IMPRESSION: No acute intracranial abnormality. Thank you for allowing us to participate in the care of your patient. Dictated and Authenticated by: Benjamin Mistry MD 05/31/2021 5:48 PM Central Time ([place] & [place]) - Re-Assessments/Exams Free Text/Narrative Re-Assessment/Exam: 05/31/21 18:54 Pt admitted with similar symptoms in 2020 which was attributed to medication effect. Today pt is positive on UDS for oxycodone, benzo, and tricyclics. Pt states she also took Gabapentin today. Departure - Departure Time of Disposition: 18:59 (admit to Dr. Gibson) Disposition: Refer to Observation Condition: Undetermined Clinical Impression: Altered mental status Qualifiers: Altered mental status type: disorientation Qualified Code(s): R41.0 - Disorientation, unspecified - Discharge Information *PRESCRIPTION DRUG MONITORING PROGRAM REVIEWED*: No *COPY OF PRESCRIPTION DRUG MONITORING REPORT IN PATIENT SHARON: No Forms: ED Department Discharge Sepsis Event Note (ED) - Focused Exam Vital Signs: Vital Signs Pulse Resp BP Pulse Ox 05/31/21 16:45 104 H 18 130/73 98 - My Orders Last 24 Hours: My Active Orders 05/31/21 16:45 Blood Glucose Check, Bedside [RC] ONETIME 05/31/21 16:46 EKG 12 Lead [EKG Documentation Completion] [RC] STAT Peripheral IV Insertion Adult [OM.PC] Routine 05/31/21 16:47 Sodium Chloride 0.9% [Saline Flush] 10 ml FLUSH ASDIRECTED PRN Blood Culture x2 Reflex Set [OM.PC] Stat 05/31/21 16:48 Peripheral IV Care [RC] . DIRECTED 05/31/21 16:55 CULTURE BLOOD [BC] Stat 05/31/21 18:51 COVID-19/FLU A+B [MOLEC] Stat - Assessment/Plan Last 24 Hours: My Active Orders 05/31/21 16:45 Blood Glucose Check, Bedside [RC] ONETIME 05/31/21 16:46 EKG 12 Lead [EKG Documentation Completion] [RC] STAT Peripheral IV Insertion Adult [OM.PC] Routine 05/31/21 16:47 Sodium Chloride 0.9% [Saline Flush] 10 ml FLUSH ASDIRECTED PRN Blood Culture x2 Reflex Set [OM.PC] Stat 05/31/21 16:48 Peripheral IV Care [RC] . DIRECTED 05/31/21 16:55 CULTURE BLOOD [BC] Stat 05/31/21 18:51 COVID-19/FLU A+B [MOLEC] Stat I have read and agree with the documentation that has been completed regarding this visit. By signing this record, I attest that the documentation was completed in my physical presence and is an accurate record of the encounter.
[2021-05-31 19:45] LABS: CORONAVIRUS COVID-19 NAA NEGATIVE (NEGATIVE)
[2021-05-31] MEDS ORDERED: Acetaminophen 325 MG Tab PO PRN (20:23)
[2021-05-31] MEDS ORDERED: Ondansetron 4 MG/2 ML SDV IVPUSH PRN (20:23)
[2021-05-31] MEDS ORDERED: 50% Dextrose in Water 50 ML Syringe IVPUSH PRN (20:26)
[2021-05-31] MEDS ORDERED: Glucagon,Human Recombinant 1 MG Vial IM PRN (20:26)
--- NOTE | 2021-05-31 20:32 | PCM.SN.2 ---
- Free Text/Narrative Note: START OF DOCTOR LUIS HISTORY AND PHYSICAL / CONSULTATION NOTE Chief Complaint: Per medical records: Encephalopathy History of Present Illness: The patient is a 66-year-old female who was transferred to the emergency department because she is found by neighbors to be encephalopathic. At the time of my encounter with the patient, she is a poor historian regarding the events leading up to her hospitalization. Upon general review of systems, she denies fever, rigors, nausea, vomiting, cough, wheeze, abdominal pain, diarrhea, myalgia, chest pain, dyspnea, lightheadedness, diplopia, blurry vision, dysphasia, dysphagia, myasthenia/anesthesia. She indicates that she has chronic bilateral lateral lower extremity neuropathy. She admits to dizziness. Upon questioning the patient asked whether she has been overusing her controlled substances/narcotics (which she is known to per previous medical documentation (she indicates "I do not think so". She presents for further evaluation Surgical History: Cholecystectomy, tubal ligation with subsequent hysterectomy, lumbar laminectomy, L5-S1 fusion, wisdom tooth extraction, left knee arthroscopy Family History: Cancer, stroke, diabetes, coronary artery disease, hypertension, hyperlipidemia Social History: Tobacco: Former smoker Alcohol: Rare Caffeine: Coffee, cola, tea Drugs: Past marijuana use. Denies any other drug use past or present Allergies: Daptomycin, statins, sulfa, vancomycin, balsamic vinegar Code Status: DNR, DNI Pertinent Laboratory Results / Pertinent Radiology Results / Pertinent Diagnostic Results / Pertinent Vital Signs: Blood pressure 130/73, pulse 104, respiration 18, 98% room air, creatinine 1.25, alkaline phosphatase 223, AST 52, white blood cell count 3.3, hemoglobin 11.2, platelet count 85,000, urine drug screen positive for: Oxycodone, tricyclic, benzodiazepine Physical Examination: General: -Alert -No acute distress -No dyspnea -No tachypnea -Obese -Patient exhibits akathisia Head: -Atraumatic -Normocephalic Eyes: -Pupils equally round and reactive to light and accommodation -Extraocular muscles intact Neurological: -Cranial nerves II-XII intact Neck: -No jugular venous distention -No thyromegaly -No cervical lymphadenopathy Heart: -iRegular rate -Regular rhythm -No murmurs -No gallops -No rubs Lungs: -No wheeze -No rhonchi -No rales Abdomen: -Normal bowel sounds in all four quadrants -No rebound -No guarding -No tenderness Extremities: -2/4 pulse in all four extremities -No clubbing -No cyanosis -No edema -No calf tenderness present bilaterally -Negative Homans sign bilaterally Musculoskeletal: -5/5 bilateral upper extremity strength -5/5 bilateral lower extremity strength -Sensorium of bilateral upper extremities are equal and intact -Sensorium of bilateral lower extremities are equal and intact Additional Details / Additional Findings / Exceptions / Miscellaneous: Assessment / Plan: Encephalopathy. Likely secondary to narcotic overdose. Neurochecks every 4 hours Narcotic dependence with narcotic seeking behavior. Case management consult for referral for rehabilitation Chronic kidney disease with highly variable creatinine Muscle spasm Constipation Neuropathy Seasonal allergies Anxiety LV liver function test, chronic. Will monitor LFTs periodically with CMP Pancytopenia with features of anemia of chronic disease with also history of iron deficiency. Will monitor CBC intermittently. Outpatient follow-up with hematology/oncology upon discharge Chronic pain Diabetes. Will check fasting glucose before every meal and at bedtime and provide sulci scale GERD Hyperlipidemia Hypertension Obesity. Patient will be counseled regarding lifestyle modification Spinal stenosis Asthma History of endocarditis Depression Hepatic steatosis Cirrhosis Osteoarthritis Diverticulosis Osteoporosis Degenerative joint disease DVT prophylaxis. Lovenox 40 mg subcutaneously daily Disposition: Anticipate discharge within 24 hours. At the time of admission, patient's home occasions were pending input to the EMR/DHR system. Once their input, they will be reviewed and reconciled END OF DOCTOR EMAMIS HISTORY AND PHYSICAL / CONSULTATION NOTE
[2021-05-31] MEDS ORDERED: Insulin Lispro 100 Units/ML 3 ML Vial SUBCUT SCH (21:00)
[2021-05-31] MEDS ORDERED: Gabapentin 300 MG Cap PO ONE (23:15)
[2021-06-01] MEDS ORDERED: Glucagon,Human Recombinant 1 MG Vial IM PRN (01:05)
[2021-06-01] MEDS ORDERED: 50% Dextrose in Water 50 ML Syringe IVPUSH PRN (01:05)
[2021-06-01 07:21] LABS: ANION GAP 14.6 mEq/L (7-13)
[2021-06-01] MEDS ORDERED: Carvedilol 6.25 MG Tab PO SCH (08:00)
[2021-06-01] MEDS ORDERED: Insulin Lispro 100 Units/ML 3 ML Vial SUBCUT SCH (08:00)
--- NOTE | 2021-06-01 08:15 | PCM.SN.2 ---
- Free Text/Narrative Note: START OF DOCTOR EMAM[facility] DISCHARGE SUMMARY Date of Admission: May 31, 2021 Date of Discharge: 8:12 AM on June 01, 2021 Primary Diagnosis: Encephalopathy, likely secondary to narcotic overdose of which the patient has had prior history of Secondary Diagnosis: Narcotic dependence with narcotic seeking behavior Chronic kidney disease with highly variable creatinine Muscle spasm Constipation Neuropathy Seasonal allergies Anxiety Elevated liver function test, chronic Pancytopenia with features of anemia of chronic disease and also with history of iron deficiency Chronic pain Diabetes GERD Hyperlipidemia Hypertension Obesity Spinal stenosis Asthma History of endocarditis Depression Hepatic steatosis Cirrhosis Osteoarthritis Diverticulosis Osteoporosis Degenerative joint disease Consultations: None Condition on Discharge: Fair Disposition: The patient will be advised follow-up with orthopedic surgery or neurosurgery (the service that performed her back surgery) As directed The patient is advised follow-up with nephrology 2 to 4 weeks post discharge for diagnosis of chronic kidney disease Patient is advised follow-up with hematology/oncology 2 to 4 weeks post discharge for diagnosis of pancytopenia The patient will require referral for Narcotics Anonymous given her history of narcotic seeking behavior and narcotics abuse with history of overdose Discharge Medications: Oxycodone 15 mg p.o. twice daily Multivitamin 1 tab p.o. daily Magnesium oxide 500 mg p.o. daily Insulin lispro subcutaneously before every meal and at bedtime per sliding scale Calcium/vitamin D: 600 mg / 200 IU: 1 tab p.o. daily Baclofen 10 mg p.o. 3 times daily Amitriptyline 100 mg p.o. nightly K-Dur 20 McCugh p.o. daily Claritin 10 mg p.o. daily Tresiba 20 units subcutaneously nightly Gabapentin 300 mg p.o. 3 times daily Pepcid 10 mg p.o. twice daily Trulicity 1.5 mg subcutaneously q. Saturday Coreg 6.25 mg p.o. twice daily Norvasc 5 mg p.o. daily END OF DOCTOR EMAMIS DISCHARGE SUMMARY
[2021-06-01] MEDS ORDERED: amLODIPine 5 MG Tab PO SCH (09:00)
[2021-06-01] MEDS ORDERED: Famotidine 20 MG Tab PO SCH (09:00)
[2021-06-01] MEDS ORDERED: Enoxaparin 40 MG/0.4 ML Syringe SUBCUT SCH (09:00)
[2021-06-01] MEDS ORDERED: Loratadine 10 MG Tab PO SCH (09:00)
[2021-06-01] MEDS ORDERED: Gabapentin 300 MG Cap PO SCH (09:00)
[2021-06-01] MEDS ORDERED: Potassium Chloride 10 MEQ Tab.ER PO SCH (09:00)
[2021-06-01] MEDS ORDERED: Insulin Glarg,Human.Rec.Analog 100 Unit/ML SUBCUT SCH (21:00)
[2021-06-03] MEDS ORDERED: DULAGLUTIDE 1.5 MG/0.5 ML SQ SCH (21:49)
== END 2021-06-01 12:00 | disposition home or self-care (01) ==
LOC: DL.ED 16:35 → DL.MS 20:01 → EEVIPCON 20:01 → DL.ED 20:08
PROVIDERS: ADMIT Internal Medicine; ATTEND Internal Medicine
DX: G93.40 Encephalopathy, unspecified (principal); N18.9 Chronic kidney disease, unspecified; K59.00 Constipation, unspecified; M62.838 Other muscle spasm; F41.9 Anxiety disorder, unspecified; D61.818 Other pancytopenia; E11.22 Type 2 diabetes mellitus with diabetic chronic kidney disease; E11.40 Type 2 diabetes mellitus with diabetic neuropathy, unspecified; I12.9 Hypertensive chronic kidney disease with stage 1 through stage 4 chronic kidney disease, or unspecified chronic kidney disease; E78.5 Hyperlipidemia, unspecified; E66.9 Obesity, unspecified; G89.29 Other chronic pain; J45.909 Unspecified asthma, uncomplicated; K21.9 Gastro-esophageal reflux disease without esophagitis; K74.60 Unspecified cirrhosis of liver; M81.0 Age-related osteoporosis without current pathological fracture; K57.30 Diverticulosis of large intestine without perforation or abscess without bleeding; Z20.822 Contact with and (suspected) exposure to COVID-19; Z90.49 Acquired absence of other specified parts of digestive tract; Z98.890 Other specified postprocedural states; Z98.1 Arthrodesis status; Z79.899 Other long term (current) drug therapy; Z87.891 Personal history of nicotine dependence; Z82.3 Family history of stroke; Z88.2 Allergy status to sulfonamides; Z88.8 Allergy status to other drugs, medicaments and biological substances
CPT/HCPCS: 0240U; 36415; 70450; 80053; 80143; 80179; 80305-QW; 80307; 81003; 82140; 82947; 83605; 83735; 84443; 84484; 85025; 85610; 85730; 86140; 87040; 93005; 93010; 96372; 99284; 99285; A9270-GY; G0378; J1650

== ENCOUNTER 2022-02-27 05:30 | Day surgery (SDC) | payer MEDICARE, BC ==
[~2022-02-27 05:30] MED LIST changes: -HYDROmorphone 1 MG/ML Syringe IVPUSH ONE; +Sodium Chloride 0.9% 10 ML Syringe FLUSH SCH; -methylPREDNISolone Sodium Succinate 125 MG/2 ML SDV IVPUSH ONE
[2022-02-27] MEDS ORDERED: fentaNYL 100 MCG/2 ML SDV IV ONE ×3 (05:31→06:58)
[2022-02-27] MEDS ORDERED: Midazolam 1 MG/ML 2 ML SDV IV ONE ×3 (05:31→07:00)
[2022-02-27] MEDS ORDERED: Sodium Chloride 0.9% 10 ML Syringe FLUSH PRN (06:00)
[2022-02-27] MEDS ORDERED: Dextrose 5%-0.45% NaCl 1,000 ML IV SCH (06:00)
[2022-02-27] MEDS ORDERED: fentaNYL 100 MCG/2 ML SDV ONE (06:02)
[2022-02-27] MEDS ORDERED: Midazolam 1 MG/ML 2 ML SDV ONE (06:02)
== END 2022-02-27 09:20 | disposition home or self-care (01) ==
LOC: DL.ENDO 05:30
PROVIDERS: ATTEND Internal Medicine Gastroenterology
DX: E11.43 Type 2 diabetes mellitus with diabetic autonomic (poly)neuropathy (principal); K31.84 Gastroparesis; E66.09 Other obesity due to excess calories; F32.A Depression, unspecified; D69.6 Thrombocytopenia, unspecified; Z01.812 Encounter for preprocedural laboratory examination; Z20.822 Contact with and (suspected) exposure to COVID-19; Z68.36 Body mass index [BMI] 36.0-36.9, adult
CPT/HCPCS: 43239; 87077; J2250; J3010; J7042; U0002

== ENCOUNTER 2023-10-02 20:54 | Inpatient (IN) | payer MEDICARE, BC ==
[2023-10-02] MEDS ORDERED: Sennosides/Docusate Sodium 50-8.6 MG Tab PO PRN (22:56)
[2023-10-02] MEDS ORDERED: Naloxone 2 MG/2 ML Syringe IVPUSH PRN (22:56)
[2023-10-02] MEDS ORDERED: Ondansetron 4 MG/2 ML SDV IVPUSH PRN (22:56)
[2023-10-02] MEDS ORDERED: Magnesium Hydroxide 400 MG/5 ML Susp 30 ML Cup PO PRN (22:56)
[2023-10-02] MEDS ORDERED: Albuterol/Ipratropium 3.0-0.5 MG/3 ML Neb Soln NEB PRN (22:56)
[2023-10-02] MEDS ORDERED: 50% Dextrose in Water 50 ML Syringe IVPUSH PRN (22:58)
[2023-10-02] MEDS ORDERED: Glucagon,Human Recombinant 1 MG Vial IM PRN (22:58)
[2023-10-02] MEDS ORDERED: Enoxaparin 40 MG/0.4 ML Syringe SUBCUT ONE (23:17)
[2023-10-02] MEDS ORDERED: Lactulose Soln 10 GM/15 ML 30 ML UD Cup PO ONE (23:19)
[2023-10-02] MEDS ORDERED: Bisacodyl 10 MG Supp RECTAL ONE (23:20)
[2023-10-02] MEDS ORDERED: Bisacodyl 10 MG Supp RECTAL PRN (23:20)
[2023-10-02] MEDS ORDERED: Furosemide 20 MG/2 ML VIAL IVPUSH ONE (23:22)
[2023-10-02 23:23] LABS: ALBUMIN 2.1 g/dL (3.4-5.0); ANION GAP 7.8 mEq/L (7-13); BASOPHILS PERCENT AUTO 0.3 % (0.0-1.0); BILIRUBIN TOTAL 0.9 mg/dL (0.2-1.0); BUN/CREATININE RATIO 21.7 (No establ ref range); CALCIUM 8.2 mg/dL (8.5-10.1); CREATININE 1.29 mg/dL (0.55-1.02); EOSINOPHILS PERCENT AUTO 1.7 % (1.0-3.0); EST CRCL DRUG DOSING (CG) 40.16 mL/min; HEMATOCRIT 29.5 % (37.0-47.0); HEMOGLOBIN 9.4 g/dL (12.0-16.0); LYMPHOCYTES PERCENT AUTO 22.7 % (20.5-50.1); MAGNESIUM 1.8 mg/dL (1.8-2.4); MEAN CORPUSCULAR HEMOGLOBIN 29.3 pg (27.0-34.0); MEAN CORPUSCULAR HGB CONC 31.9 g/dL (33.0-35.0); MEAN CORPUSCULAR VOLUME 91.9 fL (80-100); MONOCYTES PERCENT AUTO 15.6 % (2-8); NEUTROPHILS PERCENT AUTO 59.7 % (42.2-75.2); PLATELET COUNT,PLT 109 10^3/uL (150-450); POTASSIUM,K 3.8 mmol/L (3.5-5.1); PROTEIN TOTAL,TP 6.5 g/dL (6.4-8.2); RED BLOOD CELL COUNT 3.21 10^6/uL (4.2-5.4)
[2023-10-02 23:24] LABS: A/G RATIO 0.48
[2023-10-02] MEDS ORDERED: Sodium Chloride 0.9% 1,000 ML IV SCH (23:30)
[2023-10-03] MEDS: HYDROmorphone 0.5 MG/0.5 ML Syringe IVPUSH PRN (01:10)
[2023-10-03 06:01] LABS: BASOPHILS PERCENT AUTO 0.5 % (0.0-1.0); EOSINOPHILS PERCENT AUTO 1.5 % (1.0-3.0); HEMATOCRIT 27.3 % (37.0-47.0); HEMOGLOBIN 8.6 g/dL (12.0-16.0); LYMPHOCYTES PERCENT AUTO 20.2 % (20.5-50.1); MEAN CORPUSCULAR HEMOGLOBIN 29.1 pg (27.0-34.0); MEAN CORPUSCULAR HGB CONC 31.5 g/dL (33.0-35.0); MEAN CORPUSCULAR VOLUME 92.2 fL (80-100); MONOCYTES PERCENT AUTO 9.3 % (2-8); NEUTROPHILS PERCENT AUTO 68.5 % (42.2-75.2); PLATELET COUNT,PLT 112 10^3/uL (150-450); RED BLOOD CELL COUNT 2.96 10^6/uL (4.2-5.4)
[2023-10-03 06:21] LABS: ALBUMIN 1.9 g/dL (3.4-5.0); ANION GAP 5.6 mEq/L (7-13); BILIRUBIN TOTAL 0.8 mg/dL (0.2-1.0); BUN/CREATININE RATIO 20.7 (No establ ref range); CALCIUM 7.8 mg/dL (8.5-10.1); CREATININE 1.16 mg/dL (0.55-1.02); EST CRCL DRUG DOSING (CG) 44.66 mL/min; MAGNESIUM 1.6 mg/dL (1.8-2.4); POTASSIUM,K 3.6 mmol/L (3.5-5.1); PROTEIN TOTAL,TP 5.9 g/dL (6.4-8.2)
[2023-10-03 06:29] LABS: A/G RATIO 0.48
[2023-10-03] MEDS: Acetaminophen/HYDROcodone 325-5 MG Tab PO PRN ×2 (07:35→16:12)
[2023-10-03] MEDS: Polyethylene Glycol 3350 Powder 17 GM Packet PO PRN (08:27)
[2023-10-03] MEDS: Insulin Lispro 100 Units/ML 3 ML Vial SUBCUT SCH ×3 (08:27→17:29)
[2023-10-03] MEDS: Enoxaparin 40 MG/0.4 ML Syringe SUBCUT SCH ×2 (08:28→21:33)
[2023-10-03] MEDS ORDERED: Magnesium Sulfate/Water 2 GM in Premix Bag 1 BAG IV ONE (10:37)
[2023-10-03] MEDS ORDERED: Furosemide 40 MG Tab PO ONE (10:39)
[2023-10-03] MEDS: Amitriptyline 25 MG Tab PO SCH (21:31)
[2023-10-04] MEDS: Acetaminophen/HYDROcodone 325-5 MG Tab PO PRN ×4 (02:51→20:25)
[2023-10-04] MEDS: Furosemide 40 MG Tab PO SCH (08:20)
[2023-10-04] MEDS: Insulin Lispro 100 Units/ML 3 ML Vial SUBCUT SCH ×3 (08:21→17:11)
[2023-10-04] MEDS: Enoxaparin 40 MG/0.4 ML Syringe SUBCUT SCH ×2 (08:24→21:58)
[2023-10-04] MEDS: Amitriptyline 25 MG Tab PO SCH (20:19)
[2023-10-05] MEDS: HYDROmorphone 0.5 MG/0.5 ML Syringe IVPUSH PRN ×2 (04:03→14:53)
[2023-10-05 05:51] LABS: BASOPHILS PERCENT AUTO 0.6 % (0.0-1.0); EOSINOPHILS PERCENT AUTO 1.8 % (1.0-3.0); HEMATOCRIT 27.7 % (37.0-47.0); HEMOGLOBIN 8.8 g/dL (12.0-16.0); LYMPHOCYTES PERCENT AUTO 29.1 % (20.5-50.1); MEAN CORPUSCULAR HEMOGLOBIN 28.5 pg (27.0-34.0); MEAN CORPUSCULAR HGB CONC 31.8 g/dL (33.0-35.0); MEAN CORPUSCULAR VOLUME 89.6 fL (80-100); MONOCYTES PERCENT AUTO 12.7 % (2-8); NEUTROPHILS PERCENT AUTO 55.8 % (42.2-75.2); PLATELET COUNT,PLT 119 10^3/uL (150-450); RED BLOOD CELL COUNT 3.09 10^6/uL (4.2-5.4); WHITE BLOOD CELL COUNT,WBC 3.3 10^3/uL (5.0-10.0)
[2023-10-05 06:09] LABS: ALBUMIN 1.9 g/dL (3.4-5.0); ANION GAP 6.7 mEq/L (7-13); BILIRUBIN TOTAL 0.7 mg/dL (0.2-1.0); BUN/CREATININE RATIO 15.7 (No establ ref range); CREATININE 1.15 mg/dL (0.55-1.02); EST CRCL DRUG DOSING (CG) 45.05 mL/min; MAGNESIUM 1.8 mg/dL (1.8-2.4); POTASSIUM,K 3.7 mmol/L (3.5-5.1); PROTEIN TOTAL,TP 6.1 g/dL (6.4-8.2)
[2023-10-05 06:10] LABS: A/G RATIO 0.45
[2023-10-05] MEDS: Omeprazole 20 MG Cap.CR PO SCH ×2 (08:19→20:20)
[2023-10-05] MEDS: Loratadine 10 MG Tab PO SCH (08:19)
[2023-10-05] MEDS: Doxycycline Monohydrate 100 MG Cap PO SCH ×2 (08:19→20:21)
[2023-10-05] MEDS: Carvedilol 6.25 MG Tab PO SCH ×2 (08:20→17:34)
[2023-10-05] MEDS: Docusate Sodium 100 MG Cap PO SCH ×2 (08:20→20:20)
[2023-10-05] MEDS: Multivitamins with Iron/Calcium/Folic Acid/Minerals Tab PO SCH (08:20)
[2023-10-05] MEDS: Potassium Chloride 10 MEQ Tab.ER PO SCH (08:20)
[2023-10-05] MEDS: Vitamin E (dl-alpha-tocopherol acetate) 400 Unit Cap PO SCH (08:21)
[2023-10-05] MEDS: Gabapentin 300 MG Cap PO SCH ×3 (08:21→20:21)
[2023-10-05] MEDS: Aspirin 81 MG Tab.Chew PO SCH ×2 (08:21→20:20)
[2023-10-05] MEDS: Calcium Carbonate 500 MG Tab.Chew PO SCH (08:21)
[2023-10-05] MEDS: Saccharomyces Boulardii (Probiotic) 250 MG Cap PO SCH (08:21)
[2023-10-05] MEDS: Baclofen 10 MG Tab PO SCH ×3 (08:21→20:21)
[2023-10-05] MEDS: Furosemide 40 MG Tab PO SCH ×2 (08:22→08:31)
[2023-10-05] MEDS: Enoxaparin 40 MG/0.4 ML Syringe SUBCUT SCH ×2 (08:22→20:21)
[2023-10-05] MEDS: Insulin Lispro 100 Units/ML 3 ML Vial SUBCUT SCH ×3 (08:22→17:33)
[2023-10-05] MEDS: Amitriptyline 25 MG Tab PO SCH (20:21)
[2023-10-05] MEDS: oxyCODONE 5 MG Tab PO PRN (23:45)
[2023-10-06] MEDS: Saccharomyces Boulardii (Probiotic) 250 MG Cap PO SCH ×3 (05:44→20:00)
[2023-10-06 06:04] LABS: BASOPHILS PERCENT AUTO 0.7 % (0.0-1.0); EOSINOPHILS PERCENT AUTO 2.6 % (1.0-3.0); HEMATOCRIT 26.4 % (37.0-47.0); HEMOGLOBIN 8.3 g/dL (12.0-16.0); LYMPHOCYTES PERCENT AUTO 25.2 % (20.5-50.1); MEAN CORPUSCULAR HEMOGLOBIN 28.7 pg (27.0-34.0); MEAN CORPUSCULAR HGB CONC 31.4 g/dL (33.0-35.0); MEAN CORPUSCULAR VOLUME 91.3 fL (80-100); MONOCYTES PERCENT AUTO 14.1 % (2-8); NEUTROPHILS PERCENT AUTO 57.4 % (42.2-75.2); PLATELET COUNT,PLT 115 10^3/uL (150-450); RED BLOOD CELL COUNT 2.89 10^6/uL (4.2-5.4); WHITE BLOOD CELL COUNT,WBC 3.1 10^3/uL (5.0-10.0)
[2023-10-06 06:24] LABS: ALBUMIN 1.8 g/dL (3.4-5.0); ANION GAP 8.8 mEq/L (7-13); BILIRUBIN TOTAL 0.5 mg/dL (0.2-1.0); BUN/CREATININE RATIO 14.8 (No establ ref range); CALCIUM 7.7 mg/dL (8.5-10.1); CREATININE 1.22 mg/dL (0.55-1.02); EST CRCL DRUG DOSING (CG) 42.46 mL/min; MAGNESIUM 1.6 mg/dL (1.8-2.4); POTASSIUM,K 3.8 mmol/L (3.5-5.1); PROTEIN TOTAL,TP 5.7 g/dL (6.4-8.2)
[2023-10-06 06:27] LABS: A/G RATIO 0.46
[2023-10-06] MEDS: Docusate Sodium 100 MG Cap PO SCH ×2 (08:41→20:01)
[2023-10-06] MEDS: Multivitamins with Iron/Calcium/Folic Acid/Minerals Tab PO SCH (08:41)
[2023-10-06] MEDS: Aspirin 81 MG Tab.Chew PO SCH ×2 (08:41→20:01)
[2023-10-06] MEDS: Carvedilol 6.25 MG Tab PO SCH ×2 (08:42→17:33)
[2023-10-06] MEDS: Calcium Carbonate 500 MG Tab.Chew PO SCH (08:42)
[2023-10-06] MEDS: Potassium Chloride 10 MEQ Tab.ER PO SCH (08:42)
[2023-10-06] MEDS: Omeprazole 20 MG Cap.CR PO SCH ×2 (08:42→20:00)
[2023-10-06] MEDS: Vitamin E (dl-alpha-tocopherol acetate) 400 Unit Cap PO SCH (08:42)
[2023-10-06] MEDS: Furosemide 40 MG Tab PO SCH ×2 (08:43→08:44)
[2023-10-06] MEDS: Doxycycline Monohydrate 100 MG Cap PO SCH ×2 (08:43→20:01)
[2023-10-06] MEDS: Loratadine 10 MG Tab PO SCH (08:43)
[2023-10-06] MEDS: Baclofen 10 MG Tab PO SCH ×3 (08:43→20:01)
[2023-10-06] MEDS: Gabapentin 300 MG Cap PO SCH ×3 (08:43→20:00)
[2023-10-06] MEDS: oxyCODONE 5 MG Tab PO PRN (08:44)
[2023-10-06] MEDS: Enoxaparin 40 MG/0.4 ML Syringe SUBCUT SCH ×2 (08:45→20:00)
[2023-10-06] MEDS: Insulin Lispro 100 Units/ML 3 ML Vial SUBCUT SCH ×3 (08:46→17:32)
[2023-10-06] MEDS ORDERED: Magnesium Sulfate/Water 2 GM in Premix Bag 1 BAG IV ONE (08:58)
[2023-10-06] MEDS ORDERED: oxyCODONE ER 10 MG TAB.ER PO ONE (10:05)
[2023-10-06] MEDS: Acetaminophen 325 MG Tab PO PRN ×2 (15:07→20:00)
[2023-10-06] MEDS ORDERED: Sodium Chloride 0.9% 1,000 ML IV ONE (16:59)
[2023-10-06] MEDS ORDERED: Midodrine 5 MG Tab PO ONE (17:12)
[2023-10-06 18:34] LABS: APPEARANCE,URINE CLEAR (CLEAR); BILIRUBIN,URINE NEGATIVE (NEGATIVE); COLOR,URINE YELLOW (YELLOW); GLUCOSE,URINE NEGATIVE (NEGATIVE); KETONES,URINE NEGATIVE (NEGATIVE); LEUKOCYTE ESTERASE,URINE SMALL (NEGATIVE); NITRITE,URINE NEGATIVE (NEGATIVE); OCCULT BLOOD,URINE NEGATIVE (NEGATIVE); PH,URINE 6.5 (5.0-9.0); PROTEIN,URINE NEGATIVE (NEGATIVE)
[2023-10-06] MEDS ORDERED: Sodium Chloride 0.9% 500 ML IV SCH (18:45)
[2023-10-06 19:04] LABS: BACTERIA,URINE FEW /HPF (0-FEW/HPF); EPITHELIAL CELLS,URINE FEW /HPF (NOT SEEN); MUCUS,URINE FEW /LPF (NOT SEEN); RBC,URINE 0-5 /HPF (0-5)
[2023-10-06] MEDS: Sodium Chloride 0.9% 1,000 ML IV SCH ×2 (19:26→19:27)
[2023-10-06] MEDS: Piperacillin/Tazobactam 4.5 GM in Sodium Chloride 0.9% 100 ML IV SCH ×2 (19:28→23:56)
[2023-10-06] MEDS: Amitriptyline 25 MG Tab PO SCH (20:00)
[2023-10-06] MEDS ORDERED: oxyCODONE ER 10 MG TAB.ER PO SCH (21:00)
[2023-10-06] MEDS: Midodrine 5 MG Tab PO PRN (22:43)
[2023-10-07] MEDS: Midodrine 5 MG Tab PO PRN (05:02)
[2023-10-07] MEDS: Piperacillin/Tazobactam 4.5 GM in Sodium Chloride 0.9% 100 ML IV SCH ×5 (05:57→19:25)
[2023-10-07 06:18] LABS: BASOPHILS PERCENT AUTO 0.3 % (0.0-1.0); EOSINOPHILS PERCENT AUTO 1.2 % (1.0-3.0); HEMATOCRIT 24.1 % (37.0-47.0); HEMOGLOBIN 7.5 g/dL (12.0-16.0); LYMPHOCYTES PERCENT AUTO 14.1 % (20.5-50.1); MEAN CORPUSCULAR HEMOGLOBIN 28.4 pg (27.0-34.0); MEAN CORPUSCULAR HGB CONC 31.1 g/dL (33.0-35.0); MEAN CORPUSCULAR VOLUME 91.3 fL (80-100); MONOCYTES PERCENT AUTO 12.1 % (2-8); NEUTROPHILS PERCENT AUTO 72.3 % (42.2-75.2); PLATELET COUNT,PLT 80 10^3/uL (150-450); RED BLOOD CELL COUNT 2.64 10^6/uL (4.2-5.4); WHITE BLOOD CELL COUNT,WBC 3.4 10^3/uL (5.0-10.0)
[2023-10-07 06:40] LABS: ALBUMIN 1.7 g/dL (3.4-5.0); ANION GAP 8.7 mEq/L (7-13); BILIRUBIN TOTAL 0.6 mg/dL (0.2-1.0); BUN/CREATININE RATIO 13.5 (No establ ref range); CALCIUM 7.7 mg/dL (8.5-10.1); CREATININE 1.48 mg/dL (0.55-1.02); MAGNESIUM 1.8 mg/dL (1.8-2.4); POTASSIUM,K 3.7 mmol/L (3.5-5.1); PROTEIN TOTAL,TP 5.7 g/dL (6.4-8.2)
[2023-10-07 06:41] LABS: A/G RATIO 0.43
[2023-10-07] MEDS: Insulin Lispro 100 Units/ML 3 ML Vial SUBCUT SCH ×3 (08:19→17:01)
[2023-10-07] MEDS: Doxycycline Monohydrate 100 MG Cap PO SCH ×2 (08:20→20:31)
[2023-10-07] MEDS: Potassium Chloride 10 MEQ Tab.ER PO SCH (08:20)
[2023-10-07] MEDS: Loratadine 10 MG Tab PO SCH (08:20)
[2023-10-07] MEDS: Gabapentin 300 MG Cap PO SCH ×3 (08:20→20:30)
[2023-10-07] MEDS: Aspirin 81 MG Tab.Chew PO SCH ×2 (08:20→20:31)
[2023-10-07] MEDS: Calcium Carbonate 500 MG Tab.Chew PO SCH (08:20)
[2023-10-07] MEDS: Enoxaparin 40 MG/0.4 ML Syringe SUBCUT SCH ×2 (08:20→20:46)
[2023-10-07] MEDS: Docusate Sodium 100 MG Cap PO SCH ×2 (08:21→20:30)
[2023-10-07] MEDS: Saccharomyces Boulardii (Probiotic) 250 MG Cap PO SCH ×2 (08:21→20:30)
[2023-10-07] MEDS: Multivitamins with Iron/Calcium/Folic Acid/Minerals Tab PO SCH (08:21)
[2023-10-07] MEDS: Omeprazole 20 MG Cap.CR PO SCH ×2 (08:21→20:31)
[2023-10-07] MEDS: Baclofen 10 MG Tab PO SCH ×3 (08:21→20:30)
[2023-10-07] MEDS: Vitamin E (dl-alpha-tocopherol acetate) 400 Unit Cap PO SCH (08:21)
[2023-10-07] MEDS: Carvedilol 6.25 MG Tab PO SCH ×2 (09:29→17:12)
[2023-10-07] MEDS: Furosemide 40 MG Tab PO SCH (09:30)
[2023-10-07] MEDS ORDERED: Midodrine 5 MG Tab PO ONE (09:38)
[2023-10-07] MEDS: Albumin Human 25 GM in Premix Bag 1 BAG IV SCH ×2 (10:19→16:24)
[2023-10-07] MEDS ORDERED: Midodrine 5 MG Tab PO PRN (12:00)
[2023-10-07] MEDS: Polyethylene Glycol 3350 Powder 17 GM Packet PO PRN (16:27)
[2023-10-07] MEDS: Amitriptyline 25 MG Tab PO SCH (20:31)
[2023-10-07] MEDS: Acetaminophen 325 MG Tab PO PRN (20:32)
[2023-10-07] MEDS: oxyCODONE 5 MG Tab PO PRN (21:09)
[2023-10-08] MEDS: Albumin Human 25 GM in Premix Bag 1 BAG IV SCH (00:42)
[2023-10-08] MEDS: Piperacillin/Tazobactam 4.5 GM in Sodium Chloride 0.9% 100 ML IV SCH ×3 (04:20→20:05)
[2023-10-08 06:33] LABS: BASOPHILS PERCENT AUTO 0.6 % (0.0-1.0); EOSINOPHILS PERCENT AUTO 3.2 % (1.0-3.0); LYMPHOCYTES PERCENT AUTO 33.5 % (20.5-50.1); MEAN CORPUSCULAR HEMOGLOBIN 28.9 pg (27.0-34.0); MEAN CORPUSCULAR HGB CONC 31.6 g/dL (33.0-35.0); MEAN CORPUSCULAR VOLUME 91.6 fL (80-100); MONOCYTES PERCENT AUTO 19.6 % (2-8); NEUTROPHILS PERCENT AUTO 43.1 % (42.2-75.2); PLATELET COUNT,PLT 72 10^3/uL (150-450); RED BLOOD CELL COUNT 2.25 10^6/uL (4.2-5.4); WHITE BLOOD CELL COUNT,WBC 1.6 10^3/uL (5.0-10.0)
[2023-10-08 06:44] LABS: HEMOGLOBIN 6.5 g/dL (12.0-16.0)
[2023-10-08 06:45] LABS: HEMATOCRIT 20.6 % (37.0-47.0)
[2023-10-08 07:04] LABS: ALBUMIN 2.4 g/dL (3.4-5.0); ANION GAP 9.4 mEq/L (7-13); BILIRUBIN TOTAL 0.5 mg/dL (0.2-1.0); BUN/CREATININE RATIO 15.3 (No establ ref range); C-REACTIVE PROTEIN 5.89 ng/dL (<=0.50); CREATININE 1.31 mg/dL (0.55-1.02); EST CRCL DRUG DOSING (CG) 39.55 mL/min; MAGNESIUM 1.7 mg/dL (1.8-2.4); POTASSIUM,K 3.4 mmol/L (3.5-5.1); PROTEIN TOTAL,TP 5.6 g/dL (6.4-8.2)
[2023-10-08 07:09] LABS: A/G RATIO 0.75
[2023-10-08] MEDS ORDERED: Magnesium Sulfate/Water 2 GM in Premix Bag 1 BAG IV ONE (07:29)
[2023-10-08] MEDS ORDERED: Acetaminophen 325 MG Tab PO ONE (07:30)
[2023-10-08] MEDS ORDERED: diphenhydrAMINE 50 MG/ML SDV IV ONE (07:30)
[2023-10-08] MEDS ORDERED: Dexamethasone 4 MG/ML SDV IVPUSH ONE (07:30)
[2023-10-08] MEDS: Omeprazole 20 MG Cap.CR PO SCH ×2 (08:15→20:10)
[2023-10-08] MEDS: Saccharomyces Boulardii (Probiotic) 250 MG Cap PO SCH ×2 (08:15→20:10)
[2023-10-08] MEDS: Carvedilol 6.25 MG Tab PO SCH ×2 (08:16→17:05)
[2023-10-08] MEDS: Potassium Chloride 10 MEQ Tab.ER PO SCH (08:16)
[2023-10-08] MEDS: Calcium Carbonate 500 MG Tab.Chew PO SCH (08:16)
[2023-10-08] MEDS: Multivitamins with Iron/Calcium/Folic Acid/Minerals Tab PO SCH (08:16)
[2023-10-08] MEDS: Vitamin E (dl-alpha-tocopherol acetate) 400 Unit Cap PO SCH (08:16)
[2023-10-08] MEDS: Docusate Sodium 100 MG Cap PO SCH ×2 (08:16→20:12)
[2023-10-08] MEDS: Furosemide 40 MG Tab PO SCH (08:16)
[2023-10-08] MEDS: Aspirin 81 MG Tab.Chew PO SCH ×2 (08:16→20:10)
[2023-10-08] MEDS: Doxycycline Monohydrate 100 MG Cap PO SCH ×2 (08:16→20:10)
[2023-10-08] MEDS: Enoxaparin 40 MG/0.4 ML Syringe SUBCUT SCH (08:17)
[2023-10-08] MEDS: Loratadine 10 MG Tab PO SCH (08:17)
[2023-10-08] MEDS: Insulin Lispro 100 Units/ML 3 ML Vial SUBCUT SCH ×3 (08:20→17:04)
[2023-10-08] MEDS: Insulin Glarg,Human.Rec.Analog 100 Unit/ML 10 ML Vial SUBCUT SCH ×2 (08:20→20:11)
[2023-10-08] MEDS ORDERED: Ketorolac 30 MG/ML SDV IVPUSH PRN (09:09)
[2023-10-08] MEDS: Ketorolac 30 MG/ML SDV IVPUSH PRN ×2 (09:55→20:17)
[2023-10-08] MEDS ORDERED: Potassium Chloride 10 MEQ Tab.ER PO ONE (11:30)
[2023-10-08] MEDS: Acetaminophen/HYDROcodone 325-5 MG Tab PO PRN (23:41)
[2023-10-09] MEDS: Piperacillin/Tazobactam 4.5 GM in Sodium Chloride 0.9% 100 ML IV SCH (04:00)
[2023-10-09 06:50] LABS: EOSINOPHILS PERCENT AUTO 0.8 % (1.0-3.0); HEMATOCRIT 28.9 % (37.0-47.0); HEMOGLOBIN 9.2 g/dL (12.0-16.0); LYMPHOCYTES PERCENT AUTO 24.4 % (20.5-50.1); MEAN CORPUSCULAR HEMOGLOBIN 28.7 pg (27.0-34.0); MEAN CORPUSCULAR HGB CONC 31.8 g/dL (33.0-35.0); NEUTROPHILS PERCENT AUTO 62.8 % (42.2-75.2); PLATELET COUNT,PLT 62 10^3/uL (150-450); RED BLOOD CELL COUNT 3.21 10^6/uL (4.2-5.4); WHITE BLOOD CELL COUNT,WBC 2.5 10^3/uL (5.0-10.0)
[2023-10-09 07:00] LABS: ALBUMIN 2.6 g/dL (3.4-5.0); ANION GAP 12.1 mEq/L (7-13); BILIRUBIN TOTAL 0.8 mg/dL (0.2-1.0); C-REACTIVE PROTEIN 4.38 ng/dL (<=0.50); CALCIUM 8.5 mg/dL (8.5-10.1); CREATININE 1.25 mg/dL (0.55-1.02); EST CRCL DRUG DOSING (CG) 41.44 mL/min; POTASSIUM,K 4.1 mmol/L (3.5-5.1); PROTEIN TOTAL,TP 6.5 g/dL (6.4-8.2)
[2023-10-09 07:04] LABS: A/G RATIO 0.67
[2023-10-09] MEDS: Vitamin E (dl-alpha-tocopherol acetate) 400 Unit Cap PO SCH (08:17)
[2023-10-09] MEDS: Docusate Sodium 100 MG Cap PO SCH (08:17)
[2023-10-09] MEDS: Carvedilol 6.25 MG Tab PO SCH (08:17)
[2023-10-09] MEDS: Multivitamins with Iron/Calcium/Folic Acid/Minerals Tab PO SCH (08:17)
[2023-10-09] MEDS: Aspirin 81 MG Tab.Chew PO SCH (08:18)
[2023-10-09] MEDS: Saccharomyces Boulardii (Probiotic) 250 MG Cap PO SCH (08:19)
[2023-10-09] MEDS: Furosemide 40 MG Tab PO SCH (08:19)
[2023-10-09] MEDS: Calcium Carbonate 500 MG Tab.Chew PO SCH (08:19)
[2023-10-09] MEDS: Potassium Chloride 10 MEQ Tab.ER PO SCH (08:19)
[2023-10-09] MEDS: Doxycycline Monohydrate 100 MG Cap PO SCH (08:19)
[2023-10-09] MEDS: Omeprazole 20 MG Cap.CR PO SCH (08:19)
[2023-10-09] MEDS: Loratadine 10 MG Tab PO SCH (08:19)
[2023-10-09] MEDS: Insulin Lispro 100 Units/ML 3 ML Vial SUBCUT SCH (08:24)
[2023-10-09] MEDS: Insulin Glarg,Human.Rec.Analog 100 Unit/ML 10 ML Vial SUBCUT SCH (08:25)
[2023-10-09] MEDS ORDERED: Enoxaparin 40 MG/0.4 ML Syringe SUBCUT SCH (09:00)
== END 2023-10-09 09:14 | disposition home or self-care (01) | DRG 917 ==
LOC: DL.ED 20:54 → OBSVTOIN 22:21 → DL.MS 22:21
PROVIDERS: ADMIT Internal Medicine; ATTEND Internal Medicine
DX: T43.011A Poisoning by tricyclic antidepressants, accidental (unintentional), initial encounter (principal); R09.02 Hypoxemia; G92.8 Other toxic encephalopathy; J96.01 Acute respiratory failure with hypoxia; E87.1 Hypo-osmolality and hyponatremia; N18.9 Chronic kidney disease, unspecified; R65.10 Systemic inflammatory response syndrome (SIRS) of non-infectious origin without acute organ dysfunction; E44.0 Moderate protein-calorie malnutrition; D69.6 Thrombocytopenia, unspecified; Z68.37 Body mass index [BMI] 37.0-37.9, adult; E11.42 Type 2 diabetes mellitus with diabetic polyneuropathy; E78.5 Hyperlipidemia, unspecified; K21.9 Gastro-esophageal reflux disease without esophagitis; Z79.4 Long term (current) use of insulin; J45.909 Unspecified asthma, uncomplicated; M81.0 Age-related osteoporosis without current pathological fracture; E11.22 Type 2 diabetes mellitus with diabetic chronic kidney disease; N18.30 Chronic kidney disease, stage 3 unspecified; M54.9 Dorsalgia, unspecified; G89.29 Other chronic pain; E78.00 Pure hypercholesterolemia, unspecified; E11.65 Type 2 diabetes mellitus with hyperglycemia; E83.42 Hypomagnesemia; Z96.652 Presence of left artificial knee joint; E66.9 Obesity, unspecified; T50.995A Adverse effect of other drugs, medicaments and biological substances, initial encounter; K59.00 Constipation, unspecified; I12.9 Hypertensive chronic kidney disease with stage 1 through stage 4 chronic kidney disease, or unspecified chronic kidney disease; Z98.890 Other specified postprocedural states; Z79.899 Other long term (current) drug therapy; Z88.2 Allergy status to sulfonamides; Z88.8 Allergy status to other drugs, medicaments and biological substances; Z88.1 Allergy status to other antibiotic agents; Z91.041 Radiographic dye allergy status; Z90.49 Acquired absence of other specified parts of digestive tract; Z98.51 Tubal ligation status; Z90.710 Acquired absence of both cervix and uterus; Z87.891 Personal history of nicotine dependence
CPT/HCPCS: 36415; 36430; 51702; 71045; 80053; 81001; 82947; 83605; 83735; 84484; 85025; 85379; 86140; 86850; 86900; 86901; 86920; 86922; 87040; 87086; 87088; 87186; 93005; 93010; 93971; 97110-GO; 97110-GP; 97161-GP; 97165-GO; 97530-GO; 97530-GP; 99285; A9270-GY; J1100; J1170; J1650; J1815-GY; J1885; J1940; J2543; J3475; J3490; J7030; P9016; P9047

== ENCOUNTER 2023-10-09 10:14 | Inpatient (IN) | payer MEDICARE, BC ==
[~2023-10-09 10:14] MED LIST changes: +50% Dextrose in Water 50 ML Syringe IVPUSH PRN; +Acetaminophen 325 MG Tab PO PRN; +Albuterol/Ipratropium 3.0-0.5 MG/3 ML Neb Soln NEB PRN; +Bisacodyl 10 MG Supp RECTAL PRN; +Glucagon,Human Recombinant 1 MG Vial IM PRN; +Magnesium Hydroxide 400 MG/5 ML Susp 30 ML Cup PO PRN; +Midodrine 5 MG Tab PO PRN; +Naloxone 2 MG/2 ML Syringe IVPUSH PRN; +Ondansetron 4 MG/2 ML SDV IVPUSH PRN; +Polyethylene Glycol 3350 Powder 17 GM Packet PO PRN; +Sennosides/Docusate Sodium 50-8.6 MG Tab PO PRN; -Sodium Chloride 0.9% 10 ML Syringe FLUSH SCH; +Sodium Chloride 0.9% 500 ML IV SCH; +oxyCODONE 5 MG Tab PO PRN
[2023-10-09] MEDS: Aspirin 81 MG Tab.Chew PO SCH ×2 (11:35→21:10)
[2023-10-09] MEDS: Loratadine 10 MG Tab PO SCH (11:35)
[2023-10-09] MEDS: Doxycycline Monohydrate 100 MG Cap PO SCH ×2 (11:36→21:10)
[2023-10-09] MEDS: Docusate Sodium 100 MG Cap PO SCH ×2 (11:36→21:11)
[2023-10-09] MEDS: Potassium Chloride 10 MEQ Tab.ER PO SCH (11:36)
[2023-10-09] MEDS: Saccharomyces Boulardii (Probiotic) 250 MG Cap PO SCH ×2 (11:36→21:10)
[2023-10-09] MEDS: Omeprazole 20 MG Cap.CR PO SCH ×2 (11:37→21:10)
[2023-10-09] MEDS: Insulin Glarg,Human.Rec.Analog 100 Unit/ML 10 ML Vial SUBCUT SCH ×2 (11:37→21:11)
[2023-10-09] MEDS: Furosemide 40 MG Tab PO SCH (11:37)
[2023-10-09] MEDS: Vitamin E (dl-alpha-tocopherol acetate) 400 Unit Cap PO SCH (11:38)
[2023-10-09] MEDS: Calcium Carbonate 500 MG Tab.Chew PO SCH (11:38)
[2023-10-09] MEDS: Piperacillin/Tazobactam 4.5 GM in Sodium Chloride 0.9% 100 ML IV SCH ×2 (12:52→19:30)
[2023-10-09] MEDS: Multivitamins with Iron/Calcium/Folic Acid/Minerals Tab PO SCH (12:53)
[2023-10-09] MEDS: Insulin Lispro 100 Units/ML 3 ML Vial SUBCUT SCH ×2 (12:57→17:19)
[2023-10-09] MEDS: Ketorolac 30 MG/ML SDV IVPUSH PRN ×2 (13:06→19:28)
[2023-10-09] MEDS: Carvedilol 6.25 MG Tab PO SCH (17:18)
[2023-10-10] MEDS: Acetaminophen/HYDROcodone 325-5 MG Tab PO PRN ×3 (01:41→20:59)
[2023-10-10] MEDS: Piperacillin/Tazobactam 4.5 GM in Sodium Chloride 0.9% 100 ML IV SCH ×3 (04:05→20:59)
[2023-10-10 05:52] LABS: BASOPHILS PERCENT AUTO 0.5 % (0.0-1.0); EOSINOPHILS PERCENT AUTO 2.7 % (1.0-3.0); HEMOGLOBIN 9.2 g/dL (12.0-16.0); LYMPHOCYTES PERCENT AUTO 29.9 % (20.5-50.1); MEAN CORPUSCULAR HEMOGLOBIN 29.3 pg (27.0-34.0); MEAN CORPUSCULAR HGB CONC 32.9 g/dL (33.0-35.0); MEAN CORPUSCULAR VOLUME 89.2 fL (80-100); MONOCYTES PERCENT AUTO 13.1 % (2-8); NEUTROPHILS PERCENT AUTO 53.8 % (42.2-75.2); PLATELET COUNT,PLT 73 10^3/uL (150-450); RED BLOOD CELL COUNT 3.14 10^6/uL (4.2-5.4); WHITE BLOOD CELL COUNT,WBC 2.2 10^3/uL (5.0-10.0)
[2023-10-10 06:10] LABS: ALANINE AMINOTRANSFERASE,ALT 35 U/L (14-59); ALBUMIN 2.4 g/dL (3.4-5.0); ALKALINE PHOSPHATASE 172 U/L (46-116); ANION GAP 11.6 mEq/L (7-13); ASPARTATE AMNIOTRANSFERASE,AST 59 U/L (15-37); BILIRUBIN TOTAL 0.8 mg/dL (0.2-1.0); BLOOD UREA NITROGEN,BUN 20 mg/dL (7-18); BUN/CREATININE RATIO 15.5 (No establ ref range); CALCIUM 8.3 mg/dL (8.5-10.1); CARBON DIOXIDE,CO2 27 mmol/L (21-32); CHLORIDE,CL 104 mmol/L (98-107); CREATININE 1.29 mg/dL (0.55-1.02); GLUCOSE RANDOM 111 mg/dL (70-99); MAGNESIUM 1.7 mg/dL (1.8-2.4); POTASSIUM,K 3.6 mmol/L (3.5-5.1); PROTEIN TOTAL,TP 6.1 g/dL (6.4-8.2); SODIUM,NA 139 mmol/L (136-145)
[2023-10-10 06:16] LABS: A/G RATIO 0.65; ESTIMATED GFR 46 mL/min (>=60)
[2023-10-10] MEDS: Potassium Chloride 10 MEQ Tab.ER PO SCH (09:41)
[2023-10-10] MEDS: Doxycycline Monohydrate 100 MG Cap PO SCH ×2 (09:41→20:59)
[2023-10-10] MEDS: Carvedilol 6.25 MG Tab PO SCH ×2 (09:41→17:50)
[2023-10-10] MEDS: Furosemide 40 MG Tab PO SCH (09:41)
[2023-10-10] MEDS: Loratadine 10 MG Tab PO SCH (09:41)
[2023-10-10] MEDS: Saccharomyces Boulardii (Probiotic) 250 MG Cap PO SCH ×2 (09:41→21:14)
[2023-10-10] MEDS: Vitamin E (dl-alpha-tocopherol acetate) 400 Unit Cap PO SCH (09:41)
[2023-10-10] MEDS: Calcium Carbonate 500 MG Tab.Chew PO SCH (09:41)
[2023-10-10] MEDS: Aspirin 81 MG Tab.Chew PO SCH ×2 (09:41→20:59)
[2023-10-10] MEDS: Insulin Lispro 100 Units/ML 3 ML Vial SUBCUT SCH ×3 (09:42→17:52)
[2023-10-10] MEDS: Omeprazole 20 MG Cap.CR PO SCH ×2 (09:43→20:59)
[2023-10-10] MEDS: Docusate Sodium 100 MG Cap PO SCH ×2 (09:43→21:15)
[2023-10-10] MEDS: Insulin Glarg,Human.Rec.Analog 100 Unit/ML 10 ML Vial SUBCUT SCH ×2 (09:48→21:01)
[2023-10-10] MEDS ORDERED: Magnesium Sulfate/Water 2 GM in Premix Bag 1 BAG IV ONE (10:00)
[2023-10-10] MEDS: Multivitamins with Iron/Calcium/Folic Acid/Minerals Tab PO SCH (12:55)
[2023-10-10] MEDS: Loperamide 2 MG Cap PO PRN (16:19)
[2023-10-11] MEDS: Acetaminophen/HYDROcodone 325-5 MG Tab PO PRN ×4 (02:35→20:56)
[2023-10-11] MEDS: Piperacillin/Tazobactam 4.5 GM in Sodium Chloride 0.9% 100 ML IV SCH ×3 (03:58→20:40)
[2023-10-11 06:43] LABS: BASOPHILS PERCENT AUTO 0.4 % (0.0-1.0); EOSINOPHILS PERCENT AUTO 3.1 % (1.0-3.0); HEMATOCRIT 29.1 % (37.0-47.0); HEMOGLOBIN 9.5 g/dL (12.0-16.0); LYMPHOCYTES PERCENT AUTO 26.1 % (20.5-50.1); MEAN CORPUSCULAR HEMOGLOBIN 29.5 pg (27.0-34.0); MEAN CORPUSCULAR HGB CONC 32.6 g/dL (33.0-35.0); MEAN CORPUSCULAR VOLUME 90.4 fL (80-100); MONOCYTES PERCENT AUTO 10.6 % (2-8); NEUTROPHILS PERCENT AUTO 59.8 % (42.2-75.2); PLATELET COUNT,PLT 71 10^3/uL (150-450); RED BLOOD CELL COUNT 3.22 10^6/uL (4.2-5.4); WHITE BLOOD CELL COUNT,WBC 2.3 10^3/uL (5.0-10.0)
[2023-10-11 06:48] LABS: ALANINE AMINOTRANSFERASE,ALT 35 U/L (14-59); ALBUMIN 2.3 g/dL (3.4-5.0); ALKALINE PHOSPHATASE 174 U/L (46-116); ANION GAP 10.7 mEq/L (7-13); ASPARTATE AMNIOTRANSFERASE,AST 66 U/L (15-37); BILIRUBIN TOTAL 0.8 mg/dL (0.2-1.0); BLOOD UREA NITROGEN,BUN 19 mg/dL (7-18); BUN/CREATININE RATIO 15.7 (No establ ref range); C-REACTIVE PROTEIN 2.39 ng/dL (<=0.50); CALCIUM 8.2 mg/dL (8.5-10.1); CARBON DIOXIDE,CO2 28 mmol/L (21-32); CHLORIDE,CL 104 mmol/L (98-107); CREATININE 1.21 mg/dL (0.55-1.02); GLUCOSE RANDOM 128 mg/dL (70-99); MAGNESIUM 1.9 mg/dL (1.8-2.4); POTASSIUM,K 3.7 mmol/L (3.5-5.1); PROTEIN TOTAL,TP 6.1 g/dL (6.4-8.2); SODIUM,NA 139 mmol/L (136-145)
[2023-10-11 06:56] LABS: A/G RATIO 0.61; ESTIMATED GFR 49 mL/min (>=60)
[2023-10-11] MEDS: Potassium Chloride 10 MEQ Tab.ER PO SCH (08:42)
[2023-10-11] MEDS: Vitamin E (dl-alpha-tocopherol acetate) 400 Unit Cap PO SCH (08:42)
[2023-10-11] MEDS: Aspirin 81 MG Tab.Chew PO SCH ×2 (08:42→20:44)
[2023-10-11] MEDS: Omeprazole 20 MG Cap.CR PO SCH ×2 (08:42→20:44)
[2023-10-11] MEDS: Saccharomyces Boulardii (Probiotic) 250 MG Cap PO SCH ×2 (08:42→20:44)
[2023-10-11] MEDS: Carvedilol 6.25 MG Tab PO SCH ×2 (08:43→17:17)
[2023-10-11] MEDS: Baclofen 10 MG Tab PO SCH ×3 (08:43→20:44)
[2023-10-11] MEDS: Loratadine 10 MG Tab PO SCH (08:43)
[2023-10-11] MEDS: Furosemide 40 MG Tab PO SCH (08:44)
[2023-10-11] MEDS: Insulin Lispro 100 Units/ML 3 ML Vial SUBCUT SCH ×3 (08:44→17:16)
[2023-10-11] MEDS: Doxycycline Monohydrate 100 MG Cap PO SCH ×2 (08:45→20:44)
[2023-10-11] MEDS: Docusate Sodium 100 MG Cap PO SCH ×2 (08:45→20:23)
[2023-10-11] MEDS: Calcium Carbonate 500 MG Tab.Chew PO SCH (08:45)
[2023-10-11] MEDS: Gabapentin 300 MG Cap PO SCH ×3 (08:46→20:44)
[2023-10-11] MEDS: Insulin Glarg,Human.Rec.Analog 100 Unit/ML 10 ML Vial SUBCUT SCH ×2 (08:53→20:58)
[2023-10-11] MEDS: Multivitamins with Iron/Calcium/Folic Acid/Minerals Tab PO SCH (11:18)
[2023-10-11] MEDS: Amitriptyline 25 MG Tab PO SCH (22:55)
[2023-10-12] MEDS: Piperacillin/Tazobactam 4.5 GM in Sodium Chloride 0.9% 100 ML IV SCH ×2 (03:36→11:05)
[2023-10-12] MEDS: Acetaminophen/HYDROcodone 325-5 MG Tab PO PRN ×4 (03:43→22:14)
[2023-10-12] MEDS: Insulin Lispro 100 Units/ML 3 ML Vial SUBCUT SCH ×3 (08:06→18:05)
[2023-10-12] MEDS: Carvedilol 6.25 MG Tab PO SCH ×2 (08:08→22:14)
[2023-10-12] MEDS: Insulin Glarg,Human.Rec.Analog 100 Unit/ML 10 ML Vial SUBCUT SCH ×3 (08:13→22:19)
[2023-10-12] MEDS: Calcium Carbonate 500 MG Tab.Chew PO SCH (08:15)
[2023-10-12] MEDS: Doxycycline Monohydrate 100 MG Cap PO SCH ×2 (08:15→22:14)
[2023-10-12] MEDS: Potassium Chloride 10 MEQ Tab.ER PO SCH (08:15)
[2023-10-12] MEDS: Docusate Sodium 100 MG Cap PO SCH ×2 (08:15→22:13)
[2023-10-12] MEDS: Aspirin 81 MG Tab.Chew PO SCH ×2 (08:15→22:13)
[2023-10-12] MEDS: Saccharomyces Boulardii (Probiotic) 250 MG Cap PO SCH ×2 (08:16→22:13)
[2023-10-12] MEDS: Gabapentin 300 MG Cap PO SCH ×3 (08:16→22:13)
[2023-10-12] MEDS: Vitamin E (dl-alpha-tocopherol acetate) 400 Unit Cap PO SCH (08:16)
[2023-10-12] MEDS: Furosemide 40 MG Tab PO SCH (08:16)
[2023-10-12] MEDS: Loratadine 10 MG Tab PO SCH (08:16)
[2023-10-12] MEDS: Baclofen 10 MG Tab PO SCH ×3 (08:16→22:14)
[2023-10-12] MEDS: Omeprazole 20 MG Cap.CR PO SCH ×2 (08:16→22:13)
[2023-10-12] MEDS: Multivitamins with Iron/Calcium/Folic Acid/Minerals Tab PO SCH (11:05)
[2023-10-12] MEDS: Amitriptyline 25 MG Tab PO SCH (22:15)
[2023-10-13] MEDS: Carvedilol 6.25 MG Tab PO SCH ×2 (08:34→21:42)
[2023-10-13] MEDS: Baclofen 10 MG Tab PO SCH ×3 (08:34→21:41)
[2023-10-13] MEDS: Aspirin 81 MG Tab.Chew PO SCH ×2 (08:34→21:41)
[2023-10-13] MEDS: Loratadine 10 MG Tab PO SCH (08:34)
[2023-10-13] MEDS: Furosemide 40 MG Tab PO SCH (08:34)
[2023-10-13] MEDS: Omeprazole 20 MG Cap.CR PO SCH ×2 (08:34→21:42)
[2023-10-13] MEDS: Potassium Chloride 10 MEQ Tab.ER PO SCH (08:35)
[2023-10-13] MEDS: Vitamin E (dl-alpha-tocopherol acetate) 400 Unit Cap PO SCH (08:35)
[2023-10-13] MEDS: Docusate Sodium 100 MG Cap PO SCH ×2 (08:35→21:42)
[2023-10-13] MEDS: Saccharomyces Boulardii (Probiotic) 250 MG Cap PO SCH ×2 (08:35→21:42)
[2023-10-13] MEDS: Doxycycline Monohydrate 100 MG Cap PO SCH ×2 (08:35→21:41)
[2023-10-13] MEDS: Calcium Carbonate 500 MG Tab.Chew PO SCH (08:35)
[2023-10-13] MEDS: Acetaminophen/HYDROcodone 325-5 MG Tab PO PRN ×3 (08:35→21:31)
[2023-10-13] MEDS: Gabapentin 300 MG Cap PO SCH ×3 (08:35→21:42)
[2023-10-13] MEDS: Insulin Lispro 100 Units/ML 3 ML Vial SUBCUT SCH ×3 (08:37→17:30)
[2023-10-13] MEDS: Insulin Glarg,Human.Rec.Analog 100 Unit/ML 10 ML Vial SUBCUT SCH ×2 (08:38→21:42)
[2023-10-13] MEDS: Multivitamins with Iron/Calcium/Folic Acid/Minerals Tab PO SCH (12:20)
[2023-10-13] MEDS: Amitriptyline 25 MG Tab PO SCH (21:41)
[2023-10-14] MEDS: Potassium Chloride 10 MEQ Tab.ER PO SCH (08:03)
[2023-10-14] MEDS: Baclofen 10 MG Tab PO SCH ×3 (08:03→20:23)
[2023-10-14] MEDS: Docusate Sodium 100 MG Cap PO SCH ×2 (08:04→20:23)
[2023-10-14] MEDS: Acetaminophen/HYDROcodone 325-5 MG Tab PO PRN ×3 (08:04→20:25)
[2023-10-14] MEDS: Aspirin 81 MG Tab.Chew PO SCH ×2 (08:04→20:22)
[2023-10-14] MEDS: Saccharomyces Boulardii (Probiotic) 250 MG Cap PO SCH ×2 (08:04→20:23)
[2023-10-14] MEDS: Carvedilol 6.25 MG Tab PO SCH ×2 (08:05→20:24)
[2023-10-14] MEDS: Doxycycline Monohydrate 100 MG Cap PO SCH ×2 (08:05→20:23)
[2023-10-14] MEDS: Furosemide 40 MG Tab PO SCH (08:06)
[2023-10-14] MEDS: Vitamin E (dl-alpha-tocopherol acetate) 400 Unit Cap PO SCH (08:06)
[2023-10-14] MEDS: Calcium Carbonate 500 MG Tab.Chew PO SCH (08:06)
[2023-10-14] MEDS: Omeprazole 20 MG Cap.CR PO SCH ×2 (08:06→20:23)
[2023-10-14] MEDS: Loratadine 10 MG Tab PO SCH (08:07)
[2023-10-14] MEDS: Gabapentin 300 MG Cap PO SCH ×3 (08:07→20:23)
[2023-10-14] MEDS: Insulin Glarg,Human.Rec.Analog 100 Unit/ML 10 ML Vial SUBCUT SCH ×2 (08:12→21:07)
[2023-10-14] MEDS: Insulin Lispro 100 Units/ML 3 ML Vial SUBCUT SCH ×3 (08:17→17:14)
[2023-10-14] MEDS: Multivitamins with Iron/Calcium/Folic Acid/Minerals Tab PO SCH (12:17)
[2023-10-14] MEDS: Amitriptyline 25 MG Tab PO SCH (20:23)
[2023-10-15] MEDS: Acetaminophen/HYDROcodone 325-5 MG Tab PO PRN ×4 (03:34→21:56)
[2023-10-15] MEDS: Vitamin E (dl-alpha-tocopherol acetate) 400 Unit Cap PO SCH (08:44)
[2023-10-15] MEDS: Doxycycline Monohydrate 100 MG Cap PO SCH ×2 (08:44→21:56)
[2023-10-15] MEDS: Gabapentin 300 MG Cap PO SCH ×3 (08:44→21:56)
[2023-10-15] MEDS: Saccharomyces Boulardii (Probiotic) 250 MG Cap PO SCH ×2 (08:44→21:56)
[2023-10-15] MEDS: Carvedilol 6.25 MG Tab PO SCH ×2 (08:45→17:03)
[2023-10-15] MEDS: Furosemide 40 MG Tab PO SCH (08:45)
[2023-10-15] MEDS: Loratadine 10 MG Tab PO SCH (08:45)
[2023-10-15] MEDS: Docusate Sodium 100 MG Cap PO SCH ×2 (08:45→21:56)
[2023-10-15] MEDS: Potassium Chloride 10 MEQ Tab.ER PO SCH (08:45)
[2023-10-15] MEDS: Aspirin 81 MG Tab.Chew PO SCH ×2 (08:46→21:56)
[2023-10-15] MEDS: Baclofen 10 MG Tab PO SCH ×3 (08:46→21:56)
[2023-10-15] MEDS: Calcium Carbonate 500 MG Tab.Chew PO SCH (08:46)
[2023-10-15] MEDS: Omeprazole 20 MG Cap.CR PO SCH ×2 (08:47→21:56)
[2023-10-15] MEDS: Insulin Lispro 100 Units/ML 3 ML Vial SUBCUT SCH ×3 (08:49→17:02)
[2023-10-15] MEDS: Insulin Glarg,Human.Rec.Analog 100 Unit/ML 10 ML Vial SUBCUT SCH ×2 (08:50→21:57)
[2023-10-15] MEDS: Multivitamins with Iron/Calcium/Folic Acid/Minerals Tab PO SCH (12:37)
[2023-10-15] MEDS: Loperamide 2 MG Cap PO PRN (14:15)
[2023-10-15] MEDS: Amitriptyline 25 MG Tab PO SCH (21:55)
[2023-10-16] MEDS: Acetaminophen/HYDROcodone 325-5 MG Tab PO PRN ×3 (07:49→21:17)
[2023-10-16] MEDS: Carvedilol 6.25 MG Tab PO SCH ×2 (07:54→17:06)
[2023-10-16] MEDS: Omeprazole 20 MG Cap.CR PO SCH ×2 (09:34→21:16)
[2023-10-16] MEDS: Vitamin E (dl-alpha-tocopherol acetate) 400 Unit Cap PO SCH (09:35)
[2023-10-16] MEDS: Aspirin 81 MG Tab.Chew PO SCH ×2 (09:35→21:17)
[2023-10-16] MEDS: Calcium Carbonate 500 MG Tab.Chew PO SCH (09:35)
[2023-10-16] MEDS: Doxycycline Monohydrate 100 MG Cap PO SCH ×2 (09:35→21:17)
[2023-10-16] MEDS: Loratadine 10 MG Tab PO SCH (09:35)
[2023-10-16] MEDS: Baclofen 10 MG Tab PO SCH ×3 (09:35→21:17)
[2023-10-16] MEDS: Gabapentin 300 MG Cap PO SCH ×3 (09:35→21:17)
[2023-10-16] MEDS: Saccharomyces Boulardii (Probiotic) 250 MG Cap PO SCH ×2 (09:35→21:16)
[2023-10-16] MEDS: Potassium Chloride 10 MEQ Tab.ER PO SCH (09:35)
[2023-10-16] MEDS: Furosemide 40 MG Tab PO SCH (09:36)
[2023-10-16] MEDS: Docusate Sodium 100 MG Cap PO SCH ×2 (09:36→21:16)
[2023-10-16] MEDS: Insulin Glarg,Human.Rec.Analog 100 Unit/ML 10 ML Vial SUBCUT SCH ×2 (09:45→21:21)
[2023-10-16] MEDS: Insulin Lispro 100 Units/ML 3 ML Vial SUBCUT SCH ×3 (09:49→17:28)
[2023-10-16] MEDS: Multivitamins with Iron/Calcium/Folic Acid/Minerals Tab PO SCH (12:20)
[2023-10-16] MEDS: Amitriptyline 25 MG Tab PO SCH (21:17)
[2023-10-17] MEDS: Acetaminophen/HYDROcodone 325-5 MG Tab PO PRN ×2 (07:06→12:14)
[2023-10-17] MEDS: Insulin Lispro 100 Units/ML 3 ML Vial SUBCUT SCH ×3 (08:13→17:51)
[2023-10-17] MEDS: Calcium Carbonate 500 MG Tab.Chew PO SCH (09:01)
[2023-10-17] MEDS: Aspirin 81 MG Tab.Chew PO SCH (09:01)
[2023-10-17] MEDS: Gabapentin 300 MG Cap PO SCH ×2 (09:02→13:42)
[2023-10-17] MEDS: Omeprazole 20 MG Cap.CR PO SCH (09:02)
[2023-10-17] MEDS: Saccharomyces Boulardii (Probiotic) 250 MG Cap PO SCH (09:02)
[2023-10-17] MEDS: Vitamin E (dl-alpha-tocopherol acetate) 400 Unit Cap PO SCH (09:03)
[2023-10-17] MEDS: Baclofen 10 MG Tab PO SCH ×2 (09:03→13:42)
[2023-10-17] MEDS: Docusate Sodium 100 MG Cap PO SCH (09:03)
[2023-10-17] MEDS: Potassium Chloride 10 MEQ Tab.ER PO SCH (09:03)
[2023-10-17] MEDS: Doxycycline Monohydrate 100 MG Cap PO SCH (09:04)
[2023-10-17] MEDS: Loratadine 10 MG Tab PO SCH (09:04)
[2023-10-17] MEDS: Furosemide 40 MG Tab PO SCH (09:04)
[2023-10-17] MEDS: Insulin Glarg,Human.Rec.Analog 100 Unit/ML 10 ML Vial SUBCUT SCH (09:05)
[2023-10-17] MEDS: Carvedilol 6.25 MG Tab PO SCH ×2 (09:05→17:51)
[2023-10-17] MEDS: Multivitamins with Iron/Calcium/Folic Acid/Minerals Tab PO SCH (12:19)
== END 2023-10-17 17:59 | disposition home or self-care (01) | DRG 948 ==
LOC: DL.MS 10:14
PROVIDERS: ADMIT Internal Medicine; ATTEND Internal Medicine
DX: R53.81 Other malaise (principal); Z68.41 Body mass index [BMI] 40.0-44.9, adult; H54.7 Unspecified visual loss; I10 Essential (primary) hypertension; J45.909 Unspecified asthma, uncomplicated; K21.9 Gastro-esophageal reflux disease without esophagitis; N18.30 Chronic kidney disease, stage 3 unspecified; E11.22 Type 2 diabetes mellitus with diabetic chronic kidney disease; E11.65 Type 2 diabetes mellitus with hyperglycemia; K59.00 Constipation, unspecified; E11.42 Type 2 diabetes mellitus with diabetic polyneuropathy; M81.0 Age-related osteoporosis without current pathological fracture; D69.6 Thrombocytopenia, unspecified; E78.00 Pure hypercholesterolemia, unspecified; G89.29 Other chronic pain; M19.90 Unspecified osteoarthritis, unspecified site; I12.9 Hypertensive chronic kidney disease with stage 1 through stage 4 chronic kidney disease, or unspecified chronic kidney disease; M54.50 Low back pain, unspecified; F32.A Depression, unspecified; Z96.652 Presence of left artificial knee joint; E66.9 Obesity, unspecified; Z79.899 Other long term (current) drug therapy; Z88.8 Allergy status to other drugs, medicaments and biological substances; Z79.82 Long term (current) use of aspirin; Z90.710 Acquired absence of both cervix and uterus; Z98.51 Tubal ligation status; Z90.49 Acquired absence of other specified parts of digestive tract; Z98.890 Other specified postprocedural states
CPT/HCPCS: 36415; 80053; 82947; 83735; 85025; 86140; 97110-GP; 97116-GP; 97161-GP; 97165-GO; 97530-GO; 97535-GO; A9270-GY; J1815-GY; J1885; J2543; J3475; J3490

== ENCOUNTER 2023-11-03 11:59 | Observation (INO) | payer MEDICARE, BC ==
[2023-11-03 12:34] LABS: BASOPHILS PERCENT AUTO 0.5 % (0.0-1.0); EOSINOPHILS PERCENT AUTO 3.3 % (1.0-3.0); HEMATOCRIT 28.8 % (37.0-47.0); HEMOGLOBIN 9.1 g/dL (12.0-16.0); LYMPHOCYTES PERCENT AUTO 29.5 % (20.5-50.1); MEAN CORPUSCULAR HEMOGLOBIN 29.6 pg (27.0-34.0); MEAN CORPUSCULAR HGB CONC 31.6 g/dL (33.0-35.0); MEAN CORPUSCULAR VOLUME 93.8 fL (80-100); MONOCYTES PERCENT AUTO 15.7 % (2-8); PLATELET COUNT,PLT 83 10^3/uL (150-450); RED BLOOD CELL COUNT 3.07 10^6/uL (4.2-5.4); WHITE BLOOD CELL COUNT,WBC 2.1 10^3/uL (5.0-10.0)
[2023-11-03 12:56] LABS: A/G RATIO 0.51; ALANINE AMINOTRANSFERASE,ALT 39 U/L (14-59); ALBUMIN 2.3 g/dL (3.4-5.0); ALKALINE PHOSPHATASE 243 U/L (46-116); ANION GAP 12.2 mEq/L (7-13); ASPARTATE AMNIOTRANSFERASE,AST 60 U/L (15-37); BILIRUBIN TOTAL 0.8 mg/dL (0.2-1.0); BLOOD UREA NITROGEN,BUN 29 mg/dL (7-18); BUN/CREATININE RATIO 21.6 (No establ ref range); CALCIUM 8.6 mg/dL (8.5-10.1); CARBON DIOXIDE,CO2 29 mmol/L (21-32); CHLORIDE,CL 106 mmol/L (98-107); CREATININE 1.34 mg/dL (0.55-1.02); ESTIMATED GFR 44 mL/min (>=60); GLUCOSE RANDOM 197 mg/dL (70-99); POTASSIUM,K 4.2 mmol/L (3.5-5.1); PROTEIN TOTAL,TP 6.8 g/dL (6.4-8.2); SODIUM,NA 143 mmol/L (136-145)
[2023-11-03 13:14] LABS: APPEARANCE,URINE CLEAR (CLEAR); BILIRUBIN,URINE NEGATIVE (NEGATIVE); COLOR,URINE YELLOW (YELLOW); GLUCOSE,URINE NEGATIVE (NEGATIVE); KETONES,URINE NEGATIVE (NEGATIVE); LEUKOCYTE ESTERASE,URINE NEGATIVE (NEGATIVE); NITRITE,URINE NEGATIVE (NEGATIVE); OCCULT BLOOD,URINE NEGATIVE (NEGATIVE); PH,URINE 6.5 (5.0-9.0); PROTEIN,URINE NEGATIVE (NEGATIVE)
[2023-11-03 13:18] LABS: AMPHETAMINES,URINE NEGATIVE (NEGATIVE); BARBITURATES,URINE NEGATIVE (NEGATIVE); BENZODIAZEPINE,URINE NEGATIVE (NEGATIVE); MDMA (ECSTASY), URINE NEGATIVE (NEGATIVE); METHADONE,URINE NEGATIVE (NEGATIVE); METHAMPHETAMINES,URINE NEGATIVE (NEGATIVE); OPIATES,URINE POSITIVE (NEGATIVE); OXYCODONE,URINE NEGATIVE (NEGATIVE); PHENCYCLIDINE,URINE NEGATIVE (NEGATIVE); TCA,URINE POSITIVE (NEGATIVE)
[2023-11-03] MEDS ORDERED: Ketorolac 30 MG/ML SDV IVPUSH PRN (14:13)
[2023-11-03] MEDS ORDERED: Acetaminophen 325 MG Tab PO PRN (14:13)
[2023-11-03] MEDS ORDERED: Ondansetron 4 MG/2 ML SDV IVPUSH PRN (14:16)
[2023-11-03] MEDS ORDERED: Sodium Chloride 0.9% 10 ML Syringe FLUSH PRN (14:16)
[2023-11-03] MEDS ORDERED: Albuterol/Ipratropium 3.0-0.5 MG/3 ML Neb Soln NEB PRN (14:16)
[2023-11-03] MEDS ORDERED: traMADol 50 MG Tab PO PRN (14:17)
[2023-11-03] MEDS ORDERED: Glucagon,Human Recombinant 1 MG Vial IM PRN (14:20)
[2023-11-03] MEDS ORDERED: 50% Dextrose in Water 50 ML Syringe IVPUSH PRN (14:20)
[2023-11-03] MEDS ORDERED: Metoprolol Tartrate 5 MG/5 ML SDV IVPUSH PRN (14:27)
[2023-11-03] MEDS ORDERED: hydrALAZINE 20 MG/ML SDV IVPUSH PRN (14:27)
[2023-11-03] MEDS ORDERED: Sodium Chloride 0.9% 1,500 ML IV SCH (14:30)
[2023-11-03] MEDS: Carvedilol 6.25 MG Tab PO SCH (17:35)
[2023-11-03] MEDS: Insulin Lispro 100 Units/ML 3 ML Vial SUBCUT SCH (17:51)
[2023-11-03] MEDS: Sodium Chloride 0.9% 10 ML Syringe FLUSH SCH (20:23)
[2023-11-03] MEDS: Omeprazole 20 MG Cap.CR PO SCH (20:33)
[2023-11-03] MEDS: Docusate Sodium 100 MG Cap PO SCH (20:33)
[2023-11-03] MEDS: Doxycycline Monohydrate 100 MG Cap PO SCH (20:33)
[2023-11-03] MEDS: Aspirin 81 MG Tab.Chew PO SCH (20:34)
[2023-11-04] MEDS ORDERED: amLODIPine 5 MG Tab PO SCH (09:00)
[2023-11-04] MEDS ORDERED: Loratadine 10 MG Tab PO SCH (09:00)
[2023-11-04] MEDS ORDERED: Vitamin E (dl-alpha-tocopherol acetate) 400 Unit Cap PO SCH (09:00)
[2023-11-04] MEDS ORDERED: Enoxaparin 40 MG/0.4 ML Syringe SUBCUT SCH (09:00)
[2023-11-04] MEDS ORDERED: Calcium Carbonate 500 MG Tab.Chew PO SCH (09:00)
[2023-11-04] MEDS: Carvedilol 6.25 MG Tab PO SCH (09:22)
[2023-11-04] MEDS: Doxycycline Monohydrate 100 MG Cap PO SCH (09:22)
[2023-11-04] MEDS: Docusate Sodium 100 MG Cap PO SCH (09:22)
[2023-11-04] MEDS: Omeprazole 20 MG Cap.CR PO SCH (09:22)
[2023-11-04] MEDS: Aspirin 81 MG Tab.Chew PO SCH (09:22)
[2023-11-04] MEDS: Insulin Lispro 100 Units/ML 3 ML Vial SUBCUT SCH ×3 (09:23→17:17)
[2023-11-04] MEDS ORDERED: Multivitamins with Iron/Calcium/Folic Acid/Minerals Tab PO SCH (12:00)
[2023-11-04] MEDS: Sodium Chloride 0.9% 10 ML Syringe FLUSH SCH (12:25)
== END 2023-11-04 17:36 | disposition home or self-care (01) ==
LOC: DL.ED 11:59 → DL.MS 13:58
PROVIDERS: ADMIT Internal Medicine; ATTEND Internal Medicine
DX: R41.82 Altered mental status, unspecified (principal); E11.42 Type 2 diabetes mellitus with diabetic polyneuropathy; E11.22 Type 2 diabetes mellitus with diabetic chronic kidney disease; I12.9 Hypertensive chronic kidney disease with stage 1 through stage 4 chronic kidney disease, or unspecified chronic kidney disease; N18.30 Chronic kidney disease, stage 3 unspecified; E78.00 Pure hypercholesterolemia, unspecified; J45.909 Unspecified asthma, uncomplicated; K21.9 Gastro-esophageal reflux disease without esophagitis; F32.A Depression, unspecified; E66.9 Obesity, unspecified; Z68.34 Body mass index [BMI] 34.0-34.9, adult; Z98.890 Other specified postprocedural states; Z88.2 Allergy status to sulfonamides; Z88.1 Allergy status to other antibiotic agents; Z88.8 Allergy status to other drugs, medicaments and biological substances
CPT/HCPCS: 36415; 70450; 71045; 72170; 73560-LT; 73560-RT; 73600-RT; 80053; 80305-QW; 81003; 82140; 82947; 83605; 84484; 85025; 93005; 93010; 96372; 96374; 99284; 99285; A9270-GY; C1758; G0378; J1650; J1815-GY; J1885; J3490; J7030

== ENCOUNTER 2023-12-04 19:17 | Inpatient (IN) | payer MEDICARE, BC ==
[2023-12-04] MEDS: Ondansetron 4 MG/2 ML SDV IVPUSH ONE (19:31)
[2023-12-04] MEDS: Sodium Chloride 0.9% 10 ML Syringe FLUSH PRN (19:32)
[2023-12-04] MEDS: Sodium Chloride 0.9% 1,000 ML IV ONE ×2 (19:34→20:51)
[2023-12-04] MEDS: Acetaminophen 500 MG Tab PO ONE (19:45)
[2023-12-04 19:52] LABS: BASOPHILS PERCENT AUTO 0.1 % (0.0-1.0); EOSINOPHILS PERCENT AUTO 0.4 % (1.0-3.0); HEMATOCRIT 28.9 % (37.0-47.0); HEMOGLOBIN 9.4 g/dL (12.0-16.0); LYMPHOCYTES PERCENT AUTO 4.4 % (20.5-50.1); MEAN CORPUSCULAR HEMOGLOBIN 29.8 pg (27.0-34.0); MEAN CORPUSCULAR HGB CONC 32.5 g/dL (33.0-35.0); MEAN CORPUSCULAR VOLUME 91.7 fL (80-100); MONOCYTES PERCENT AUTO 5.5 % (2-8); NEUTROPHILS PERCENT AUTO 89.6 % (42.2-75.2); PLATELET COUNT,PLT 192 10^3/uL (150-450); RED BLOOD CELL COUNT 3.15 10^6/uL (4.2-5.4); WHITE BLOOD CELL COUNT,WBC 14.5 10^3/uL (5.0-10.0)
[2023-12-04 20:10] LABS: INR 1.3 (0.9-1.2); PROTHROMBIN TIME 13.1 SEC (9.0-12.0); PTT,PARTIAL THROMBOPLSTIN TIME 26.3 SEC (22.0-34.0)
[2023-12-04 20:15] LABS: LACTIC ACID 2.5 mmol/L (0.4-2.0)
[2023-12-04 20:21] LABS: ALANINE AMINOTRANSFERASE,ALT 38 U/L (14-59); ALKALINE PHOSPHATASE 277 U/L (46-116); ANION GAP 11.9 mEq/L (7-13); ASPARTATE AMNIOTRANSFERASE,AST 65 U/L (15-37); BILIRUBIN TOTAL 1.3 mg/dL (0.2-1.0); BLOOD UREA NITROGEN,BUN 33 mg/dL (7-18); BUN/CREATININE RATIO 20.1 (No establ ref range); C-REACTIVE PROTEIN 6.23 ng/dL (<=0.50); CALCIUM 8.6 mg/dL (8.5-10.1); CARBON DIOXIDE,CO2 28 mmol/L (21-32); CHLORIDE,CL 101 mmol/L (98-107); CREATINE KINASE,CK 79 U/L (16-191); CREATININE 1.64 mg/dL (0.55-1.02); EST CRCL DRUG DOSING (CG) 31.59 mL/min; GLUCOSE RANDOM 158 mg/dL (70-99); MAGNESIUM 1.6 mg/dL (1.8-2.4); POTASSIUM,K 4.9 mmol/L (3.5-5.1); PROTEIN TOTAL,TP 7.8 g/dL (6.4-8.2); SODIUM,NA 136 mmol/L (136-145); TSH ULTRASENSITIVE 4.43 uIU/mL (0.36-3.74)
[2023-12-04 20:24] LABS: APPEARANCE,URINE CLEAR (CLEAR); BILIRUBIN,URINE NEGATIVE (NEGATIVE); COLOR,URINE YELLOW (YELLOW); GLUCOSE,URINE NEGATIVE (NEGATIVE); KETONES,URINE NEGATIVE (NEGATIVE); LEUKOCYTE ESTERASE,URINE NEGATIVE (NEGATIVE); NITRITE,URINE NEGATIVE (NEGATIVE); OCCULT BLOOD,URINE NEGATIVE (NEGATIVE); PROTEIN,URINE NEGATIVE (NEGATIVE)
[2023-12-04 20:24] LABS: A/G RATIO 0.34; ESTIMATED GFR 34 mL/min (>=60); ETHANOL BLOOD MEDICAL < 3 mg/dL (0)
[2023-12-04 20:38] LABS: AMPHETAMINES,URINE NEGATIVE (NEGATIVE); BARBITURATES,URINE NEGATIVE (NEGATIVE); BENZODIAZEPINE,URINE NEGATIVE (NEGATIVE); MDMA (ECSTASY), URINE NEGATIVE (NEGATIVE); METHADONE,URINE NEGATIVE (NEGATIVE); METHAMPHETAMINES,URINE NEGATIVE (NEGATIVE); OPIATES,URINE NEGATIVE (NEGATIVE); OXYCODONE,URINE NEGATIVE (NEGATIVE); PHENCYCLIDINE,URINE NEGATIVE (NEGATIVE); TCA,URINE POSITIVE (NEGATIVE)
[2023-12-04] MEDS: Levofloxacin/Dextrose 5%-Water 750 MG in Premix Bag 1 BAG IV ONE (20:45)
[2023-12-04 20:54] LABS: CORONAVIRUS COVID-19 NAA NEGATIVE (NEGATIVE); INFLUENZA A NAA NEGATIVE (NEGATIVE); INFLUENZA B NAA NEGATIVE (NEGATIVE); RESPIRATORY SYNCYTIAL VIR NAA NEGATIVE (NEGATIVE)
[2023-12-04] MEDS ORDERED: Naloxone 2 MG/2 ML Syringe IVPUSH PRN (22:03)
[2023-12-04] MEDS ORDERED: HYDROmorphone 0.5 MG/0.5 ML Syringe IVPUSH PRN (22:03)
[2023-12-04] MEDS ORDERED: Albuterol/Ipratropium 3.0-0.5 MG/3 ML Neb Soln NEB PRN (22:03)
[2023-12-04] MEDS ORDERED: Magnesium Hydroxide 400 MG/5 ML Susp 30 ML Cup PO PRN (22:03)
[2023-12-04] MEDS ORDERED: Acetaminophen/oxyCODONE 325-5 MG Tab PO PRN (22:03)
[2023-12-04] MEDS ORDERED: Sennosides/Docusate Sodium 50-8.6 MG Tab PO PRN (22:03)
[2023-12-04] MEDS ORDERED: Polyethylene Glycol 3350 Powder 17 GM Packet PO PRN (22:03)
[2023-12-04] MEDS ORDERED: hydrALAZINE 20 MG/ML SDV IVPUSH PRN (22:09)
[2023-12-04] MEDS ORDERED: Metoprolol Tartrate 5 MG/5 ML SDV IVPUSH PRN (22:09)
[2023-12-04] MEDS ORDERED: guaiFENesin/Dextromethorphan 100-10 MG/5 ML Soln 5 ML Cup PO PRN (22:13)
[2023-12-04] MEDS ORDERED: Glucagon,Human Recombinant 1 MG Vial IM PRN (22:21)
[2023-12-04] MEDS ORDERED: 50% Dextrose in Water 50 ML Syringe IVPUSH PRN (22:21)
[2023-12-04] MEDS: Ketorolac 30 MG/ML SDV IVPUSH ONE (22:57)
[2023-12-04] MEDS: Pantoprazole 40 MG Vial IVPUSH ONE (22:58)
[2023-12-04] MEDS: Albumin Human 25 GM in Premix Bag 1 BAG IV SCH (22:59)
[2023-12-04] MEDS: Midodrine 5 MG Tab PO ONE (23:07)
[2023-12-04] MEDS: Sodium Chloride 0.9% 1,000 ML IV SCH (23:37)
[2023-12-05] MEDS: Piperacillin/Tazobactam 4.5 GM in Sodium Chloride 0.9% 100 ML IV ONE (00:07)
[2023-12-05] MEDS: Magnesium Sulfate/Water 2 GM in Premix Bag 1 BAG IV ONE (01:55)
[2023-12-05] MEDS: Piperacillin/Tazobactam 4.5 GM in Sodium Chloride 0.9% 100 ML IV SCH (04:08)
[2023-12-05] MEDS: traMADol 50 MG Tab PO PRN (04:17)
[2023-12-05] MEDS: Acetaminophen 325 MG Tab PO PRN (04:17)
[2023-12-05] MEDS: Midodrine 5 MG Tab PO PRN (04:18)
[2023-12-05] MEDS: Pantoprazole 40 MG Tab.CR PO SCH (05:01)
[2023-12-05 06:37] LABS: EOSINOPHILS PERCENT AUTO 0.2 % (1.0-3.0); LYMPHOCYTES PERCENT AUTO 8.5 % (20.5-50.1); MEAN CORPUSCULAR HEMOGLOBIN 29.6 pg (27.0-34.0); MEAN CORPUSCULAR HGB CONC 31.4 g/dL (33.0-35.0); MEAN CORPUSCULAR VOLUME 94.1 fL (80-100); MONOCYTES PERCENT AUTO 6.8 % (2-8); NEUTROPHILS PERCENT AUTO 84.5 % (42.2-75.2); PLATELET COUNT,PLT 72 10^3/uL (150-450); RED BLOOD CELL COUNT 2.03 10^6/uL (4.2-5.4); WHITE BLOOD CELL COUNT,WBC 5.7 10^3/uL (5.0-10.0)
[2023-12-05 06:53] LABS: HEMATOCRIT 19.1 % (37.0-47.0)
[2023-12-05 06:56] LABS: ANION GAP 13.3 mEq/L (7-13); BUN/CREATININE RATIO 19.5 (No establ ref range); CALCIUM 7.7 mg/dL (8.5-10.1); CREATININE 1.74 mg/dL (0.55-1.02); EST CRCL DRUG DOSING (CG) 29.77 mL/min; POTASSIUM,K 4.3 mmol/L (3.5-5.1); PROTEIN TOTAL,TP 5.7 g/dL (6.4-8.2)
[2023-12-05 06:57] LABS: BILIRUBIN TOTAL 0.9 mg/dL (0.2-1.0); C-REACTIVE PROTEIN 7.05 ng/dL (<=0.50)
[2023-12-05 07:03] LABS: A/G RATIO 0.54
[2023-12-05 08:01] LABS: MEAN CORPUSCULAR HEMOGLOBIN 29.7 pg (27.0-34.0); MEAN CORPUSCULAR HGB CONC 31.4 g/dL (33.0-35.0); MEAN CORPUSCULAR VOLUME 94.6 fL (80-100); RED BLOOD CELL COUNT 2.02 10^6/uL (4.2-5.4); WHITE BLOOD CELL COUNT,WBC 4.9 10^3/uL (5.0-10.0)
[2023-12-05 08:02] LABS: HEMATOCRIT 19.1 % (37.0-47.0)
[2023-12-05] MEDS: Azithromycin 500 MG in Sodium Chloride 0.9% 250 ML IV SCH (08:37)
[2023-12-05] MEDS: Saccharomyces Boulardii (Probiotic) 250 MG Cap PO SCH (08:41)
[2023-12-05] MEDS: Insulin Lispro 100 Units/ML 3 ML Vial SUBCUT SCH (08:45)
[2023-12-05] MEDS: Acetaminophen 325 MG Tab PO ONE (08:47)
[2023-12-05] MEDS ORDERED: Docusate Sodium 100 MG Cap PO PRN (09:02)
[2023-12-05] MEDS ORDERED: 50% Dextrose in Water 50 ML Syringe IVPUSH PRN (09:38)
[2023-12-05] MEDS ORDERED: Glucagon,Human Recombinant 1 MG Vial IM PRN (09:38)
[2023-12-05 09:54] LABS: PERCENT FE SATURATION 8.4 % (20.0-50.0)
[2023-12-05] MEDS ORDERED: Baclofen 10 MG Tab PO SCH (10:00)
[2023-12-05] MEDS: Insulin Glarg,Human.Rec.Analog 100 Unit/ML 10 ML Vial SUBCUT SCH (10:33)
[2023-12-05] MEDS: Multivitamins with Iron/Calcium/Folic Acid/Minerals Tab PO SCH (11:55)
[2023-12-05 12:31] LABS: HEMATOCRIT 23.6 % (37.0-47.0); HEMOGLOBIN 7.5 g/dL (12.0-16.0); MEAN CORPUSCULAR HEMOGLOBIN 29.9 pg (27.0-34.0); MEAN CORPUSCULAR HGB CONC 31.8 g/dL (33.0-35.0); RED BLOOD CELL COUNT 2.51 10^6/uL (4.2-5.4); WHITE BLOOD CELL COUNT,WBC 4.2 10^3/uL (5.0-10.0)
[2023-12-05] MEDS: Magnesium Oxide 400 MG Tab PO SCH (14:08)
[2023-12-05] MEDS: Baclofen 10 MG Tab PO SCH (14:08)
[2023-12-05] MEDS: Gabapentin 300 MG Cap PO SCH (14:08)
[2023-12-05] MEDS: Albumin Human 50 GM in Premix Bag 1 BAG IV ONE (14:18)
[2023-12-05 18:12] LABS: BASOPHILS PERCENT AUTO 0.3 % (0.0-1.0); EOSINOPHILS PERCENT AUTO 0.8 % (1.0-3.0); HEMATOCRIT 25.1 % (37.0-47.0); HEMOGLOBIN 8.1 g/dL (12.0-16.0); LYMPHOCYTES PERCENT AUTO 8.6 % (20.5-50.1); MEAN CORPUSCULAR HEMOGLOBIN 29.9 pg (27.0-34.0); MEAN CORPUSCULAR HGB CONC 32.3 g/dL (33.0-35.0); MEAN CORPUSCULAR VOLUME 92.6 fL (80-100); MONOCYTES PERCENT AUTO 6.1 % (2-8); NEUTROPHILS PERCENT AUTO 84.2 % (42.2-75.2); PLATELET COUNT,PLT 63 10^3/uL (150-450); RED BLOOD CELL COUNT 2.71 10^6/uL (4.2-5.4); WHITE BLOOD CELL COUNT,WBC 3.6 10^3/uL (5.0-10.0)
[2023-12-05] MEDS: Doxycycline Monohydrate 100 MG Cap PO SCH (20:00)
[2023-12-05] MEDS ORDERED: Omeprazole 20 MG Cap.CR PO SCH (21:00)
[2023-12-05] MEDS ORDERED: Non-Formulary Medication 1 Each (Insulin Degludec [Tresiba] 100 UNIT/ML Vial) SQ SCH (21:00)
[2023-12-06 06:20] LABS: EOSINOPHILS PERCENT AUTO 1.9 % (1.0-3.0); HEMATOCRIT 26.2 % (37.0-47.0); HEMOGLOBIN 8.6 g/dL (12.0-16.0); LYMPHOCYTES PERCENT AUTO 11.2 % (20.5-50.1); MEAN CORPUSCULAR HEMOGLOBIN 29.9 pg (27.0-34.0); MEAN CORPUSCULAR HGB CONC 32.8 g/dL (33.0-35.0); NEUTROPHILS PERCENT AUTO 74.9 % (42.2-75.2); PLATELET COUNT,PLT 67 10^3/uL (150-450); RED BLOOD CELL COUNT 2.88 10^6/uL (4.2-5.4); WHITE BLOOD CELL COUNT,WBC 3.7 10^3/uL (5.0-10.0)
[2023-12-06 06:40] LABS: A/G RATIO 0.67; ALBUMIN 2.4 g/dL (3.4-5.0); ANION GAP 13.1 mEq/L (7-13); BUN/CREATININE RATIO 19.2 (No establ ref range); C-REACTIVE PROTEIN 12.98 ng/dL (<=0.50); CALCIUM 8.1 mg/dL (8.5-10.1); CREATININE 1.72 mg/dL (0.55-1.02); EST CRCL DRUG DOSING (CG) 30.12 mL/min; MAGNESIUM 1.9 mg/dL (1.8-2.4); POTASSIUM,K 4.1 mmol/L (3.5-5.1)
[2023-12-06] MEDS ORDERED: Glucagon,Human Recombinant 1 MG Vial IM PRN (08:13)
[2023-12-06] MEDS ORDERED: 50% Dextrose in Water 50 ML Syringe IVPUSH PRN (08:13)
[2023-12-06] MEDS: Loratadine 10 MG Tab PO SCH (09:12)
[2023-12-06] MEDS: Calcium Carbonate/Vitamin D3 1250 MG-5 MCG Tab PO SCH (09:12)
[2023-12-06] MEDS: Azithromycin 250 MG Tab PO SCH (09:12)
[2023-12-06] MEDS ORDERED: Insulin Lispro 100 Units/ML 3 ML Vial SUBCUT SCH (12:00)
[2023-12-07 06:25] LABS: EOSINOPHILS PERCENT AUTO 2.7 % (1.0-3.0); HEMATOCRIT 29.6 % (37.0-47.0); HEMOGLOBIN 9.6 g/dL (12.0-16.0); LYMPHOCYTES PERCENT AUTO 18.1 % (20.5-50.1); MEAN CORPUSCULAR HEMOGLOBIN 29.6 pg (27.0-34.0); MEAN CORPUSCULAR HGB CONC 32.4 g/dL (33.0-35.0); MEAN CORPUSCULAR VOLUME 91.4 fL (80-100); MONOCYTES PERCENT AUTO 17.5 % (2-8); NEUTROPHILS PERCENT AUTO 61.7 % (42.2-75.2); PLATELET COUNT,PLT 47 10^3/uL (150-450); RED BLOOD CELL COUNT 3.24 10^6/uL (4.2-5.4); WHITE BLOOD CELL COUNT,WBC 3.7 10^3/uL (5.0-10.0)
[2023-12-07 06:32] LABS: APPEARANCE,URINE CLEAR (CLEAR); BILIRUBIN,URINE NEGATIVE (NEGATIVE); COLOR,URINE YELLOW (YELLOW); GLUCOSE,URINE NEGATIVE (NEGATIVE); KETONES,URINE NEGATIVE (NEGATIVE); LEUKOCYTE ESTERASE,URINE NEGATIVE (NEGATIVE); NITRITE,URINE NEGATIVE (NEGATIVE); OCCULT BLOOD,URINE NEGATIVE (NEGATIVE); PH,URINE 5.5 (5.0-9.0); PROTEIN,URINE 30 (NEGATIVE); UROBILINOGEN,URINE 0.2 mg/dL (0.2-1.0)
[2023-12-07 06:39] LABS: ALBUMIN 2.2 g/dL (3.4-5.0); ANION GAP 11.3 mEq/L (7-13); BILIRUBIN TOTAL 0.8 mg/dL (0.2-1.0); BUN/CREATININE RATIO 19.9 (No establ ref range); C-REACTIVE PROTEIN 12.78 ng/dL (<=0.50); CREATININE 1.46 mg/dL (0.55-1.02); EST CRCL DRUG DOSING (CG) 35.48 mL/min; MAGNESIUM 1.9 mg/dL (1.8-2.4); POTASSIUM,K 4.3 mmol/L (3.5-5.1); PROTEIN TOTAL,TP 6.1 g/dL (6.4-8.2)
[2023-12-07 06:41] LABS: A/G RATIO 0.56
[2023-12-07 06:45] LABS: BACTERIA,URINE RARE /HPF (0-FEW/HPF); EPITHELIAL CELLS,URINE RARE /HPF (NOT SEEN); MUCUS,URINE NOT SEEN /LPF (NOT SEEN); RBC,URINE NOT SEEN /HPF (0-5); WBC,URINE 0-5 /HPF (0-5/HPF)
[2023-12-07] MEDS: Furosemide 20 MG/2 ML VIAL IVPUSH ONE (10:18)
[2023-12-07] MEDS: Enoxaparin 30 MG/0.3 ML Syringe SUBCUT SCH (10:18)
[2023-12-07] MEDS: Linezolid 600 MG in Premix Bag 1 BAG IV SCH (10:25)
[2023-12-08 06:23] LABS: EOSINOPHILS PERCENT AUTO 4.5 % (1.0-3.0); HEMATOCRIT 27.3 % (37.0-47.0); LYMPHOCYTES PERCENT AUTO 27.3 % (20.5-50.1); MEAN CORPUSCULAR HEMOGLOBIN 29.9 pg (27.0-34.0); MEAN CORPUSCULAR VOLUME 90.7 fL (80-100); NEUTROPHILS PERCENT AUTO 50.2 % (42.2-75.2); PLATELET COUNT,PLT 72 10^3/uL (150-450); RED BLOOD CELL COUNT 3.01 10^6/uL (4.2-5.4); WHITE BLOOD CELL COUNT,WBC 2.5 10^3/uL (5.0-10.0)
[2023-12-08 06:46] LABS: ALBUMIN 2.1 g/dL (3.4-5.0); ANION GAP 7.6 mEq/L (7-13); BILIRUBIN TOTAL 0.9 mg/dL (0.2-1.0); BUN/CREATININE RATIO 15.8 (No establ ref range); C-REACTIVE PROTEIN 9.48 ng/dL (<=0.50); CALCIUM 7.9 mg/dL (8.5-10.1); CREATININE 1.2 mg/dL (0.55-1.02); EST CRCL DRUG DOSING (CG) 43.17 mL/min; MAGNESIUM 1.6 mg/dL (1.8-2.4); POTASSIUM,K 3.6 mmol/L (3.5-5.1)
[2023-12-08 06:49] LABS: A/G RATIO 0.54
[2023-12-08] MEDS: Furosemide 40 MG/4 ML VIAL IVPUSH SCH (13:27)
[2023-12-09 06:50] LABS: ALBUMIN 1.9 g/dL (3.4-5.0); ANION GAP 7.5 mEq/L (7-13); BILIRUBIN TOTAL 0.7 mg/dL (0.2-1.0); BUN/CREATININE RATIO 16.3 (No establ ref range); C-REACTIVE PROTEIN 7.72 ng/dL (<=0.50); CALCIUM 7.8 mg/dL (8.5-10.1); CREATININE 1.04 mg/dL (0.55-1.02); EST CRCL DRUG DOSING (CG) 49.81 mL/min; MAGNESIUM 1.5 mg/dL (1.8-2.4); POTASSIUM,K 3.5 mmol/L (3.5-5.1); PROTEIN TOTAL,TP 5.9 g/dL (6.4-8.2)
[2023-12-09 06:52] LABS: HEMATOCRIT 26.5 % (37.0-47.0); HEMOGLOBIN 8.7 g/dL (12.0-16.0); MEAN CORPUSCULAR HEMOGLOBIN 29.5 pg (27.0-34.0); MEAN CORPUSCULAR HGB CONC 32.8 g/dL (33.0-35.0); MEAN CORPUSCULAR VOLUME 89.8 fL (80-100); PLATELET COUNT,PLT 64 10^3/uL (150-450); RED BLOOD CELL COUNT 2.95 10^6/uL (4.2-5.4); WHITE BLOOD CELL COUNT,WBC 2.5 10^3/uL (5.0-10.0)
[2023-12-09 06:54] LABS: A/G RATIO 0.48
[2023-12-09 07:00] LABS: EOSINOPHILS PERCENT AUTO 4.5 % (1.0-3.0); LYMPHOCYTES PERCENT AUTO 23.2 % (20.5-50.1); MONOCYTES PERCENT AUTO 21.1 % (2-8); NEUTROPHILS PERCENT AUTO 51.2 % (42.2-75.2)
[2023-12-09 07:52] LABS: BAND PERCENT MAN 1 %; EOSINOPHILS PERCENT MAN 5 % (1-3); LYMPHOCYTES PERCENT MAN 20 % (20-50); MONOCYTES PERCENT MAN 23 % (2-8); SEG NEUTROPHILS PERCENT MAN 51 % (42-75)
[2023-12-09] MEDS: Potassium Chloride 10 MEQ Tab.ER PO ONE (08:15)
[2023-12-09] MEDS: Potassium Chloride 10 MEQ Tab.ER PO SCH (20:40)
[2023-12-10] MEDS: Metolazone 2.5 MG Tab PO SCH (10:10)
[2023-12-10] MEDS: Nystatin Topical Powder 60 GM Bottle TOP SCH (20:57)
[2023-12-11 06:40] LABS: BASOPHILS PERCENT AUTO 0.3 % (0.0-1.0); EOSINOPHILS PERCENT AUTO 4.9 % (1.0-3.0); HEMATOCRIT 27.4 % (37.0-47.0); HEMOGLOBIN 8.9 g/dL (12.0-16.0); LYMPHOCYTES PERCENT AUTO 24.9 % (20.5-50.1); MEAN CORPUSCULAR HEMOGLOBIN 29.3 pg (27.0-34.0); MEAN CORPUSCULAR HGB CONC 32.5 g/dL (33.0-35.0); MEAN CORPUSCULAR VOLUME 90.1 fL (80-100); MONOCYTES PERCENT AUTO 12.3 % (2-8); NEUTROPHILS PERCENT AUTO 57.6 % (42.2-75.2); PLATELET COUNT,PLT 80 10^3/uL (150-450); RED BLOOD CELL COUNT 3.04 10^6/uL (4.2-5.4); WHITE BLOOD CELL COUNT,WBC 3.1 10^3/uL (5.0-10.0)
[2023-12-11 07:02] LABS: ANION GAP 10.3 mEq/L (7-13); CALCIUM 8.2 mg/dL (8.5-10.1); CREATININE 1.12 mg/dL (0.55-1.02); EST CRCL DRUG DOSING (CG) 46.25 mL/min; POTASSIUM,K 3.3 mmol/L (3.5-5.1)
[2023-12-11] MEDS: Potassium Chloride 10 MEQ Tab.ER PO ONE (08:36)
[2023-12-11] MEDS: Insulin Lispro 100 Units/ML 3 ML Vial SUBCUT SCH (08:41)
[2023-12-11] MEDS: Insulin Glarg,Human.Rec.Analog 100 Unit/ML 10 ML Vial SUBCUT SCH (09:13)
[2023-12-11] MEDS: Potassium Chloride 10 MEQ Tab.ER PO SCH (20:46)
[2023-12-12 06:05] LABS: BASOPHILS PERCENT AUTO 0.4 % (0.0-1.0); EOSINOPHILS PERCENT AUTO 3.3 % (1.0-3.0); HEMATOCRIT 27.4 % (37.0-47.0); HEMOGLOBIN 9.1 g/dL (12.0-16.0); LYMPHOCYTES PERCENT AUTO 17.6 % (20.5-50.1); MEAN CORPUSCULAR HEMOGLOBIN 29.7 pg (27.0-34.0); MEAN CORPUSCULAR HGB CONC 33.2 g/dL (33.0-35.0); MEAN CORPUSCULAR VOLUME 89.5 fL (80-100); MONOCYTES PERCENT AUTO 8.2 % (2-8); NEUTROPHILS PERCENT AUTO 70.5 % (42.2-75.2); PLATELET COUNT,PLT 83 10^3/uL (150-450); RED BLOOD CELL COUNT 3.06 10^6/uL (4.2-5.4); WHITE BLOOD CELL COUNT,WBC 4.5 10^3/uL (5.0-10.0)
[2023-12-12 06:38] LABS: ANION GAP 9.1 mEq/L (7-13); CALCIUM 8.3 mg/dL (8.5-10.1); CREATININE 1.17 mg/dL (0.55-1.02); EST CRCL DRUG DOSING (CG) 44.28 mL/min; POTASSIUM,K 3.1 mmol/L (3.5-5.1)
[2023-12-12] MEDS: Potassium Chloride 10 MEQ Tab.ER PO ONE (08:26)
== END 2023-12-12 10:40 | DRG 871 ==
LOC: DL.ED 19:17 → DL.MS 20:48
PROVIDERS: ADMIT Internal Medicine; ATTEND Internal Medicine
PROC: 3E03329 Introduction of Other Anti-infective into Peripheral Vein, Percutaneous Approach (ICD-10-PCS; 2023-12-04)
PROC: 30233N1 Transfusion of Nonautologous Red Blood Cells into Peripheral Vein, Percutaneous Approach (ICD-10-PCS; principal; 2023-12-05)
PROC: 30233N1 Transfusion of Nonautologous Red Blood Cells into Peripheral Vein, Percutaneous Approach (ICD-10-PCS; 2023-12-05)
PROC: 0T2BX0Z Change Drainage Device in Bladder, External Approach (ICD-10-PCS; 2023-12-07)
DX: A41.9 Sepsis, unspecified organism (principal); A40.8 Other streptococcal sepsis; G92.8 Other toxic encephalopathy; J18.9 Pneumonia, unspecified organism; N18.9 Chronic kidney disease, unspecified; K21.9 Gastro-esophageal reflux disease without esophagitis; E11.9 Type 2 diabetes mellitus without complications; J69.0 Pneumonitis due to inhalation of food and vomit; I13.0 Hypertensive heart and chronic kidney disease with heart failure and stage 1 through stage 4 chronic kidney disease, or unspecified chronic kidney disease; E87.20 Acidosis, unspecified; D61.818 Other pancytopenia; L03.115 Cellulitis of right lower limb; M86.68 Other chronic osteomyelitis, other site; E78.00 Pure hypercholesterolemia, unspecified; F32.A Depression, unspecified; E11.22 Type 2 diabetes mellitus with diabetic chronic kidney disease; I50.9 Heart failure, unspecified; J45.909 Unspecified asthma, uncomplicated; K59.09 Other constipation; M19.90 Unspecified osteoarthritis, unspecified site; M54.9 Dorsalgia, unspecified; G89.29 Other chronic pain; E11.42 Type 2 diabetes mellitus with diabetic polyneuropathy; E66.9 Obesity, unspecified; K21.00 Gastro-esophageal reflux disease with esophagitis, without bleeding; N18.30 Chronic kidney disease, stage 3 unspecified; Z96.652 Presence of left artificial knee joint; T50.915A Adverse effect of multiple unspecified drugs, medicaments and biological substances, initial encounter; D72.829 Elevated white blood cell count, unspecified; D50.9 Iron deficiency anemia, unspecified; D63.1 Anemia in chronic kidney disease; E11.65 Type 2 diabetes mellitus with hyperglycemia; E83.52 Hypercalcemia; E83.42 Hypomagnesemia; E80.6 Other disorders of bilirubin metabolism; E88.09 Other disorders of plasma-protein metabolism, not elsewhere classified; I95.9 Hypotension, unspecified; M25.462 Effusion, left knee; R33.9 Retention of urine, unspecified; R58 Hemorrhage, not elsewhere classified; M81.0 Age-related osteoporosis without current pathological fracture; K74.60 Unspecified cirrhosis of liver; E87.6 Hypokalemia; Z91.81 History of falling; Z88.1 Allergy status to other antibiotic agents; Z88.8 Allergy status to other drugs, medicaments and biological substances; Z88.2 Allergy status to sulfonamides; Z91.041 Radiographic dye allergy status; Z79.899 Other long term (current) drug therapy; Z79.2 Long term (current) use of antibiotics; Z68.39 Body mass index [BMI] 39.0-39.9, adult; Z90.710 Acquired absence of both cervix and uterus; Z98.51 Tubal ligation status; Z90.49 Acquired absence of other specified parts of digestive tract; Z98.890 Other specified postprocedural states; Z79.4 Long term (current) use of insulin
CPT/HCPCS: 0241U; 36415; 36430; 51702; 71045; 80048; 80053; 80305; 80307; 81001; 81003; 82140; 82272; 82550; 82607; 82728; 82947; 83540; 83550; 83605; 83735; 84145; 84443; 84484; 85025; 85027; 85610; 85730; 86140; 86850; 86900; 86901; 86920; 86922; 87040; 87077; 93005; 93010; 93971; 96361; 96374; 96375; 97110; 97161; 97165; 97530; 99233; 99239; 99285; A9270-GY; C9113; J0456; J1650; J1815-GY; J1885; J1940; J1956; J2020; J2405; J2543; J3475; J3490; J7030; J7050; P9016; P9047